=== PATIENT | male | born 1955 | race Two or more races ===

== ENCOUNTER 2020-02-13 06:05 | Outpatient (REF) | payer MEDICAID, SELFPAY ==
[2020-02-13 07:47] LABS: MANUAL DIFF FLAG NO
[2020-02-13 07:51] LABS: Basophils Percent Auto 0.6 % (0-2); Eosinophils Absolute Auto 0.2 X10*3/uL (0.0-0.4); Eosinophils Percent Auto 4.6 % (0-4); Hematocrit 40.9 % (42-52); Hemoglobin 13.5 g/dl (14.0-18.0); Imm Gran Abs Auto 0.01 X10*3/uL (0.00-0.03); Imm Gran Pct Auto 0.3 % (0.0-0.4); Lymphocytes Absolute Auto 1.5 X10*3/uL (1.2-4.9); Lymphocytes Percent Auto 44.5 % (20-40); Mean Corpuscular Hemoglobin 29.4 pg (27.0-33.0); Mean Corpuscular Volume 89.1 fL (80-98); Mean Platelet Volume 10.8 fL (9.4-12.4); Monocytes Absolute Auto 0.4 X10*3/uL (0.1-1.2); Monocytes Percent Auto 10.7 % (2-11); Neutrophils Absolute Auto 1.4 X10*3/uL (2.0-8.3); Neutrophils Percent Auto 39.3 % (45-73); Platelet Count 231 X10*3/uL (160-400); Red Blood Count 4.59 X10*6/uL (4.60-5.80); Red Cell Distribution Width 13.1 % (11.0-16.0); White Blood Count 3.5 X10*3/uL (4.8-10.8)
[2020-02-13 08:17] LABS: Alanine Aminotransferase 28 U/L (0-40); Albumin Level 4.6 g/dL (3.5-5.0); Alkaline Phosphatase 75 U/L (39-117); Anion Gap 13 (12-20); Aspartate Amino Transferase 28 U/L (5-37); Bilirubin Total 0.7 mg/dL (0.0-1.0); Blood Urea Nitrogen 17 mg/dL (9-16); Calcium 9.3 mg/dL (8.4-10.2); Carbon Dioxide 25 mmol/L (22-29); Chloride 108 mmol/L (96-108); Cholesterol 134 mg/dL; Estimated Glomerular Filt Rate 59; Glucose Fasting 130 mg/dL (60-99); HDL Cholesterol 38 mg/dL; LDL Cholesterol Calculated 75 mg/dl; Potassium 4.5 mmol/l (3.3-5.1); Sodium 141 mmol/L (135-145); Total Protein 7.7 g/dL (6.5-8.0); Triglycerides 109 mg/dL
[2020-02-13 08:42] LABS: TSH reflex Free T4 2.35 mIU/mL (0.32-4.0)
[2020-02-13 08:59] LABS: Folate 17.7 ng/mL (> or = 4.0); Vitamin B12 462 pg/mL (200-900)
[2020-02-13 10:14] LABS: Creatinine Urine 64.37 mg/dL
== END 2020-02-13 06:06 | disposition home or self-care (01) ==
LOC: HO.LAB 06:05
PROVIDERS: Visit Provider Internal Medicine
DX: E78.2 Mixed hyperlipidemia (principal); R41.3 Other amnesia; E11.9 Type 2 diabetes mellitus without complications
CPT/HCPCS: 36415; 80053; 80061; 82043; 82607; 82746; 84443; 85025

== ENCOUNTER 2020-06-08 11:53 | Outpatient (REF) | payer MEDICARE, MEDICAID, SELFPAY ==
[2020-06-08 13:06] LABS: Creatinine Urine 80.34 mg/dL; Microalbum/Creatinine Ratio Ur 58.5 ug/mg cr
== END 2020-06-08 11:54 | disposition home or self-care (01) ==
LOC: HO.LNP 11:53
PROVIDERS: Visit Provider Internal Medicine
DX: E11.9 Type 2 diabetes mellitus without complications (principal); D64.9 Anemia, unspecified; E78.5 Hyperlipidemia, unspecified; Z79.4 Long term (current) use of insulin; E55.9 Vitamin D deficiency, unspecified
CPT/HCPCS: 82043

== ENCOUNTER 2020-09-30 11:35 | Outpatient (REF) | payer MEDICARE, MEDICAID, SELFPAY ==
[2020-09-30 12:18] LABS: MANUAL DIFF FLAG NO
[2020-09-30 12:24] LABS: Basophils Percent Auto 0.5 % (0-2); Eosinophils Absolute Auto 0.1 X10*3/uL (0.0-0.4); Eosinophils Percent Auto 2.4 % (0-4); Hematocrit 38.7 % (42-52); Hemoglobin 13.1 g/dl (14.0-18.0); Imm Gran Abs Auto 0.01 X10*3/uL (0.00-0.03); Imm Gran Pct Auto 0.3 % (0.0-0.4); Lymphocytes Absolute Auto 1.5 X10*3/uL (1.2-4.9); Lymphocytes Percent Auto 41.8 % (20-40); Mean Corpuscular HGB Conc 33.9 g/dl (31.0-36.0); Mean Corpuscular Hemoglobin 29.7 pg (27.0-33.0); Mean Corpuscular Volume 87.8 fL (80-98); Mean Platelet Volume 10.6 fL (9.4-12.4); Monocytes Absolute Auto 0.4 X10*3/uL (0.1-1.2); Monocytes Percent Auto 10.3 % (2-11); Neutrophils Absolute Auto 1.6 X10*3/uL (2.0-8.3); Neutrophils Percent Auto 44.7 % (45-73); Platelet Count 204 X10*3/uL (160-400); Red Blood Count 4.41 X10*6/uL (4.60-5.80); Red Cell Distribution Width 13.1 % (11.0-16.0); White Blood Count 3.7 X10*3/uL (4.8-10.8)
[2020-09-30 12:45] LABS: Phosphorus 3.5 mg/dL (2.7-4.5)
[2020-09-30 13:18] LABS: Folate 16.9 ng/mL (> or = 4.0); Vitamin B12 305 pg/mL (200-900)
[2020-09-30 13:42] LABS: Alanine Aminotransferase 17 U/L (0-40); Albumin Level 4.4 g/dL (3.5-5.0); Alkaline Phosphatase 85 U/L (39-117); Anion Gap 14 (12-20); Aspartate Amino Transferase 21 U/L (5-37); Bilirubin Total 0.6 mg/dL (0.0-1.0); Blood Urea Nitrogen 15 mg/dL (9-16); Calcium 9.7 mg/dL (8.4-10.2); Carbon Dioxide 22 mmol/L (22-29); Chloride 110 mmol/L (96-108); Cholesterol 138 mg/dL; Estimated Glomerular Filt Rate > 60; Glucose Fasting 104 mg/dL (60-99); HDL Cholesterol 41 mg/dL; Iron 110 mcg/dL (45-160); LDL Cholesterol Calculated 70 mg/dl; Percent Iron Saturation 32 % (15-50); Potassium 4.7 mmol/L (3.3-5.1); Sodium 141 mmol/L (135-145); Total Iron Binding Capacity 348 mcg/dL (228-428); Total Protein 7.4 g/dL (6.5-8.0); Triglycerides 135 mg/dL; Unsaturated Iron Binding 238 ug/dL
[2020-09-30 14:18] LABS: Creatinine Urine 61.99 mg/dL; Microalbum/Creatinine Ratio Ur 20.9 ug/mg cr
[2020-09-30 14:35] LABS: Renal w Reflex Lab Use Only Order verified
[2020-10-04 13:37] LABS: Vitamin D 25-OH, D2 <4 ng/mL; Vitamin D 25-OH, D3 23 ng/mL; Vitamin D 25-OH, Total 23 ng/mL (30-100)
== END 2020-09-30 11:36 | disposition home or self-care (01) ==
LOC: HO.LAB 11:35
PROVIDERS: Absent Provider Internal Medicine; PCP Internal Medicine; Visit Provider Internal Medicine Nephrology
DX: I12.9 Hypertensive chronic kidney disease with stage 1 through stage 4 chronic kidney disease, or unspecified chronic kidney disease (principal); M18.9 Osteoarthritis of first carpometacarpal joint, unspecified; R80.9 Proteinuria, unspecified; D64.9 Anemia, unspecified; E55.9 Vitamin D deficiency, unspecified; E11.22 Type 2 diabetes mellitus with diabetic chronic kidney disease; E78.5 Hyperlipidemia, unspecified; Z79.4 Long term (current) use of insulin
CPT/HCPCS: 36415; 80053; 80061; 82043; 82306; 82607; 82746; 83540; 84100; 85025

== ENCOUNTER 2020-12-21 13:06 | Outpatient (REF) | payer MEDICARE, MEDICAID, SELFPAY ==
[2020-12-21 14:22] LABS: COVID-19 Test Negative (Negative)
== END 2020-12-21 13:07 | disposition home or self-care (01) ==
LOC: HO.LAB 13:06
PROVIDERS: PCP Internal Medicine; Visit Provider Internal Medicine
DX: Z20.822 Contact with and (suspected) exposure to COVID-19 (principal)
CPT/HCPCS: 36415; 87635; C9803

== ENCOUNTER 2021-06-28 11:10 | Outpatient (REF) | payer MEDICARE, MEDICAID, SELFPAY ==
[2021-06-28 12:30] LABS: Alanine Aminotransferase 33 U/L (0-40); Albumin Level 4.3 g/dL (3.5-5.0); Alkaline Phosphatase 90 U/L (39-117); Anion Gap 12 (12-20); Aspartate Amino Transferase 32 U/L (5-37); Bilirubin Total 0.5 mg/dL (0.0-1.0); Blood Urea Nitrogen 11 mg/dL (9-16); Calcium 9.5 mg/dL (8.4-10.2); Carbon Dioxide 24 mmol/L (22-29); Chloride 108 mmol/L (96-108); Cholesterol 163 mg/dL; Estimated Glomerular Filt Rate > 60; Glucose Fasting 124 mg/dL (60-99); HDL Cholesterol 45 mg/dL; LDL Cholesterol Calculated 82 mg/dl; Potassium 4.4 mmol/L (3.3-5.1); Sodium 140 mmol/L (135-145); Total Protein 7.6 g/dL (6.5-8.0); Triglycerides 183 mg/dL
[2021-06-28 12:42] LABS: Vitamin D 25-OH Total 34.4 ng/mL (>30)
[2021-06-28 13:14] LABS: Creatinine Urine 80.15 mg/dL; Microalbum/Creatinine Ratio Ur 38.6 ug/mg cr
== END 2021-06-28 11:11 | disposition home or self-care (01) ==
LOC: HO.LAB 11:10
PROVIDERS: PCP Internal Medicine; Visit Provider Internal Medicine
DX: E78.5 Hyperlipidemia, unspecified (principal); E55.9 Vitamin D deficiency, unspecified; E11.9 Type 2 diabetes mellitus without complications; Z79.4 Long term (current) use of insulin
CPT/HCPCS: 36415; 80053; 80061; 82043; 82306

== ENCOUNTER 2021-11-01 11:04 | Outpatient (REF) | payer OTHER, SELFPAY ==
[2021-11-01 12:32] LABS: Alanine Aminotransferase 16 U/L (0-40); Albumin Level 4.4 g/dL (3.5-5.0); Alkaline Phosphatase 70 U/L (39-117); Anion Gap 15 (12-20); Aspartate Amino Transferase 19 U/L (5-37); Bilirubin Total 0.5 mg/dL (0.0-1.0); Blood Urea Nitrogen 21 mg/dL (9-16); Calcium 9.8 mg/dL (8.4-10.2); Carbon Dioxide 23 mmol/L (22-29); Chloride 108 mmol/L (96-108); Cholesterol 169 mg/dL; Estimated Glomerular Filt Rate 58; Glucose Fasting 124 mg/dL (60-99); HDL Cholesterol 46 mg/dL; LDL Cholesterol Calculated 80 mg/dl; Potassium 5.1 mmol/L (3.3-5.1); Sodium 141 mmol/L (135-145); Total Protein 7.6 g/dL (6.5-8.0); Triglycerides 218 mg/dL
[2021-11-01 13:18] LABS: Microalbum/Creatinine Ratio Ur 35.5 ug/mg cr
[2021-11-05 14:41] LABS: Vitamin D 25-OH, D2 <4 ng/mL; Vitamin D 25-OH, D3 49 ng/mL; Vitamin D 25-OH, Total 49 ng/mL (30-100)
== END 2021-11-01 11:05 | disposition home or self-care (01) ==
LOC: HO.LAB 11:04
PROVIDERS: PCP Internal Medicine; Visit Provider Internal Medicine
DX: E11.9 Type 2 diabetes mellitus without complications (principal); E55.9 Vitamin D deficiency, unspecified; E78.5 Hyperlipidemia, unspecified; I10 Essential (primary) hypertension
CPT/HCPCS: 36415; 80053; 80061; 82043; 82306

== ENCOUNTER 2021-11-22 12:23 | Outpatient (REF) | payer OTHER, SELFPAY ==
[2021-11-22 13:27] LABS: Anion Gap 14 (12-20); Blood Urea Nitrogen 21 mg/dL (9-16); Calcium 9.4 mg/dL (8.4-10.2); Carbon Dioxide 23 mmol/L (22-29); Chloride 107 mmol/L (96-108); Estimated Glomerular Filt Rate > 60; Potassium 4.5 mmol/L (3.3-5.1); Sodium 139 mmol/L (135-145)
[2021-11-22 16:56] LABS: Creatinine Urine 55.03 mg/dL; Total Protein Urine Random < 7 mg/dL (<12)
== END 2021-11-22 12:24 | disposition home or self-care (01) ==
LOC: HO.LAB 12:23
PROVIDERS: PCP Internal Medicine; Visit Provider Internal Medicine Nephrology
DX: I10 Essential (primary) hypertension (principal); E11.21 Type 2 diabetes mellitus with diabetic nephropathy
CPT/HCPCS: 36415; 80051; 82310; 82565; 84156; 84520

== ENCOUNTER 2022-02-07 06:41 | Emergency (ER) | payer OTHER, SELFPAY ==
--- NOTE | ~2022-02-07 | XR_ITS ---
EXAMINATION: XR LUMBOSACRAL SPINE CLINICAL INFORMATION: Low back pain. No injury. COMPARISON: None TECHNIQUE: Three views of the lumbosacral spine. FINDINGS: There is normal lumbar lordosis. The vertebral heights, alignment and disc heights are normal. There is mild ventral spondylosis throughout lumbar spine. No acute lytic or sclerotic process. No acute fracture or subluxation. SI joints are symmetrical and normal. XR/XR lumbar spine 2-3V IMPRESSION: Mild ventral spondylosis throughout lumbar spine. No visible acute fracture or dislocation seen.
[2022-02-07 07:01] VITALS: BP 130/48; PULSE 63; RESP 16; TEMP 36.1; O2SAT 96; BMI 25.7
[2022-02-07 08:34] VITALS: BP 107/66; PULSE 57; RESP 16; O2SAT 98
--- NOTE | 2022-02-07 08:41 | ED_ITS ---
HPI - Back Pain/Injury General Chief Complaint: Back Pain/Injury Stated Complaint: back pain Time Seen by Provider: 02/07/22 08:00 Source: patient Mode of arrival: ambulatory Limitations: no limitations History of Present Illness HPI Narrative: Patient presents emergency department for evaluation of left lower back pain. Onset of symptoms was a few days ago while at work. 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 The pain became increasingly worse as of yesterday. He has not tried any [id number] pain medications. He states that he took a dose of ampicillin 500 mg which he received from [facility] as he thought this might help the pain which it did not. Denies any specific precipitating injury, fevers, chills, burning with micturition, urinary frequency/urgency/hesitancy, bladder or bowel dysfunction, numbness or tingling of the perineum or bilateral legs. Denies any recent surgical procedures, any known immune compromising conditions, personal history of cancer, or IV drug usage. MD elicited complaint: back pain Related Data Previous Rx's Medication Instructions Recorded blood-glucose meter (FreeStyle 1 ea miscellaneous DIRECTED #1 03/08/20 [place] Lite kit) kit cholecalciferol (vitamin D3) 25 25 mcg PO DAILY 90 days #90 caps 11/09/21 mcg (1,000 unit) capsule fenofibrate 54 mg tablet 54 mg PO DAILY 90 days #90 tabs 11/09/21 losartan 100 mg tablet 100 mg PO DAILY 90 days #90 tabs 11/09/21 metformin 1,000 mg tablet 1,000 mg PO BID 90 days #180 tabs 11/09/21 pioglitazone 30 mg tablet 30 mg PO DAILY 90 days #90 tabs 11/09/21 simvastatin 10 mg tablet 10 mg PO DAILY 90 days #90 tabs 11/09/21 tamsulosin 0.4 mg capsule 0.4 mg PO DAILY 90 days #90 caps 11/09/21 tramadol 50 mg tablet 50 mg PO Q6H PRN pain 30 days #120 11/09/21 tabs zolpidem 10 mg tablet 10 mg PO BEDTIME 30 days #30 tabs 11/09/21 aspirin 81 mg tablet,delayed 81 mg PO DAILY 90 days #90 tabs 11/15/21 release (Adult Low Dose Aspirin) bisacodyl 5 mg tablet,delayed 10 mg PO ONCE 1 day #2 tabs 11/16/21 release (Dulcolax (bisacodyl)) polyethylene glycol 3350 17 238 g PO ONCE 1 day #238 grams 11/16/21 gram/dose oral powder (Miralax) lidocaine 5 % topical patch 1 patch topical DAILY #15 ea 02/07/22 (Lidoderm) tizanidine 4 mg capsule 4 mg PO BEDTIME PRN muscle 02/07/22 spasticity #10 caps Allergies Allergy/AdvReac Type Severity Reaction Status Date / Time No Known Allergies Allergy Verified 11/09/21 15:49 Review of Systems Review of Systems: Constitutional: No weight loss, fever, chills, weakness or fatigue. HEENT: No visual loss, blurred vision, double vision. No hearing loss, sneezing, congestion, runny nose or sore throat. Skin: No rash or itching. Cardiovascular: No chest pain, chest pressure or chest discomfort. No palpitations or pedal edema. Respiratory: No shortness of breath, cough or sputum production. Gastrointestinal: No anorexia, nausea, vomiting or diarrhea. No abdominal pain or blood in stool. Genitourinary: No burning micturition. No urinary frequency or incontinence. Neurologic: No headache, dizziness, syncope, unilateral weakness, ataxia, numbness or tingling in the extremities. No change in bowel or bladder control. Musculoskeletal: + Back pain as noted in HPI. No joint pain or stiffness. Hematologic: No bleeding or bruising. Lymphatics: No enlarged lymph nodes. Psychiatric:No depression or anxiety. Endocrine: No reports of sweating. No cold or heat intolerance. No polyuria or polydipsia. Yes all other systems are reviewed and are negative [facility] Past Medical History Attestation statement: The following information was validated with the patient. Source: old records reviewed Medical History Anemia Essential hypertension Headache Insomnia Mixed hyperlipidemia Primary insomnia Surgical History History of cataract surgery Family History Family History Father No problems noted. Mother Diabetes Hypertension Daughter No problems noted. Son No problems noted. Sister No problems noted. Brother No problems noted. Social History Social History Housing: Apartment Alcohol intake: never Patient Tobacco Use Status: Never used Tobacco Smoked in Last 30 Days: No e-Cigarette/Vaping Use: Never Used Second Hand Smoke Exposure: No Use of substances other than those prescribed or required for medical reasons: No Advance Directives: No Advance Directives Information Provided: Yes service: No Current occupational status: employed Current occupational exposures/hazards: No Cognitive needs: No Hearing needs: No Vision needs: No Physical Exam Vital Signs: Vital Signs: Last Vital Signs Temp 97.9 F 02/07/22 09:26 Pulse 52 02/07/22 09:26 Resp 18 02/07/22 09:26 BP 117/60 02/07/22 09:26 Pulse Ox 98 02/07/22 09:26 O2 Del Method 02/07/22 09:26 BMI result Body Mass Index 25.7 Vital signs have been reviewed as normal and appeared to be correct. Blood pressure normal.? Heart rate normal.? Respiration rate normal. Temperature normal.? Oxygen saturation normal. Appearance: Alert.?Oriented to person, place and time. No acute distress.?Normal affect. Eyes: Pupils equal, round and reactive to light.? ENT: Pharynx normal.?? Neck: Normal inspection.? Neck supple.?? CVS: Heart sounds normal. Normal heart rate and rhythm.? Pulses normal; bilateral radial pulses 2+, bilateral posterior tibial/dorsalis pedis pulses 2+.? Respiratory: No respiratory distress.? Lung sounds clear to auscultation bilaterally?? Abdomen: Soft and non-tender. Normoactive bowel sounds. No CVA tenderness? Skin: Skin warm and dry.? Normal skin color.? Normal skin turgor.?? Extremities: No lower extremity edema.? No calf ttp? Back: + mild paraspinal muscular tenderness from lumbar region to coccyx. No CVA tenderness. No midline spinal tenderness, step-off's, or deformity. Full ROM intact in bilateral lower extremities. Straight leg test positive on right; Straight leg test positive on left. No rashes, lesions, areas of induration or fluctuance, or signs of infection noted., Neuro: Moves all extremities spontaneously. 5/5 strength in hip extension/flexion, abduction, adduction. Sensation to light touch intact bilaterally. Patellar and Achilles reflex 2+ bilaterally. No ataxia, gait normal and steady.. No focal neuro deficits. Course Course Course Narrative: Patient is a 66-year-old male with a past medical history of type 2 diabetes, hypertension, anemia, hyperlipidemia who presents emergency department for evaluation of left lower back pain. At the time of examination he is overall well-appearing, he is afebrile without tachycardia tachypnea or hypoxia. He has no CVA tenderness, his abdominal examination is benign. Urinalysis obtained reveals no microscopic hematuria or evidence of infection. Based on history and physical examination, Pain is most consistent with muscular pain, although cannot completely exclude herniated disc. On neurological exam there are no deficits. XR obtained reveals mild ventral spondylosis no acute fracture dislocation. Not consistent with spinal fracture, spinal infection, epidural abscess, AAA, epidural abscess, or dissection. No high risk past medical history including incontinence, fever, immunosuppression, recent surgery or lumbar puncture, coagulopathy, significant trauma, recent unintentional weight loss, pulsatile mass, history of cancer, history of TB, history of IV drug use that would warrant MRI or CT. Not consistent with pyelonephritis, urinary tract infection, renal calculi, appendicitis, diverticulitis. On exam no concern for cauda equina syndrome. No additional imaging is currently indicated at this time. Plan for discharge home with a prescription for Lidoderm patch, tizanidine, gentle stretching exercises, ice/heat, reviewed worsening signs and symptoms to return back to the emergency department for, and follow-up with primary care provider, and patient agreed with plan. Medications Administered Discontinued Medications Generic Name Dose Route Start Last Admin Trade Name Paulino PRN Reason Stop Dose Admin Acetaminophen 975 mg 02/07/22 08:39 02/07/22 09:36 Acetaminophen 325 Mg Tablet PO 02/07/22 08:40 975 mg ONCE ONE Administration Lidocaine 1 patch 02/07/22 08:39 02/07/22 09:36 Lidocaine 4 % Patch Adh..Patch TRANSDERMA 02/07/22 08:40 1 patch ONCE ONE Administration Protocol MDM - Back Pain/Injury Medical Records Attestation: I reviewed the patient's medical records. Lab Data Attestation: I reviewed the patient's lab results. Labs: Lab Results 02/07/22 Range/Units 08:35 Urine Color Yellow Urine Appearance Clear Urine pH 5.0 (5.0-9.0) Ur Specific [place] 1.015 (1.005-1.025) Urine Protein Negative (Neg-Trace) mg/dL Urine Glucose (UA) Negative (Negative) mg/dL Urine Ketones Negative (Negative) mg/dL Urine Blood Negative (Negative) Urine Nitrite Negative (Negative) Ur Leukocyte Esterase Negative (Negative) Imaging Data XR L spine: Radiologist's impression: FINDINGS: There is normal lumbar lordosis. The vertebral heights, alignment and disc heights are normal. There is mild ventral spondylosis throughout lumbar spine. No acute lytic or sclerotic process. No acute fracture or subluxation. SI joints are symmetrical and normal. XR/XR lumbar spine 2-3V IMPRESSION: Mild ventral spondylosis throughout lumbar spine. No visible acute fracture or dislocation seen. Discharge Plan Discharge Clinical Impression: Strain of lumbar paraspinous muscle Patient Disposition: Home, Self-Care Instructions: Acute Low Back Pain (ED), R.I.C.E. Treatment (ED), Lower Back Exercises (ED) Additional Instructions: You can take Tylenol 500 mg, 2 tablets (1,000mg) every 4-6 hours as needed for pain, but not to exceed 3 doses daily (3,000mg). Apply Lidoderm patch to the area of most pain leave on for 12 hours and remove for 12 hours. You can use ice or heat to the area for 10-15 minutes 3-4 times daily, however the ice or heat should not be applied directly over the Lidoderm patch. You have also been given a prescription for a muscle relaxant, tizanidine, to t aaron as needed for pain at bedtime. This medication may make you drowsy, you should not drive, drink alcohol, or go to work taking this medication. Please contact your primary care provider and arrange for a follow-up visit within the next 3 days Return back to emergency department with any new or worsening symptoms or concerns ? Prescriptions: New lidocaine [Lidoderm] 5 % adhesive patch,medicated 1 patch topical DAILY Qty: 15 0RF Rx Instructions: leave on most painful area for up to 12 hrs tizanidine 4 mg capsule 4 mg PO BEDTIME PRN (Reason: muscle spasticity) Qty: 10 0RF No Action blood-glucose meter [FreeStyle [place] Lite] Kit 1 ea miscellaneous DIRECTED Qty: 1 0RF aspirin [Adult Low Dose Aspirin] 81 mg tablet,delayed release (DR/EC) 81 mg PO DAILY 90 Days Qty: 90 3RF bisacodyl [Dulcolax (bisacodyl)] 5 mg tablet,delayed release (DR/EC) 10 mg PO ONCE 1 Days Qty: 2 0RF Rx Instructions: take orally as directed prior to colonoscopy polyethylene glycol 3350 [Miralax] 17 gram/dose powder 238 g PO ONCE 1 Days Qty: 238 0RF Rx Instructions: take orally as directed prior to colonoscopy zolpidem 10 mg tablet 10 mg PO BEDTIME 30 Days Qty: 30 0RF tramadol 50 mg tablet 50 mg PO Q6H PRN (Reason: pain) 30 Days Qty: 120 0RF tamsulosin 0.4 mg capsule 0.4 mg PO DAILY 90 Days Qty: 90 3RF simvastatin 10 mg tablet 10 mg PO DAILY 90 Days Qty: 90 3RF pioglitazone 30 mg tablet 30 mg PO DAILY 90 Days Qty: 90 0RF metformin 1,000 mg tablet 1,000 mg PO BID 90 Days Qty: 180 3RF losartan 100 mg tablet 100 mg PO DAILY 90 Days Qty: 90 3RF fenofibrate 54 mg tablet 54 mg PO DAILY 90 Days Qty: 90 3RF cholecalciferol (vitamin D3) 25 mcg (1,000 unit) capsule 25 mcg PO DAILY 90 Days Qty: 90 0RF Referrals: Yecenia Hutchins MD [Primary Care Provider] - Interventions: ED Discharge Assessment Last Done: 02/07/22 09:47 Discharge Date/Time: 02/07/22 09:49
[2022-02-07 08:46] LABS: Appearance Urine Clear; Color Urine Yellow; Glucose Urine UA Negative (Negative); Leukocyte Esterase Urine Negative (Negative); Nitrite Urine Negative (Negative); Specific Gravity - Urine 1.015 (1.005-1.025); Urine Blood Negative (Negative); Urine Ketones Negative (Negative); Urine Protein Negative (Neg-Trace)
[2022-02-07 09:26] VITALS: BP 117/60; PULSE 52; RESP 18; TEMP 36.6; O2SAT 98
[2022-02-07] MEDS: Lidocaine 4 % Patch ADH..PATCH 1 PATCH TRANSDERMA (09:36)
[2022-02-07] MEDS: Acetaminophen 325 MG TABLET 975 MG PO (09:36)
== END 2022-02-07 09:49 | disposition home or self-care (01) ==
PROVIDERS: Nurse Practitioner Family; Emergency Provider Emergency Medicine Emergency Medical Services; PCP Internal Medicine
DX: S39.012A Strain of muscle, fascia and tendon of lower back, initial encounter (principal); X50.0XXA Overexertion from strenuous movement or load, initial encounter; I10 Essential (primary) hypertension; E11.9 Type 2 diabetes mellitus without complications; E78.5 Hyperlipidemia, unspecified; Z79.84 Long term (current) use of oral hypoglycemic drugs; Z79.02 Long term (current) use of antithrombotics/antiplatelets; Z79.899 Other long term (current) drug therapy; Z79.82 Long term (current) use of aspirin; Y93.E5 Activity, floor mopping and cleaning; Y92.512 Supermarket, store or market as the place of occurrence of the external cause; Y99.0 Civilian activity done for income or pay
CPT/HCPCS: 72100; 81003; 99283; 99284

== ENCOUNTER 2022-02-27 05:08 | Emergency (ER) | payer OTHER, SELFPAY ==
--- NOTE | ~2022-02-27 | XR_ITS ---
EXAMINATION: XR CHEST CLINICAL INFORMATION: Cough. COMPARISON: 08/02/2012 chest radiograph. TECHNIQUE: 2 views of the chest were obtained. FINDINGS: No significant abnormality is noted involving the heart, lungs, mediastinum, bony thorax or soft tissues. XR/XR chest 2V IMPRESSION: No acute cardiopulmonary process.
[2022-02-27 05:14] VITALS: BP 142/89; PULSE 69; RESP 18; TEMP 36.6; O2SAT 95; BMI 27.3
[2022-02-27 05:40] LABS: Strep A Nucleic Acid Negative (Negative)
[2022-02-27 06:14] LABS: Influenza A PCR NEGATIVE (Negative); Influenza B PCR NEGATIVE (Negative); Resp Syncy Virus RNA Qual PCR NEGATIVE (Negative); SARS COV2 PCR INHOUSE NEGATIVE (Negative)
--- NOTE | 2022-02-27 06:42 | PC.NURSE ---
Patient is resting quietly. No respiratory distress.
--- NOTE | 2022-02-27 06:45 | ED.GENADULT ---
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 Patient with sore throat, cough and epistaxisis. Left ear pain. The nose is dripping back and his is coughing up blood. Patient has had these for 8 days. Related Data Previous Rx's Medication Instructions Recorded blood-glucose meter (FreeStyle 1 ea miscellaneous DIRECTED #1 03/08/20 [place] Lite kit) kit cholecalciferol (vitamin D3) 25 25 mcg PO DAILY 90 days #90 caps 11/09/21 mcg (1,000 unit) capsule fenofibrate 54 mg tablet 54 mg PO DAILY 90 days #90 tabs 11/09/21 losartan 100 mg tablet 100 mg PO DAILY 90 days #90 tabs 11/09/21 metformin 1,000 mg tablet 1,000 mg PO BID 90 days #180 tabs 11/09/21 pioglitazone 30 mg tablet 30 mg PO DAILY 90 days #90 tabs 11/09/21 simvastatin 10 mg tablet 10 mg PO DAILY 90 days #90 tabs 11/09/21 zolpidem 10 mg tablet 10 mg PO BEDTIME 30 days #30 tabs 11/09/21 aspirin 81 mg tablet,delayed 81 mg PO DAILY 90 days #90 tabs 11/15/21 release (Adult Low Dose Aspirin) bisacodyl 5 mg tablet,delayed 10 mg PO ONCE 1 day #2 tabs 11/16/21 release (Dulcolax (bisacodyl)) polyethylene glycol 3350 17 238 g PO ONCE 1 day #238 grams 11/16/21 gram/dose oral powder (Miralax) lidocaine 5 % topical patch 1 patch topical DAILY #15 ea 02/07/22 (Lidoderm) tizanidine 4 mg capsule 4 mg PO BEDTIME PRN muscle 02/07/22 spasticity #10 caps tamsulosin 0.4 mg capsule 0.4 mg PO DAILY 90 days #90 caps 02/16/22 tramadol 50 mg tablet 50 mg PO Q6H PRN pain 30 days #120 02/16/22 tabs Allergies Allergy/AdvReac Type Severity Reaction Status Date / Time No Known Allergies Allergy Verified 02/16/22 13:03 [facility] Past Medical History Medical History Anemia Essential hypertension Headache Insomnia Mixed hyperlipidemia Primary insomnia Surgical History History of cataract surgery Family History Family History Father No problems noted. Mother Diabetes Hypertension Daughter No problems noted. Son No problems noted. Sister No problems noted. Brother No problems noted. Social History Social History Housing: Apartment Alcohol intake: never Patient Tobacco Use Status: Never used Tobacco Smoked in Last 30 Days: No e-Cigarette/Vaping Use: Never Used Second Hand Smoke Exposure: No Use of substances other than those prescribed or required for medical reasons: No Advance Directives: No Advance Directives Information Provided: Yes service: No Current occupational status: employed Current occupational exposures/hazards: No Cognitive needs: No Hearing needs: No Vision needs: No Physical Exam ED Vital Signs: Vital Signs - 24 hr 02/27/22 05:14 02/27/22 07:29 Temperature 97.8 F 97.9 F Pulse Rate 69 58 Respiratory Rate 18 18 Blood Pressure 142/89 H 134/72 Pulse Oximetry 95 96 Oxygen Delivery Method Room Air Room Air BMI result Body Mass Index 27.3 Const General: healthy appearing Nutritional Appearance: average body habitus Orientation/consciousness: oriented to person and patient oriented x3 Limitations: no limitations HENMT Other: left ear cerumen plug, apthous ulcer on his uvula Head: Yes normal to inspection General nose exam: Normal external nose present Throat: Yes posterior oropharynx normal Eyes General: appearance normal, both eyes and all related structures Neck Neck: Yes normal visual inspection Chest Chest palpation & inspection: normal inspection of the chest Resp Auscultation: clear to auscultation bilaterally Cardio Jugular venous distension: no JVD Rate: regular rate Rhythm: regular rhythm Heart sounds: S1 normal heart sound present and S2 normal heart sound present GI Inspection: Yes normal to inspection Palpation (GI): Soft to palpation, nontender and No hepatosplenomegaly present Auscultation: normal bowel sounds General: Yes no CVA tenderness Back/Spine/Pelvis Back: no CVA tenderness Skin General skin exam: no rashes or lesions noted Neuro General: oriented to person and patient oriented x3 Cranial nerves: Yes CN's II-XII intact bilaterally Motor exam (neuro): 5/5 motor strength present throughout Extrem General: Yes normal to inspection Psych Appearance: grossly normal Course Reevaluation(s) Reevaluation #1: patient with viral URI with viral pharyngitis and apthous ulcer, visualized nares not active bleeding so I did not cauterize, CXR negative will dc home Time: 09:03 Medications Administered Discontinued Medications Generic Name Dose Route Start Last Admin Trade Name Freq PRN Reason Stop Dose Admin Oxymetazoline HCl 2 spray 02/27/22 07:29 02/27/22 08:00 Oxymetazoline Hcl 0.05 % Nasal 15 Ml [place] NOSTRIL-B 02/27/22 07:30 2 spray ONCE ONE Administration Silver Nitrate 1 appl 02/27/22 07:29 02/27/22 08:00 Silver Nitrate Applicator Stick..Ea. TOPICAL 02/27/22 07:30 1 appl ONCE ONE Administration Medical Decision Making Lab Data Labs: Lab Results 02/27/22 02/27/22 Range/Units 05:25 05:25 Influenza Type A (PCR) NEGATIVE (Negative) Influenza Type B (PCR) NEGATIVE (Negative) RSV RNA Qual (PCR) NEGATIVE (Negative) SARS-CoV-2 RNA (RT-PCR) NEGATIVE (Negative) S. pyogenes GrpA MICKEY Negative (Negative) Imaging Data Chest x-ray: Radiologist's impression: No significant abnormality is noted involving the heart, lungs, mediastinum, bony thorax or soft tissues. XR/XR chest 2V IMPRESSION: No acute cardiopulmonary process. Discharge Plan Discharge Clinical Impression: Viral URI, Acute viral pharyngitis, Epistaxis Patient Disposition: Home, Self-Care Instructions: Pharyngitis (ED), Upper Respiratory Infection (ED), Nosebleed (ED) Prescriptions: No Action blood-glucose meter [FreeStyle [place] Lite] Kit 1 ea miscellaneous DIRECTED Qty: 1 0RF aspirin [Adult Low Dose Aspirin] 81 mg tablet,delayed release (DR/EC) 81 mg PO DAILY 90 Days Qty: 90 3RF bisacodyl [Dulcolax (bisacodyl)] 5 mg tablet,delayed release (DR/EC) 10 mg PO ONCE 1 Days Qty: 2 0RF Rx Instructions: take orally as directed prior to colonoscopy polyethylene glycol 3350 [Miralax] 17 gram/dose powder 238 g PO ONCE 1 Days Qty: 238 0RF Rx Instructions: take orally as directed prior to colonoscopy lidocaine [Lidoderm] 5 % adhesive patch,medicated 1 patch topical DAILY Qty: 15 0RF Rx Instructions: leave on most painful area for up to 12 hrs tizanidine 4 mg capsule 4 mg PO BEDTIME PRN (Reason: muscle spasticity) Qty: 10 0RF tramadol 50 mg tablet 50 mg PO Q6H PRN (Reason: pain) 30 Days Qty: 120 0RF tamsulosin 0.4 mg capsule 0.4 mg PO DAILY 90 Days Qty: 90 3RF zolpidem 10 mg tablet 10 mg PO BEDTIME 30 Days Qty: 30 0RF simvastatin 10 mg tablet 10 mg PO DAILY 90 Days Qty: 90 3RF pioglitazone 30 mg tablet 30 mg PO DAILY 90 Days Qty: 90 0RF metformin 1,000 mg tablet 1,000 mg PO BID 90 Days Qty: 180 3RF losartan 100 mg tablet 100 mg PO DAILY 90 Days Qty: 90 3RF fenofibrate 54 mg tablet 54 mg PO DAILY 90 Days Qty: 90 3RF cholecalciferol (vitamin D3) 25 mcg (1,000 unit) capsule 25 mcg PO DAILY 90 Days Qty: 90 0RF Referrals: Yecenia Hutchins MD [Primary Care Provider] - 1 week
[2022-02-27 07:29] VITALS: BP 134/72; PULSE 58; RESP 18; TEMP 36.6; O2SAT 96
[2022-02-27] MEDS: Silver Nitrate Applicator STICK..EA. 1 APPL TOPICAL (08:00)
[2022-02-27] MEDS: Oxymetazoline HCl 0.05 % Nasal 15 ML SPRAY 2 SPRAY NOSTRIL-B (08:00)
== END 2022-02-27 09:18 | disposition home or self-care (01) ==
PROVIDERS: Emergency Provider Emergency Medicine; PCP Internal Medicine
DX: J06.9 Acute upper respiratory infection, unspecified (principal); J02.9 Acute pharyngitis, unspecified; R04.0 Epistaxis; Z20.822 Contact with and (suspected) exposure to COVID-19
CPT/HCPCS: 0241U; 36415; 71046; 87651; 99283; 99284

== ENCOUNTER → 2022-03-17 13:54 | Outpatient (BNVA) | payer OTHER, MEDICAID, SELFPAY | PROVIDERS: PCP Internal Medicine; Referring Provider Internal Medicine; Visit Provider Nurse Practitioner Family | DX: Z12.11 Encounter for screening for malignant neoplasm of colon (principal) | CPT/HCPCS: 99202 ==

== ENCOUNTER → 2022-06-08 11:27 | Outpatient (BNVA) | payer OTHER, MEDICAID, SELFPAY | PROVIDERS: PCP Internal Medicine; Visit Provider Nurse Practitioner Family | DX: Z01.818 Encounter for other preprocedural examination (principal) | CPT/HCPCS: 99212 ==

== ENCOUNTER 2022-07-06 11:44 | Day surgery (SDC) | payer OTHER, SELFPAY ==
[2022-07-06 11:57] VITALS: BP 128/71; PULSE 71; RESP 16; TEMP 36.4; O2SAT 97
[2022-07-06 12:09] VITALS: BMI 27.3
[2022-07-06 12:18] LABS: Glucose, Whole Blood 143 mg/dL (60-115)
[2022-07-06] MEDS: Lactated Ringers 1,000 ML 80 ML IVCONT (12:21)
--- NOTE | 2022-07-06 12:51 | MHC.SHP ---
Pre-Procedural Eval Section A Date of Service: 07/06/22 Section B Chief Complaint: Encounter for screening for malignant neoplasm of Relevant Family History (Specify if Yes): No Relevant Social History: None Present Medications: see Short Stay Collaborative assessment Medical History: Significant History (Anemia Essential hypertension Headache Insomnia Mixed hyperlipidemia Primary insomnia Tubular adenoma of colon) History of Previous Operations: Relevant previous surgery/procedure and date(s) (cataract) Allergies: Allergies Allergy/AdvReac Type Severity Reaction Status Date / Time No Known Allergies Allergy Verified 07/06/22 12:04 Review of Systems Sugical H&P ROS: Negative: Constitution, Cardiovascular, Respiratory, Neurological, Psychiatric, Hem-Onc, Allergic/Immunologic, Gastrointestinal, Genitourinary, Musculoskeletal, Integumentary, Endocrine and Eyes/Ears/Nose/Throat Exam Surgical H&P Exam: Normal: HEENT, Normal: Heart, Normal: Lungs, Normal: Extremities, Normal: Abdomen, Normal: Skin and Normal: Neurological Plan Diagnosis/Plan: Unchanged I have reviewed the history and physical and performed a pertinent physical examination on my patient. No changes have occurred unless specified. Time Spent With Patient Time: Total time managing care of this patient today ____ minutes.
--- NOTE | 2022-07-06 12:56 | P.OP_ITS ---
Operative Note Operative Note Date of Service: 07/06/22 Narrative: Operative Information Procedure Description: Colonoscopy Indication: screening Anesthesia: MAC COLONOSCOPY Instrument: Olympus variable stiffness ADULT scope 190L Colonoscopy Monitoring: Vital signs and clinical assessment, continuous EKG monitoring, Pulse oximetry, Carbon Dioxide monitoring and blood pressure monitoring were done throughout the procedure. Colon withdrawal time was 6 minutes. Procedure: The patient was placed in the left lateral decubitis position and pre-procedure medications were administered. After a digital rectal examination of the ano-rectum, the video colonoscope was inserted into the rectum and advanced through the colon to the cecum/TI. The colonoscope was slowly withdrawn in a retrograde panoramic fashion and the colon mucosa was carefully examined including a retroflexed view of the rectum. Findings and interventions are described below. Procedure Difficulty: easy Findings: Terminal Ileum-not intubated due to poor prep Cecum:normal Ascending Colon: normal Transverse Colon -normal Descending Colon:normal Sigmoid Colon: normal Rectum: Retroflexion with moderate sized internal hemorrhoids, grade I Anorectum - normal Colon preparation: [place] Bowel Preparation Scale Right colon; 1 Transverse colon: 1 Left colon; 1 (0 = Unprepared colon segment with mucosa not seen due to solid stool that cannot be cleared. 1 = Portion of mucosa of the colon segment seen, but other areas of the colon segment not well seen due to staining, residual stool and/or opaque liquid. 2 = Minor amount of residual staining, small fragments of stool and/or opaque liquid, but mucosa of colon segment seen well. 3 = Entire mucosa of colon segment seen well with no residual staining, small fragments of stool or opaque liquid) Impression and Post Procedure Diagnosis: poor prep internal hemorrhoids Plan: High fiber diet leaflet Avoid straining at stool, epsom salts and sitz bath, anusol supps or cream Repeat Colonoscopy in 6-12 months or earlier if clinically indicated, next time compliance with diet and prep Above findings were reviewed with the patient and relevant handouts were provided if indicated.
--- NOTE | 2022-07-06 13:08 | PC.NURSE ---
Patient ate soup with noodles at [address] 07/[address] Cedillo made aware.
--- NOTE | 2022-07-06 13:22 | P.CONAN_ITS ---
HPI - Anesthesia Eval Consult details Narrative: for screening colonoscopy [facility] Active Problems Active Problems: All Active Problems (Updated 07/05/22 @ 11:43 by Suzi Richardson, RN) DMII (diabetes mellitus, type 2) (Acute) Exposure to COVID-19 virus (Acute) Hypovitaminosis D (Acute) Screen for colon cancer (Acute) Physical exam (Acute) Diabetes mellitus, without long-term current use of insulin (Acute) Headache (Acute) Primary insomnia (Acute) Anemia (Acute) Mixed hyperlipidemia (Acute) Essential hypertension (Acute) Insomnia (Acute) Past Medical History Medical History (Updated 07/05/22 @ 11:43 by Suzi Richardson, RN) Anemia Diabetes Essential hypertension Headache Insomnia Mixed hyperlipidemia Primary insomnia Tubular adenoma of colon Family History Family History Father No problems noted. Mother Diabetes Hypertension Daughter No problems noted. Son No problems noted. Sister No problems noted. Brother No problems noted. Family history of problems with anesthesia: No Surgical History Surgical History (Updated 07/06/22 @ 12:04 by Brittany Pearce) History of cataract surgery History of Problems with Anesthesia: No Social History Social History (Updated 07/03/22 @ 16:27 by Yecenia Castellanos MD) Housing: Apartment Alcohol intake: current Alcohol intake frequency: a few times a month Alcohol type: beer Patient Tobacco Use Status: Never used Tobacco e-Cigarette/Vaping Use: Never Used Second Hand Smoke Exposure: No Use of substances other than those prescribed or required for medical reasons: No Are you DNR?: No Advance Directives: No Advance Directives Information Provided: Yes service: No Current occupational status: employed Current occupational exposures/hazards: No Cognitive needs: No Hearing needs: No Vision needs: No Meds Allergies Allergy/AdvReac Type Severity Reaction Status Date / Time No Known Allergies Allergy Verified 07/06/22 12:04 Active Medications: Current Medications Lactated Ringer's (Lr) 1,000 mls @ 80 mls/hr IVCONT .[id number] CEDRICK Last Admin: 07/06/22 12:21 Dose: 80 mls/hr Exam Exam Date and Time: July 06, 2022 1322 Height,Weight and Vital Signs: Height 5 ft 5 in Weight 74.389 kg Last Vital Signs Temp 97.6 F 07/06/22 11:57 Pulse 71 07/06/22 11:57 Resp 16 07/06/22 11:57 BP 128/71 07/06/22 11:57 Pulse Ox 97 07/06/22 11:57 O2 Del Method Room Air 07/06/22 11:57 Pertinent Lab Results Pertinent Lab Results: Laboratory Tests 07/06/22 12:14 POC Glucose 143 H Airway Mallampati Class: II TM Dist: >3cm Heart: rrr Lungs: cta Assessment and Plan Assessment Anesthesia Assessment: Anesthesia Plan Discussed and Chart Reviewed Final Anesthetic Review Family History of Problems with Anesthesia: No History of Problems with Anesthesia: No NPO: Yes ASA Class: II Final Preanesthetic Review: No Changes in Pt Med Stat, Meds/Allgs Chart Reviewed, Consent Obtained/Reviewed and Anes Risks/Benef Reviewed Patient Risk: Low Procedure Risk: Low Anesthetic Plan Anesthetic Plan: MAC: Disposition: Standard PACU
[2022-07-06 13:35] VITALS: BP 105/61; PULSE 57; RESP 18; TEMP 36.6; O2SAT 98
[2022-07-06 13:50] VITALS: BP 98/65; PULSE 71; RESP 16; TEMP 36.8; O2SAT 96
== END 2022-07-06 14:59 | disposition home or self-care (01) ==
PROVIDERS: PCP Internal Medicine; Visit Provider Internal Medicine Gastroenterology
PROC: 0DJD8ZZ Inspection of Lower Intestinal Tract, Via Natural or Artificial Opening Endoscopic (ICD-10-PCS; CPT 45378; principal; 2022-07-06 13:50)
DX: Z12.11 Encounter for screening for malignant neoplasm of colon (principal); K64.0 First degree hemorrhoids; I10 Essential (primary) hypertension; Z86.010 Personal history of colon polyps
CPT/HCPCS: G0105; 82947

== ENCOUNTER 2022-07-12 13:21 | Emergency (ER) | payer OTHER, SELFPAY ==
--- NOTE | ~2022-07-12 | XR_ITS ---
EXAMINATION: XR FOOT, LEFT CLINICAL INFORMATION: Left heel pain COMPARISON: None available. TECHNIQUE: AP, lateral, and oblique views of the left foot. FINDINGS: No acute right foot fracture is identified. There is some mild spurring seen about the proximal and distal interphalangeal joints. The metatarsophalangeal joints are maintained. There are calcaneal spurs seen sites of insertion of the Achilles and plantar tendons. XR/XR foot LT min 3V IMPRESSION: Calcaneal spurs.
--- NOTE | 2022-07-12 14:03 | ED.LOWEXIN ---
HPI - Extremity Injury (Lower) General Chief Complaint: Extremity Problem <Aida Llamas NP - Last Filed: 07/13/22 11:09> Stated Complaint: L Heel Pain No Injury <Aida Llamas NP - Last Filed: 07/13/22 11:09> Time Seen by Provider: 07/12/22 14:38 <Aida Llamas NP - Last Filed: 07/13/22 11:09> Source: patient <JANEEN Sterling - Last Filed: 07/12/22 15:55> Mode of arrival: ambulatory <JNAEEN Sterling - Last Filed: 07/12/22 15:55> History of Present Illness HPI Narrative: 67-year-old male with a past medical history of anemia, diabetes, HTN, HLD, insomnia, presenting to ED complaining of left heel/plantar foot pain radiating up leg x 1 week. Denies known injury/trauma or fall. Reports pain worse in the morning, feels tight, has been massaging with some relief. Denies fever/chills, numbness/tingling <JANEEN Sterling - Last Filed: 07/12/22 15:55> MD complaint: foot injury <JANEEN Sterling Last Filed: 07/12/22 15:55> Related Data Home Medications: Previous Rx's Medication Instructions Recorded fenofibrate 54 mg tablet 54 mg PO DAILY 90 days #90 tabs 11/09/21 losartan 100 mg tablet 100 mg PO DAILY 90 days #90 tabs 11/09/21 simvastatin 10 mg tablet 10 mg PO DAILY 90 days #90 tabs 11/09/21 zolpidem 10 mg tablet 10 mg PO BEDTIME 30 days #30 tabs 11/09/21 aspirin 81 mg tablet,delayed 81 mg PO DAILY 90 days #90 tabs 11/15/21 release (Adult Low Dose Aspirin) lidocaine 5 % topical patch 1 patch topical DAILY #15 ea 02/07/22 (Lidoderm) tizanidine 4 mg capsule 4 mg PO BEDTIME PRN muscle 02/07/22 spasticity #10 caps tamsulosin 0.4 mg capsule 0.4 mg PO DAILY 90 days #90 caps 02/16/22 bisacodyl 5 mg tablet,delayed 10 mg PO ONCE 1 day #2 tabs 03/09/23 release (Dulcolax (bisacodyl)) polyethylene glycol 3350 17 238 g PO ONCE #238 grams 06/08/22 gram/dose oral powder (Miralax) cholecalciferol (vitamin D3) 25 25 mcg PO DAILY 90 days #90 caps 07/03/22 mcg (1,000 unit) capsule metformin 1,000 mg tablet 1,000 mg PO BID 90 days #180 tabs 07/03/22 pioglitazone 45 mg tablet 45 mg PO DAILY 90 days #90 tabs 07/03/22 blood sugar diagnostic (OneTouch #100 ea 07/04/22 Verio test strips) blood-glucose meter (OneTouch #1 ea 07/04/22 Verio Meter) lancets ([employer]Touch UltraSoft #100 ea 07/04/22 Lancets) tramadol 50 mg tablet 50 mg PO Q6H PRN pain 7 days #28 07/04/22 tabs naproxen 500 mg tablet 500 mg PO BID PRN pain 10 days #20 07/12/22 tabs <Aida Llamas NP - Last Filed: 07/13/22 11:09> Allergies/Adverse Reactions: Allergies Allergy/AdvReac Type Severity Reaction Status Date / Time No Known Allergies Allergy Verified 07/06/22 12:04 <Aida Llamas NP - Last Filed: 07/13/22 11:09> Review of Systems Review of Systems: Constitutional: No Weight loss, No Fever, No Chills ENT/Mouth: No Ear Pain, No Nasal Congestion, No sore throat, No Rhinorrhea, No Swallowing Difficulty Cardiovascular: No Chest Pain, No SOB Respiratory: No Cough, No Sputum, No Wheezing Gastrointestinal: No Nausea, No Vomiting, No Diarrhea, No Constipation, No Abdominal pain Genitourinary: No Dysuria, No Urinary Frequency, No Hematuria Musculoskeletal: + joint pain, No Myalgias, No Joint Swelling Skin: No Skin Lesions, No rash Neuro: No Weakness, No Numbness, No Paresthesias <JANEEN Sterling - Last Filed: 07/12/22 15:55> Yes all other systems are reviewed and are negative <JANEEN Sterling Last Filed: 07/12/22 15:55> Constitutional: Constitutional: Reports as per HPI <JANEEN Sterling - Last Filed: 07/12/22 15:55> [facility], [facility] Past Medical History Attestation statement: The following information was validated with the patient. <JANEEN Sterling - Last Filed: 07/12/22 15:55> Medical History: Medical History Anemia Diabetes Essential hypertension Headache Insomnia Mixed hyperlipidemia Primary insomnia Tubular adenoma of colon <Aida Llamas NP - Last Filed: 07/13/22 11:09> Surgical History: Surgical History History of cataract surgery <Aida Llamas NP - Last Filed: 07/13/22 11:09> Family History Family History: Family History Father No problems noted. Mother Diabetes Hypertension Daughter No problems noted. Son No problems noted. Sister No problems noted. Brother No problems noted. <Aida Llamas NP - Last Filed: 07/13/22 11:09> Social History Social History: Social History Housing: Apartment Alcohol intake: current Alcohol intake frequency: a few times a month Alcohol type: beer Patient Tobacco Use Status: Never used Tobacco e-Cigarette/Vaping Use: Never Used Second Hand Smoke Exposure: No Advance Directives: No Advance Directives Information Provided: No service: No Current occupational status: employed Current occupational exposures/hazards: No Cognitive needs: No Hearing needs: No Vision needs: No <Aida Llamas NP - Last Filed: 07/13/22 11:09> Physical Exam Vital Signs: Vital Signs: Last Vital Signs Temp 97.9 F 07/12/22 16:03 Pulse 64 07/12/22 16:03 Resp 13 07/12/22 16:03 BP 121/70 07/12/22 16:03 Pulse Ox 97 07/12/22 16:03 O2 Del Method Room Air 07/12/22 16:03 BMI result Body Mass Index 30.2 <Aida Llamas NP - Last Filed: 07/13/22 11:09> Vital Signs: Last Vital Signs Temp 97.9 F 07/12/22 16:03 Pulse 64 07/12/22 16:03 Resp 13 07/12/22 16:03 BP 121/70 07/12/22 16:03 Pulse Ox 97 07/12/22 16:03 O2 Del Method Room Air 07/12/22 16:03 BMI result Body Mass Index 30.2 <JANEEN Sterling - Last Filed: 07/12/22 15:55> Const: General: cooperative, healthy appearing and no acute distress <JANEEN Sterling - Last Filed: 07/12/22 15:55> Orientation/consciousness: patient oriented x3 <JANEEN Sterling - Last Filed: 07/12/22 15:55> Limitations: no limitations <JANEEN Sterling - Last Filed: 07/12/22 15:55> HEENT: Head: Yes normal to inspection and Yes atraumatic <JANEEN Sterling - Last Filed: 07/12/22 15:55> Ears: hearing grossly normal bilaterally <JANEEN Sterling - Last Filed: 07/12/22 15:55> General nose exam: Normal external nose present <JANEEN Sterling - Last Filed: 07/12/22 15:55> Face and sinus: Yes normal facial exam <JANEEN Sterling - Last Filed: 07/12/22 15:55> Eyes: General: appearance normal, both eyes and all related structures <JANEEN Sterling - Last Filed: 07/12/22 15:55> EOM: EOMs intact bilaterally <JANEEN Sterling - Last Filed: 07/12/22 15:55> Neck: Neck: Yes normal visual inspection and Yes no meningeal signs <JANEEN Sterling - Last Filed: 07/12/22 15:55> Resp: Effort & Inspection: normal respiratory effort and no respiratory distress <JANEEN Sterling - Last Filed: 07/12/22 15:55> Cardio: Rate: regular rate <JANEEN Sterling - Last Filed: 07/12/22 15:55> Peripheral pulses: dorsalis pedis present <JANEEN Sterling - Last Filed: 07/12/22 15:55> Skin: Rashes: no rashes <JANEEN Sterling - Last Filed: 07/12/22 15:55> Wounds: no wounds <JANEEN Sterling - Last Filed: 07/12/22 15:55> Neuro: General: patient oriented x3, tone normal and no meningeal signs <JANEEN Sterling - Last Filed: 07/12/22 15:55> Gait exam (Neuro): Normal gait present <JANEEN Sterling - Last Filed: 07/12/22 15:55> Extrem: Other: Left foot without noted deformity. + tenderness palpation to left heel and plantar midfoot. No fluctuance/induration, no erythema/warmth. Full range of motion intact. NV intact. Worsening pain with dorsiflexion. <JANEEN Sterling - Last Filed: 07/12/22 15:55> General: Yes normal to inspection <JANEEN Sterling - Last Filed: 07/12/22 15:55> Course Course Course Narrative: This is a rapid medical exam. Deferred additional HPI, ROS, PE to primary provider. 67 yo male w/ history of DM, HTN, here with 1 week of left heel pain with no known injury or trauma. No redness, swelling, wounds, numbness, tingling. Worsened with WB. Will check x-rays. VSS <Aida Llamas NP - Last Filed: 07/13/22 11:09> This is a rapid medical exam. Deferred additional HPI, ROS, PE to primary provider. 67 yo male w/ history of DM, HTN, here with 1 week of left heel pain with no known injury or trauma. No redness, swelling, wounds, numbness, tingling. Worsened with WB. Will check x-rays. VSS XR foot LT min 3V IMPRESSION: Calcaneal spurs. > Results discussed with patient including worrisome signs and symptoms and strict return precautions, and when to return to the emergency department. They verbalized understanding and feel safe for discharge at this time. <JANEEN Sterling - Last Filed: 07/12/22 15:55> Medical Decision Making Medical Decision Making [facility] Narrative: 67-year-old male with a past medical history of anemia, diabetes, HTN, HLD, insomnia, presenting to ED complaining of left heel/plantar foot pain radiating up leg x 1 week. On exam vital signs stable, NAD, nontoxic appearing, physical exam as above. Concern for calcaneus spurs vs plantar fasciitis. Low suspicion for fracture/dislocation. No evidence of infection Plan: X-rays Please refer to course for remaining clinical decision making, interpretation of labs/imaging results, and discussions with consultants and/or family members. <JANEEN Sterling - Last Filed: 07/12/22 15:55> Differential Diagnosis Differential Diagnoses: The differential diagnosis associated with the presentation includes <JANEEN Sterling - Last Filed: 07/12/22 15:55> As above <JANEEN Sterling - Last Filed: 07/12/22 15:55> Lab Data [facility] Lab Attestation statement: I reviewed the patient's lab results. <JANEEN Sterling - Last Filed: 07/12/22 15:55> Radiology Impression Discussion of test interpretation with radiology: I have reviewed the radiologist's reading. <JANEEN Sterling - Last Filed: 07/12/22 15:55> External Record Review External record reviewed: Inpatient record, Office record, Outpatient record, Prior outpatient labs, Prior outpatient radiology, Primary care record and Outside ED record <JANEEN Sterling - Last Filed: 07/12/22 15:55> Discharge Plan Discharge Clinical Impression: Calcaneal spur <Aida Llamas NP - Last Filed: 07/13/22 11:09> Patient Disposition: Home, Self-Care <Aida Llamas NP - Last Filed: 07/13/22 11:09> Instructions: Heel Spur (ED) <Aida Llamas NP - Last Filed: 07/13/22 11:09> Additional Instructions: Your x-ray shows calcaneal spurs. You likely also have plantar fasciitis. We recommend you take anti-inflammatory pain medication like naproxen, take with food We recommend you also put arch soles/support in shoes Follow-up with Podiatry If symptoms persist or worsen return to the ED [facility] radiograf?a muestra espolones calc?neos. Es probable que tambi?n tenga fascitis plantar. Le recomendamos que tome analg?sicos antiinflamatorios amarilys naproxeno, t?lopez con alimentos Le recomendamos que tambi?n ponga suelas de arco/soporte en los zapatos. Seguimiento con Podolog?a Si los s?ntomas persisten o empeoran, regrese al servicio de urgencias. <Aida Llamas, [employer] - Last Filed: 07/13/22 11:09> Prescriptions: New naproxen 500 mg tablet 500 mg PO BID PRN (Reason: pain) 10 Days Qty: 20 0RF No Action aspirin [Adult Low Dose Aspirin] 81 mg tablet,delayed release (DR/EC) 81 mg PO DAILY 90 Days Qty: 90 3RF tramadol 50 mg tablet 50 mg PO Q6H PRN (Reason: pain) 7 Days Qty: 28 0RF (DME) blood-glucose meter [OneTouch Verio Meter] Misc See Rx Instructions .Route Qty: 1 0RF Rx Instructions: As directed (DME) OneTouch Verio test strips Strip See Rx Instructions .Route Qty: 100 2RF Rx Instructions: Use 1 test strip once a day (DME) lancets [OneTouch UltraSoft Lancets] Misc See Rx Instructions .Route Qty: 100 3RF Rx Instructions: Use 1 lancet once a day lidocaine [Lidoderm] 5 % adhesive patch,medicated 1 patch topical DAILY Qty: 15 0RF Rx Instructions: leave on most painful area for up to 12 hrs tizanidine 4 mg capsule 4 mg PO BEDTIME PRN (Reason: muscle spasticity) Qty: 10 0RF tamsulosin 0.4 mg capsule 0.4 mg PO DAILY 90 Days Qty: 90 3RF metformin 1,000 mg tablet 1,000 mg PO BID 90 Days Qty: 180 3RF pioglitazone 45 mg tablet 45 mg PO DAILY 90 Days Qty: 90 1RF cholecalciferol (vitamin D3) 25 mcg (1,000 unit) capsule 25 mcg PO DAILY 90 Days Qty: 90 0RF zolpidem 10 mg tablet 10 mg PO BEDTIME 30 Days Qty: 30 0RF simvastatin 10 mg tablet 10 mg PO DAILY 90 Days Qty: 90 3RF losartan 100 mg tablet 100 mg PO DAILY 90 Days Qty: 90 3RF fenofibrate 54 mg tablet 54 mg PO DAILY 90 Days Qty: 90 3RF bisacodyl [Dulcolax (bisacodyl)] 5 mg tablet,delayed release (DR/EC) 10 mg PO ONCE 1 Days Qty: 2 0RF Rx Instructions: take 2 tabs at noon the day before your colonoscopy polyethylene glycol 3350 [Miralax] 17 gram/dose powder 238 g PO ONCE Qty: 238 0RF Rx Instructions: As directed by gastroenterology department at [facility] <Aida Llamas NP - Last Filed: 07/13/22 11:09> Referrals: Kenan Hillman MD [Physician] - <Aida Llamas NP - Last Filed: 07/13/22 11:09> Interventions: ED Discharge Assessment Last Done: 07/12/22 16:07 <Aida Llamas NP - Last Filed: 07/13/22 11:09> Discharge Date/Time: 07/12/22 16:14 <Aida Llamas NP - Last Filed: 07/13/22 11:09> Print Language: Kenyan <Aida Llamas NP - Last Filed: 07/13/22 11:09>
[2022-07-12 14:04] VITALS: BP 131/78; PULSE 92; RESP 20; TEMP 36.6; O2SAT 95; BMI 30.2
[2022-07-12 16:03] VITALS: BP 121/70; PULSE 64; RESP 13; TEMP 36.6; O2SAT 97
== END 2022-07-12 16:14 | disposition home or self-care (01) ==
PROVIDERS: Emergency Provider Emergency Medicine; PCP Internal Medicine
DX: M77.32 Calcaneal spur, left foot (principal); M79.662 Pain in left lower leg; M79.672 Pain in left foot; D64.9 Anemia, unspecified; E11.9 Type 2 diabetes mellitus without complications; I10 Essential (primary) hypertension; E78.5 Hyperlipidemia, unspecified; G47.00 Insomnia, unspecified
CPT/HCPCS: 73630; 99283

== ENCOUNTER → 2022-09-18 10:18 | Outpatient (BNVA) | payer OTHER, MEDICAID, SELFPAY | PROVIDERS: PCP Internal Medicine; Visit Provider Nurse Practitioner Family | DX: K59.01 Slow transit constipation (principal); Z98.890 Other specified postprocedural states | CPT/HCPCS: 99212 ==

== ENCOUNTER 2022-11-02 06:27 | Outpatient (REF) | payer OTHER, MEDICAID, SELFPAY ==
[2022-11-02 06:42] LABS: MANUAL DIFF FLAG NO
[2022-11-02 07:11] LABS: Basophils Percent Auto 0.3 % (0-2); Eosinophils Absolute Auto 0.2 X10*3/uL (0.0-0.4); Eosinophils Percent Auto 3.9 % (0-4); Hematocrit 37.3 % (42.0-52.0); Hemoglobin 12.4 g/dl (14.0-18.0); Lymphocytes Absolute Auto 1.9 X10*3/uL (1.2-4.9); Mean Corpuscular HGB Conc 33.2 g/dl (31.0-36.0); Mean Corpuscular Hemoglobin 28.5 pg (27.0-33.0); Mean Corpuscular Volume 85.7 fL (80.0-98.0); Mean Platelet Volume 10.4 fL (9.4-12.4); Monocytes Absolute Auto 0.4 X10*3/uL (0.1-1.2); Monocytes Percent Auto 10.2 % (2-11); Neutrophils Absolute Auto 1.4 x10*3/uL (2.0-8.3); Neutrophils Percent Auto 36.6 % (45-73); Platelet Count 227 X10*3/uL (160-400); Red Blood Count 4.35 X10*6/uL (4.60-5.80); Red Cell Distribution Width 14.4 % (11.0-16.0); White Blood Count 3.8 X10*3/uL (4.8-10.8)
[2022-11-02 08:09] LABS: Alanine Aminotransferase 16 U/L (0-40); Albumin Level 4.1 g/dL (3.5-5.0); Alkaline Phosphatase 64 U/L (39-117); Anion Gap 15 (12-20); Aspartate Amino Transferase 17 U/L (5-37); Bilirubin Total 0.4 mg/dL (0.0-1.0); Blood Urea Nitrogen 20 mg/dL (9-16); Calcium 9.7 mg/dL (8.4-10.2); Carbon Dioxide 23 mmol/L (22-29); Chloride 109 mmol/L (96-108); Cholesterol 172 mg/dL; Estimated Glomerular Filt Rate 58; Glucose Fasting 110 mg/dL (60-99); HDL Cholesterol 53 mg/dL; Iron 75 mcg/dL (45-160); LDL Cholesterol Calculated 89 mg/dl; Percent Iron Saturation 21 % (15-50); Potassium 4.5 mmol/L (3.3-5.1); Sodium 142 mmol/L (135-145); Total Iron Binding Capacity 354 mcg/dL (228-428); Total Protein 7.5 g/dL (6.5-8.0); Triglycerides 153 mg/dL; Unsaturated Iron Binding 279 ug/dL
[2022-11-02 08:26] LABS: Vitamin D 25-OH Total 33.7 ng/mL (>30)
[2022-11-02 08:51] LABS: Microalbum/Creatinine Ratio Ur 20.1 ug/mg cr
== END 2022-11-02 06:28 | disposition home or self-care (01) ==
LOC: HO.LAB 06:27
PROVIDERS: PCP Internal Medicine; Visit Provider Internal Medicine
DX: D64.9 Anemia, unspecified (principal); E11.9 Type 2 diabetes mellitus without complications; E55.9 Vitamin D deficiency, unspecified; I10 Essential (primary) hypertension; E78.5 Hyperlipidemia, unspecified
CPT/HCPCS: 36415; 80053; 80061; 82043; 82306; 83540; 85025

== ENCOUNTER 2022-11-08 13:57 | Outpatient (AMB) | payer OTHER, MEDICAID, SELFPAY ==
--- NOTE | 2022-11-08 13:59 | A.OFFPC_ITS ---
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 Accompanied by: Self / Same As Patient Allergies No Known Allergies Allergy (Verified 11/08/22 14:26) Medication List - Last Reconciled 11/08/22 by Yecenia Castellanos MD aspirin (Adult Low Dose Aspirin) 81 mg PO DAILY 90 days blood sugar diagnostic ([employer] Verio test strips) Use 1 test strip once a day blood-glucose meter ([employer] Verio Meter) As directed cholecalciferol (vitamin D3) 25 mcg PO DAILY 90 days fenofibrate 54 mg PO DAILY 90 days lancets ([employer] UltraSoft Lancets) Use 1 lancet once a day lidocaine 5% (Lidoderm) 1 patch topical DAILY losartan 100 mg PO DAILY 90 days metformin 1,000 mg PO BID 90 days naproxen 500 mg PO BID PRN 10 days pioglitazone 45 mg PO DAILY 90 days sennosides (Natural Senna Laxative) 8.6 mg PO BEDTIME simvastatin 10 mg PO DAILY 90 days tamsulosin 0.4 mg PO DAILY 90 days tizanidine 4 mg PO BEDTIME PRN tramadol 50 mg PO Q6H PRN 7 days zolpidem 10 mg PO BEDTIME 30 days Tobacco use date assessed: 07/03/22 Fall risk assessment: No Falls in past year Last assessed Fall Risk: 11/08/22 Dental Screening Dental Screen Date: 11/08/22 Did you have a dental visit in the last 12 months?: Yes Did you have a dental problem in the last 6 months where you did not have access to dental care?: No Was dental information given to patient?: Patient has dentist HPI HPI Comments History of Present Illness Details This is a 67-year-old male with diabetes mellitus type 2, hypertension, mixed hyperlipidemia and primary insomnia that comes today for follow-up on recent labs. A1c elevated and I will add Tradjenta. Blood pressure stable. LDL not on goal and I will increase simvastatin. Insomnia stable with zolpidem as needed. Denies any chest pain or shortness of breath. Complains of left foot pain located in the heel that started few weeks ago. Has full active range of motion. Has chronic leukopenia and will be referred to Hematology-Oncology. [facility] Medical History (Updated 11/08/22 @ 14:33 by Yecenia Castellanos MD) Anemia Diabetes Essential hypertension Headache Insomnia Mixed hyperlipidemia Primary insomnia Tubular adenoma of colon Surgical History History of cataract surgery Hx of colonoscopy Family History Father No problems noted. Mother Diabetes Hypertension Daughter No problems noted. Son No problems noted. Sister No problems noted. Brother No problems noted. Social History Housing: Apartment Alcohol intake: current Alcohol intake frequency: a few times a month Alcohol type: beer Patient Tobacco Use Status: Never used Tobacco e-Cigarette/Vaping Use: Never Used Second Hand Smoke Exposure: No service: No Current occupational status: employed Current occupational exposures/hazards: No Cognitive needs: No Hearing needs: No Vision needs: No Questionnaire Thrive Questionnaire Date Thrive assessed: 07/03/22 JOVANNY-7 AMB Questionnaire JOVANNY-7 Date JOVANNY - 7 assessed: 07/03/22 Source: Developed by Drs. Nirav Jenkins, Regina Rebollar, Abe Trejo and colleagues, with an educational dmitri from [employer]. Review of Systems Const All systems reviewed & are unremarkable except as noted in HPI and below Eyes Reports no additional complaints, Denies change in vision and Denies other visual disturbances Card Denies chest pain at rest, Denies chest pain with activity, Denies edema, Denies irregular heart rhythm, Denies claudication, Denies dyspnea, Denies dyspnea on exertion, Denies orthopnea, Denies paroxysmal nocturnal dyspnea and Denies slow heart rate Resp Denies cough, Denies dyspnea and Denies dyspnea on exertion GI Denies abdominal pain, Denies change in bowel habits, Denies excessive flatus, Denies nausea and Denies vomiting Denies urinary hesitancy, Denies urinary incontinence and Denies urinary urgency Musc Denies abnormal gait, Denies atrophy, Denies deformity and Denies limited range of motion Skin/Breast Denies bleeding lesions, Denies changing lesions and Denies rash Neuro Denies abnormal gait and Denies lack of coordination Physical exam (Primary Care) Vital Signs: Last Vital Signs Pulse 75 11/08/22 14:14 BP 120/68 11/08/22 14:14 Pulse Ox 95 11/08/22 14:14 Oxygen Delivery Method Room Air 11/08/22 14:14 BMI result Body Mass Index 30.9 Tobacco/Smoking Status: Tobacco use Status Tobacco use date assessed 07/03/22 11/08/22 14:00 Patient Tobacco Use Status Never used Tobacco 11/08/22 14:00 e-Cigarette/Vaping Use Never Used 11/08/22 14:00 Thrive Assessment: Date of Thrive Assessment Date Thrive assessed 07/03/22 11/08/22 14:00 Eyes General: appearance normal, both eyes and all related structures Eyelids: Yes eyelids normal Conjunctivae: conjunctivae normal Neck Neck: Yes normal visual inspection and Yes supple Resp Effort & Inspection: normal respiratory effort Auscultation: clear to auscultation bilaterally Cardio Jugular venous distension: no JVD Rate: regular rate Rhythm: regular rhythm Heart sounds: S1 normal heart sound present and S2 normal heart sound present Extrem General: Yes full ROM Results AMB Hemoglobin A1c AMB Hemoglobin A1c 7.9 % Last Edit by NUNO Brizuela on 11/08/22 14:31 Results Reviewed Results Reviewed: Laboratory Last Values Hgb A1c (Clinic) 7.9 % (4.0-6.0) H 11/08/22 14:30 Assessment and Plan Assessment & Plan (1) Chronic leukopenia: Code(s): D72.819 - Decreased white blood cell count, unspecified Plan: Referred to Hematology-Oncology (2) Diabetes mellitus, without long-term current use of insulin: Code(s): E11.9 - Type 2 diabetes mellitus without complications Plan: Continue metformin and Actos. Start Tradjenta. A1c goal is equal or less than 7%. (3) Essential hypertension: Code(s): I10 - Essential (primary) hypertension Plan: Continue losartan. Blood pressure goal is equal or less than 130/80 (4) Mixed hyperlipidemia: Code(s): E78.2 - Mixed hyperlipidemia Plan: Increase statins. Continue fenofibrate. LDL goal is less than 70. (5) Insomnia: Code(s): G47.00 - Insomnia, unspecified Qualifiers: Insomnia type: unspecified Qualified Code(s): G47.00 - Insomnia, unspecified Plan: Continue zolpidem as needed Orders: Orders XR foot LT 2V Today M79.672 - Pain in left foot Lipid Panel 4 Months E78.5 - Hyperlipidemia, unspecified Microalbumin, Random (w Creat) 4 Months E11.9 - Type 2 diabetes mellitus without complications Comprehensive [place]. Panel Fast 4 Months E11.9 - Type 2 diabetes mellitus without complications, Z79.4 - alf (current) use of insulin AMB Hemoglobin A1c Today E11.9 - Type 2 diabetes mellitus without complications Referrals Hematology & Oncology Referral D72.819 - Decreased white blood cell count, unspecified Medications: New linagliptin (Tradjenta) 5 mg PO DAILY 90 tabs 1RF 90 days simvastatin 20 mg PO BEDTIME 90 tabs 1RF 90 days Changed From tramadol 50 mg PO Q6H 7 days PRN 28 tabs 0RF pain R51.9 - Headache, unspecified To tramadol 50 mg PO Q12H PRN 35 tabs 0RF pain 30 days R51.9 - Headache, unspecified Discontinued simvastatin Discontinued Reason: Patient Completed Course 10 mg PO DAILY 90 days 90 tabs 3RF E78.2 - Mixed hyperlipidemia Coding Level of Care Code Est Pt Level 4 (37227) Diagnoses Chronic leukopenia D72.819 Diabetes mellitus, without long-term current use of insulin E11.9 Essential hypertension I10 Mixed hyperlipidemia E78.2 Insomnia G47.00 Insomnia type: unspecified Time Spent (min) 23
[2022-11-08 14:14] VITALS: BP 120/68; PULSE 75; O2SAT 95; BMI 30.9
== END 2022-11-08 14:35 | disposition home or self-care (01) ==
LOC: HO.HMGH 13:57
PROVIDERS: PCP Internal Medicine; Visit Provider Internal Medicine
DX: D72.819 Decreased white blood cell count, unspecified (principal); E11.9 Type 2 diabetes mellitus without complications; I10 Essential (primary) hypertension; E78.2 Mixed hyperlipidemia; G47.00 Insomnia, unspecified
CPT/HCPCS: 83036; 99214

== ENCOUNTER 2022-11-08 14:42 | Outpatient (REF) | payer OTHER, MEDICAID, SELFPAY ==
--- NOTE | ~2022-11-08 | XR_ITS ---
EXAMINATION: XR FOOT, LEFT CLINICAL INFORMATION: Pain in left foot COMPARISON: None available. TECHNIQUE: AP, lateral, and oblique views of the left foot. FINDINGS: The bones are intact. No fracture. Alignment is anatomic. Joint spaces are maintained. Posterior plantar calcaneal spur is noted. Achilles enthesophyte and/or small calcifications are seen near the insertion of the Achilles tendon. XR/XR foot LT 2V IMPRESSION: 1. Posterior plantar calcaneal spur. 2. Achilles enthesophyte and/or small calcifications near the insertion of the Achilles tendon.
== END 2022-11-08 14:43 | disposition home or self-care (01) ==
LOC: HO.XRAY 14:42
PROVIDERS: PCP Internal Medicine; Visit Provider Internal Medicine
DX: M79.672 Pain in left foot (principal)
CPT/HCPCS: 73620

== ENCOUNTER 2023-01-11 12:43 | Outpatient (AMB) | payer OTHER, MEDICAID, SELFPAY ==
--- NOTE | 2023-01-11 12:52 | MHC.OFFVIS ---
Intake Vital Signs 01/11/23 12:56 Height 5 ft 2 in Weight 165 lb 5.547 oz BMI 30.2 BP 120/64 Blood Pressure Location Lt brachial Position Sitting Pulse 75 Intake Visit Reasons: 3 Month Follow up Intake Note: Hermes presents in the office as a 3 month follow up. CC: He states that he is not having any concerns today - he states that he is feeling better than his last visit. He got a letter from for[MD] that he is unable to work at this time so he has quit his job. Scale Manager Required: Yes Scale Manager Name: [id number] Elizabeth Allergies No Known Allergies Allergy (Verified 11/08/22 14:26) HPI 3 Month Follow up HPI Details LAST VISIT: Status post colonoscopy Suboptimal prep will return for colorectal screening in 6 months. Constipation Not able to empty his bowels completely. Will start patient on Senokot. Patient was also encouraged to increase fluid intake and activity to promote better bowel motility. I will see him in 3 months, sooner on as needed basis. Patient is agreeable to this plan and verbalizes understanding of instructions. He was given the opportunity to ask questions and all questions answered. ? TODAY'S VISIT Patient is here today for follow-up. Patient reports that he has been doing better since last time I have seen him. Patient reports that he is moving his bowels well now that he is taking Senokot daily. Patient denies any melena, hematochezia, unintentional weight loss or ribbon like stools. Patient denies any dyspepsia, dysphagia or odynophagia. Last colonoscopy was done in July, patient had suboptimal prep and was told to return for colorectal screening in 6-12 months. [facility] Medical History Anemia Diabetes Essential hypertension Headache Insomnia Mixed hyperlipidemia Primary insomnia Tubular adenoma of colon Surgical History History of cataract surgery Hx of colonoscopy Family History Father No problems noted. Mother Diabetes Hypertension Daughter No problems noted. Son No problems noted. Sister No problems noted. Brother No problems noted. Social History Housing: Apartment Alcohol intake: current Alcohol intake frequency: a few times a month Alcohol type: beer Patient Tobacco Use Status: Never used Tobacco e-Cigarette/Vaping Use: Never Used Second Hand Smoke Exposure: No service: No Current occupational status: employed Current occupational exposures/hazards: No Cognitive needs: No Hearing needs: No Vision needs: No Review of Systems Const Denies weight gain and Denies weight loss ENT Reports no additional complaints, Denies dysphagia and Denies odynophagia Card Reports no additional complaints Resp Reports no additional complaints GI Denies abdominal pain, Denies belching, Denies melena, Denies bloating, Denies change in bowel habits, Denies dysphagia, Denies excessive flatus, Denies dyspepsia, Denies heartburn, Denies diarrhea, Denies loose stools, Denies nausea, Denies odynophagia and Denies vomiting Reports no additional complaints Musc Reports no additional complaints Neuro Reports no additional complaints Psych Reports no additional complaints Endo Reports no additional complaints Physical Exam Vital Signs: Last Vital Signs Pulse 75 01/11/23 12:56 BP 120/64 01/11/23 12:56 BMI result Body Mass Index 30.2 Const General: healthy appearing, no acute distress and well developed Nutritional Appearance: obese Orientation/consciousness: patient oriented x3 HEENT Head: Yes normal to inspection, Yes normocephalic and Yes atraumatic Face and sinus: Yes normal facial exam Mouth: Normal oral and palatal mucosa present Throat: Yes posterior oropharynx normal, Yes tonsils normal and Yes uvula midline Eyes General: appearance normal, both eyes and all related structures Neck Neck: Yes normal visual inspection, Yes full ROM and Yes trachea midline Thyroid: Thyroid normal Resp Effort & Inspection: normal respiratory effort, able to speak in complete sentences, no tracheal deviation and symmetric chest movement Auscultation: clear to auscultation bilaterally Cardio Rate: regular rate Heart sounds: S1 normal heart sound present and S2 normal heart sound present GI Inspection: Yes normal to inspection, No distended and Yes obesity Palpation (GI): Soft to palpation, not firm, nontender and No hepatosplenomegaly present Auscultation: normal bowel sounds General: Yes no CVA tenderness Back/Spine/Pelvis Back: no CVA tenderness Skin General skin exam: elasticity normal, turgor normal and dry skin Neuro General: patient oriented x3 Psych Appearance: grossly normal Mental Status: mental status grossly normal Assessment & Plan Assessment & Plan (1) Constipation: Code(s): K59.00 - Constipation, unspecified Qualifiers: Constipation type: slow transit constipation Qualified Code(s): K59.01 - Slow transit constipation Plan Patient will continue taking Senokot daily. He was encouraged to increase fluid intake and activity to promote better bowel motility. Patient will return to discuss colonoscopy. Patient will need to take Dulcolax tablets 1 week before the procedure every evening and 4 tablets day before the procedure. He is agreeable to this plan and verbalizes understanding of instructions. He was given the opportunity to ask questions and all questions answered. Thank you for allowing me to participate in his care Coding Level of Care Code Est Pt Level 3 (11560) Diagnoses Slow transit constipation K59.01 Constipation type: slow transit constipation Time Spent (min) 25 Comment 15 minutes spent with patient and additional 10 minutes spent reviewing his records
[2023-01-11 12:56] VITALS: BP 120/64; PULSE 75; BMI 30.2
== END 2023-01-11 13:27 | disposition home or self-care (01) ==
PROVIDERS: PCP Internal Medicine; Visit Provider Nurse Practitioner Family
DX: K59.01 Slow transit constipation (principal)
CPT/HCPCS: 99213

== ENCOUNTER → 2023-01-11 12:43 | Outpatient (BNVA) | payer OTHER, MEDICAID, SELFPAY | PROVIDERS: PCP Internal Medicine; Visit Provider Nurse Practitioner Family | DX: K59.01 Slow transit constipation (principal); Z79.899 Other long term (current) drug therapy | CPT/HCPCS: 99212 ==

== ENCOUNTER 2023-03-01 05:56 | Outpatient (REF) | payer OTHER, SELFPAY ==
[2023-03-01 08:21] LABS: Creatinine Urine 93.45 mg/dL; Microalbum/Creatinine Ratio Ur 37.4 ug/mg cr (<30)
[2023-03-01 08:24] LABS: Alanine Aminotransferase 13 U/L (0-40); Alkaline Phosphatase 60 U/L (39-117); Anion Gap 12 (12-20); Aspartate Amino Transferase 17 U/L (5-37); Bilirubin Total 0.3 mg/dL (0.0-1.0); Blood Urea Nitrogen 13 mg/dL (9-16); Calcium 9.3 mg/dL (8.4-10.2); Carbon Dioxide 23 mmol/L (22-29); Chloride 110 mmol/L (96-108); Cholesterol 143 mg/dL (<200); Estimated Glomerular Filt Rate > 60; Glucose Fasting 106 mg/dL (60-99); HDL Cholesterol 47 mg/dL (>40); LDL Cholesterol Calculated 74 mg/dL (<100); Potassium 3.8 mmol/L (3.3-5.1); Sodium 141 mmol/L (135-145); Total Protein 7.2 g/dL (6.5-8.0); Triglycerides 112 mg/dL (<150)
[2023-03-01 08:42] LABS: Vitamin D 25-OH Total 33.1 ng/mL (>30)
== END 2023-03-01 05:57 | disposition home or self-care (01) ==
LOC: HO.LAB 05:56
PROVIDERS: PCP Internal Medicine; Visit Provider Internal Medicine
DX: E78.5 Hyperlipidemia, unspecified (principal); E55.9 Vitamin D deficiency, unspecified; E11.9 Type 2 diabetes mellitus without complications; Z79.4 Long term (current) use of insulin
CPT/HCPCS: 36415; 80053; 80061; 82043; 82306; 82570

== ENCOUNTER 2023-03-07 12:07 | Outpatient (AMB) | payer OTHER, MEDICAID, SELFPAY ==
[2023-03-07 12:16] VITALS: BP 108/64; BMI 31.5
--- NOTE | 2023-03-07 12:16 | A.OFFPC_ITS ---
Vital Signs 03/07/23 12:16 Height 5 ft 2 in Weight 172 lb BMI 31.5 BP 108/64 Blood Pressure Location Lt brachial Position Sitting Intake Visit Reasons: Annual Exam Intake Note: Patient here for an annual physical exam Asw Specialist Required: No Accompanied by: Self / Same As Patient Allergies No Known Allergies Allergy (Verified 03/07/23 12:27) Medication List - Last Reconciled 03/07/23 by Yecenia Castellanos MD aspirin (Adult Low Dose Aspirin) 81 mg PO DAILY 90 days blood sugar diagnostic ([employer] Verio test strips) Use 1 test strip once a day blood-glucose meter ([employer] Verio Meter) As directed cholecalciferol (vitamin D3) 25 mcg PO DAILY 90 days fenofibrate 54 mg PO DAILY 90 days lancets ([employer] UltraSoft Lancets) Use 1 lancet once a day lidocaine 5% (Lidoderm) 1 patch topical DAILY linagliptin (Tradjenta) 5 mg PO DAILY 90 days losartan 100 mg PO DAILY 90 days metformin 1,000 mg PO BID 90 days naproxen 500 mg PO BID PRN 10 days pioglitazone 45 mg PO DAILY 90 days sennosides (Natural Senna Laxative) 8.6 mg PO BEDTIME simvastatin 20 mg PO BEDTIME 90 days tamsulosin 0.4 mg PO DAILY 90 days tizanidine 4 mg PO BEDTIME PRN tramadol 50 mg PO Q12H PRN 7 days zolpidem 10 mg PO BEDTIME 30 days Tobacco use date assessed: 07/03/22 Fall risk assessment: No Falls in past year Last assessed Fall Risk: 03/07/23 Dental Screening Dental Screen Date: 03/07/23 Did you have a dental visit in the last 12 months?: Yes Did you have a dental problem in the last 6 months where you did not have access to dental care?: No Was dental information given to patient?: Patient has dentist HPI HPI Comments History of Present Illness Details This is a 68-year-old male with diabetes mellitus type 2 that comes for his physical exam. A1c within goal. Last diabetic eye exam was 2022. Had colonoscopy July 2022 with poor prep and will have a repetition next week. No chest pain or shortness of breath. Compliant with medications. [facility] Medical History Diabetes Tubular adenoma of colon Headache Primary insomnia Anemia Mixed hyperlipidemia Essential hypertension Insomnia Surgical History Hx of colonoscopy History of cataract surgery Family History Father No problems noted. Mother Diabetes Hypertension Daughter No problems noted. Son No problems noted. Sister No problems noted. Brother No problems noted. Social History Housing: Apartment Alcohol intake: current Alcohol intake frequency: a few times a month Alcohol type: beer Patient Tobacco Use Status: Never used Tobacco e-Cigarette/Vaping Use: Never Used Second Hand Smoke Exposure: No service: No Current occupational status: employed Current occupational exposures/hazards: No Cognitive needs: No Hearing needs: No Vision needs: No Questionnaire Thrive Questionnaire Date Thrive assessed: 07/03/22 JOVANNY-7 AMB Questionnaire JOVANNY-7 Date JOVANNY - 7 assessed: 07/03/22 Source: Developed by Drs. Nirav Jenkins, Regina Rebollar, Abe Trejo and colleagues, with an educational dmitri from [employer]. Review of Systems Const All systems reviewed & are unremarkable except as noted in HPI and below Eyes Reports no additional complaints, Denies change in vision and Denies other visual disturbances Card Denies chest pain at rest, Denies chest pain with activity, Denies edema, Denies irregular heart rhythm, Denies claudication, Denies dyspnea, Denies dyspnea on exertion, Denies orthopnea, Denies paroxysmal nocturnal dyspnea and Denies slow heart rate Resp Denies cough, Denies dyspnea and Denies dyspnea on exertion GI Denies abdominal pain, Denies change in bowel habits, Denies excessive flatus, Denies nausea and Denies vomiting Denies urinary hesitancy, Denies urinary incontinence and Denies urinary urgency Musc Denies abnormal gait, Denies atrophy, Denies deformity and Denies limited range of motion Skin/Breast Denies bleeding lesions, Denies changing lesions and Denies rash Neuro Denies abnormal gait, Denies behavioral changes, Denies confusion and Denies lack of coordination Psych Denies behavioral changes and Denies confusion Physical exam (Primary Care) Vital Signs: Last Vital Signs BP 108/64 03/07/23 12:16 BMI result Body Mass Index 31.5 Tobacco/Smoking Status: Tobacco use Status Tobacco use date assessed 07/03/22 03/07/23 12:18 Patient Tobacco Use Status Never used Tobacco 03/07/23 12:18 e-Cigarette/Vaping Use Never Used 03/07/23 12:18 Thrive Assessment: Date of Thrive Assessment Date Thrive assessed 07/03/22 03/07/23 12:18 Const General: No confusion Orientation/consciousness: patient oriented x3 and No confusion HENMT Head: Yes normal to inspection, Yes normocephalic and Yes atraumatic Ears: external ears normal Eyes General: appearance normal, both eyes and all related structures Eyelids: Yes eyelids normal Conjunctivae: conjunctivae normal Neck Neck: Yes normal visual inspection and Yes supple Resp Effort & Inspection: normal respiratory effort Auscultation: clear to auscultation bilaterally Cardio Jugular venous distension: no JVD Rate: regular rate Rhythm: regular rhythm Heart sounds: S1 normal heart sound present and S2 normal heart sound present GI Inspection: Yes normal to inspection Palpation (GI): Soft to palpation and nontender Auscultation: normal bowel sounds Skin General skin exam: no rashes or lesions noted Neuro General: patient oriented x3, no focal motor deficits and No confusion Extrem General: Yes full ROM Psych Appearance: grossly normal Office Procedures Flu Questionnaire Does the patient have a severe egg allergy?: No Does the patient have severe life threatening allergies?: No Does the patient have a fever or illness today?: No Has the patient ever had Guillain-[place] Syndrome?: No Has the patient ever had any past reaction to a flu shot?: No Results AMB Hemoglobin A1c AMB Hemoglobin A1c 7.0 % Last Edit by ALCON Mckeon on 03/07/23 12:2 4 Immunizations flu vacc [id number] 6mos up(PF) 60 mcg(15 mcgx4)/0.5 mL IM syringe Performing Provider: Yecenia Castellanos MD [facility] Administered by: ALCON Mckeon on 03/07/23 12:40 Dose Route Admin Location Dispensed Lot Number Expiration Date NDC Can Cleaner 0.5 mL IM Left Deltoid 0.5 mL [id number] 09/30/23 [id number] Second Funnel VIS Given Date VIS Provided VIS Publication Date 03/07/23 Single Vaccine 20 Eligibility Eligibility Date Funding Source Not [facility] Eligible 03/07/23 Private Results Reviewed Results Reviewed: Laboratory Last Values Hgb A1c (Clinic) 7.0 % (4.0-6.0) H 03/07/23 12:19 Assessment and Plan Assessment & Plan (1) Physical exam: Code(s): Z00.00 - Encounter for general adult medical examination without abnormal findings Plan: Repeat in a year. (2) DMII (diabetes mellitus, type 2): Code(s): E11.9 - Type 2 diabetes mellitus without complications Qualifiers: Diabetes mellitus fci insulin use: with termite control representative use Diabetes mellitus complication status: without complication Qualified Code(s): E11.9 - Type 2 diabetes mellitus without complications; Z79.4 - prison (current) use of insulin Plan: Continue metformin, Actos and Tradjenta. A1c goal is equal or less than 7%. Orders: Orders Influenza [id number] Immunization Today Z23 - Encounter for immunization AMB Hemoglobin A1c Today E11.9 - Type 2 diabetes mellitus without complications Lipid Panel 4 Months E78.5 - Hyperlipidemia, unspecified Microalbumin, Random (w Creat) 4 Months E11.9 - Type 2 diabetes mellitus without complications Comprehensive [place]. Panel Fast 4 Months E11.9 - Type 2 diabetes mellitus without complications Medications: New flu vacc [id number] 6mos up(PF) 0.5 mL IM ONCE 0.5 mL 0RF Z23 - Encounter for immunization Refilled aspirin (Adult Low Dose Aspirin) 81 mg PO DAILY 90 tabs 3RF 90 days E78.2 - Mixed hyperlipidemia tamsulosin 0.4 mg PO DAILY 90 caps 0RF 90 days E78.2 - Mixed hyperlipidemia Coding Level of Care Code Est Pt Prev Care >65y(46272) Diagnoses Physical exam Z00.00 Type 2 diabetes mellitus without complication, with long-term current use of insulin E11.9; Z79.4 Diabetes mellitus termite control representative insulin use: with termite control representative use Diabetes mellitus complication status: without complication Time Spent (min) 32
== END 2023-03-07 12:41 | disposition home or self-care (01) ==
PROVIDERS: PCP Internal Medicine; Visit Provider Internal Medicine
DX: Z00.00 Encounter for general adult medical examination without abnormal findings (principal); E11.9 Type 2 diabetes mellitus without complications; Z79.4 Long term (current) use of insulin; Z23 Encounter for immunization
CPT/HCPCS: 83036; 90471; 90686; 99397

== ENCOUNTER 2023-03-21 06:50 | Day surgery (SDC) | payer OTHER, SELFPAY ==
[2023-03-19 14:31] VITALS: BMI 31.5
--- NOTE | 2023-03-20 11:53 | HO.ANESPROP2 ---
Documented by User: Tamiko Mera NP 03/20/23 11:54 HPI - Anesthesia Eval Consult details Narrative: 68yo M for Colonoscopy PMFSH Active Problems Active Problems: All Active Problems (Updated 03/19/23 @ 14:30 by Ita Barajas RN) Bone spur of foot (Acute) Left foot pain (Acute) Chronic leukopenia (Acute) Diabetes mellitus, without long-term current use of insulin (Acute) Physical exam (Acute) Screen for colon cancer (Acute) Hypovitaminosis D (Acute) Exposure to COVID-19 virus (Acute) DMII (diabetes mellitus, type 2) (Acute) Headache (Acute) Primary insomnia (Acute) Anemia (Acute) Mixed hyperlipidemia (Acute) Essential hypertension (Acute) Insomnia (Acute) Past Medical History Medical History Diabetes Tubular adenoma of colon Headache Primary insomnia Anemia Mixed hyperlipidemia Essential hypertension Insomnia Family History Family History Father No problems noted. Mother Diabetes Hypertension Daughter No problems noted. Son No problems noted. Sister No problems noted. Brother No problems noted. Family history of problems with anesthesia: No Surgical History Surgical History Hx of hand surgery Hx of colonoscopy History of cataract surgery History of Problems with Anesthesia: No Social History Social History Housing: Apartment Alcohol intake: current Alcohol intake frequency: does not drink Alcohol type: beer Patient Tobacco Use Status: Never used Tobacco e-Cigarette/Vaping Use: Never Used Second Hand Smoke Exposure: No Are you DNR?: No Advance Directives: No Advance Directives Information Provided: Yes service: No Current occupational status: employed Current occupational exposures/hazards: No Cognitive needs: No Hearing needs: No Vision needs: No Meds Allergies Allergy/AdvReac Type Severity Reaction Status Date / Time No Known Allergies Allergy Verified 03/07/23 12:27 Exam Height,Weight and Vital Signs: Height 5 ft 2 in Weight 78.018 kg Pertinent Lab Results Pertinent Lab Results: Laboratory Tests 11/02/22 11/02/22 03/01/23 06:40 06:40 06:12 WBC 3.8 L Hgb 12.4 L Hct 37.3 L Plt Count 227 Sodium 141 Potassium 3.8 Chloride 110 H Carbon Dioxide BUN 13 Creatinine 03/01/23 06:12 WBC Hgb Hct Plt Count Sodium Potassium Chloride Carbon Dioxide 23 BUN Creatinine 1.16 Assessment and Plan Assessment Anesthesia Assessment: Chart Reviewed Final Anesthetic Review Family History of Problems with Anesthesia: No History of Problems with Anesthesia: No Documented by User: Gisela Arias MD 03/21/23 09:02 [facility] Past Medical History Medical History Diabetes Tubular adenoma of colon Headache Primary insomnia Anemia Mixed hyperlipidemia Essential hypertension Insomnia Family History Family History Father No problems noted. Mother Diabetes Hypertension Daughter No problems noted. Son No problems noted. Sister No problems noted. Brother No problems noted. Surgical History Surgical History Hx of hand surgery Hx of colonoscopy History of cataract surgery Social History Social History Housing: Apartment Alcohol intake: current Alcohol intake frequency: does not drink Alcohol type: beer Patient Tobacco Use Status: Never used Tobacco e-Cigarette/Vaping Use: Never Used Second Hand Smoke Exposure: No Are you DNR?: No Advance Directives: No Advance Directives Information Provided: Yes service: No Current occupational status: employed Current occupational exposures/hazards: No Cognitive needs: No Hearing needs: No Vision needs: No Meds Allergies Allergy/AdvReac Type Severity Reaction Status Date / Time No Known Allergies Allergy Verified 03/07/23 12:27 Exam Airway Mallampati Class: II TM Dist: >3cm Neck ROM: Full Heart: rrr Lungs: cta Assessment and Plan Assessment Anesthesia Assessment: Anesthesia Plan Discussed Final Anesthetic Review NPO: Yes ASA Class: III Final Preanesthetic Review: No Changes in Pt Med Stat, Meds/Allgs Chart Reviewed, Consent Obtained/Reviewed and Anes Risks/Benef Reviewed Patient Risk: Intermediate Procedure Risk: Low Anesthetic Plan Anesthetic Plan: MAC: Disposition: Standard PACU
[2023-03-21 07:54] VITALS: BMI 31.9
[2023-03-21 07:56] VITALS: BP 139/87; PULSE 66; RESP 18; TEMP 36.6; O2SAT 97
[2023-03-21] MEDS: Lactated Ringers 1,000 ML 100 ML IVCONT (08:48)
[2023-03-21 09:09] LABS: Glucose, Whole Blood 113 mg/dL (60-115)
--- NOTE | 2023-03-21 09:54 | P.HPSUR_ITS ---
Pre-Procedural Eval Section A Date of Service: 03/21/23 Section B Chief Complaint: Benign neoplasm of colon, unspecified Relevant Family History (Specify if Yes): No Relevant Social History: None Present Medications: see Short Stay Collaborative assessment Medical History: Significant History (Diabetes Tubular adenoma of colon Headache Primary insomnia Anemia Mixed hyperlipidemia Essential hypertension Insomnia) History of Previous Operations: Relevant previous surgery/procedure and date(s) (Hx of hand surgery Hx of colonoscopy History of cataract surgery) Allergies: Allergies Allergy/AdvReac Type Severity Reaction Status Date / Time No Known Allergies Allergy Verified 03/07/23 12:27 Review of Systems Sugical H&P ROS: Negative: Constitution, Cardiovascular, Respiratory, Neurological, Psychiatric, Hem-Onc, Allergic/Immunologic, Gastrointestinal, Ge nitourinary, Musculoskeletal, Integumentary, Endocrine and Eyes/Ears/Nose/Throat Exam Surgical H&P Exam: Normal: HEENT, Normal: Heart, Normal: Lungs, Normal: Extremities, Normal: Abdomen, Normal: Skin and Normal: Neurological Plan Diagnosis/Plan: Unchanged I have reviewed the history and physical and performed a pertinent physical examination on my patient. No changes have occurred unless specified. Time Spent With Patient Time: Total time managing care of this patient today ____ minutes.
--- NOTE | 2023-03-21 09:55 | W.PM.OPN ---
Operative Note Operative Note Date of Service: 03/21/23 Narrative: Operative Information Procedure Description: Colonoscopy Indication: screening Anesthesia: MAC COLONOSCOPY Instrument: Olympus variable stiffness pediatric scope 190L Colonoscopy Monitoring: Vital signs and clinical assessment, continuous EKG monitoring, Pulse oximetry, Carbon Dioxide monitoring and blood pressure monitoring were done throughout the procedure. Colon withdrawal time was 7 minutes. Procedure: The patient was placed in the left lateral decubitis position and pre-procedure medications were administered. After a digital rectal examination of the ano-rectum, the video colonoscope was inserted into the rectum and advanced through the colon to the cecum/TI. The colonoscope was slowly withdrawn in a retrograde panoramic fashion and the colon mucosa was carefully examined including a retroflexed view of the rectum. Findings and interventions are described below. Procedure Difficulty: easy Findings: Terminal Ileum-normal Cecum:normal Ascending Colon: normal Transverse Colon -normal Descending Colon: 10 mm sessile polyp removed with cold snare Sigmoid Colon: normal Rectum: Retroflexion with small inflammed internal hemorrhoids, grade I Anorectum - normal Colon preparation: [place] Bowel Preparation Scale Right colon; 1-2 Transverse colon: 1-2 Left colon; 1 (0 = Unprepared colon segment with mucosa not seen due to solid stool that cannot be cleared. 1 = Portion of mucosa of the colon segment seen, but other areas of the colon segment not well seen due to staining, residual stool and/or opaque liquid. 2 = Minor amount of residual staining, small fragments of stool and/or opaque liquid, but mucosa of colon segment seen well. 3 = Entire mucosa of colon segment seen well with no residual staining, small fragments of stool or opaque liquid) Impression and Post Procedure Diagnosis: poor prep polyp internal hemorrhoids Plan: High fiber diet leaflet Avoid straining at stool, epsom salts and sitz bath, anusol supps or cream Repeat Colonoscopy in 6-12 months or earlier if clinically indicated due to poor prep and strongly consider 2 d clears or 1 week of miralax BID before prep day and avoiding nuts, and high roughage Above findings were reviewed with the patient and relevant handouts were provided if indicated.
[2023-03-21 10:28] VITALS: BP 126/68; PULSE 55; RESP 16; TEMP 36.3; O2SAT 98
[2023-03-21 10:45] VITALS: BP 138/81; PULSE 62; RESP 18; TEMP 36.1; O2SAT 98
== END 2023-03-21 12:21 | disposition home or self-care (01) ==
PROVIDERS: PCP Internal Medicine; Visit Provider Internal Medicine Gastroenterology
PROC: 0DJD8ZZ Inspection of Lower Intestinal Tract, Via Natural or Artificial Opening Endoscopic (ICD-10-PCS; CPT 45378; principal; 2023-03-21 10:10)
DX: Z12.11 Encounter for screening for malignant neoplasm of colon (principal); Z86.010 Personal history of colon polyps; K63.5 Polyp of colon; K64.0 First degree hemorrhoids; K59.01 Slow transit constipation; I10 Essential (primary) hypertension; E78.2 Mixed hyperlipidemia; D64.9 Anemia, unspecified; F51.01 Primary insomnia; E11.9 Type 2 diabetes mellitus without complications; Z79.899 Other long term (current) drug therapy
CPT/HCPCS: 45385; 82947; 88305; J2704

== ENCOUNTER → 2023-03-21 06:50 | Outpatient (BNV) | payer OTHER, SELFPAY | PROVIDERS: PCP Internal Medicine; Visit Provider Internal Medicine Gastroenterology | DX: Z12.11 Encounter for screening for malignant neoplasm of colon (principal); D12.4 Benign neoplasm of descending colon; K64.0 First degree hemorrhoids | CPT/HCPCS: 45385 ==

== ENCOUNTER 2023-04-04 12:48 | Outpatient (AMB) | payer OTHER, MEDICAID, SELFPAY ==
--- NOTE | 2023-04-04 12:53 | MHC.OFFVIS ---
Intake Vital Signs 04/04/23 12:56 Height 5 ft 2 in Weight 169 lb 12.095 oz BMI 31.0 BP 146/74 H Blood Pressure Location Lt brachial Position Sitting Pulse 93 Intake Visit Reasons: s/p colon Intake Note: Hermes presents in the office as a follow up colonoscopy. CC: He states that he is not having any concerns since his colo. Trimmer Sorter Required: Yes Trimmer Sorter Name: [id number] Kristofer Allergies No Known Allergies Allergy (Verified 04/04/23 12:59) HPI s/p colon HPI Details LAST VISIT Constipation Plan Patient will continue taking Senokot daily. He was encouraged to increase fluid intake and activity to promote better bowel motility. Patient will return to discuss colonoscopy. Patient will need to take Dulcolax tablets 1 week before the procedure every evening and 4 tablets day before the procedure. He is agreeable to this plan and verbalizes understanding of instructions. He was given the opportunity to ask questions and all questions answered. COLONOSCOPY SCREENING Findings: Terminal Ileum-normal Cecum:normal Ascending Colon: normal Transverse Colon -normal Descending Colon: 10 mm sessile polyp removed with cold snare Sigmoid Colon: normal Rectum: Retroflexion with small inflammed internal hemorrhoids, grade I Anorectum - normal Colon preparation: [place] Bowel Preparation Scale Right colon; 1-2 Transverse colon: 1-2 Left colon; 1 (0 = Unprepared colon segment with mucosa not seen due to solid stool that cannot be cleared. 1 = Portion of mucosa of the colon segment seen, but other areas of the colon segment not well seen due to staining, residual stool and/or opaque liquid. 2 = Minor amount of residual staining, small fragments of stool and/or opaque liquid, but mucosa of colon segment seen well. 3 = Entire mucosa of colon segment seen well with no residual staining, small fragments of stool or opaque liquid) Impression and Post Procedure Diagnosis: poor prep polyp internal hemorrhoids Plan: High fiber diet leaflet Avoid straining at stool, epsom salts and sitz bath, anusol supps or cream Repeat Colonoscopy in 6-12 months or earlier if clinically indicated due to poor prep and strongly consider 2 d clears or 1 week of miralax BID before prep day and avoiding nuts, and high roughage PATHOLOGY RESULTS Diagnosis Colon, descending, polypectomy: Fragment of food; no colonic epithelium identified TODAY'S VISIT: Patient is here today for follow-up and to discuss colonoscopy results. Patient denies any ill effects from the prep, anesthesia or procedure itself. Patient reports that he has been feeling well. Reports that he moves his bowels. Does not always empty them completely. Patient had suboptimal prep and will need to repeat colonoscopy in 6-12 months. Patient denies any nausea or vomiting. Denies any dyspepsia, dysphagia or odynophagia. Denies any melena, hematochezia, unintentional weight loss or ribbon like stools. Patient denies any GI concerning symptoms. [facility] Medical History Diabetes Tubular adenoma of colon Headache Primary insomnia Anemia Mixed hyperlipidemia Essential hypertension Insomnia Surgical History Hx of hand surgery Hx of colonoscopy History of cataract surgery Family History Father No problems noted. Mother Diabetes Hypertension Daughter No problems noted. Son No problems noted. Sister No problems noted. Brother No problems noted. Social History Housing: Apartment Alcohol intake: current Alcohol intake frequency: does not drink Alcohol type: beer Patient Tobacco Use Status: Never used Tobacco e-Cigarette/Vaping Use: Never Used Second Hand Smoke Exposure: No service: No Current occupational status: employed Current occupational exposures/hazards: No Cognitive needs: No Hearing needs: No Vision needs: No Review of Systems Const Denies weight gain and Denies weight loss ENT Reports no additional complaints, Denies dysphagia and Denies odynophagia Card Reports no additional complaints Resp Reports no additional complaints GI Denies abdominal pain, Denies belching, Denies melena, Denies bloating, Denies change in bowel habits, Denies dysphagia, Denies excessive flatus, Denies dyspepsia, Denies heartburn, Denies diarrhea, Denies loose stools, Denies nausea, Denies odynophagia and Denies vomiting Reports no additional complaints Musc Reports no additional complaints Neuro Reports no additional complaints Psych Reports no additional complaints Endo Reports no additional complaints Physical Exam Vital Signs: Last Vital Signs Pulse 93 04/04/23 12:56 BP 146/74 H 04/04/23 12:56 BMI result Body Mass Index 31.0 Const General: healthy appearing, no acute distress and well developed Nutritional Appearance: obese Orientation/consciousness: patient oriented x3 HEENT Head: Yes normal to inspection, Yes normocephalic and Yes atraumatic Face and sinus: Yes normal facial exam Mouth: Normal oral and palatal mucosa present Throat: Yes posterior oropharynx normal, Yes tonsils normal and Yes uvula midline Eyes General: appearance normal, both eyes and all related structures Neck Neck: Yes normal visual inspection, Yes full ROM and Yes trachea midline Thyroid: Thyroid normal Resp Effort & Inspection: normal respiratory effort, able to speak in complete sentences, no tracheal deviation and symmetric chest movement Auscultation: clear to auscultation bilaterally Cardio Rate: regular rate GI Inspection: Yes normal to inspection, No distended and Yes obesity Palpation (GI): Soft to palpation, not firm, nontender and No hepatosplenomegaly present Auscultation: normal bowel sounds General: Yes no CVA tenderness Back/Spine/Pelvis Back: no CVA tenderness Skin General skin exam: elasticity normal, turgor normal and dry skin Neuro General: patient oriented x3 Psych Appearance: grossly normal Mental Status: mental status grossly normal Assessment & Plan Assessment & Plan (1) Status post colonoscopy: Code(s): Z98.890 - Other specified postprocedural states (2) Constipation: Code(s): K59.00 - Constipation, unspecified Qualifiers: Constipation type: slow transit constipation Qualified Code(s): K59.01 - Slow transit constipation Plan As mentioned above in HPI patient had suboptimal prep and will need to return for colorectal screening in 6-12 months. Being patient her occasional constipation, patient can take Senokot daily. I will see him in 6 months, sooner on as needed basis. Patient is agreeable to this plan and verbalizes understanding of instructions. He was given the opportunity to ask questions and all questions answered. Thank you for allowing me to participate in her care Coding Level of Care Code Est Pt Level 3 (14188) Diagnoses Status post colonoscopy Z98.890 Slow transit constipation K59.01 Constipation type: slow transit constipation Time Spent (min) 25 Comment 15 minutes spent with patient and additional 10 minutes spent reviewing his records
[2023-04-04 12:56] VITALS: BP 146/74; PULSE 93; BMI 31.0
== END 2023-04-04 13:14 | disposition home or self-care (01) ==
PROVIDERS: PCP Internal Medicine; Visit Provider Nurse Practitioner Family
DX: Z98.890 Other specified postprocedural states (principal); K59.01 Slow transit constipation
CPT/HCPCS: 99213

== ENCOUNTER → 2023-04-04 12:48 | Outpatient (BNVA) | payer OTHER, MEDICAID, SELFPAY | PROVIDERS: PCP Internal Medicine; Visit Provider Nurse Practitioner Family | DX: K59.01 Slow transit constipation (principal); Z98.890 Other specified postprocedural states | CPT/HCPCS: 99212 ==

== ENCOUNTER 2023-07-09 13:13 | Outpatient (AMB) | payer OTHER, SELFPAY ==
--- NOTE | 2023-07-09 13:15 | A.OFFPC_ITS ---
Vital Signs 07/09/23 13:18 Height 5 ft 2 in Weight 173 lb BMI 31.6 BP 120/62 Blood Pressure Location Lt brachial Position Sitting Intake Visit Reasons: dm Intake Note: Patient here for a follow up DM, Had HgA1c done at home on 07/03/23 results 8.9 Steam Station Supervisor Required: No Accompanied by: Son Allergies No Known Allergies Allergy (Verified 07/09/23 13:30) Medication List - Last Reconciled 07/09/23 by Yecenia Castellanos MD aspirin (Adult Low Dose Aspirin) 81 mg PO DAILY 90 days blood sugar diagnostic ([employer] Verio test strips) Use 1 test strip once a day blood-glucose meter ([employer] Verio Meter) As directed cholecalciferol (vitamin D3) 25 mcg PO DAILY 90 days fenofibrate 54 mg PO DAILY 90 days lancets ([employer] UltraSoft Lancets) Use 1 lancet once a day linagliptin (Tradjenta) 5 mg PO DAILY 90 days losartan 100 mg PO DAILY 90 days metformin 1,000 mg PO BID 90 days naproxen 500 mg PO BID PRN 10 days pioglitazone 45 mg PO DAILY 90 days sennosides (Natural Senna Laxative) 8.6 mg PO BEDTIME simvastatin 20 mg PO BEDTIME 90 days tamsulosin 0.4 mg PO DAILY 90 days tizanidine 4 mg PO BEDTIME PRN tramadol 50 mg PO Q12H PRN 7 days zolpidem 10 mg PO BEDTIME 30 days Tobacco use date assessed: 07/09/23 Fall risk assessment: No Falls in past year Last assessed Fall Risk: 07/09/23 Dental Screening Dental Screen Date: 07/09/23 Did you have a dental visit in the last 12 months?: Yes Did you have a dental problem in the last 6 months where you did not have access to dental care?: No Was dental information given to patient?: Patient has dentist HPI HPI Comments History of Present Illness Details This is a 68-year-old male with diabetes mellitus type 2, hypertension, mixed hyperlipidemia and primary insomnia that comes accompanied by son for follow-up on his conditions. A nurse went to visit him 07/03/2023 and had A1c of 8.9%. I will add Jardiance. He declines the use of insulin or any injection. Blood pressure stable. Lipid panel will be order and his LDL goal should be less than 70. Insomnia well controlled with zolpidem as needed. Patient is aware that zolpidem can cause addiction and sonambulism as well as sedation. [facility] Medical History Diabetes Tubular adenoma of colon Headache Primary insomnia Anemia Mixed hyperlipidemia Essential hypertension Insomnia Surgical History Hx of hand surgery Hx of colonoscopy History of cataract surgery Family History Father No problems noted. Mother Diabetes Hypertension Daughter No problems noted. Son No problems noted. Sister No problems noted. Brother No problems noted. Social History Housing: Apartment Alcohol intake: current Alcohol intake frequency: does not drink Alcohol type: beer Patient Tobacco Use Status: Never used Tobacco e-Cigarette/Vaping Use: Never Used Second Hand Smoke Exposure: No service: No Current occupational status: employed Current occupational exposures/hazards: No Cognitive needs: No Hearing needs: No Vision needs: No Questionnaire PHQ-9 Over the last 2 weeks, how often have you been bothered by any of the following problems? 1. Little interest or pleasure in doing things: not at all 2. Feeling down, depressed, or hopeless: not at all 3. Trouble falling or staying asleep, or sleeping too much: not at all 4. Feeling tired or having little energy: not at all 5. Poor appetite or overeating: not at all 6. Feeling bad about yourself - or that you are a failure or have let yourself or your family down: not at all 7. Trouble concentrating on things, such as reading the newspaper or watching television: not at all 8. Moving or speaking so slowly that other people could have noticed. Or the opposite - being so fidgety or restless that you have been moving around a lot more than usual: not at all 9. Thoughts that you would be better off or of hurting yourself in some way: not at all Total score: 0 Source: Developed by Drs. Nirav Jenkins, Regina RebollarAbe and colleagues, with an educational dmitri from [employer]. Thrive Questionnaire Date Thrive assessed: 07/09/23 I am a: Patient What is your living situation today?: I have a steady place to live Within the past 12 months, did the food you bought not last and you didn't have the money to get more?: Never true Within the past 12 months, did you worry whether your food would run out before you got money to buy more?: Never true Do you have trouble paying for medicines?: No Do you have trouble getting transportation to medical appointments?: No Do you have trouble paying your heating and electricity bill?: No Do you have trouble taking care of your child, family member or friend?: No Do you have trouble with day-to-day activities such as bathing, preparing meals, shopping, managing finances, etc.?: No Are you currently unemployed and looking for a job?: No Are you interested in more education?: No Please select the resources that you would like help with: None Currently or been in a relationship where the following occur: no concerns reported THRIVE Score: 0 AUDIT C Alcohol Use Questionnaire (AUDIT-C) 1. How often do you have a drink containing alcohol?: Monthly or less 2. How many drinks containing alcohol do you have on a typical day when you are drinking?: 1 or 2 3. How often do you have six or more drinks on one occasion?: Never Total Score: 1 JOVANNY-7 AMB Questionnaire JOVANNY-7 Date JOVANNY - 7 assessed: 07/09/23 Feeling nervous, anxious, or on edge: 0 = Not at all Not being able to stop or control worryin = Not at all Worrying too much about different things: 0 = Not at all Trouble relaxin = Not at all Being so restless that it is hard to sit still: 0 = Not at all Becoming easily annoyed or irritable: 0 = Not at all Feeling afraid as if something awful might happen: 0 = Not at all Total JOVANNY-7 score (0-4 normal; 5-9 mild; 10-14 moderate; 15-21 severe): 0 Source: Developed by Drs. Nirav Jenkins, Abe Kwong and colleagues, with an educational dmitri from [employer]. Review of Systems Const All systems reviewed & are unremarkable except as noted in HPI and below Eyes Reports no additional complaints, Denies change in vision and Denies other visual disturbances Card Denies chest pain at rest, Denies chest pain with activity, Denies edema, Denies irregular heart rhythm, Denies claudication, Denies dyspnea, Denies dyspnea on exertion, Denies orthopnea, Denies paroxysmal nocturnal dyspnea and Denies slow heart rate Resp Denies cough, Denies dyspnea and Denies dyspnea on exertion GI Denies abdominal pain, Denies change in bowel habits, Denies excessive flatus, Denies nausea and Denies vomiting Denies urinary hesitancy, Denies urinary incontinence and Denies urinary urgency Physical exam (Primary Care) Vital Signs: Last Vital Signs BP 120/62 07/09/23 13:18 BMI result Body Mass Index 31.6 Tobacco/Smoking Status: Tobacco use Status Tobacco use date assessed 07/09/23 07/09/23 13:24 Patient Tobacco Use Status Never used Tobacco 07/09/23 13:17 e-Cigarette/Vaping Use Never Used 07/09/23 13:17 PHQ-9: PHQ-9 Score PHQ-9: Total score 0 07/09/23 13:24 Thrive Assessment: Date of Thrive Assessment Date Thrive assessed 07/09/23 07/09/23 13:25 Currently or been in a relationship where the following occur: no concerns reported Resp Effort & Inspection: normal respiratory effort Auscultation: clear to auscultation bilaterally Cardio Jugular venous distension: no JVD Rate: regular rate Rhythm: regular rhythm Heart sounds: S1 normal heart sound present and S2 normal heart sound present Extrem General: Yes full ROM Assessment and Plan Assessment & Plan (1) Diabetes mellitus, without long-term current use of insulin: Code(s): E11.9 - Type 2 diabetes mellitus without complications Plan: Continue metformin and Tradjenta. Continue Actos. Start Jardiance. A1c goal i s equal or less than 7%. (2) Essential hypertension: Code(s): I10 - Essential (primary) hypertension Plan: Continue losartan. Blood pressure goal is equal or less than 130/80. (3) Mixed hyperlipidemia: Code(s): E78.2 - Mixed hyperlipidemia Plan: Continue statins and fibrates. LDL goal is less than 70. (4) Primary insomnia: Code(s): F51.01 - Primary insomnia Plan: Continue zolpidem as needed. Orders: Orders Microalbumin, Random (w Creat) Today E11.9 - Type 2 diabetes mellitus without complications Vitamin D 25-OH Total Today E55.9 - Vitamin D deficiency, unspecified Comprehensive [place]. Panel Fast Today E11.9 - Type 2 diabetes mellitus without complications Lipid Panel Today E78.5 - Hyperlipidemia, unspecified Medications: New empagliflozin (Jardiance) 10 mg PO DAILY 90 days 90 tabs 1RF E11.9 - Type 2 diabetes mellitus without complications olopatadine 0.2% (Pat[place] Once Daily Relief) 1 drp ophthalmic (eye) DAILY 30 days PRN 2.5 mL 2RF itching Refilled cholecalciferol (vitamin D3) 25 mcg PO DAILY 90 days 90 caps 0RF E55.9 - Vitamin D deficiency, unspecified tramadol 50 mg PO Q12H 7 days PRN 28 tabs 0RF pain R51.9 - Headache, unspecified Coding Level of Care Code Est Pt Level 4 (23779) Diagnoses Diabetes mellitus, without long-term current use of insulin E11.9 Essential hypertension I10 Mixed hyperlipidemia E78.2 Primary insomnia F51.01 Time Spent (min) 23
[2023-07-09 13:18] VITALS: BP 120/62; BMI 31.6
== END 2023-07-09 13:49 | disposition home or self-care (01) ==
PROVIDERS: PCP Internal Medicine; Visit Provider Internal Medicine
DX: E11.9 Type 2 diabetes mellitus without complications (principal); I10 Essential (primary) hypertension; E78.2 Mixed hyperlipidemia; F51.01 Primary insomnia
CPT/HCPCS: 99214

== ENCOUNTER 2023-07-20 06:29 | Outpatient (REF) | payer MEDICARE, SELFPAY ==
[2023-07-20 08:29] LABS: Creatinine Urine 80.25 mg/dL; Microalbum/Creatinine Ratio Ur 46.1 ug/mg cr (<30)
[2023-07-20 08:45] LABS: Alanine Aminotransferase 13 U/L (0-40); Albumin Level 4.5 g/dL (3.5-5.0); Alkaline Phosphatase 70 U/L (39-117); Anion Gap 16 (12-20); Aspartate Amino Transferase 17 U/L (5-37); Bilirubin Total 0.3 mg/dL (0.0-1.0); Blood Urea Nitrogen 23 mg/dL (9-16); Calcium 9.8 mg/dL (8.4-10.2); Carbon Dioxide 21 mmol/L (22-29); Chloride 110 mmol/L (96-108); Cholesterol 165 mg/dL (<200); Estimated Glomerular Filt Rate 47; Glucose Fasting 117 mg/dL (60-99); HDL Cholesterol 47 mg/dL (>40); LDL Cholesterol Calculated 76 mg/dL (<100); Potassium 4.1 mmol/L (3.3-5.1); Sodium 143 mmol/L (135-145); Total Protein 8.2 g/dL (6.5-8.0); Triglycerides 212 mg/dL (<150)
[2023-07-20 08:46] LABS: Vitamin D 25-OH Total 34.3 ng/mL (>30)
== END 2023-07-20 06:30 | disposition home or self-care (01) ==
LOC: HO.LAB 06:29
PROVIDERS: PCP Internal Medicine; Visit Provider Internal Medicine
DX: E11.9 Type 2 diabetes mellitus without complications (principal); E78.5 Hyperlipidemia, unspecified; E55.9 Vitamin D deficiency, unspecified
CPT/HCPCS: 36415; 80053; 80061; 82043; 82306; 82570

== ENCOUNTER 2023-09-27 14:20 | Emergency (ER) | payer MEDICARE, SELFPAY ==
--- NOTE | ~2023-09-27 | CT_ITS ---
EXAMINATION: CT ABDOMEN AND PELVIS WITHOUT CONTRAST CLINICAL INFORMATION: Right-sided flank pain COMPARISON: None available. TECHNIQUE: Multidetector volumetric imaging was performed from the superior aspect of the liver through the pubic symphysis. Sagittal and coronal reformatted images were obtained on the technologist's workstation. This CT examination was performed using dose optimization techniques as appropriate, variously including the following: *Automated exposure control *Adjustment of mA and/or kV according to patient size (this includes techniques or standardized protocols for targeted exams where dose is matched to indication/reason for exam; i.e. extremities or head) *Use of iterative reconstruction technique DLP: 606 mGy-cm FINDINGS: LUNG BASES: The visualized lung bases are unremarkable. LIVER, GALLBLADDER, AND BILIARY TREE: The liver is normal in size, shape, and attenuation. No focal hepatic lesion or biliary ductal dilatation is present. The gallbladder is unremarkable with no evidence of radiopaque gallstones, gallbladder wall thickening, or obvious pericholecystic inflammatory changes. PANCREAS: Unremarkable. SPLEEN: Unremarkable. ADRENAL GLANDS: Unremarkable. KIDNEYS AND URETERS: The kidneys are normal in size, shape, and attenuation. Possible punctate nonobstructing calculus in the mid pole left kidney. No ureteral calculi seen. No hydronephrosis or hydroureter. No suspicious renal lesions. Mild bilateral perinephric stranding. BLADDER: Partially distended. No radiopaque calculus seen. GASTROINTESTINAL TRACT: The small and large bowel are unremarkable. Nonobstructive bowel gas pattern. No acute bowel inflammatory changes seen. The appendix is unremarkable. No free fluid. No free air. ABDOMINAL WALL: Small fat in bilateral inguinal canals. LYMPH NODES: No pathologically enlarged lymph nodes nodes seen.. VASCULAR: Normal caliber aorta. PELVIC VISCERA: Prostate calcifications. Partially imaged penile device, reservoir in the right pelvis. OSSEOUS STRUCTURES: Multilevel degenerative changes in the spine. CT/CT abdomen pelvis wo IV con IMPRESSION: 1. Mild bilateral perinephric stranding. Clinically correlate, correlate with urinalysis. Punctate nonobstructing left renal calculus. No hydroureteronephrosis. No radiopaque ureteral calculus seen. 2. No acute intra-abdominal findings otherwise identified. Fleischner guidelines were followed.
[2023-09-27 15:03] VITALS: BP 129/61; PULSE 69; RESP 16; TEMP 36.5; O2SAT 99; BMI 32.9
--- NOTE | 2023-09-27 15:09 | ED_ITS ---
HPI - Back Pain/Injury General Chief Complaint: Back Pain/Injury Stated Complaint: kidney pain Related Data Previous Rx's ?Medication ?Instructions ?Recorded zolpidem 10 mg tablet 10 mg PO BEDTIME 30 days #30 tabs 11/09/21 tizanidine 4 mg capsule 4 mg PO BEDTIME PRN muscle 02/07/22 spasticity #10 caps metformin 1,000 mg tablet 1,000 mg PO BID 90 days #180 tabs 07/03/22 blood sugar diagnostic (OneTouch #100 ea 07/04/22 Verio test strips) blood-glucose meter (OneTouch #1 ea 07/04/22 Verio Meter) lancets (OneTouch UltraSoft #100 ea 07/04/22 Lancets) naproxen 500 mg tablet 500 mg PO BID PRN pain 10 days #20 07/12/22 tabs sennosides 8.6 mg tablet (Natural 8.6 mg PO BEDTIME constipation #90 09/18/22 Senna Laxative) tabs fenofibrate 54 mg tablet 54 mg PO DAILY 90 days #90 tabs 11/27/22 pioglitazone 45 mg tablet 45 mg PO DAILY 90 days #90 tabs 02/02/23 linagliptin 5 mg tablet (Tradjenta) 5 mg PO DAILY 90 days #90 tabs 05/31/23 cholecalciferol (vitamin D3) 25 25 mcg PO DAILY 90 days #90 caps 07/09/23 mcg (1,000 unit) capsule empagliflozin 10 mg tablet 10 mg PO DAILY 90 days #90 tabs 07/09/23 (Jardiance) olopatadine 0.2 % eye drops 1 drp ophthalmic (eye) DAILY PRN 07/09/23 (Pataday Once Daily Relief) itching 30 days #2.5 mL tramadol 50 mg tablet 50 mg PO Q12H PRN pain 7 days #28 07/09/23 tabs aspirin 81 mg tablet,delayed 81 mg PO DAILY 90 days #90 tabs 09/10/23 release (Adult Low Dose Aspirin) losartan 100 mg tablet 100 mg PO DAILY 90 days #90 tabs 09/10/23 simvastatin 20 mg tablet 20 mg PO BEDTIME 90 days #90 tabs 09/10/23 tamsulosin 0.4 mg capsule 0.4 mg PO DAILY 90 days #90 caps 09/10/23 tramadol 50 mg tablet 50 mg PO Q8H PRN pain #10 tabs 09/28/23 Allergies Allergy/AdvReac Type Severity Reaction Status Date / Time No Known Allergies Allergy Verified 09/28/23 08:58 [facility] Past Medical History Medical History Diabetes Tubular adenoma of colon Headache Primary insomnia Anemia Mixed hyperlipidemia Essential hypertension Insomnia Surgical History Hx of hand surgery Hx of colonoscopy History of cataract surgery Family History Family History Father No problems noted. Mother Diabetes Hypertension Daughter No problems noted. Son No problems noted. Sister No problems noted. Brother No problems noted. Social History Social History Housing: Apartment Alcohol intake: current Alcohol intake frequency: a few times a month Alcohol type: beer Patient Tobacco Use Status: Never used Tobacco Smoked in Last 30 Days: No e-Cigarette/Vaping Use: Never Used Second Hand Smoke Exposure: No Use of substances other than those prescribed or required for medical reasons: No Advance Directives: No Advance Directives Information Provided: No Do you have a plan to hurt others: No Plan service: No Current occupational status: employed Current occupational exposures/hazards: No Cognitive needs: No Hearing needs: No Vision needs: No Physical Exam 2 Vital Signs: Vital Signs: Last Vital Signs Temp 97 F 09/27/23 19:31 Pulse 65 09/27/23 19:31 Resp 16 09/27/23 19:31 BP 120/63 09/27/23 19:31 Pulse Ox 98 09/27/23 19:31 O2 Del Method Room Air 09/27/23 19:31 BMI result Body Mass Index 32.9 Course Course Course Narrative: This is an RME: Additional HPI, ROS, PE not included below will be deferred to primary provider. RME assessment and note performed by: Allyson Howard PA-C This is a 10-mdy[age]-male, with a hx of anemia, diabetes, HTN, HLD, insomnia, who presents to the ER with complaints of back pain x 1 month. He expresses concerns in regards to kidney stones, he has no hx. No urinary symptoms. No injury to his back. Plan: Labs, UA, CT scan Reevaluation(s) Reevaluation #1: Patient left without completing treatment. Medical Decision Making Lab Data 09/27/23 15:35 09/27/23 15:35 Labs: Lab Results 09/27/23 Range/Units 15:35 WBC 4.3 L (4.8-10.8) X10*3/uL RBC 4.52 L (4.60-5.80) X10*6/uL Hgb 12.3 L (14.0-18.0) g/dl Hct 36.7 L (42.0-52.0) % MCV 81.2 (80.0-98.0) fL MCH 27.2 (27.0-33.0) pg MCHC 33.5 (31.0-36.0) g/dl RDW 14.5 (11.0-16.0) % Plt Count 214 (160-400) X10*3/uL MPV 10.0 (9.4-12.4) fL Immature Gran % (Auto) 0.2 (0.0-0.4) % Neut % (Auto) 46.5 (45-73) % Lymph % (Auto) 38.5 (20-40) % [place] % (Auto) 11.3 H (2-11) % Eos % (Auto) 3.0 (0-4) % Baso % (Auto) 0.5 (0-2) % Lymph # (Auto) 1.7 (1.2-4.9) X10*3/uL [place] # (Auto) 0.5 (0.1-1.2) X10*3/uL Eos # (Auto) 0.1 (0.0-0.4) X10*3/uL Baso # (Auto) 0.0 (0.0-0.2) X10*3/uL Abs Immat Gran (auto) 0.01 (0.00-0.03) X10*3/uL Absolute Neuts (auto) 2.0 (2.0-8.3) x10*3/uL Absolute Nucleated RBC 0.000 (0.0-0.012) X10*3/uL Nucleated RBC % (auto) 0.0 (0.0-0.2) /100WBC Sodium 140 (135-145) mmol/L Potassium 4.1 (3.3-5.1) mmol/L Chloride 109 H (96-108) mmol/L Carbon Dioxide 24 (22-29) mmol/L Anion Gap 11 L (12-20) BUN 15 (9-16) mg/dL Creatinine 1.66 H (0.5-1.4) mg/dL Estim Creat Clear Calc 37.4 Estimated GFR 41 Random Glucose 200 H (60-115) mg/dL Calcium 9.3 (8.4-10.2) mg/dL Total Bilirubin 0.2 (0.0-1.0) mg/dL Direct Bilirubin < 0.2 (0.0-0.5) mg/dL AST 18 (5-37) U/L ALT 17 (0-40) U/L Alkaline Phosphatase 80 (39-117) U/L Total Protein 7.3 (6.5-8.0) g/dL Albumin 4.1 (3.5-5.0) g/dL Lipase 45 (8-78) U/L Urine Color Yellow Urine Appearance Clear Urine pH 5.5 (5.0-9.0) Ur Specific [place] 1.015 (1.005-1.025) Urine Protein Negative (Neg-Trace) mg/dL Urine Glucose (UA) 250 H (Negative) mg/dL Urine Ketones Negative (Negative) mg/dL Urine Blood Negative (Negative) Urine Nitrite Negative (Negative) Ur Leukocyte Esterase Negative (Negative) Discharge Plan Discharge Clinical Impression: Right flank pain Patient Disposition: Left W/O Completing Treatment Prescriptions: No Action (DME) blood-glucose meter [OneTouch Verio Meter] [facility] [place] See Rx Instructions .Route Qty: 1 0RF Rx Instructions: As directed (DME) OneTouch Verio test strips Strip See Rx Instructions .Route Qty: 100 2RF Rx Instructions: Use 1 test strip once a day (DME) lancets [OneTouch UltraSoft Lancets] [facility] [place] See Rx Instructions .Route Qty: 100 3RF Rx Instructions: Use 1 lancet once a day fenofibrate 54 mg tablet 54 mg PO DAILY 90 Days Qty: 90 3RF pioglitazone 45 mg tablet 45 mg PO DAILY 90 Days Qty: 90 1RF Tradjenta 5 mg tablet 5 mg PO DAILY 90 Days Qty: 90 1RF losartan 100 mg tablet 100 mg PO DAILY 90 Days Qty: 90 3RF aspirin [Adult Low Dose Aspirin] 81 mg tablet,delayed release (DR/EC) 81 mg PO DAILY 90 Days Qty: 90 3RF simvastatin 20 mg tablet 20 mg PO BEDTIME 90 Days Qty: 90 3RF tamsulosin 0.4 mg capsule 0.4 mg PO DAILY 90 Days Qty: 90 3RF tizanidine 4 mg capsule 4 mg PO BEDTIME PRN (Reason: muscle spasticity) Qty: 10 0RF tramadol 50 mg tablet 50 mg PO Q8H PRN (Reason: pain) Qty: 10 0RF naproxen 500 mg tablet 500 mg PO BID PRN (Reason: pain) 10 Days Qty: 20 0RF metformin 1,000 mg tablet 1,000 mg PO BID 90 Days Qty: 180 3RF zolpidem 10 mg tablet 10 mg PO BEDTIME 30 Days Qty: 30 0RF cholecalciferol (vitamin D3) 25 mcg (1,000 unit) capsule 25 mcg PO DAILY 90 Days Qty: 90 0RF tramadol 50 mg tablet 50 mg PO Q12H PRN (Reason: pain) 7 Days Qty: 28 0RF Jardiance 10 mg tablet 10 mg PO DAILY 90 Days Qty: 90 1RF olopatadine [Pataday Once Daily Relief] 0.2 % drops 1 drp ophthalmic (eye) DAILY PRN (Reason: itching) 30 Days Qty: 2.5 2RF sennosides [Natural Senna Laxative] 8.6 mg tablet 8.6 mg PO BEDTIME Qty: 90 3RF Discharge Date/Time: 09/27/23 23:45
[2023-09-27 15:42] LABS: MANUAL DIFF FLAG NO
[2023-09-27 15:45] LABS: Appearance Urine Clear; Basophils Percent Auto 0.5 % (0-2); Color Urine Yellow; Eosinophils Absolute Auto 0.1 X10*3/uL (0.0-0.4); Glucose Urine UA 250 mg/dL (Negative); Hematocrit 36.7 % (42.0-52.0); Hemoglobin 12.3 g/dl (14.0-18.0); Imm Gran Abs Auto 0.01 X10*3/uL (0.00-0.03); Imm Gran Pct Auto 0.2 % (0.0-0.4); Leukocyte Esterase Urine Negative (Negative); Lymphocytes Absolute Auto 1.7 X10*3/uL (1.2-4.9); Lymphocytes Percent Auto 38.5 % (20-40); Mean Corpuscular HGB Conc 33.5 g/dl (31.0-36.0); Mean Corpuscular Hemoglobin 27.2 pg (27.0-33.0); Mean Corpuscular Volume 81.2 fL (80.0-98.0); Monocytes Absolute Auto 0.5 X10*3/uL (0.1-1.2); Monocytes Percent Auto 11.3 % (2-11); Neutrophils Percent Auto 46.5 % (45-73); Nitrite Urine Negative (Negative); PH 5.5 (5.0-9.0); Platelet Count 214 X10*3/uL (160-400); Red Blood Count 4.52 X10*6/uL (4.60-5.80); Red Cell Distribution Width 14.5 % (11.0-16.0); Specific Gravity - Urine 1.015 (1.005-1.025); Urine Blood Negative (Negative); Urine Ketones Negative (Negative); Urine Protein Negative (Neg-Trace); White Blood Count 4.3 X10*3/uL (4.8-10.8)
[2023-09-27 15:59] LABS: Alanine Aminotransferase 17 U/L (0-40); Albumin Level 4.1 g/dL (3.5-5.0); Alkaline Phosphatase 80 U/L (39-117); Anion Gap 11 (12-20); Aspartate Amino Transferase 18 U/L (5-37); Bilirubin Direct < 0.2 mg/dL (0.0-0.5); Bilirubin Total 0.2 mg/dL (0.0-1.0); Blood Urea Nitrogen 15 mg/dL (9-16); Calcium 9.3 mg/dL (8.4-10.2); Carbon Dioxide 24 mmol/L (22-29); Chloride 109 mmol/L (96-108); Creatinine Clr Calc Pharmacy 37.4; Estimated Glomerular Filt Rate 41; Glucose Random 200 mg/dL (60-115); Lipase 45 U/L (8-78); Potassium 4.1 mmol/L (3.3-5.1); Sodium 140 mmol/L (135-145); Total Protein 7.3 g/dL (6.5-8.0)
[2023-09-27 19:31] VITALS: BP 120/63; PULSE 65; RESP 16; TEMP 36.1; O2SAT 98
== END 2023-09-27 23:45 | disposition left against medical advice (07) ==
PROVIDERS: Physician Assistant Medical; Emergency Provider Emergency Medicine; PCP Internal Medicine
DX: R10.9 Unspecified abdominal pain (principal); E11.9 Type 2 diabetes mellitus without complications; I10 Essential (primary) hypertension; E78.2 Mixed hyperlipidemia; Z79.82 Long term (current) use of aspirin; Z79.02 Long term (current) use of antithrombotics/antiplatelets; Z79.84 Long term (current) use of oral hypoglycemic drugs; Z79.899 Other long term (current) drug therapy
CPT/HCPCS: 36415; 74176; 80048; 80076; 81003; 83690; 85025; 99282; 99284

== ENCOUNTER 2023-09-28 08:21 | Emergency (ER) | payer MEDICARE, SELFPAY ==
[2023-09-28 08:56] VITALS: BP 140/90; PULSE 73; RESP 17; TEMP 36.5; O2SAT 96; BMI 29.0
--- NOTE | 2023-09-28 09:17 | ED.BACK ---
HPI - Back Pain/Injury General Chief Complaint: Back Pain/Injury Stated Complaint: back pain Time Seen by Provider: 09/28/23 09:11 Source: patient Mode of arrival: ambulatory Limitations: no limitations History of Present Illness HPI Narrative: Patient is a 68-year-old male who presents emergency department for evaluation of right flank pain. Onset was approximately 1 month ago, is constant in nature with varying intensity. He admits to pain exacerbating if he is bending forward or if he is twisting at the torso. States he has been prescribed tramadol in the past for knee pain, he has taken the tramadol infrequently during the past month and he does report that it alleviates pain somewhat. Denies Known precipitating injury, fevers, chills, burning with micturition, urinary frequency/urgency/hesitancy, bladder or bowel dysfunction, numbness or tingling of the perineum or bilateral legs. Denies any recent surgical procedures, any known immune compromising conditions, personal history of cancer, or IV drug usage. MD elicited complaint: back pain Related Data Previous Rx's ?Medication ?Instructions ?Recorded zolpidem 10 mg tablet 10 mg PO BEDTIME 30 days #30 tabs 11/09/21 tizanidine 4 mg capsule 4 mg PO BEDTIME PRN muscle 02/07/22 spasticity #10 caps metformin 1,000 mg tablet 1,000 mg PO BID 90 days #180 tabs 07/03/22 blood sugar diagnostic (OneTouch #100 ea 07/04/22 Verio test strips) blood-glucose meter (OneTouch #1 ea 07/04/22 Verio Meter) lancets (OneTouch UltraSoft #100 ea 07/04/22 Lancets) naproxen 500 mg tablet 500 mg PO BID PRN pain 10 days #20 07/12/22 tabs sennosides 8.6 mg tablet (Natural 8.6 mg PO BEDTIME constipation #90 09/18/22 Senna Laxative) tabs fenofibrate 54 mg tablet 54 mg PO DAILY 90 days #90 tabs 11/27/22 pioglitazone 45 mg tablet 45 mg PO DAILY 90 days #90 tabs 02/02/23 linagliptin 5 mg tablet (Tradjenta) 5 mg PO DAILY 90 days #90 tabs 05/31/23 cholecalciferol (vitamin D3) 25 25 mcg PO DAILY 90 days #90 caps 07/09/23 mcg (1,000 unit) capsule empagliflozin 10 mg tablet 10 mg PO DAILY 90 days #90 tabs 07/09/23 (Jardiance) olopatadine 0.2 % eye drops 1 drp ophthalmic (eye) DAILY PRN 07/09/23 (Pataday Once Daily Relief) itching 30 days #2.5 mL tramadol 50 mg tablet 50 mg PO Q12H PRN pain 7 days #28 07/09/23 tabs aspirin 81 mg tablet,delayed 81 mg PO DAILY 90 days #90 tabs 09/10/23 release (Adult Low Dose Aspirin) losartan 100 mg tablet 100 mg PO DAILY 90 days #90 tabs 09/10/23 simvastatin 20 mg tablet 20 mg PO BEDTIME 90 days #90 tabs 09/10/23 tamsulosin 0.4 mg capsule 0.4 mg PO DAILY 90 days #90 caps 09/10/23 tramadol 50 mg tablet 50 mg PO Q8H PRN pain #10 tabs 09/28/23 Allergies Allergy/AdvReac Type Severity Reaction Status Date / Time No Known Allergies Allergy Verified 09/28/23 08:58 Review of Systems Review of Systems: Yes all other systems are reviewed and are negative PMFSH Past Medical History Attestation statement: The following information was validated with the patient. Source: old records reviewed Medical History Diabetes Tubular adenoma of colon Headache Primary insomnia Anemia Mixed hyperlipidemia Essential hypertension Insomnia Surgical History Hx of hand surgery Hx of colonoscopy History of cataract surgery Family History Family History Father No problems noted. Mother Diabetes Hypertension Daughter No problems noted. Son No problems noted. Sister No problems noted. Brother No problems noted. Social History Social History Housing: Apartment Alcohol intake: current Alcohol intake frequency: a few times a month Alcohol type: beer Patient Tobacco Use Status: Never used Tobacco Smoked in Last 30 Days: No e-Cigarette/Vaping Use: Never Used Second Hand Smoke Exposure: No Use of substances other than those prescribed or required for medical reasons: No Advance Directives: No Advance Directives Information Provided: No Do you have a plan to hurt others: No Plan service: No Current occupational status: employed Current occupational exposures/hazards: No Cognitive needs: No Hearing needs: No Vision needs: No Physical Exam Vital Signs: Vital Signs: Last Vital Signs Temp 97.4 F 09/28/23 11:23 Pulse 53 09/28/23 11:23 Resp 17 09/28/23 11:23 BP 173/86 H 09/28/23 11:23 Pulse Ox 99 09/28/23 11:23 O2 Del Method Room Air 09/28/23 11:23 BMI result Body Mass Index 29.0 Appearance: Alert.?Oriented to person, place and time. No acute distress.?Normal affect. Eyes: Pupils equal, round and reactive to light.? ENT: Pharynx normal.?? Neck: Normal inspection.? Neck supple.?? CVS: Heart sounds normal. Normal heart rate and rhythm.? Pulses normal; bilateral radial pulses 2+, bilateral posterior tibial/dorsalis pedis pulses 2+.? Respiratory: No respiratory distress.? Lung sounds clear to auscultation bilaterally?? Abdomen: Soft and non-tender. Normoactive bowel sounds. No pulsatile mass.?? Skin: Skin warm and dry.? Normal skin color.? Normal skin turgor.?? Extremities: No lower extremity edema.? No calf ttp? Back: mild tenderness upon palpation over the right CVA, no paraspinal muscular tenderness. No midline spinal tenderness, step-off's, or deformity. Full ROM intact in bilateral lower extremities. No rashes, lesions, areas of induration or fluctuance, or signs of infection noted., Neuro: Moves all extremities spontaneously. 5/5 strength in hip extension/flexion, abduction, adduction. Sensation to light touch intact bilaterally. Patellar and Achilles reflex 2+ bilaterally. No ataxia, gait normal and steady.. No focal neuro deficits. Medications Administered Discontinued Medications Generic Name Dose Route Start Last Admin Trade Name Freq PRN Reason Stop Dose Admin Sodium Chloride 1,000 mls @ 999 mls/hr 09/28/23 09:30 09/28/23 11:24 Ns IV 09/28/23 10:30 Infused .Q1H1M CEDRICK Infusion Tramadol HCl 50 mg 09/28/23 09:47 09/28/23 10:07 Tramadol Hcl 50 Mg Tablet PO 09/28/23 09:48 50 mg ONCE ONE Administration Medical Decision Making Medical Decision Making [facility] Narrative: patient is a 68-year-old male past medical history of anemia, diabetes, hypertension, hyperlipidemia, insomnia who presents emergency department for evaluation of right flank pain for the past month. Of note he was seen in the emergency department yesterday but left from the waiting room without completing treatment; serum labs were obtained revealing a mild leukopenia and normocytic anemia consistent with prior labs, chemistries revealing a mildly up trending creatinine, last year baseline creatinine 1.1-1.2 had outpatient labs in July of 2023 with creatinine 1.47 and yesterday creatinine was 1.66 with normal BUN. I suspect that this may be secondary to progression of his chronic disease rather than acute renal pathology, he stays well hydrated seems less likely to be dehydration, urinalysis is free from signs of infection or microscopic hematuria. he also had a CT scan obtained which was without evidence of hydronephrosis radiopaque calculi no acute intra-abdominal pathology. There was notation of mild bilateral perinephric stranding, do not suspect that this is secondary to infectious process as urinalysis is without infection and it is noted to be bilateral. Reassess renal function today, hydrate with 1 L normal saline and trial tramadol for pain management as I suspect his pain at this time most consistent with a muscular pathology although cannot completely exclude herniated disc. On neurological exam there are no deficits. Not consistent with spinal fracture, spinal infection, epidural abscess, AAA, epidural abscess, or dissection. No high risk past medical history including incontinence, fever, immunosuppression, recent surgery or lumbar puncture, coagulopathy, significant trauma, recent unintentional weight loss, pulsatile mass, history of cancer, history of TB, history of IV drug use that would warrant MRI or CT. On exam no concern for cauda equina syndrome. pain has resolved with tramadol, improvement in creatinine back down to 1.49 after fluids, suspect degree of dehydration, advised continued encouragement increase oral fluid intake and recommended outpatient follow-up with primary care provider will send short prescription for tramadol to pharmacy, BANKRUPTCY JUDGE reviewed. At this time stable for discharge home and patient agreed with plan. Differential Diagnosis Differential Diagnoses: The differential diagnosis associated with the presentation includes ( see narrative above) Admission/Observation Consideration of admission/observation: Escalation of care including admission/observation considered ( see narrative above) Lab Data MDM Lab Attestation statement: I reviewed the patient's lab results. ( see narrative above) 09/28/23 09:40 09/28/23 11:15 Labs: Lab Results 09/28/23 09/28/23 09/28/23 Range/Units 09:15 09:40 11:15 WBC 4.1 L (4.8-10.8) X10*3/uL RBC 4.56 L (4.60-5.80) X10*6/uL Hgb 12.7 L (14.0-18.0) g/dl Hct 37.0 L (42.0-52.0) % MCV 81.1 (80.0-98.0) fL MCH 27.9 (27.0-33.0) pg MCHC 34.3 (31.0-36.0) g/dl RDW 14.5 (11.0-16.0) % Plt Count 224 (160-400) X10*3/uL MPV 10.7 (9.4-12.4) fL Immature Gran % (Auto) 0.5 H (0.0-0.4) % Neut % (Auto) 44.2 L (45-73) % Lymph % (Auto) 39.7 (20-40) % [place] % (Auto) 10.0 (2-11) % Eos % (Auto) 5.1 H (0-4) % Baso % (Auto) 0.5 (0-2) % Lymph # (Auto) 1.6 (1.2-4.9) X10*3/uL [place] # (Auto) 0.4 (0.1-1.2) X10*3/uL Eos # (Auto) 0.2 (0.0-0.4) X10*3/uL Baso # (Auto) 0.0 (0.0-0.2) X10*3/uL Abs Immat Gran (auto) 0.02 (0.00-0.03) X10*3/uL Absolute Neuts (auto) 1.8 L (2.0-8.3) x10*3/uL Absolute Nucleated RBC 0.000 (0.0-0.012) X10*3/uL Nucleated RBC % (auto) 0.0 (0.0-0.2) /100WBC Sodium 143 (135-145) mmol/L Potassium 4.3 (3.3-5.1) mmol/L Chloride 109 H (96-108) mmol/L Carbon Dioxide 23 (22-29) mmol/L Anion Gap 15 (12-20) BUN 22 H (9-16) mg/dL Creatinine 1.76 H 1.49 H (0.5-1.4) mg/dL Estim Creat Clear Calc 38.4 45.3 Estimated GFR 39 47 Random Glucose 162 H (60-115) mg/dL Calcium 9.5 (8.4-10.2) mg/dL Total Bilirubin 0.3 (0.0-1.0) mg/dL AST 17 (5-37) U/L ALT 16 (0-40) U/L Alkaline Phosphatase 77 (39-117) U/L Total Protein 7.5 (6.5-8.0) g/dL Albumin 4.2 (3.5-5.0) g/dL Urine Color Yellow Urine Appearance Clear Urine pH 5.0 (5.0-9.0) Ur Specific [place] 1.020 (1.005-1.025) Urine Protein Trace (Neg-Trace) mg/dL Urine Glucose (UA) Negative (Negative) mg/dL Urine Ketones Trace (Negative) mg/dL Urine Blood Negative (Negative) Urine Nitrite Negative (Negative) Ur Leukocyte Esterase Negative (Negative) Radiology Impression Discussion of test interpretation with radiology: I have reviewed the radiologist's reading. Radiologist Impression: CT/CT abdomen pelvis wo IV con IMPRESSION: 1. Mild bilateral perinephric stranding. Clinically correlate, correlate with urinalysis. Punctate nonobstructing left renal calculus. No hydroureteronephrosis. No radiopaque ureteral calculus seen. 2. No acute intra-abdominal findings otherwise identified. Fleischner guidelines were followed. External Record Review External record reviewed: Outpatient record and Other ( BANKRUPTCY JUDGE; see narrative above) Prescription Management I considered prescription management with: Pain Medication Discharge Plan Discharge Clinical Impression: Acute thoracic myofascial strain, Acute kidney injury Additional Instructions: as discussed, please follow-up closely with your primary care doctor to have further monitoring kidney labs. They were slightly elevated in July of 2023, and were even more elevated yesterday and today. This did improve after receiving IV fluids. Be sure that you are staying well hydrated and drinking approximately 15 cups or 3-4 L daily You can take Tylenol 500 mg, 2 tablets (1,000mg) every 4-6 hours as needed for pain, but not to exceed 3 doses daily (3,000mg). ? Prescriptions: New tramadol 50 mg tablet 50 mg PO Q8H PRN (Reason: pain) Qty: 10 0RF No Action (DME) blood-glucose meter [OneTouch Verio Meter] [facility] [place] See Rx Instructions .Route Qty: 1 0RF Rx Instructions: As directed (DME) OneTouch Verio test strips Strip See Rx Instructions .Route Qty: 100 2RF Rx Instructions: Use 1 test strip once a day (DME) lancets [OneTouch UltraSoft Lancets] [facility] [place] See Rx Instructions .Route Qty: 100 3RF Rx Instructions: Use 1 lancet once a day fenofibrate 54 mg tablet 54 mg PO DAILY 90 Days Qty: 90 3RF pioglitazone 45 mg tablet 45 mg PO DAILY 90 Days Qty: 90 1RF Tradjenta 5 mg tablet 5 mg PO DAILY 90 Days Qty: 90 1RF losartan 100 mg tablet 100 mg PO DAILY 90 Days Qty: 90 3RF aspirin [Adult Low Dose Aspirin] 81 mg tablet,delayed release (DR/EC) 81 mg PO DAILY 90 Days Qty: 90 3RF simvastatin 20 mg tablet 20 mg PO BEDTIME 90 Days Qty: 90 3RF tamsulosin 0.4 mg capsule 0.4 mg PO DAILY 90 Days Qty: 90 3RF tizanidine 4 mg capsule 4 mg PO BEDTIME PRN (Reason: muscle spasticity) Qty: 10 0RF naproxen 500 mg tablet 500 mg PO BID PRN (Reason: pain) 10 Days Qty: 20 0RF metformin 1,000 mg tablet 1,000 mg PO BID 90 Days Qty: 180 3RF zolpidem 10 mg tablet 10 mg PO BEDTIME 30 Days Qty: 30 0RF cholecalciferol (vitamin D3) 25 mcg (1,000 unit) capsule 25 mcg PO DAILY 90 Days Qty: 90 0RF tramadol 50 mg tablet 50 mg PO Q12H PRN (Reason: pain) 7 Days Qty: 28 0RF Jardiance 10 mg tablet 10 mg PO DAILY 90 Days Qty: 90 1RF olopatadine [Pataday Once Daily Relief] 0.2 % drops 1 drp ophthalmic (eye) DAILY PRN (Reason: itching) 30 Days Qty: 2.5 2RF sennosides [Natural Senna Laxative] 8.6 mg tablet 8.6 mg PO BEDTIME Qty: 90 3RF Referrals: Yecenia Hutchins MD [Primary Care Provider] - Print Language: Yakut
[2023-09-28 09:25] LABS: Appearance Urine Clear; Color Urine Yellow; Glucose Urine UA Negative (Negative); Leukocyte Esterase Urine Negative (Negative); Nitrite Urine Negative (Negative); Urine Blood Negative (Negative); Urine Ketones Trace mg/dL (Negative); Urine Protein Trace mg/dL (Neg-Trace)
[2023-09-28] MEDS: 0.9 % Sodium Chloride 1,000 ML 999 ML IV (09:37)
[2023-09-28 09:44] LABS: MANUAL DIFF FLAG NO
[2023-09-28 09:45] LABS: Basophils Percent Auto 0.5 % (0-2); Eosinophils Absolute Auto 0.2 X10*3/uL (0.0-0.4); Eosinophils Percent Auto 5.1 % (0-4); Hemoglobin 12.7 g/dl (14.0-18.0); Imm Gran Abs Auto 0.02 X10*3/uL (0.00-0.03); Imm Gran Pct Auto 0.5 % (0.0-0.4); Lymphocytes Absolute Auto 1.6 X10*3/uL (1.2-4.9); Lymphocytes Percent Auto 39.7 % (20-40); Mean Corpuscular HGB Conc 34.3 g/dl (31.0-36.0); Mean Corpuscular Hemoglobin 27.9 pg (27.0-33.0); Mean Corpuscular Volume 81.1 fL (80.0-98.0); Mean Platelet Volume 10.7 fL (9.4-12.4); Monocytes Absolute Auto 0.4 X10*3/uL (0.1-1.2); Neutrophils Absolute Auto 1.8 x10*3/uL (2.0-8.3); Neutrophils Percent Auto 44.2 % (45-73); Platelet Count 224 X10*3/uL (160-400); Red Blood Count 4.56 X10*6/uL (4.60-5.80); Red Cell Distribution Width 14.5 % (11.0-16.0); White Blood Count 4.1 X10*3/uL (4.8-10.8)
[2023-09-28 09:59] LABS: Alanine Aminotransferase 16 U/L (0-40); Albumin Level 4.2 g/dL (3.5-5.0); Alkaline Phosphatase 77 U/L (39-117); Anion Gap 15 (12-20); Aspartate Amino Transferase 17 U/L (5-37); Bilirubin Total 0.3 mg/dL (0.0-1.0); Blood Urea Nitrogen 22 mg/dL (9-16); Calcium 9.5 mg/dL (8.4-10.2); Carbon Dioxide 23 mmol/L (22-29); Chloride 109 mmol/L (96-108); Creatinine Clr Calc Pharmacy 38.4; Estimated Glomerular Filt Rate 39; Glucose Random 162 mg/dL (60-115); Potassium 4.3 mmol/L (3.3-5.1); Sodium 143 mmol/L (135-145); Total Protein 7.5 g/dL (6.5-8.0)
[2023-09-28] MEDS: traMADoL HCL 50 MG TABLET PO (10:07)
[2023-09-28 11:23] VITALS: BP 173/86; PULSE 53; RESP 17; TEMP 36.3; O2SAT 99
[2023-09-28 11:51] LABS: Creatinine Clr Calc Pharmacy 45.3; Estimated Glomerular Filt Rate 47
[2023-09-28 12:21] VITALS: BP 173/86; PULSE 53; RESP 17; TEMP 36.6; O2SAT 99
== END 2023-09-28 12:23 | disposition home or self-care (01) ==
PROVIDERS: Nurse Practitioner Family; Emergency Provider Emergency Medicine; PCP Internal Medicine
DX: S29.012A Strain of muscle and tendon of back wall of thorax, initial encounter (principal); X58.XXXA Exposure to other specified factors, initial encounter; N17.9 Acute kidney failure, unspecified; M54.50 Low back pain, unspecified; Y93.9 Activity, unspecified; Y92.9 Unspecified place or not applicable; Y99.8 Other external cause status; Z79.899 Other long term (current) drug therapy
CPT/HCPCS: 36415; 80053; 81003; 82565; 85025; 96360; 96361; 99284; 99285

== ENCOUNTER 2023-10-02 03:25 | Inpatient (IN) | payer MEDICARE, MEDICAID, SELFPAY ==
[2023-10-02] VITALS (8 sets, daily range): BP systolic 136–164; BP diastolic 62–83; PULSE 53–72; RESP 14–18; TEMP 36.5–36.9; O2SAT 94–98; BMI 28.3
--- NOTE | ~2023-10-02 | MR_ITS ---
EXAMINATION: MR ABDOMEN WITHOUT AND WITH CONTRAST CLINICAL INFORMATION: Acute pancreatitis. COMPARISON: Right upper quadrant ultrasound 10/02/2023 CT abdomen/pelvis 10/02/2023 CT abdomen/pelvis 09/27/2023 TECHNIQUE: MR abdomen was performed without and with use of 8 mL intravenous Gadavist gadolinium contrast. Postcontrast images are performed in multiphase dynamic sequences. Imaging was performed in 3 planes. MRCP was also performed. FINDINGS: LUNG BASES: Small left pleural effusion. Small hiatal hernia. LIVER, GALLBLADDER, AND BILIARY TREE: Hepatic steatosis. No focal hepatic lesion or biliary ductal dilatation is present. The gallbladder contains sludge. PANCREAS: There is similar fullness/edema of the tail the pancreas with mild peripancreatic stranding. There is small fluid in the left anterior pararenal space. No ductal dilatation. No peripancreatic fluid collection. SPLEEN: Not enlarged. ADRENAL GLANDS: No adrenal mass. KIDNEYS AND URETERS: The kidneys are symmetric in size and enhancement. No hydronephrosis. Nonspecific perinephric stranding. GASTROINTESTINAL TRACT: No bowel obstruction. No ascites or fluid collection. LYMPH NODES: No bulky lymphadenopathy. VASCULAR: Normal caliber abdominal aorta. MR/MR abdomen wo/w con IMPRESSION: Finding suggestive of acute pancreatitis of the pancreas tail. No peripancreatic fluid collection. Hepatic steatosis. Sludge in the gallbladder. Small left pleural effusion likely sympathetic.
--- NOTE | ~2023-10-02 | US_ITS ---
EXAMINATION: US ABDOMEN LIMITED CLINICAL INFORMATION: Acute pancreatitis. Rule out gallbladder disease.. COMPARISON: None available. TECHNIQUE: Real-time imaging of the right upper quadrant abdominal viscera. FINDINGS: PANCREAS: Visualized pancreatic head and body are normal in appearance. The remainder the pancreas is obscured from visualization by overlying bowel gas. LIVER: Normal. The liver is normal in size. The liver contour is normal. Parenchymal echogenicity is normal. No focal hepatic lesion. There is no intrahepatic biliary duct dilatation seen. GALLBLADDER: Normal. The gallbladder is physiologically distended without evidence of stones, sludge, polyps, wall thickening or pericholecystic fluid. COMMON BILE DUCT: Normal in caliber measuring 0.5 cm in diameter. RIGHT KIDNEY: Normal. No hydronephrosis. No renal calculi or focal parenchymal lesions. The kidney measures 11.1 cm in maximum dimension. FREE FLUID: None. US/US abdomen limited IMPRESSION: Normal abdominal ultrasound. No cholelithiasis. No biliary duct dilatation. Of note, only portions of the pancreatic head and body are noted. The pancreatic tail is obscured from visualization by overlying bowel gas.
--- NOTE | ~2023-10-02 | CT_ITS ---
EXAMINATION: CT ABDOMEN AND PELVIS WITHOUT CONTRAST CLINICAL INFORMATION: Left-sided CVA tenderness COMPARISON: CT abdomen pelvis 09/27/2023. TECHNIQUE: Multidetector volumetric imaging was performed from the superior aspect of the liver through the pubic symphysis. Sagittal and coronal reformatted images were obtained on the technologist's workstation. This CT examination was performed using dose optimization techniques as appropriate, variously including the following: *Automated exposure control *Adjustment of mA and/or kV according to patient size (this includes techniques or standardized protocols for targeted exams where dose is matched to indication/reason for exam; i.e. extremities or head) *Use of iterative reconstruction technique DLP: 533 mGy-cm FINDINGS: LUNG BASES: The visualized lung bases are unremarkable. Partial visualization of moderate scattered coronary artery calcific atherosclerosis LIVER, GALLBLADDER, AND BILIARY TREE: The liver is normal in size, shape, and attenuation. No focal hepatic lesion or biliary ductal dilatation is present. The gallbladder is unremarkable with no evidence of radiopaque gallstones, gallbladder wall thickening, or obvious pericholecystic inflammatory changes. PANCREAS: Mild peripancreatic fat reticulation is present adjacent to the tail of the pancreas and mild thickening of the adjacent left anterior pararenal fascia is noted. These findings are new compared with 09/27/2023. No discrete peripancreatic fluid collections identified. SPLEEN: Unremarkable. ADRENAL GLANDS: Unremarkable. KIDNEYS AND URETERS: Left kidney calculi: 2 mm calculus interpolar region. (Series 4 image 312). Possible additional 1 mm punctate calculus within the interpolar region. Right kidney calculi: None identified. No ureteral calculi visualized. No ureterectasis. No hydronephrosis. BLADDER: Unremarkable. GASTROINTESTINAL TRACT: Normal appendix. No intestinal dilatation or mural thickening. No free intraperitoneal fluid or gas collections. Normal stomach and duodenum. ABDOMINAL WALL: No significant hernia is appreciated. LYMPH NODES: Normal. VASCULAR: Moderate scattered calcific atherosclerosis. PELVIC VISCERA: Normal size of the prostate. The visualized reservoir for penile prosthesis. OSSEOUS STRUCTURES: Unremarkable. CT/CT abdomen pelvis wo IV con IMPRESSION: 1. Findings suspicious for mild acute pancreatitis. Mild inflammatory changes are present adjacent to the tail of the pancreas and mild thickening of the adjacent left anterior pararenal fascia. Findings are new compared with 09/27/2023. No discrete peripancreatic fluid collections. No free intraperitoneal fluid or gas collections. 2. Single punctate nonobstructing calculi within the left kidney. No ureteral calculi. No hydronephrosis or ureterectasis. 3. Normal appendix. 4. Partial visualization of moderate coronary artery calcific atherosclerosis.
--- NOTE | 2023-10-02 03:38 | MHC.EDTECH ---
Patient brought into triage area,labs drawn and sent to lab.
[2023-10-02 03:41] LABS: MANUAL DIFF FLAG NO
[2023-10-02 03:43] LABS: Basophils Percent Auto 0.2 % (0-2); Eosinophils Absolute Auto 0.1 X10*3/uL (0.0-0.4); Eosinophils Percent Auto 1.3 % (0-4); Hematocrit 35.7 % (42.0-52.0); Hemoglobin 12.3 g/dl (14.0-18.0); Imm Gran Abs Auto 0.01 X10*3/uL (0.00-0.03); Imm Gran Pct Auto 0.1 % (0.0-0.4); Lymphocytes Absolute Auto 1.8 X10*3/uL (1.2-4.9); Lymphocytes Percent Auto 19.8 % (20-40); Mean Corpuscular HGB Conc 34.5 g/dl (31.0-36.0); Mean Corpuscular Hemoglobin 27.6 pg (27.0-33.0); Mean Platelet Volume 10.8 fL (9.4-12.4); Monocytes Percent Auto 11.2 % (2-11); Neutrophils Percent Auto 67.4 % (45-73); Platelet Count 232 X10*3/uL (160-400); Red Blood Count 4.46 X10*6/uL (4.60-5.80); Red Cell Distribution Width 14.3 % (11.0-16.0); White Blood Count 8.9 X10*3/uL (4.8-10.8)
[2023-10-02 04:24] LABS: Alanine Aminotransferase 16 U/L (0-40); Alkaline Phosphatase 83 U/L (39-117); Anion Gap 15 (12-20); Aspartate Amino Transferase 23 U/L (5-37); Bilirubin Total 0.4 mg/dL (0.0-1.0); Blood Urea Nitrogen 13 mg/dL (9-16); Calcium 9.5 mg/dL (8.4-10.2); Carbon Dioxide 19 mmol/L (22-29); Chloride 110 mmol/L (96-108); Creatinine Clr Calc Pharmacy 50.2; Estimated Glomerular Filt Rate 53; Glucose Random 147 mg/dL (60-115); Lipase 883 U/L (8-78); Potassium 4.1 mmol/L (3.3-5.1); Sodium 140 mmol/L (135-145); Total Protein 7.6 g/dL (6.5-8.0)
--- NOTE | 2023-10-02 04:39 | ED.ABDPAIN ---
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 Shaikh HPI narrative: 67-year-old male came in for evaluation of abdominal pain. Pain started 2-3 days ago as right-sided abdominal pain now the pain is on the left side of the abdomen radiating to the left flank area, no dysuria, no frequency urination, no blood in the urine, no nausea, no vomiting, last bowel movement was yesterday and was normal, patient is passing flatus. Patient drinks alcohol occasionally no recent alcohol use. No history of intra-abdominal surgery. Related Data Previous Rx's ?Medication ?Instructions ?Recorded zolpidem 10 mg tablet 10 mg PO BEDTIME 30 days #30 tabs 11/09/21 tizanidine 4 mg capsule 4 mg PO BEDTIME PRN muscle 02/07/22 spasticity #10 caps metformin 1,000 mg tablet 1,000 mg PO BID 90 days #180 tabs 07/03/22 blood sugar diagnostic (OneTouch #100 ea 07/04/22 Verio test strips) blood-glucose meter (OneTouch #1 ea 07/04/22 Verio Meter) lancets (OneTouch UltraSoft #100 ea 07/04/22 Lancets) naproxen 500 mg tablet 500 mg PO BID PRN pain 10 days #20 07/12/22 tabs sennosides 8.6 mg tablet (Natural 8.6 mg PO BEDTIME constipation #90 09/18/22 Senna Laxative) tabs fenofibrate 54 mg tablet 54 mg PO DAILY 90 days #90 tabs 11/27/22 pioglitazone 45 mg tablet 45 mg PO DAILY 90 days #90 tabs 02/02/23 linagliptin 5 mg tablet (Tradjenta) 5 mg PO DAILY 90 days #90 tabs 05/31/23 cholecalciferol (vitamin D3) 25 25 mcg PO DAILY 90 days #90 caps 07/09/23 mcg (1,000 unit) capsule empagliflozin 10 mg tablet 10 mg PO DAILY 90 days #90 tabs 07/09/23 (Jardiance) olopatadine 0.2 % eye drops 1 drp ophthalmic (eye) DAILY PRN 07/09/23 (Pataday Once Daily Relief) itching 30 days #2.5 mL tramadol 50 mg tablet 50 mg PO Q12H PRN pain 7 days #28 07/09/23 tabs aspirin 81 mg tablet,delayed 81 mg PO DAILY 90 days #90 tabs 09/10/23 release (Adult Low Dose Aspirin) losartan 100 mg tablet 100 mg PO DAILY 90 days #90 tabs 09/10/23 simvastatin 20 mg tablet 20 mg PO BEDTIME 90 days #90 tabs 09/10/23 tamsulosin 0.4 mg capsule 0.4 mg PO DAILY 90 days #90 caps 09/10/23 tramadol 50 mg tablet 50 mg PO Q8H PRN pain #10 tabs 09/28/23 Allergies Allergy/AdvReac Type Severity Reaction Status Date / Time No Known Allergies Allergy Verified 10/02/23 03:29 Review of Systems Review of Systems All other systems are reviewed and are negative Constitutional: Reports as per HPI and Reports no additional constitutional complaints Eyes: Reports as per HPI and Reports no additional eye complaints Reports system reviewed and no additional complaints, except as documented Cardiovascular: Reports as per HPI and Reports no additional cardiovascular complaints Respiratory: Reports as per HPI and Reports no additional respiratory complaints Gastrointestinal: Reports as per HPI and Reports no additional gastrointestinal complaints Genitourinary: Reports no additional female genitourinary complaints Musculoskeletal: Reports no additional musculoskeletal complaints Skin/Breast: Reports system reviewed and no additional complaints, except as docu Psychiatric: Reports no additional psychiatric complaints Endocrine: Reports no additional endocrine complaints Hematologic/Lymphatic: Reports no additional hematologic/lymphatic complaints Allergic/Immunologic: Reports no additional allergic/immunologic complaints Reports system reviewed and no additional complaints, except as documented and Reports Abnormal speech present [facility] Past Medical History Medical History Diabetes Tubular adenoma of colon Headache Primary insomnia Anemia Mixed hyperlipidemia Essential hypertension Insomnia Surgical History Hx of hand surgery Hx of colonoscopy History of cataract surgery Family History Family History Father No problems noted. Mother Diabetes Hypertension Daughter No problems noted. Son No problems noted. Sister No problems noted. Brother No problems noted. Social History Social History Housing: Apartment Unable to assess alcohol history related to: Unknown Alcohol intake: current Alcohol intake frequency: a few times a month Alcohol type: beer Patient Tobacco Use Status: Never used Tobacco Smoked in Last 30 Days: No e-Cigarette/Vaping Use: Never Used Second Hand Smoke Exposure: No Use of substances other than those prescribed or required for medical reasons: Unknown Advance Directives: No Advance Directives Information Provided: Yes service: No Current occupational status: employed Current occupational exposures/hazards: No Cognitive needs: No Hearing needs: No Vision needs: No Physical Exam ED Vital Signs: Vital Signs - 24 hr 10/02/23 03:28 10/02/23 06:16 10/02/23 06:17 Temperature 97.7 F 98.4 F 97.8 F Pulse Rate 70 72 53 Respiratory Rate 18 16 16 Blood Pressure 139/82 137/83 136/62 Pulse Oximetry 97 98 96 Oxygen Delivery Method Room Air Room Air Room Air BMI result Body Mass Index 28.3 Vital signs have been reviewed and appear to be correct. Blood pressure elevated. Heart rate normal. Respiratory rate normal. Temperature normal. Oxygen saturation normal. Appearance: Alert. Oriented X3. No acute distress. Head: Normal external exam. Normocephalic. Atraumatic. No [place] signs noted. No raccoon eyes noted Eyes: PERRLA. EOMI. Conjunctiva and sclera normal. Eyelids normal. ENT: TM's Normal. Pharynx normal. Uvula midline. Moist mucous membranes. No trismus noted. No drooling noted. No muffled voice noted. Neck: Normal inspection. Neck supple. FROM. No adenopathy. Thyroid Normal. No meningeal signs. No neck mass noted. CVS: Normal heart rate and rhythm. Heart sound normal. No murmurs noted. Pulses normal throughout. Respiratory: No respiratory distress. Painless inspiration. Breath sounds normal. No wheezes/rales/rhonchi noted. Chest nontender. No accessory muscle usage noted or decreased air movement noted. Abdomen: Soft , mild left abdominal tenderness, no guarding, no rebound tenderness. Bowel sounds normal in all 4 quadrants. No distention noted. No organomegaly noted. No visible injury noted. Back: Left CVA tenderness. Full range of motion noted. Skin: Skin warm and dry. Normal skin color. Normal skin turgor. No rashes/lesions/lacerations noted. Extremities: No lower extremity edema. Extremities exhibit normal range of motion. Extremities nontender. Neuro: Oriented X 3. Cranial nerve exam: II-XII are grossly intact No motor deficit. No sensory deficit. Reflexes normal. Course Reevaluation(s) Reevaluation #1: 68-year-old male came in with abdominal pain, elevated lipase and CT showed noncomplicated pancreatitis, normal LFTs otherwise. Ultrasound showed no gallbladder disease. Patient only drinks alcohol occasionally with no reported recent drinking. Admit, clear diet, IV hydration, pain control. Time: 05:45 Medical Decision Making Differential Diagnosis Differential Diagnoses: The differential diagnosis associated with the presentation includes (Acute pancreatitis, gallbladder disease, colitis, diverticulitis, acute appendicitis, UTI, kidney stone, pyelonephritis, electrolyte derangement, dehydration, ABNER, severe anemia.) Admission/Observation Consideration of admission/observation: Escalation of care including admission/observation considered Consult Healthcare Provider Management of the patient was discussed with: Hospitalist (Dr. George) Lab Data MDM Lab Attestation statement: I reviewed the patient's lab results. 10/02/23 03:37 10/02/23 03:37 Labs: Lab Results 10/02/23 10/02/23 Range/Units 03:37 04:43 WBC 8.9 (4.8-10.8) X10*3/uL RBC 4.46 L (4.60-5.80) X10*6/uL Hgb 12.3 L (14.0-18.0) g/dl Hct 35.7 L (42.0-52.0) % MCV 80.0 (80.0-98.0) fL MCH 27.6 (27.0-33.0) pg MCHC 34.5 (31.0-36.0) g/dl RDW 14.3 (11.0-16.0) % Plt Count 232 (160-400) X10*3/uL MPV 10.8 (9.4-12.4) fL Immature Gran % (Auto) 0.1 (0.0-0.4) % Neut % (Auto) 67.4 (45-73) % Lymph % (Auto) 19.8 L (20-40) % [place] % (Auto) 11.2 H (2-11) % Eos % (Auto) 1.3 (0-4) % Baso % (Auto) 0.2 (0-2) % Lymph # (Auto) 1.8 (1.2-4.9) X10*3/uL [place] # (Auto) 1.0 (0.1-1.2) X10*3/uL Eos # (Auto) 0.1 (0.0-0.4) X10*3/uL Baso # (Auto) 0.0 (0.0-0.2) X10*3/uL Abs Immat Gran (auto) 0.01 (0.00-0.03) X10*3/uL Absolute Neuts (auto) 6.0 (2.0-8.3) x10*3/uL Absolute Nucleated RBC 0.000 (0.0-0.012) X10*3/uL Nucleated RBC % (auto) 0.0 (0.0-0.2) /100WBC Sodium 140 (135-145) mmol/L Potassium 4.1 (3.3-5.1) mmol/L Chloride 110 H (96-108) mmol/L Carbon Dioxide 19 L (22-29) mmol/L Anion Gap 15 (12-20) BUN 13 (9-16) mg/dL Creatinine 1.33 (0.5-1.4) mg/dL Estim Creat Clear Calc 50.2 Estimated GFR 53 Random Glucose 147 H (60-115) mg/dL Calcium 9.5 (8.4-10.2) mg/dL Total Bilirubin 0.4 (0.0-1.0) mg/dL AST 23 (5-37) U/L ALT 16 (0-40) U/L Alkaline Phosphatase 83 (39-117) U/L Total Protein 7.6 (6.5-8.0) g/dL Albumin 4.0 (3.5-5.0) g/dL Lipase 883 H (8-78) U/L Urine Color Yellow Urine Appearance Clear Urine pH 5.5 (5.0-9.0) Ur Specific [place] 1.015 (1.005-1.025) Urine Protein Trace (Neg-Trace) mg/dL Urine Glucose (UA) Negative (Negative) mg/dL Urine Ketones Trace (Negative) mg/dL Urine Blood Negative (Negative) Urine Nitrite Negative (Negative) Ur Leukocyte Esterase Negative (Negative) Independent Interpretation I performed an independent interpretation of an: Ultrasound (Normal abdominal ultrasound. No cholelithiasis. No biliary duct dilatation. Of note, only portions of the pancreatic head and body are noted. The pancreatic tail is obscured from visualization by overlying bowel gas.) and CT Scan (Abdomen and pelvis:. Findings suspicious for mild acute pancreatitis. Mild inflammatory changes are present adjacent to the tail of the pancreas and mild thickening of the adjacent left anterior pararenal fascia. Findings are new compared with 09/27/2023. No discrete peripancreatic fluid collections) Radiology Impression Discussion of test interpretation with radiology: I have reviewed the radiologist's reading. Medications Administered Discontinued Medications Generic Name Dose Route Start Last Admin Trade Name Freq PRN Reason Stop Dose Admin Sodium Chloride 1,000 mls @ 999 mls/hr 10/02/23 04:38 10/02/23 06:04 Ns IV 10/02/23 05:38 Infused .Q1H1M ONE Infusion Ketorolac Tromethamine 30 mg 10/02/23 04:38 10/02/23 05:12 Ketorolac Tromethamine 30 Mg/Ml Vial IVPUSH 10/02/23 04:39 30 mg ONCE ONE Administration Morphine Sulfate 1 mg 10/02/23 05:42 10/02/23 06:15 Morphine Sulfate 2 Mg/Ml Cartridge IVPUSH 10/02/23 05:43 1 mg ONCE ONE Administration Protocol Discharge Plan Discharge Clinical Impression: Pancreatitis, Abdominal pain Patient Disposition: Admitted As Inpatient Print Language: Egyptian
[2023-10-02 04:55] LABS: Appearance Urine Clear; Color Urine Yellow; Glucose Urine UA Negative (Negative); Leukocyte Esterase Urine Negative (Negative); Nitrite Urine Negative (Negative); PH 5.5 (5.0-9.0); Specific Gravity - Urine 1.015 (1.005-1.025); Urine Blood Negative (Negative); Urine Ketones Trace mg/dL (Negative); Urine Protein Trace mg/dL (Neg-Trace)
[2023-10-02] MEDS: Ketorolac Tromethamine 30 MG/ML VIAL IVPUSH (05:12)
[2023-10-02] MEDS: 0.9 % Sodium Chloride 1,000 ML 999 ML IV (05:12)
[2023-10-02] MEDS: Morphine Sulfate 2 MG/ML CARTRIDGE 1 MG IVPUSH (06:15)
--- NOTE | 2023-10-02 09:33 | P.HPHOSP_ITS ---
History of Present Illness Date of Service: 10/02/23 Attending physician on admission: Alcon Julian Chief Complaint: abd pain 68 year old male with history of non insulin dependent type 2 diabetes, hld, htn, tubular adenoma colon presented to the ED for evaluation of abd pain ongoing intermittently for the last month, but over the last week has worsened and become more constant. He states the pain originates in the left upper quadrant and radiates to the back and across the upper abdomen. He denies any associated nausea, vomiting, anorexia. No fevers, chills, dysuria, hematuria, increased frequency/urgency, diarrhea, melena, hematochezia, shortness of breath, lightheadedness, palpitations, or chest pain. On admission, vitals are stable. No leukocytosis. There is a mild normocytic anemia. Renal function is baseline, electrolytes normal except for chloride 110, CO2 19. Triglycerides 165. Lipase 83. Urinalysis unremarkable. Abdominal ultrasound is negative for cholelithiasis or biliary ductal dilatation. CT abdomen/pelvis shows mild inflammatory changes adjacent to the tail of the pancreas and mild thickening of the adjacent left anterior perirenal fascia without any discrete peripancreatic fluid collections or intraperitoneal fluid or gas. In the ED, has received IV fluids, morphine x2, and ketorolac. He will be admitted for further management of acute pancreatitis. Review of Systems 2 Review of Systems: Yes all other systems are reviewed and are negative [facility] Medical History Diabetes Tubular adenoma of colon Headache Primary insomnia Anemia Mixed hyperlipidemia Essential hypertension Insomnia Family History Father No problems noted. Mother Diabetes Hypertension Daughter No problems noted. Son No problems noted. Sister No problems noted. Brother No problems noted. Surgical History Hx of hand surgery Hx of colonoscopy History of cataract surgery Social History Housing: Apartment Unable to assess alcohol history related to: Unknown Alcohol intake: current Alcohol intake frequency: a few times a month Alcohol type: beer Patient Tobacco Use Status: Never used Tobacco Smoked in Last 30 Days: No e-Cigarette/Vaping Use: Never Used Second Hand Smoke Exposure: No Use of substances other than those prescribed or required for medical reasons: Unknown Advance Directives: No Advance Directives Information Provided: Yes service: No Current occupational status: employed Current occupational exposures/hazards: No Cognitive needs: No Hearing needs: No Vision needs: No Meds Allergies Allergy/AdvReac Type Severity Reaction Status Date / Time No Known Allergies Allergy Verified 10/02/23 03:29 Home Medications ?Medication ?Instructions ?Recorded ?Confirmed ?Last Taken ?Type losartan 100 mg tablet 100 mg PO BID 10/02/23 10/02/23 10/02/23 History Physical Exam 2 Vital Signs and Narrative: Vital Signs: Last Vital Signs Temp 97.9 F 10/02/23 08:20 Pulse 60 10/02/23 08:20 Resp 16 10/02/23 08:20 BP 164/71 H 10/02/23 08:20 Pulse Ox 95 10/02/23 08:20 O2 Del Method Room Air 10/02/23 08:20 BMI result Body Mass Index 28.3 Constitutional - Awake and Alert, No apparent distress Eyes - PERRLA, EOMI Cardiovascular - S1S2, RRR, No edema Respiratory - Normal lung expansion, Normal respiratory effort, No respiratory distress, CTA bilaterally Gastrointestinal - LUQ and epigasric ttp. ND; +BS; No rebound or guarding Extremities - no calf tenderness bilaterally, no swelling Skin - Warm/Dry Neurological - Alert & oriented x3 Psychological - Appropriate affect Results Labs 10/02/23 03:37 10/02/23 03:37 Labs: Laboratory Results - last 24 hr 10/02/23 10/02/23 03:37 04:43 MCV 80.0 MCH 27.6 MCHC 34.5 RDW 14.3 Plt Count 232 MPV 10.8 Immature Gran % (Auto) 0.1 Neut % (Auto) 67.4 Lymph % (Auto) 19.8 L [place] % (Auto) 11.2 H Eos % (Auto) 1.3 Baso % (Auto) 0.2 Lymph # (Auto) 1.8 [place] # (Auto) 1.0 Eos # (Auto) 0.1 Baso # (Auto) 0.0 Abs Immat Gran (auto) 0.01 Absolute Neuts (auto) 6.0 Absolute Nucleated RBC 0.000 Nucleated RBC % (auto) 0.0 Anion Gap 15 Estim Creat Clear Calc 50.2 Estimated GFR 53 Random Glucose 147 H Calcium 9.5 Total Bilirubin 0.4 AST 23 ALT 16 Alkaline Phosphatase 83 Total Protein 7.6 Albumin 4.0 Lipase 883 H Urine Color Yellow Urine Appearance Clear Urine pH 5.5 Ur Specific [place] 1.015 Urine Protein Trace Urine Glucose (UA) Negative Urine Ketones Trace Urine Blood Negative Urine Nitrite Negative Ur Leukocyte Esterase Negative Imaging Radiologist's Impressions: Impressions Abdomen/Pelvis CT 10/02/23 05:05 IMPRESSION: 1. Findings suspicious for mild acute pancreatitis. Mild inflammatory changes are present adjacent to the tail of the pancreas and mild thickening of the adjacent left anterior pararenal fascia. Findings are new compared with 09/27/2023. No discrete peripancreatic fluid collections. No free intraperitoneal fluid or gas collections. 2. Single punctate nonobstructing calculi within the left kidney. No ureteral calculi. No hydronephrosis or ureterectasis. 3. Normal appendix. 4. Partial visualization of moderate coronary artery calcific atherosclerosis. Abdomen Ultrasound 10/02/23 06:15 IMPRESSION: Normal abdominal ultrasound. No cholelithiasis. No biliary duct dilatation. Of note, only portions of the pancreatic head and body are noted. The pancreatic tail is obscured from visualization by overlying bowel gas. Assessment and Plan (1) Pancreatitis: Status: Acute Plan 68 year old male with history of non insulin dependent type 2 diabetes, hld, htn, tubular adenoma colon #Acute pancreatitis -CT abd/pelvis shows mild pancreatitis with inflammatory changes adjacent to the tail of the pancreas and mild thickening of the adjacent left anterior pararenal fascia. No discrete peripancreatic fluid collections. No free intraperitoneal fluid or gas collections. Abd US negative for cholelithiasis or biliary duct dilitation -lipase 883 -Triglycerides -no recent alcohol use -Aggressive IVF -Pain management using painscale and antiemetics prn -clear liquid diet -GI consult #Non insulin dependent type 2 diabetes -poc glucose, advance to diabetic diet -admelog on ss #HTN -continue losartan #hld -continue statin #BPH -flomax dvt prophylaxis- lovenox full code pt requires inpt stay at least 2 midnights for management of acute pnacreatitis with elevated lipase and significant abd pain requiring aggressive IV fluids, IV pain medication, and close monitoring or hemodynamics to monitor for and prevent decompensation Quality Stroke Does the patient have a stroke diagnosis?: No VTE Prior VTE?: No VTE Risk Level:: Medical - moderate - high VTE Device Contraindication: Treatment Not Indicated VTE Drug Contraindication: N/A - Med Ordered
[2023-10-02] MEDS: Morphine Sulfate 4 MG/ML CARTRIDGE IVPUSH ×3 (09:42→20:09)
[2023-10-02 10:02] LABS: Cholesterol 155 mg/dL (<200); HDL Cholesterol 41 mg/dL (>40); LDL Cholesterol Calculated 81 mg/dL (<100); Triglycerides 165 mg/dL (<150)
--- NOTE | 2023-10-02 10:02 | PC.NURSE ---
admitting at bedside
--- NOTE | 2023-10-02 10:21 | PHA.MEDREC ---
Pharmacy Consult ? Medication Reconciliation Pharmacy has completed the medication reconciliation. Spoke to patient via medical interpreter. He said he takes losartan 100 mg bid (confirmed with patient twice) and metformin 1000 mg bid even though last pharmacy claim was on 04/03/2023.
[2023-10-02] MEDS: Lactated Ringers 1,000 ML 125 ML IVCONT ×2 (11:01→18:24)
[2023-10-02] MEDS: Enoxaparin Sodium 40 MG/0.4 ML SYRINGE SUBCUT (11:04)
--- NOTE | 2023-10-02 13:26 | PM.GICN ---
History of Present Illness Data of Consult Service Date: 10/02/23 Requesting physician: Katalina Cruz Primary Care Provider: Yecenia Castellanos MD HPI Reason for consult: pancreatitis 68 year old male with history of non insulin dependent type 2 diabetes, hld, htn, tubular adenoma of the colon who I am seeing for assessment for pancreatitis. He presented initially with 1 month hx of 6/10 left upper quadrant pain and radiates to the back and across the upper abdomen without exacerbating or relieving factors. Over last week has become more constant and severe. He denies any associated nausea, vomiting, anorexia. No fevers, chills, dysuria, hematuria, increased frequency/urgency, diarrhea, melena, hematochezia, shortness of breath, lightheadedness, palpitations, or chest pain He feels constipation and abdominal distention --no nsiad use, drinks beer rarely LABS: Renal function is baseline, electrolytes normal except for chloride 110, CO2 19. Triglycerides 165. Lipase 83. Urinalysis unremarkable. . Imaging: Abdominal ultrasound: neg for sludge or cholelithiasis or biliary ductal dilatation CT abdomen/pelvis shows mild inflammatory changes adjacent to the tail of the pancreas and mild thickening of the adjacent left anterior perirenal fascia without any discrete peripancreatic fluid collections or intraperitoneal fluid or gas. Review of Systems Review of Systems: Constitutional : No Weight loss, No Fever, No Chills ENT/Mouth : No sore throat, No Rhinorrhea Eyes: No Swelling, No Redness Cardiovascular : No Chest Pain, No SOB, No Edema Respiratory : No Cough, No Sputum, No Wheezing Gastrointestinal : see HPI Genitourinary : NO Dysuria, No Urinary Frequency, No Hematuria, No Urgency Musculoskeletal : no joint pain, No Myalgias, No Joint Swelling Skin : No Skin Lesions, No rash Neuro : No Weakness, No Numbness, No Dizziness, No Headache Psych : No Anxiety/Panic, No Depression Heme/Lymph: No Bruising, No Lymphadenopathy Endocrine : No Polyuria, No Polydipsia All other systems reviewed and are negative. [facility] Past Medical History Medical History Diabetes Tubular adenoma of colon Headache Primary insomnia Anemia Mixed hyperlipidemia Essential hypertension Insomnia Family History Family History Father No problems noted. Mother Diabetes Hypertension Daughter No problems noted. Son No problems noted. Sister No problems noted. Brother No problems noted. Surgical History Surgical History Hx of hand surgery Hx of colonoscopy History of cataract surgery Social History Social History Housing: Apartment Unable to assess alcohol history related to: Unknown Alcohol intake: current Alcohol intake frequency: a few times a month Alcohol type: beer Patient Tobacco Use Status: Never used Tobacco Smoked in Last 30 Days: No e-Cigarette/Vaping Use: Never Used Second Hand Smoke Exposure: No Use of substances other than those prescribed or required for medical reasons: Unknown Advance Directives: No Advance Directives Information Provided: Yes Nutrition Risks: No Nutritional Risk service: No Current occupational status: employed Current occupational exposures/hazards: No Cognitive needs: No Hearing needs: No Vision needs: No Meds Allergies Allergy/AdvReac Type Severity Reaction Status Date / Time No Known Allergies Allergy Verified 10/02/23 03:29 Active Medications: Current Medications Acetaminophen (Acetaminophen 325 Mg Tablet) 650 mg PO Q6H PRN PRN Reason: Pain, Mild (Pain Scale 1-3), fever or headache Aspirin (Aspirin Enteric Coated 81 Mg Tablet.Dr) 81 mg PO DAILY [facility] Calcium Carbonate (Calcium Carbonate 750 Mg Tab.Chew) 750 mg PO Q4H PRN PRN Reason: Heartburn Empagliflozin (Empagliflozin 10 Mg Tablet) 10 mg PO DAILY [facility] Enoxaparin Sodium (Enoxaparin Sodium 40 Mg/0.4 Ml Syringe) 40 mg SUBCUT Q24H [facility] Last Admin: 10/02/23 11:04 Dose: 40 mg Fenofibrate (Fenofibrate 54 Mg Tablet) 54 mg PO DAILY [facility] Glucose (Glucose Gel 15 Gm Gel..Gram.) 15 gm PO Q15M PRN; Protocol PRN Reason: per Hypoglycemia Standing Ord. Lactated Ringer's (Lr) 1,000 mls @ 125 mls/hr IVCONT .Q8H [facility] Last Admin: 10/02/23 11:01 Dose: 125 mls/hr Dextrose (D10) 250 mls @ 750 mls/hr IV Q15M PRN; Protocol PRN Reason: per Hypoglycemia Standing Ord. Insulin Human Lispro (Insulin Lispro 100 Unit/Ml 3 Ml Vial) 0 unit SUBCUT QIDACHS [facility]; Protocol Losartan Potassium (Losartan Potassium 50 Mg Tablet) 100 mg PO DAILY [facility]; Protocol Magnesium Hydroxide (Milk Of Magnesia 30 Ml Oral.Susp) 30 ml PO DAILY PRN PRN Reason: Constipation Melatonin (Melatonin 3 Mg Tablet) 6 mg PO BEDTIME PRN PRN Reason: Insomnia Morphine Sulfate (Morphine Sulfate 4 Mg/Ml Cartridge) 4 mg IVPUSH Q4H PRN; Protocol PRN Reason: Pain, Severe (Pain Scale 7-10) Non-Formulary Medication (Linagliptin [Tradjenta]) 4 mg PO DAILY [facility] Non-Formulary Medication (Olopatadine [Pataday Once Daily Relief]) 1 drop EYE-BOTH DAILY PRN PRN Reason: itching Non-Formulary Medication (Simvastatin) 20 mg PO BEDTIME [facility] Ondansetron HCl (Ondansetron Hcl 4 Mg/2 Ml Vial) 4 mg IVPUSH Q8H PRN PRN Reason: Nausea and Vomiting Sodium Chloride (0.9 % Sodium Chloride Flush 3 Ml Syringe) 3 ml IVFLUSH QSHIFT [facility] Last Admin: 10/02/23 11:04 Dose: Not Given Tamsulosin HCl (Tamsulosin Hcl 0.4 Mg Capsule) 0.4 mg PO DAILY [facility] Vitamin D (Cholecalciferol (Vitamin D3) 25 Mcg Tablet) 25 mcg PO DAILY [facility] Home Medications ?Medication ?Instructions ?Recorded ?Confirmed ?Last Taken ?Type losartan 100 mg tablet 100 mg PO DAILY 10/02/23 10/02/23 10/02/23 History Physical Exam Vital Signs: Vital Signs: Last Vital Signs Temp 98.0 F 10/02/23 10:47 Pulse 60 10/02/23 10:47 Resp 14 10/02/23 10:15 BP 157/77 H 10/02/23 10:47 Pulse Ox 94 10/02/23 10:47 O2 Del Method Room Air 10/02/23 10:47 BMI result Body Mass Index 28.3 EXAM: GENERAL: The patient is overweight, relaxed VITAL SIGNS:see workflow HEENT: Nonicteric sclerae, PERRLA, EOMI. Oropharynx clear. Moist mucous membranes. Conjunctivae appear well perfused. No thyroid mass. CHEST: Chest wall is nontender. HEART: Regular rate and rhythm without murmurs. LUNGS: Clear to auscultation bilaterally. ABDOMEN: Soft, positive bowel sounds, nontender, no organomegaly.no flank tenderness SKIN: No rash, no excessive bruising, petechiae, or purpura. NEUROLOGIC: Cranial nerves II-XII intact without motor/sensory deficit. Psych: normal affect Results Labs 10/02/23 03:37 10/02/23 03:37 Labs: Short CBC 10/02/23 Range/Units 03:37 WBC 8.9 (4.8-10.8) X10*3/uL Hgb 12.3 L (14.0-18.0) g/dl Hct 35.7 L (42.0-52.0) % Plt Count 232 (160-400) X10*3/uL BMP 10/02/23 03:37 Sodium 140 Potassium 4.1 Chloride 110 H Carbon Dioxide 19 L BUN 13 Creatinine 1.33 Calcium 9.5 Liver Function 10/02/23 Range/Units 03:37 Total Bilirubin 0.4 (0.0-1.0) mg/dL AST 23 (5-37) U/L ALT 16 (0-40) U/L Alkaline Phosphatase 83 (39-117) U/L Albumin 4.0 (3.5-5.0) g/dL Urine 10/02/23 Range/Units 04:43 Urine Color Yellow Urine Appearance Clear Urine pH 5.5 (5.0-9.0) Ur Specific [place] 1.015 (1.005-1.025) Urine Protein Trace (Neg-Trace) mg/dL Urine Glucose (UA) Negative (Negative) mg/dL Imaging CT scan - abdomen: Attestation: I personally reviewed and interpreted this imaging study as follows: (mild constipation, stranding around pancreas, atherosclerosis ) Assessment and Plan (1) Pancreatitis: Status: Acute Plan 1/ Acute interstitial pancreatitis, uncertain cause, may have passed a stone or maybe underlying mass, pancreas divisum or IPMN, SOD or laternative path like PUD PLAN: 1/ Fluids 2/ analgesia prn 3/ miralax BID as tolerated 4/ MRI pancreas 5/ Clears, advance diet as tolerated, i 6/ if ongoing sx and MRI unrevealing then maybe EGD 7/ can add low dose PPI and trental 400 mg TID Procedures Date of Service Date of Service: 10/02/23
[2023-10-02 16:27] LABS: Glucose, Whole Blood 169 mg/dL (60-115)
[2023-10-02] MEDS: Insulin Lispro 100 UNIT/ML 3 ML VIAL SUBCUT (16:46)
[2023-10-02] MEDS: Melatonin 3 MG TABLET 6 MG PO (20:09)
[2023-10-02] MEDS: Atorvastatin Calcium 10 MG TABLET PO (20:09)
[2023-10-02 20:36] LABS: Glucose, Whole Blood 143 mg/dL (60-115)
--- NOTE | 2023-10-02 21:27 | PC.NURSE ---
Addendum entered by Jennifer Power RN 10/03/23 02:35: patient sleeping, did not disturb. call ureña at bedside. Addendum entered by Jennifer Power RN 10/03/23 00:07: requesting something for abdominal pain - RN to administer PRN. Original Note: a&ox4 su[place]ese speaking. some [place]. pain 8/10. medicated per MAY. see head to toe assessment. patient sleeping. all needs met, call ureña in reach.
[2023-10-03] VITALS: BP 139/69; PULSE 74; RESP 16; TEMP 37.1; O2SAT 91
[2023-10-03] MEDS: Morphine Sulfate 4 MG/ML CARTRIDGE IVPUSH ×3 (00:10→10:02)
--- NOTE | 2023-10-03 00:11 | MHC.EDTECH ---
This tech took over care of patient at 2300,hourly rounds and vitals completed,patient's sats are at 91% RN was made aware, patient is not having any difficulty breathing but did state he was having ABD pain,RN made aware,call ureña in reach
--- NOTE | 2023-10-03 01:10 | MHC.EDTECH ---
Patient urinated 250MLS of yellow urine in urinal
[2023-10-03] MEDS: Lactated Ringers 1,000 ML 125 ML IVCONT ×2 (01:50→10:19)
--- NOTE | 2023-10-03 02:57 | MHC.EDTECH ---
Patient urinated 300MLS of clear yellow urine.
[2023-10-03 03:39] VITALS: BP 128/69; PULSE 69; RESP 16; TEMP 37.6; O2SAT 92
--- NOTE | 2023-10-03 03:40 | MHC.EDTECH ---
Hourly rounds and vitals completed,patient is resting comfortably at this time,call ureña in reach
--- NOTE | 2023-10-03 05:04 | MHC.EDTECH ---
Patient urinated 300MLS in urinal
[2023-10-03 05:22] LABS: MANUAL DIFF FLAG NO
[2023-10-03 05:26] LABS: Basophils Percent Auto 0.2 % (0-2); Eosinophils Absolute Auto 0.1 X10*3/uL (0.0-0.4); Eosinophils Percent Auto 0.8 % (0-4); Hematocrit 32.2 % (42.0-52.0); Hemoglobin 11.1 g/dl (14.0-18.0); Imm Gran Abs Auto 0.04 X10*3/uL (0.00-0.03); Imm Gran Pct Auto 0.4 % (0.0-0.4); Lymphocytes Absolute Auto 1.4 X10*3/uL (1.2-4.9); Lymphocytes Percent Auto 14.3 % (20-40); Mean Corpuscular HGB Conc 34.5 g/dl (31.0-36.0); Mean Corpuscular Hemoglobin 27.6 pg (27.0-33.0); Mean Corpuscular Volume 80.1 fL (80.0-98.0); Mean Platelet Volume 10.8 fL (9.4-12.4); Monocytes Absolute Auto 1.2 X10*3/uL (0.1-1.2); Monocytes Percent Auto 12.5 % (2-11); Neutrophils Absolute Auto 7.1 x10*3/uL (2.0-8.3); Neutrophils Percent Auto 71.8 % (45-73); Platelet Count 189 X10*3/uL (160-400); Red Blood Count 4.02 X10*6/uL (4.60-5.80); Red Cell Distribution Width 14.5 % (11.0-16.0); White Blood Count 9.8 X10*3/uL (4.8-10.8)
--- NOTE | 2023-10-03 05:39 | MHC.EDTECH ---
Hourly rounds completed,family at bedside
[2023-10-03 05:58] LABS: Anion Gap 13 (12-20); Blood Urea Nitrogen 7 mg/dL (9-16); Calcium 9.1 mg/dL (8.4-10.2); Carbon Dioxide 23 mmol/L (22-29); Chloride 107 mmol/L (96-108); Creatinine Clr Calc Pharmacy 59.1; Estimated Glomerular Filt Rate > 60; Glucose Random 174 mg/dL (60-115); Lipase 228 U/L (8-78); Potassium 3.7 mmol/L (3.3-5.1); Sodium 139 mmol/L (135-145)
--- NOTE | 2023-10-03 06:04 | PC.NURSE ---
patient medicated with prn morphine for pancreatitis pain. 10/09 per patient. all needs met. LR running at 125/hr, call ureña within reach.
[2023-10-03 07:54] LABS: Glucose, Whole Blood 146 mg/dL (60-115)
--- NOTE | 2023-10-03 08:08 | MHC.EDTECH ---
blood sugar checked. breakfast given. patient ate and resting at this time.
[2023-10-03] MEDS: Cholecalciferol (Vitamin D3) 25 MCG TABLET PO (10:02)
[2023-10-03] MEDS: Enoxaparin Sodium 40 MG/0.4 ML SYRINGE SUBCUT (10:03)
[2023-10-03] MEDS: Fenofibrate 54 MG TABLET PO (10:03)
[2023-10-03] MEDS: Losartan Potassium 50 MG TABLET 100 MG PO (10:03)
[2023-10-03] MEDS: 0.9 % Sodium Chloride Flush 3 ML SYRINGE IVFLUSH (10:03)
[2023-10-03] MEDS: Aspirin Enteric Coated 81 MG TABLET.DR PO (10:03)
[2023-10-03] MEDS: Tamsulosin HCL 0.4 MG CAPSULE PO (10:03)
[2023-10-03] MEDS: Empagliflozin 10 MG TABLET PO (10:03)
[2023-10-03 10:07] VITALS: BP 138/69; PULSE 71; RESP 16; TEMP 37.2; O2SAT 94
--- NOTE | 2023-10-03 10:46 | PC.NURSE ---
Patient taken to MRI.
[2023-10-03] MEDS: gadobutroL 10 ML VIAL IVPUSH (11:06)
--- NOTE | 2023-10-03 12:07 | MHC.EDTECH ---
patient given lunch. eating at this time.
--- NOTE | 2023-10-03 13:00 | P.PNIM_ITS ---
Subjective Subjective Date of Service: 10/03/23 Interval History: still with pain, but improved Physical Exam 2 Vital Signs: Vital Signs: Last Vital Signs Temp 99.0 F 10/03/23 10:07 Pulse 71 10/03/23 10:07 Resp 16 10/03/23 10:07 BP 138/69 10/03/23 10:07 Pulse Ox 94 10/03/23 10:07 O2 Del Method Room Air 10/03/23 10:07 BMI result Body Mass Index 28.3 General: AO X 3, no acute distress Resp: CTA bilateral, no accessory muscles used CVS: S1,S2,RRR GI: soft, mildly tender, non distended Neuro: motor grossly intact, alert Psych: appropriate affect, appropriate insight Objective Data Active Medications Acetaminophen (Acetaminophen 325 Mg Tablet) 650 mg PO Q6H PRN PRN Reason: Pain, Mild (Pain Scale 1-3), fever or headache Aspirin (Aspirin Enteric Coated 81 Mg Tablet.) 81 mg PO DAILY [facility] Last Admin: 10/03/23 10:03 Dose: 81 mg Documented By: [email or web address] Atorvastatin Calcium (Atorvastatin Calcium 10 Mg Tablet) 10 mg PO BEDTIME [facility] Last Admin: 10/02/23 20:09 Dose: 10 mg Documented By: THANIA Calcium Carbonate (Calcium Carbonate 750 Mg Tab.Chew) 750 mg PO Q4H PRN PRN Reason: Heartburn Empagliflozin (Empagliflozin 10 Mg Tablet) 10 mg PO DAILY [facility] Last Admin: 10/03/23 10:03 Dose: 10 mg Documented By: [email or web address] Enoxaparin Sodium (Enoxaparin Sodium 40 Mg/0.4 Ml Syringe) 40 mg SUBCUT Q24H [facility] Last Admin: 10/03/23 10:03 Dose: 40 mg Documented By: [email or web address] Fenofibrate (Fenofibrate 54 Mg Tablet) 54 mg PO DAILY [facility] Last Admin: 10/03/23 10:03 Dose: 54 mg Documented By: [email or web address] Glucose (Glucose Gel 15 Gm Gel..Gram.) 15 gm PO Q15M PRN; Protocol PRN Reason: per Hypoglycemia Standing Ord. Lactated Ringer's (Lr) 1,000 mls @ 125 mls/hr IVCONT .Q8H [facility] Last Admin: 10/03/23 10:19 Dose: 125 mls/hr Documented By: [email or web address] Dextrose (D10) 250 mls @ 750 mls/hr IV Q15M PRN; Protocol PRN Reason: per Hypoglycemia Standing Ord. Insulin Human Lispro (Insulin Lispro 100 Unit/Ml 3 Ml Vial) 0 unit SUBCUT QIDACHS [facility]; Protocol Last Admin: 10/03/23 07:57 Dose: Not Given Documented By: [email or web address] Non-Admin Reason: [id number] Losartan Potassium (Losartan Potassium 50 Mg Tablet) 100 mg PO DAILY [facility]; Protocol Last Admin: 10/03/23 10:03 Dose: 100 mg Documented By: [email or web address] Magnesium Hydroxide (Milk Of Magnesia 30 Ml Oral.Susp) 30 ml PO DAILY PRN PRN Reason: Constipation Melatonin (Melatonin 3 Mg Tablet) 6 mg PO BEDTIME PRN PRN Reason: Insomnia Last Admin: 10/02/23 20:09 Dose: 6 mg Documented By: THANIA Morphine Sulfate (Morphine Sulfate 4 Mg/Ml Cartridge) 4 mg IVPUSH Q4H PRN; Protocol PRN Reason: Pain, Severe (Pain Scale 7-10) Last Admin: 10/03/23 10:02 Dose: 4 mg Documented By: [email or web address] Non-Formulary Medication (Linagliptin [Tradjenta]) 4 mg PO DAILY [facility] Non-Formulary Medication (Olopatadine [Pataday Once Daily Relief]) 1 drop EYE- BOTH DAILY PRN PRN Reason: itching Ondansetron HCl (Ondansetron Hcl 4 Mg/2 Ml Vial) 4 mg IVPUSH Q8H PRN PRN Reason: Nausea and Vomiting Sodium Chloride (0.9 % Sodium Chloride Flush 3 Ml Syringe) 3 ml IVFLUSH QSHIFT [facility] Last Admin: 10/03/23 10:03 Dose: 3 ml Documented By: [email or web address] Tamsulosin HCl (Tamsulosin Hcl 0.4 Mg Capsule) 0.4 mg PO DAILY [facility] Last Admin: 10/03/23 10:03 Dose: 0.4 mg Documented By: [email or web address] Vitamin D (Cholecalciferol (Vitamin D3) 25 Mcg Tablet) 25 mcg PO DAILY [facility] Last Admin: 10/03/23 10:02 Dose: 25 mcg Documented By: [email or web address] Labs 10/03/23 05:10 10/03/23 05:10 Labs: Laboratory Results - last 24 hr 10/02/23 10/02/23 10/03/23 16:24 20:22 05:10 MCV 80.1 MCH 27.6 MCHC 34.5 RDW 14.5 Plt Count 189 MPV 10.8 Immature Gran % (Auto) 0.4 Neut % (Auto) 71.8 Lymph % (Auto) 14.3 L Stevens % (Auto) 12.5 H Eos % (Auto) 0.8 Baso % (Auto) 0.2 Lymph # (Auto) 1.4 Stevens # (Auto) 1.2 Eos # (Auto) 0.1 Baso # (Auto) 0.0 Abs Immat Gran (auto) 0.04 H Absolute Neuts (auto) 7.1 Absolute Nucleated RBC 0.000 Nucleated RBC % (auto) 0.0 Anion Gap 13 Estim Creat Clear Calc 59.1 Estimated GFR > 60 POC Glucose 169 H 143 H Random Glucose 174 H Calcium 9.1 Lipase 228 H 10/03/23 07:51 MCV MCH MCHC RDW Plt Count MPV Immature Gran % (Auto) Neut % (Auto) Lymph % (Auto) Stevens % (Auto) Eos % (Auto) Baso % (Auto) Lymph # (Auto) Stevens # (Auto) Eos # (Auto) Baso # (Auto) Abs Immat Gran (auto) Absolute Neuts (auto) Absolute Nucleated RBC Nucleated RBC % (auto) Anion Gap Estim Creat Clear Calc Estimated GFR POC Glucose 146 H Random Glucose Calcium Lipase Assessment and Plan (1) Pancreatitis: Status: Acute Plan 68M PMH non insulin dependent type 2 diabetes, hld, htn, tubular adenoma colon presented with abd pain Acute pancreatitis -CT abd/pelvis shows mild pancreatitis with inflammatory changes adjacent to the tail of the pancreas and mild thickening of the adjacent left anterior pararenal fascia. No discrete peripancreatic fluid collections. No free intraperitoneal fluid or gas collections. Abd US negative for cholelithiasis or biliary duct dilitation tg normal no recent alcohol use Aggressive IVF Pain management using painscale and antiemetics prn clear liquid diet IG following follow up mri Non insulin dependent type 2 diabetes poc glucose, advance to diabetic diet admelog on ss HTN continue losartan hld continue statin BPH flomax dvt prophylaxis- lovenox full code reason for continued hospitalization:ivf for pancreatitis Quality Stroke Does the patient have a stroke diagnosis?: No VTE Prior VTE?: No VTE Risk Level:: Medical - moderate - high VTE Device Contraindication: Treatment Not Indicated VTE Drug Contraindication: N/A - Med Ordered
[2023-10-03 13:17] LABS: Glucose, Whole Blood 189 mg/dL (60-115)
[2023-10-03] MEDS: Insulin Lispro 100 UNIT/ML 3 ML VIAL SUBCUT (13:19)
[2023-10-03 14:48] LABS: Immunoglobulin G Subclass 1 726 mg/dL (382-929); Immunoglobulin G Subclass 2 334 mg/dL (241-700); Immunoglobulin G Subclass 3 102 mg/dL (22-178); Immunoglobulin G Subclass 4 36.3 mg/dL (4-86); Immunoglobulin G Total 1189 mg/dL (600-1540)
[2023-10-03 17:20] LABS: Glucose, Whole Blood 107 mg/dL (60-115)
[2023-10-03 17:42] VITALS: BP 148/65; PULSE 73; RESP 18; TEMP 37.9; O2SAT 94
--- NOTE | 2023-10-03 19:16 | PC.NURSE ---
pt alert and oriented x4, VS as noted with low grade temp 100.3 this evening with MD Morris aware. VS otherwise stable. IV fluids running with pt voiding large amts pale yellow urine. He reports mild to moderate pain as tolerable and slept intermittently throughout the day. plan of care progressing.
[2023-10-03 20:00] VITALS: BP 164/77; PULSE 82; RESP 12; TEMP 38.3; O2SAT 96
[2023-10-03 20:26] LABS: Glucose, Whole Blood 147 mg/dL (60-115)
[2023-10-03] MEDS: Acetaminophen 325 MG TABLET 650 MG PO (20:27)
[2023-10-03] MEDS: Atorvastatin Calcium 10 MG TABLET PO (20:28)
[2023-10-04] VITALS (7 sets, daily range): BP systolic 131–153; BP diastolic 56–83; PULSE 79–95; RESP 16–20; TEMP 36.9–37.8; O2SAT 94–97
[2023-10-04] MEDS: Lactated Ringers 1,000 ML 125 ML IVCONT (05:20)
--- NOTE | 2023-10-04 05:23 | PC.NURSE ---
previous bag of LR finished infusing at 0520AM. new bag hung at this time.
[2023-10-04 06:12] LABS: Hematocrit 34.3 % (42.0-52.0); Hemoglobin 11.5 g/dl (14.0-18.0); Mean Corpuscular HGB Conc 33.5 g/dl (31.0-36.0); Mean Corpuscular Volume 80.5 fL (80.0-98.0); Mean Platelet Volume 10.8 fL (9.4-12.4); Platelet Count 201 X10*3/uL (160-400); Red Blood Count 4.26 X10*6/uL (4.60-5.80); Red Cell Distribution Width 14.6 % (11.0-16.0); White Blood Count 10.3 X10*3/uL (4.8-10.8)
[2023-10-04 06:27] LABS: Alanine Aminotransferase 9 U/L (0-40); Albumin Level 3.8 g/dL (3.5-5.0); Alkaline Phosphatase 75 U/L (39-117); Anion Gap 20 (12-20); Aspartate Amino Transferase 12 U/L (5-37); Bilirubin Direct 0.3 mg/dL (0.0-0.5); Bilirubin Total 0.7 mg/dL (0.0-1.0); Blood Urea Nitrogen 10 mg/dL (9-16); Calcium 9.2 mg/dL (8.4-10.2); Carbon Dioxide 17 mmol/L (22-29); Chloride 108 mmol/L (96-108); Creatinine Clr Calc Pharmacy 52.6; Estimated Glomerular Filt Rate 56; Glucose Fasting 113 mg/dL (60-99); Potassium 4.2 mmol/L (3.3-5.1); Sodium 141 mmol/L (135-145); Total Protein 7.4 g/dL (6.5-8.0)
[2023-10-04 07:29] LABS: Glucose, Whole Blood 116 mg/dL (60-115)
[2023-10-04] MEDS: Empagliflozin 10 MG TABLET PO (08:21)
[2023-10-04] MEDS: Aspirin Enteric Coated 81 MG TABLET.DR PO (08:21)
[2023-10-04] MEDS: Tamsulosin HCL 0.4 MG CAPSULE PO (08:21)
[2023-10-04] MEDS: Cholecalciferol (Vitamin D3) 25 MCG TABLET PO (08:21)
[2023-10-04] MEDS: Fenofibrate 54 MG TABLET PO (08:21)
[2023-10-04] MEDS: Losartan Potassium 50 MG TABLET 100 MG PO (08:24)
--- NOTE | 2023-10-04 10:12 | HO.PM.IMPN ---
Subjective Subjective Date of Service: 10/04/23 Interval History: still with pain, low grade fever Physical Exam Vital Signs: Vital Signs: Last Vital Signs Temp 98.6 F 10/04/23 08:11 Pulse 93 10/04/23 08:11 Resp 18 10/04/23 08:11 BP 141/56 H 10/04/23 08:24 Pulse Ox 95 10/04/23 08:11 O2 Del Method Room Air 10/04/23 08:11 BMI result Body Mass Index 28.3 General: AO X 3, no acute distress Resp: CTA bilateral, no accessory muscles used CVS: S1,S2,RRR GI: soft, mildly tender, non distended Neuro: motor grossly intact, alert Psych: appropriate affect, appropriate insight Objective Data Active Medications Acetaminophen (Acetaminophen 325 Mg Tablet) 650 mg PO Q6H PRN PRN Reason: Pain, Mild (Pain Scale 1-3), fever or headache Last Admin: 10/03/23 20:27 Dose: 650 mg Documented By: JOHN Aspirin (Aspirin Enteric Coated 81 Mg Tablet.Dr) 81 mg PO DAILY [facility] Last Admin: 10/04/23 08:21 Dose: 81 mg Documented By: JEFF Atorvastatin Calcium (Atorvastatin Calcium 10 Mg Tablet) 10 mg PO BEDTIME [facility] Last Admin: 10/03/23 20:28 Dose: 10 mg Documented By: JOHN Calcium Carbonate (Calcium Carbonate 750 Mg Tab.Chew) 750 mg PO Q4H PRN PRN Reason: Heartburn Empagliflozin (Empagliflozin 10 Mg Tablet) 10 mg PO DAILY [facility] Last Admin: 10/04/23 08:21 Dose: 10 mg Documented By: JEFF Enoxaparin Sodium (Enoxaparin Sodium 40 Mg/0.4 Ml Syringe) 40 mg SUBCUT Q24H [facility] Last Admin: 10/03/23 10:03 Dose: 40 mg Documented By: KRZYSZTOF Fenofibrate (Fenofibrate 54 Mg Tablet) 54 mg PO DAILY [facility] Last Admin: 10/04/23 08:21 Dose: 54 mg Documented By: JEFF Glucose (Glucose Gel 15 Gm Gel..Gram.) 15 gm PO Q15M PRN; Protocol PRN Reason: per Hypoglycemia Standing Ord. Lactated Ringer's (Lr) 1,000 mls @ 125 mls/hr IVCONT .Q8H [facility] Last Admin: 10/04/23 05:20 Dose: 125 mls/hr Documented By: JOHN Dextrose (D10) 250 mls @ 750 mls/hr IV Q15M PRN; Protocol PRN Reason: per Hypoglycemia Standing Ord. Insulin Human Lispro (Insulin Lispro 100 Unit/Ml 3 Ml Vial) 0 unit SUBCUT QIDACHS [facility]; Protocol Last Admin: 10/04/23 07:31 Dose: Not Given Documented By: JEFF Non-Admin Reason: POC = 116 Losartan Potassium (Losartan Potassium 50 Mg Tablet) 100 mg PO DAILY [facility]; Protocol Last Admin: 10/04/23 08:24 Dose: 100 mg Documented By: JEFF Magnesium Hydroxide (Milk Of Magnesia 30 Ml Oral.Susp) 30 ml PO DAILY PRN PRN Reason: Constipation Melatonin (Melatonin 3 Mg Tablet) 6 mg PO BEDTIME PRN PRN Reason: Insomnia Last Admin: 10/02/23 20:09 Dose: 6 mg Documented By: THANIA Morphine Sulfate (Morphine Sulfate 4 Mg/Ml Cartridge) 4 mg IVPUSH Q4H PRN; Protocol PRN Reason: Pain, Severe (Pain Scale 7-10) Last Admin: 10/03/23 10:02 Dose: 4 mg Documented By: KRZYSZTOF Non-Formulary Medication (Linagliptin [Tradjenta]) 4 mg PO DAILY [facility] Non-Formulary Medication (Olopatadine [Pataday Once Daily Relief]) 1 drop EYE-BOTH DAILY PRN PRN Reason: itching Ondansetron HCl (Ondansetron Hcl 4 Mg/2 Ml Vial) 4 mg IVPUSH Q8H PRN PRN Reason: Nausea and Vomiting Sodium Chloride (0.9 % Sodium Chloride Flush 3 Ml Syringe) 3 ml IVFLUSH QSHIFT [facility] Last Admin: 10/04/23 08:24 Dose: Not Given Documented By: JEFF Non-Admin Reason: Previously Administered Tamsulosin HCl (Tamsulosin Hcl 0.4 Mg Capsule) 0.4 mg PO DAILY [facility] Last Admin: 10/04/23 08:21 Dose: 0.4 mg Documented By: JEFF Vitamin D (Cholecalciferol (Vitamin D3) 25 Mcg Tablet) 25 mcg PO DAILY [facility] Last Admin: 10/04/23 08:21 Dose: 25 mcg Documented By: JEFF Labs 10/04/23 05:50 10/04/23 05:50 Labs: Laboratory Results - last 24 hr 10/02/23 10/03/23 10/03/23 15:38 11:51 17:16 MCV MCH MCHC RDW Plt Count MPV Absolute Nucleated RBC Nucleated RBC % (auto) Anion Gap Estim Creat Clear Calc Estimated GFR POC Glucose 189 H 107 Fasting Glucose Calcium Total Bilirubin Direct Bilirubin AST ALT Alkaline Phosphatase Total Protein Albumin IgG Total 1189 IgG Subclass 1 726 IgG Subclass 2 334 IgG Subclass 3 102 IgG Subclass 4 36.3 10/03/23 10/04/23 10/04/23 20:22 05:50 07:26 MCV 80.5 MCH 27.0 MCHC 33.5 RDW 14.6 Plt Count 201 MPV 10.8 Absolute Nucleated RBC 0.000 Nucleated RBC % (auto) 0.0 Anion Gap 20 Estim Creat Clear Calc 52.6 Estimated GFR 56 POC Glucose 147 H 116 H Fasting Glucose 113 H Calcium 9.2 Total Bilirubin 0.7 Direct Bilirubin 0.3 AST 12 ALT 9 Alkaline Phosphatase 75 Total Protein 7.4 Albumin 3.8 IgG Total IgG Subclass 1 IgG Subclass 2 IgG Subclass 3 IgG Subclass 4 Assessment and Plan (1) Pancreatitis: Status: Acute Plan 68M PMH non insulin dependent type 2 diabetes, hld, htn, tubular adenoma colon presented with abd pain Acute pancreatitis -CT abd/pelvis shows mild pancreatitis with inflammatory changes adjacent to the tail of the pancreas and mild thickening of the adjacent left anterior pararenal fascia. No discrete peripancreatic fluid collections. No free intraperitoneal fluid or gas collections. Abd US negative for cholelithiasis or biliary duct dilitation tg normal no recent alcohol use Aggressive IVF Pain management using painscale and antiemetics prn advance to solids IGg normal Non insulin dependent type 2 diabetes poc glucose, advance to diabetic diet admelog on ss HTN continue losartan hld continue statin BPH flomax dvt prophylaxis- lovenox full code reason for continued hospitalization:ivf for pancreatitis Quality Stroke Does the patient have a stroke diagnosis?: No VTE Prior VTE?: No VTE Risk Level:: Medical - moderate - high VTE Device Contraindication: Treatment Not Indicated VTE Drug Contraindication: N/A - Med Ordered
--- NOTE | 2023-10-04 10:58 | MHC.EDTECH ---
this tech emptied the urinal 2x - 400cc total. yellow urine.
[2023-10-04 11:25] LABS: Glucose, Whole Blood 136 mg/dL (60-115)
[2023-10-04] MEDS: Enoxaparin Sodium 40 MG/0.4 ML SYRINGE SUBCUT (11:47)
--- NOTE | 2023-10-04 11:50 | MHC.CM.PN ---
CM MET WITH PT WITH A HOSE TESTER PT LIVES ALONE AND IS INDEPENDENT WITH CARE HE HAS NO DME AND NO SERVICES HE DECLINES TO COMPLETE A HCP PCP: KARO EVANGELISTA IMM DELIVERED DCP: HOME NO SERVICES VIA SELF TRANSPORT
[2023-10-04] MEDS: Morphine Sulfate 4 MG/ML CARTRIDGE IVPUSH ×3 (11:52→21:24)
[2023-10-04 16:37] LABS: Glucose, Whole Blood 129 mg/dL (60-115)
[2023-10-04] MEDS: Milk of Magnesia 30 ML ORAL.SUSP PO (17:22)
[2023-10-04] MEDS: Acetaminophen 325 MG TABLET 650 MG PO (21:20)
[2023-10-04] MEDS: Atorvastatin Calcium 10 MG TABLET PO (21:20)
[2023-10-04 21:58] LABS: Glucose, Whole Blood 161 mg/dL (60-115)
[2023-10-04] MEDS: Insulin Lispro 100 UNIT/ML 3 ML VIAL SUBCUT (22:15)
[2023-10-05] VITALS: BP 95/56; PULSE 75; RESP 12; TEMP 36.6; O2SAT 94
[2023-10-05] MEDS: 0.9 % Sodium Chloride Flush 3 ML SYRINGE IVFLUSH ×4 (01:54→20:43)
[2023-10-05 06:11] VITALS: BP 132/72; PULSE 84; RESP 17; TEMP 36.7; O2SAT 95
[2023-10-05 06:34] LABS: Glucose, Whole Blood 127 mg/dL (60-115)
--- NOTE | 2023-10-05 07:11 | MHC.EDTECH ---
pt stated he brushed his teeth
[2023-10-05 07:49] VITALS: BP 145/75; PULSE 73; RESP 17; TEMP 37.2; O2SAT 96
[2023-10-05] MEDS: Fenofibrate 54 MG TABLET PO (07:52)
[2023-10-05] MEDS: Empagliflozin 10 MG TABLET PO (07:52)
[2023-10-05] MEDS: Cholecalciferol (Vitamin D3) 25 MCG TABLET PO (07:52)
[2023-10-05] MEDS: Tamsulosin HCL 0.4 MG CAPSULE PO (07:52)
[2023-10-05] MEDS: Aspirin Enteric Coated 81 MG TABLET.DR PO (07:52)
[2023-10-05] MEDS: Losartan Potassium 50 MG TABLET 100 MG PO (07:52)
[2023-10-05] MEDS: Morphine Sulfate 4 MG/ML CARTRIDGE IVPUSH (07:53)
--- NOTE | 2023-10-05 08:07 | MHC.EDTECH ---
pt is independent with personal hygiene supplies was given for him to wash up.
--- NOTE | 2023-10-05 09:06 | MHC.EDTECH ---
pt ate 100% breakfast
[2023-10-05 09:27] VITALS: BP 133/63; PULSE 87; RESP 18; TEMP 36.3; O2SAT 94
--- NOTE | 2023-10-05 09:38 | P.PNIM_ITS ---
Subjective Subjective Date of Service: 10/05/23 Interval History: improved, but having pain with solids Physical Exam 2 Vital Signs: Vital Signs: Last Vital Signs Temp 97.3 F 10/05/23 09:27 Pulse 87 10/05/23 09:27 Resp 18 10/05/23 09:27 BP 133/63 10/05/23 09:27 Pulse Ox 94 10/05/23 09:27 O2 Del Method Room Air 10/05/23 09:27 BMI result Body Mass Index 28.3 General: AO X 3, no acute distress Resp: CTA bilateral, no accessory muscles used CVS: S1,S2,RRR GI: soft, mildly tender, non distended Neuro: motor grossly intact, alert Psych: appropriate affect, appropriate insight Objective Data Active Medications Acetaminophen (Acetaminophen 325 Mg Tablet) 650 mg PO Q6H PRN PRN Reason: Pain, Mild (Pain Scale 1-3), fever or headache Last Admin: 10/04/23 21:20 Dose: 650 mg Documented By: MORRO Aspirin (Aspirin Enteric Coated 81 Mg Tablet.) 81 mg PO DAILY [facility] Last Admin: 10/05/23 07:52 Dose: 81 mg Documented By: NIMO Atorvastatin Calcium (Atorvastatin Calcium 10 Mg Tablet) 10 mg PO BEDTIME [facility] Last Admin: 10/04/23 21:20 Dose: 10 mg Documented By: MORRO Calcium Carbonate (Calcium Carbonate 750 Mg Tab.Chew) 750 mg PO Q4H PRN PRN Reason: Heartburn Empagliflozin (Empagliflozin 10 Mg Tablet) 10 mg PO DAILY [facility] Last Admin: 10/05/23 07:52 Dose: 10 mg Documented By: NIMO Enoxaparin Sodium (Enoxaparin Sodium 40 Mg/0.4 Ml Syringe) 40 mg SUBCUT Q24H [facility] Last Admin: 10/04/23 11:47 Dose: 40 mg Documented By: JEFF Fenofibrate (Fenofibrate 54 Mg Tablet) 54 mg PO DAILY [facility] Last Admin: 10/05/23 07:52 Dose: 54 mg Documented By: NIMO Glucose (Glucose Gel 15 Gm Gel..Gram.) 15 gm PO Q15M PRN; Protocol PRN Reason: per Hypoglycemia Standing Ord. Dextrose (D10) 250 mls @ 750 mls/hr IV Q15M PRN; Protocol PRN Reason: per Hypoglycemia Standing Ord. Insulin Human Lispro (Insulin Lispro 100 Unit/Ml 3 Ml Vial) 0 unit SUBCUT QIDACHS [facility]; Protocol Last Admin: 10/05/23 07:27 Dose: Not Given Documented By: NIMO Non-Admin Reason: No Insulin Coverage Losartan Potassium (Losartan Potassium 50 Mg Tablet) 100 mg PO DAILY [facility]; Protocol Last Admin: 10/05/23 07:52 Dose: 100 mg Documented By: NIMO Magnesium Hydroxide (Milk Of Magnesia 30 Ml Oral.Susp) 30 ml PO DAILY PRN PRN Reason: Constipation Last Admin: 10/04/23 17:22 Dose: 30 ml Documented By: MARTA Melatonin (Melatonin 3 Mg Tablet) 6 mg PO BEDTIME PRN PRN Reason: Insomnia Last Admin: 10/02/23 20:09 Dose: 6 mg Documented By: THANIA Morphine Sulfate (Morphine Sulfate 4 Mg/Ml Cartridge) 4 mg IVPUSH Q4H PRN; Protocol PRN Reason: Pain, Severe (Pain Scale 7-10) Last Admin: 10/05/23 07:53 Dose: 4 mg Documented By: NIMO Non-Formulary Medication (Linagliptin [Tradjenta]) 4 mg PO DAILY [facility] Non-Formulary Medication (Olopatadine [Pataday Once Daily Relief]) 1 drop EYE- BOTH DAILY PRN PRN Reason: itching Ondansetron HCl (Ondansetron Hcl 4 Mg/2 Ml Vial) 4 mg IVPUSH Q8H PRN PRN Reason: Nausea and Vomiting Sodium Chloride (0.9 % Sodium Chloride Flush 3 Ml Syringe) 3 ml IVFSH [facility] Last Admin: 10/05/23 07:54 Dose: 3 ml Documented By: NIMO Tamsulosin HCl (Tamsulosin Hcl 0.4 Mg Capsule) 0.4 mg PO DAILY [facility] Last Admin: 10/05/23 07:52 Dose: 0.4 mg Documented By: NIMO Vitamin D (Cholecalciferol (Vitamin D3) 25 Mcg Tablet) 25 mcg PO DAILY [facility] Last Admin: 10/05/23 07:52 Dose: 25 mcg Documented By: NIMO Labs 10/04/23 05:50 10/04/23 05:50 Labs: Laboratory Results - last 24 hr 10/04/23 10/04/23 10/04/23 11:15 16:33 21:55 POC Glucose 136 H 129 H 161 H 10/05/23 06:31 POC Glucose 127 H Assessment and Plan (1) Pancreatitis: Status: Acute Plan 68M PMH non insulin dependent type 2 diabetes, hld, htn, tubular adenoma colon presented with abd pain Acute pancreatitis CT abd/pelvis shows mild pancreatitis with inflammatory changes adjacent to the tail of the pancreas and mild thickening of the adjacent left anterior pararenal fascia. No discrete peripancreatic fluid collections. No free intraperitoneal fluid or gas collections. Abd US negative for cholelithiasis or biliary duct dilitation tg normal no recent alcohol use Aggressive IVF Pain management using painscale and antiemetics prn advanced to solids but still with pain IGg normal Non insulin dependent type 2 diabetes poc glucose, advance to diabetic diet admelog on ss HTN continue losartan hld continue statin BPH flomax dvt prophylaxis- lovenox full code reason for continued hospitalization:ivf and pain meds for pancreatitis Quality Stroke Does the patient have a stroke diagnosis?: No VTE Prior VTE?: No VTE Risk Level:: Medical - moderate - high VTE Device Contraindication: Treatment Not Indicated VTE Drug Contraindication: N/A - Med Ordered
[2023-10-05 09:47] VITALS: BMI 27.8
--- NOTE | 2023-10-05 10:27 | PC.NURSE ---
Pt admitted using supervisor fur dressing services via supervisor fur dressing Araceli
[2023-10-05 11:28] LABS: Glucose, Whole Blood 186 mg/dL (60-115)
[2023-10-05] MEDS: Insulin Lispro 100 UNIT/ML 3 ML VIAL SUBCUT ×2 (11:53→20:41)
[2023-10-05] MEDS: Enoxaparin Sodium 40 MG/0.4 ML SYRINGE SUBCUT (11:53)
[2023-10-05] MEDS: oxyCODONE HCl Immed Release 5 MG TABLET PO ×2 (11:54→16:51)
[2023-10-05 15:44] VITALS: BP 149/85; PULSE 93; RESP 16; TEMP 36.4; O2SAT 95
[2023-10-05 16:35] LABS: Glucose, Whole Blood 139 mg/dL (60-115)
[2023-10-05 19:25] VITALS: BP 126/65; PULSE 84; RESP 18; TEMP 37.2; O2SAT 96
[2023-10-05 20:08] LABS: Glucose, Whole Blood 165 mg/dL (60-115)
[2023-10-05] MEDS: Atorvastatin Calcium 10 MG TABLET PO (20:43)
[2023-10-05 20:44] LABS: Immunoglobulin A 148 mg/dL (70-320); Transglutaminase IgA <1.0 U/mL
[2023-10-05] MEDS: Milk of Magnesia 30 ML ORAL.SUSP PO (20:56)
[2023-10-06 02:54] VITALS: BP 131/72; PULSE 93; RESP 18; TEMP 36.6; O2SAT 93
[2023-10-06 07:11] VITALS: BP 134/68; PULSE 85; RESP 17; TEMP 36.6; O2SAT 98
[2023-10-06 07:27] LABS: Glucose, Whole Blood 145 mg/dL (60-115)
[2023-10-06 07:43] VITALS: BP 134/68
[2023-10-06] MEDS: 0.9 % Sodium Chloride Flush 3 ML SYRINGE IVFLUSH (07:43)
[2023-10-06] MEDS: polyethylene glycoL 3350 17 GM POWD.PACK PO (07:43)
[2023-10-06] MEDS: Losartan Potassium 50 MG TABLET 100 MG PO (07:43)
[2023-10-06] MEDS: Aspirin Enteric Coated 81 MG TABLET.DR PO (07:44)
[2023-10-06] MEDS: Fenofibrate 54 MG TABLET PO (07:44)
[2023-10-06] MEDS: Tamsulosin HCL 0.4 MG CAPSULE PO (07:44)
[2023-10-06] MEDS: Cholecalciferol (Vitamin D3) 25 MCG TABLET PO (07:44)
[2023-10-06] MEDS: Empagliflozin 10 MG TABLET PO (07:44)
--- NOTE | 2023-10-06 09:53 | PM.DS ---
DS: Providers Provider Date of Service: 10/06/23 Date of admission: 10/02/23 10:47 Primary care physician: Yecenia Castellanos MD Consults: 10/02/23 13:22 Consult to Gastroenterology Routine Consulting Provider: Cordelia Cedillo Reason for consultation: pancreatitis DS: Diagnosis Discharge Diagnosis (1) Pancreatitis: Status: Acute DS: Summary Hospital Course Hospital Course: from initial hpi: 68 year old male with history of non insulin dependent type 2 diabetes, hld, htn, tubular adenoma colon presented to the ED for evaluation of abd pain ongoing intermittently for the last month, but over the last week has worsened and become more constant. He states the pain originates in the left upper quadrant and radiates to the back and across the upper abdomen. He denies any associated nausea, vomiting, anorexia. No fevers, chills, dysuria, hematuria, increased frequency/urgency, diarrhea, melena, hematochezia, shortness of breath, lightheadedness, palpitations, or chest pain. On admission, vitals are stable. No leukocytosis. There is a mild normocytic anemia. Renal function is baseline, electrolytes normal except for chloride 110, CO2 19. Triglycerides 165. Lipase 83. Urinalysis unremarkable. Abdominal ultrasound is negative for cholelithiasis or biliary ductal dilatation. CT abdomen/pelvis shows mild inflammatory changes adjacent to the tail of the pancreas and mild thickening of the adjacent left anterior perirenal fascia without any discrete peripancreatic fluid collections or intraperitoneal fluid or gas. In the ED, has received IV fluids, morphine x2, and ketorolac. He will be admitted for further management of acute pancreatitis. hospital course: Patient was admitted for acute pancreatitis. Exact etiology was not clear, however, MRI did show gallbladder sludge and this is possibly the source. He will be referred to General surgery as outpatient. Patient was treated with IV fluids, pain meds and his diet was slowly advanced and he is now tolerating solid diet. For diabetes was continue insulin. For hypertension was continued on losartan. Hyperlipidemia is continue statin. For BPH was continued on Flomax. Patient is feeling better will be discharged home Time Attestation Discharge Coordination Time (in mins): 34 Quality: Safe Use of Opioids Does Pt have an Active Cancer Diagnosis on the Problem List?: No Quality: Stroke Does the patient have a stroke diagnosis?: No Physical Exam Vital Signs: Vital Signs: Last Vital Signs Temp 97.9 F 10/06/23 07:11 Pulse 85 10/06/23 07:11 Resp 17 10/06/23 07:11 BP 134/68 10/06/23 07:43 Pulse Ox 98 10/06/23 07:11 O2 Del Method Room Air 10/06/23 07:11 BMI result Body Mass Index 27.8 General: AO X 3, no acute distress Resp: CTA bilateral, no accessory muscles used CVS: S1,S2,RRR GI: soft, non tender, non distended, mild ventral hernia Neuro: motor grossly intact, alert Psych: appropriate affect, appropriate insight DS: Data Data Completed and Pending Labs on day of discharge: Laboratory Results - last 24 hr 10/02/23 10/05/23 10/05/23 15:38 11:24 16:30 POC Glucose 186 H 139 H IgA 148 Tiss Transglutamin IgA <1.0 Celiac Disease Interp SEE NOTE 10/05/23 10/06/23 19:59 07:10 POC Glucose 165 H 145 H IgA Tiss Transglutamin IgA Celiac Disease Interp Discharge Plan Discharge Anticipated Discharge Date/Time: 10/06/23 09:48 Patient Disposition: Home, Self-Care Discharge Diagnosis: pancreatitis, ?gallstone Referrals: Gee Hermosillo MD [Physician] - 2 Weeks (pancreatitis, ?due to biliary sludge also appears to have stable ventral hernia) Yecenia Hutchins MD [Primary Care Provider] - 1 Week Discharge Medications: Continued (DME) blood-glucose meter [OneTouch Verio Meter] [facility] See Rx Instructions .Route Qty: 1 0RF Rx Instructions: As directed (DME) OneTouch Verio test strips Strip See Rx Instructions .Route Qty: 100 2RF Rx Instructions: Use 1 test strip once a day (DME) lancets [[facility] UltraSoft Lancets] [facility] See Rx Instructions .Route Qty: 100 3RF Rx Instructions: Use 1 lancet once a day fenofibrate 54 mg tablet 54 mg PO DAILY 90 Days Qty: 90 3RF Tradjenta 5 mg tablet 5 mg PO DAILY 90 Days Qty: 90 1RF aspirin [Adult Low Dose Aspirin] 81 mg tablet,delayed release (DR/EC) 81 mg PO DAILY 90 Days Qty: 90 3RF simvastatin 20 mg tablet 20 mg PO BEDTIME 90 Days Qty: 90 3RF tamsulosin 0.4 mg capsule 0.4 mg PO DAILY 90 Days Qty: 90 3RF tramadol 50 mg tablet 50 mg PO Q8H PRN (Reason: pain) Qty: 10 0RF naproxen 500 mg tablet 500 mg PO BID PRN (Reason: pain) 10 Days Qty: 20 0RF losartan 100 mg tablet 100 mg PO DAILY metformin 1,000 mg tablet 1,000 mg PO BID 90 Days Qty: 180 3RF cholecalciferol (vitamin D3) 25 mcg (1,000 unit) capsule 25 mcg PO DAILY 90 Days Qty: 90 0RF Jardiance 10 mg tablet 10 mg PO DAILY 90 Days Qty: 90 1RF olopatadine [Pataday Once Daily Relief] 0.2 % drops 1 drp ophthalmic (eye) DAILY PRN (Reason: itching) 30 Days Qty: 2.5 2RF Discharge Orders: Discharge Order (Routine); Ordered 10/06/23 Ordered By: Jose Morris Diet: low fat Activity on Discharge: As tolerated Stand Alone Forms: Patient Portal Discharge page Print Language: Luxembourgish Care Plan Goals: prevent further pancreatitis Health Concerns: pancreatitis Plan of Treatment: follow up with surgery Assessment: see above Patient Instructions: Pancreatitis (DC), Gallstones (DC) Discharge Date/Time: 10/06/23 10:13
--- NOTE | 2023-10-06 10:15 | MHC.CM.PN ---
PT WILL DC HOME TODAY WITH NO SERVICES VIA SELF-TRANSPORT
[2023-10-08 15:28] LABS: Anti Nuclear Antibody Screen NEGATIVE (NEGATIVE)
== END 2023-10-06 10:13 | disposition home or self-care (01) | DRG 440 ==
LOC: HO.ED 08:41 → HO.EDOVER 11:01 → HO.S3 10-05 07:40
PROVIDERS: Family Medicine; Admitting Provider Physician Assistant; Emergency Provider Emergency Medicine; PCP Internal Medicine; Visit Provider Internal Medicine
DX: K85.10 Biliary acute pancreatitis without necrosis or infection (principal); I10 Essential (primary) hypertension; E78.5 Hyperlipidemia, unspecified; E78.2 Mixed hyperlipidemia; D64.9 Anemia, unspecified; N40.0 Benign prostatic hyperplasia without lower urinary tract symptoms; Z79.82 Long term (current) use of aspirin; Z79.84 Long term (current) use of oral hypoglycemic drugs; Z79.899 Other long term (current) drug therapy
CPT/HCPCS: 36415; 74176; 74183; 76705; 80048; 80053; 80061; 80076; 81003; 82784; 82947; 83690; 85025; 85027; 86038; 86364; 99285; A9585; J1650; J1885; J2270; J7120

== ENCOUNTER → 2023-10-02 10:47 | Outpatient (BNV) | payer MEDICARE, SELFPAY | PROVIDERS: Admitting Provider Physician Assistant; Emergency Provider Emergency Medicine; PCP Internal Medicine; Visit Provider Internal Medicine Gastroenterology | DX: K85.90 Acute pancreatitis without necrosis or infection, unspecified (principal) | CPT/HCPCS: 99223 ==

== ENCOUNTER → 2023-10-02 10:47 | Outpatient (BNV) | payer MEDICARE, SELFPAY | PROVIDERS: Admitting Provider Physician Assistant; Emergency Provider Emergency Medicine; PCP Internal Medicine; Visit Provider Physician Assistant | DX: K85.90 Acute pancreatitis without necrosis or infection, unspecified (principal) | CPT/HCPCS: 99223; 99232; 99233; 99239 ==

== ENCOUNTER 2023-11-07 09:42 | Outpatient (AMB) | payer OTHER, SELFPAY ==
--- NOTE | 2023-11-07 09:46 | MHC.OFFVIS ---
Vital Signs 11/07/23 09:48 Height 5 ft 5 in Weight 168 lb BMI 28.0 BP 177/79 H Blood Pressure Location Rt brachial Position Sitting Pulse 66 Intake Visit Reasons: pancreatitis, GB sludge, Intake Note: This patient presents for [facility] emergency department follow-up for pancreatitis, GB sludge. Pt c/o;reports no nausea or vomiting, reports bulge mid abdomen. 10/02/23- Abd US, Abd/pelvis CT 10/03/2023-Abd MRI Box Bender Required: Yes Box Bender Language: Telephone Information Clerk Name: Cyrus Information Interpreted: non-clinical & clinical Accompanied by: Self / Same As Patient Allergies No Known Allergies Allergy (Verified 11/07/23 09:54) Medication List - Last Reconciled 11/07/23 by Gee Hermosillo MD aspirin (Adult Low Dose Aspirin) 81 mg PO DAILY 90 days blood sugar diagnostic (LineRate Systemsuch Verio test strips) Use 1 test strip once a day blood-glucose meter (LineRate Systemsuch Verio Meter) As directed cholecalciferol (vitamin D3) 25 mcg PO DAILY 90 days empagliflozin (Jardiance) 10 mg PO DAILY 90 days fenofibrate 54 mg PO DAILY 90 days lancets (LineRate Systemsuch UltraSoft Lancets) Use 1 lancet once a day linagliptin (Tradjenta) 5 mg PO DAILY 90 days losartan 100 mg PO DAILY metformin 1,000 mg PO BID 90 days naproxen 500 mg PO BID PRN 10 days olopatadine 0.2% (Pataday Once Daily Relief) 1 drp ophthalmic (eye) DAILY PRN 30 days simvastatin 20 mg PO BEDTIME 90 days tamsulosin 0.4 mg PO DAILY 90 days tramadol 50 mg PO Q8H PRN HPI HPI pancreatitis, GB sludge, : Details: 68-year-old male referred for a history of pancreatitis. He was admitted to the hospital last month because of abdominal pain. He had a CAT scan showing suggestion of mild pancreatitis in the tail of the pancreas. Etiology of the pancreatitis was uncertain. He was referred to me because of a question of gallbladder sludge He has never had any pain episode since then. He has good oral intake. [facility] Medical History (Updated 11/07/23 @ 10:15 by Gee Hermosillo MD) History of pancreatitis Diabetes Tubular adenoma of colon Headache Primary insomnia Anemia Mixed hyperlipidemia Essential hypertension Insomnia Surgical History Hx of hand surgery Hx of colonoscopy History of cataract surgery Family History Father No problems noted. Mother Diabetes Hypertension Daughter No problems noted. Son No problems noted. Sister No problems noted. Brother No problems noted. Social History Household Members: None Housing: Apartment Do you presently have visiting nurse or other home services: No Unable to assess alcohol history related to: Unknown Alcohol intake: current Alcohol intake frequency: a few times a month Alcohol type: beer Patient Tobacco Use Status: Never used Tobacco e-Cigarette/Vaping Use: Never Used Second Hand Smoke Exposure: No service: No Current occupational status: employed Current occupational exposures/hazards: No Cognitive needs: No Hearing needs: No Vision needs: No Review of Systems Const Denies chills and Denies fever(s) Card Denies chest pain, Denies dyspnea and Denies dyspnea on exertion Resp Denies cough, Denies dyspnea and Denies dyspnea on exertion GI Denies hematochezia and Denies change in bowel habits Denies hematuria and Denies difficulty urinating Musc Denies back pain and Denies limited range of motion Neuro Denies focal weakness and Denies convulsions Psych Denies depression and Denies mood swings Physical Exam Vital Signs: Last Vital Signs Pulse 66 11/07/23 09:48 BP 177/79 H 11/07/23 09:48 BMI result Body Mass Index 28.0 Const General: comfortable and no acute distress Orientation/consciousness: patient oriented x3 Neck Neck: Yes no lymphadenopathy Resp Auscultation: clear to auscultation bilaterally Cardio Rhythm: regular rhythm GI Palpation (GI): Soft to palpation, nontender and no guarding Neuro General: patient oriented x3 Assessment & Plan Assessment & Plan (1) History of pancreatitis: Code(s): Z87.19 - Personal history of other diseases of the digestive system Category: Medical Plan: He had a CAT scan last 10/02/2023 showing findings suggestive of mild acute pancreatitis of the tail of the pancreas. I have reviewed his imaging studies including his CAT scan and ultrasound and these do not show gallstones or any gallbladder disease. I am uncertain as to the etiology of his pancreatitis therefore. He has had no further episodes of abdominal pain. He denies any symptoms with regards to any gallbladder disease I do not feel that he may benefit from cholecystectomy at this time. I did tell him that he is welcome to come back to the office if he has any problems with regards to upper quadrant pain I able to talk to his daughter Fabienne in the [place] about the above. Coding Level of Care Code New Pt Level 3 (28120) Diagnoses History of pancreatitis Z87.19
[2023-11-07 09:48] VITALS: BP 177/79; PULSE 66; BMI 28.0
== END 2023-11-07 10:12 | disposition home or self-care (01) ==
PROVIDERS: PCP Internal Medicine; Visit Provider Surgery
DX: Z87.19 Personal history of other diseases of the digestive system (principal)
CPT/HCPCS: 99203

== ENCOUNTER → 2023-11-07 09:42 | Outpatient (BNVA) | payer OTHER, SELFPAY | PROVIDERS: PCP Internal Medicine; Visit Provider Surgery | DX: Z87.19 Personal history of other diseases of the digestive system (principal) | CPT/HCPCS: 99202 ==

== ENCOUNTER 2023-11-22 11:02 | Outpatient (AMB) | payer OTHER, SELFPAY ==
[2023-11-22 11:04] VITALS: BP 124/66; BMI 27.6
--- NOTE | 2023-11-22 11:04 | A.OFFPC_ITS ---
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 Required: No Accompanied by: Self / Same As Patient Allergies No Known Allergies Allergy (Verified 11/22/23 11:20) Medication List - Last Reconciled 11/22/23 by Yecenia Castellanos MD aspirin (Adult Low Dose Aspirin) 81 mg PO DAILY 90 days blood sugar diagnostic ([employer] Verio test strips) Use 1 test strip once a day blood-glucose meter ([facility] Ver[facility] Meter) As directed cholecalciferol (vitamin D3) 25 mcg PO DAILY 90 days empagliflozin (Jardiance) 10 mg PO DAILY 90 days fenofibrate 54 mg PO DAILY 90 days lancets ([employer] UltraSoft Lancets) Use 1 lancet once a day linagliptin (Tradjenta) 5 mg PO DAILY 90 days losartan 100 mg PO DAILY metformin 1,000 mg PO BID 90 days naproxen 500 mg PO BID PRN 10 days olopatadine 0.2% (Pataday Once Daily Relief) 1 drp ophthalmic (eye) DAILY PRN 30 days simvastatin 20 mg PO BEDTIME 90 days tamsulosin 0.4 mg PO DAILY 90 days tramadol 50 mg PO Q8H PRN Tobacco use date assessed: 07/09/23 Fall risk assessment: No Falls in past year Last assessed Fall Risk: 11/22/23 Dental Screening Dental Screen Date: 07/09/23 HPI HPI Comments History of Present Illness Details This is a 68-year-old male with diabetes mellitus type 2, hypertension, mixed hyperlipidemia and low vitamin-D that comes today for follow-up on his conditions. A1c elevated and I will increase Jardiance and start him on repaglinide. Blood pressure stable. Lipid panel will be order and his LDL goal should be less than 70. On vitamin-D supplements for his low vitamin-D. Went to ER about a month ago due to acute pancreatitis. Feels markedly improved. [facility] Medical History (Updated 11/22/23 @ 12:24 by Yecenia Castellanos MD) History of pancreatitis Diabetes Tubular adenoma of colon Headache Primary insomnia Anemia Mixed hyperlipidemia Essential hypertension Insomnia Surgical History Hx of hand surgery Hx of colonoscopy History of cataract surgery Family History Father No problems noted. Mother Diabetes Hypertension Daughter No problems noted. Son No problems noted. Sister No problems noted. Brother No problems noted. Social History Household Members: None Housing: Apartment Do you presently have visiting nurse or other home services: No Unable to assess alcohol history related to: Unknown Alcohol intake: current Alcohol intake frequency: a few times a month Alcohol type: beer Patient Tobacco Use Status: Never used Tobacco e-Cigarette/Vaping Use: Never Used Second Hand Smoke Exposure: No service: No Current occupational status: employed Current occupational exposures/hazards: No Cognitive needs: No Hearing needs: No Vision needs: No Questionnaire Thrive Questionnaire Date Thrive assessed: 10/04/23 JOVANNY-7 AMB Questionnaire JOVANNY-7 Date JOVANNY - 7 assessed: 07/09/23 Source: Developed by Drs. Nirav Jenkins, Regina Rebollar, Abe Trejo and colleagues, with an educational dmitri from [employer]. Review of Systems Const All systems reviewed & are unremarkable except as noted in HPI and below Card Denies chest pain at rest, Denies chest pain with activity, Denies edema, Denies irregular heart rhythm, Denies claudication, Denies dyspnea, Denies dyspnea on exertion, Denies orthopnea, Denies paroxysmal nocturnal dyspnea and Denies slow heart rate Resp Denies cough, Denies dyspnea and Denies dyspnea on exertion GI Denies abdominal pain, Denies change in bowel habits, Denies excessive flatus, Denies nausea and Denies vomiting Denies urinary hesitancy, Denies urinary incontinence and Denies urinary urgency Physical exam (Primary Care) Vital Signs: Last Vital Signs BP 124/66 11/22/23 11:04 BMI result Body Mass Index 27.6 Tobacco/Smoking Status: Tobacco use Status Tobacco use date assessed 07/09/23 11/22/23 11:13 Patient Tobacco Use Status Never used Tobacco 11/22/23 11:13 e-Cigarette/Vaping Use Never Used 11/22/23 11:13 Thrive Assessment: Date of Thrive Assessment Date Thrive assessed 10/04/23 11/22/23 11:13 Resp Effort & Inspection: normal respiratory effort Auscultation: clear to auscultation bilaterally Cardio Jugular venous distension: no JVD Rate: regular rate Rhythm: regular rhythm Heart sounds: S1 normal heart sound present and S2 normal heart sound present GI Inspection: Yes normal to inspection Palpation (GI): Soft to palpation and nontender Auscultation: normal bowel sounds Extrem General: Yes full ROM Results AMB Hemoglobin A1c AMB Hemoglobin A1c 8.3 % Last Edit by ALCON Mckeon on 11/22/23 11:1 7 Results Reviewed Results Reviewed: Laboratory Last Values Hgb A1c (Clinic) 8.3 % (4.0-6.0) H 11/22/23 11:03 Assessment and Plan Assessment & Plan (1) Diabetes mellitus, without long-term current use of insulin: Code(s): E11.9 - Type 2 diabetes mellitus without complications Qualifiers: Diabetes mellitus type: type 2 Diabetes mellitus complication status: with hyperglycemia Qualified Code(s): E11.65 - Type 2 diabetes mellitus with hyperglycemia Plan: Continue metformin and Tradjenta. Increase Jardiance. Start repaglinide. A1c goal is equal or less than 7%. (2) Essential hypertension: Code(s): I10 - Essential (primary) hypertension Plan: Continue losartan. Blood pressure goal is equal or less than 130/80. (3) Mixed hyperlipidemia: Code(s): E78.2 - Mixed hyperlipidemia Plan: Continue statins and fibrates. Repeat lipid panel. LDL goal is less than 70. (4) Hypovitaminosis D: Code(s): E55.9 - Vitamin D deficiency, unspecified Plan: Continue vitamin-D supplements. Orders: Orders Lipid Panel Today E78.5 - Hyperlipidemia, unspecified Complete Blood Count Auto Diff Today D64.9 - Anemia, unspecified Vitamin B12 and Folate Today E53.8 - Deficiency of other specified B group vitamins Vitamin D 25-OH Total Today E55.9 - Vitamin D deficiency, unspecified AMB Hemoglobin A1c Today E11.9 - Type 2 diabetes mellitus without complications, Z79.4 - longterm (current) use of insulin Microalbumin, Random (w Creat) Today E11.9 - Type 2 diabetes mellitus without complications IRON PROFILE Today D64.9 - Anemia, unspecified Comprehensive Malone. Panel Fast Today E11.9 - Type 2 diabetes mellitus without complications Medications: New repaglinide administer within 30 minutes of a meal or snack 0.5 mg PO TID 90 tabs 0RF 30 days E11.9 - Type 2 diabetes mellitus without complications empagliflozin (Jardiance) 25 mg PO DAILY 90 tabs 0RF 90 days Discontinued empagliflozin (Jardiance) Discontinued Reason: Patient Completed Course 10 mg PO DAILY 90 days 90 tabs 1RF E11.9 - Type 2 diabetes mellitus without complications Coding Level of Care Code Est Pt Level 4 (78833) Complex EM visit Add On G2211 Diagnoses Type 2 diabetes mellitus with hyperglycemia, without long-term current use of insulin E11.65 Diabetes mellitus type: type 2 Diabetes mellitus complication status: with hyperglycemia Essential hypertension I10 Mixed hyperlipidemia E78.2 Hypovitaminosis D E55.9 Time Spent (min) 22
== END 2023-11-22 11:42 | disposition home or self-care (01) ==
PROVIDERS: PCP Internal Medicine; Visit Provider Internal Medicine
DX: E11.65 Type 2 diabetes mellitus with hyperglycemia (principal); I10 Essential (primary) hypertension; E78.2 Mixed hyperlipidemia; E55.9 Vitamin D deficiency, unspecified; E11.9 Type 2 diabetes mellitus without complications; Z79.4 Long term (current) use of insulin
CPT/HCPCS: 83036; 99214; G2211

== ENCOUNTER 2023-11-23 06:45 | Outpatient (REF) | payer OTHER, SELFPAY ==
[2023-11-23 06:57] LABS: MANUAL DIFF FLAG NO
[2023-11-23 07:09] LABS: Basophils Percent Auto 0.4 % (0-2); Eosinophils Absolute Auto 0.1 X10*3/uL (0.0-0.4); Eosinophils Percent Auto 2.2 % (0-4); Hematocrit 37.3 % (42.0-52.0); Hemoglobin 12.5 g/dl (14.0-18.0); Imm Gran Abs Auto 0.01 X10*3/uL (0.00-0.03); Imm Gran Pct Auto 0.2 % (0.0-0.4); Lymphocytes Absolute Auto 2.1 X10*3/uL (1.2-4.9); Lymphocytes Percent Auto 45.4 % (20-40); Mean Corpuscular HGB Conc 33.5 g/dl (31.0-36.0); Mean Corpuscular Volume 80.6 fL (80.0-98.0); Mean Platelet Volume 10.3 fL (9.4-12.4); Monocytes Absolute Auto 0.4 X10*3/uL (0.1-1.2); Monocytes Percent Auto 8.8 % (2-11); Neutrophils Absolute Auto 1.9 x10*3/uL (2.0-8.3); Platelet Count 267 X10*3/uL (160-400); Red Blood Count 4.63 X10*6/uL (4.60-5.80); Red Cell Distribution Width 14.7 % (11.0-16.0); White Blood Count 4.5 X10*3/uL (4.8-10.8)
[2023-11-23 07:57] LABS: Alanine Aminotransferase 17 U/L (0-40); Albumin Level 4.3 g/dL (3.5-5.0); Alkaline Phosphatase 73 U/L (39-117); Anion Gap 12 (12-20); Aspartate Amino Transferase 20 U/L (5-37); Bilirubin Total 0.4 mg/dL (0.0-1.0); Blood Urea Nitrogen 19 mg/dL (9-16); Calcium 9.5 mg/dL (8.4-10.2); Carbon Dioxide 22 mmol/L (22-29); Chloride 113 mmol/L (96-108); Cholesterol 146 mg/dL (<200); Estimated Glomerular Filt Rate 47; Glucose Fasting 136 mg/dL (60-99); HDL Cholesterol 39 mg/dL (>40); Iron 51 mcg/dL (45-160); LDL Cholesterol Calculated 69 mg/dL (<100); Percent Iron Saturation 15 % (15-50); Potassium 4.2 mmol/L (3.3-5.1); Sodium 143 mmol/L (135-145); Total Iron Binding Capacity 332 mcg/dL (228-428); Total Protein 7.5 g/dL (6.5-8.0); Triglycerides 192 mg/dL (<150); Unsaturated Iron Binding 281 ug/dL
[2023-11-23 08:15] LABS: Vitamin D 25-OH Total 35.1 ng/mL (>30)
[2023-11-23 08:21] LABS: Folate 8.6 ng/mL (> or = 4.0); Vitamin B12 317 pg/mL (200-900)
[2023-11-23 08:32] LABS: Creatinine Urine 56.15 mg/dL; Microalbum/Creatinine Ratio Ur 23.1 ug/mg cr (<30)
== END 2023-11-23 06:46 | disposition home or self-care (01) ==
LOC: HO.LAB 06:45
PROVIDERS: PCP Internal Medicine; Visit Provider Internal Medicine
DX: D64.9 Anemia, unspecified (principal); E78.5 Hyperlipidemia, unspecified; E55.9 Vitamin D deficiency, unspecified; E53.8 Deficiency of other specified B group vitamins; E11.9 Type 2 diabetes mellitus without complications
CPT/HCPCS: 36415; 80053; 80061; 82043; 82306; 82570; 82607; 82746; 83540; 85025

== ENCOUNTER 2023-12-28 13:12 | Outpatient (AMB) | payer OTHER, SELFPAY ==
[2023-12-28 13:19] VITALS: BP 142/76; PULSE 72; O2SAT 97; BMI 27.6
--- NOTE | 2023-12-28 13:19 | A.OFFVIS_ITS ---
Vital Signs 12/28/23 13:19 Height 5 ft 5 in Weight 165 lb 12.602 oz BMI 27.6 BP 142/76 H Blood Pressure Location Rt brachial Position Sitting Pulse 72 Pulse Source Pulse Oximeter Pulse Oximetry (%) 97 Oxygen Delivery Method Room Air Intake Visit Reasons: 6 mo follow up Intake Note: Hermes presents in office today for a scheduled 6 mos FUV. This is a progress FUV. No Rx or Lab orders placed at last visit. CC: Pt reports that they have remained stable since their last visit. Pt does report having recent dx of pancreatitis and reports associated abdominal bloating and distention. Pt denies any difficulties with pain or BMs. Pt is hoping for a refill of dulcolax. Pt has had to take it PRN to maintain normal toileting habits. Pt is also reporting needing a medication for their pancreatitis? Pt is not sure regarding the current care plan for this condition. Ventilated Rib Fitter Required: Yes Ventilated Rib Fitter Services: Ventilated Rib Fitter Present Ventilated Rib Fitter Name: [id number] Jasmina Information Interpreted: non-clinical & clinical Accompanied by: Self / Same As Patient Allergies No Known Allergies Allergy (Verified 12/28/23 13:21) HPI HPI 6 mo follow up: Details: LAST VISIT: Status post colonoscopy Constipation Plan As mentioned above in HPI patient had suboptimal prep and will need to return for colorectal screening in 6-12 months. Being patient her occasional constipation, patient can take Senokot daily. I will see him in 6 months, sooner on as needed basis. Patient is agreeable to this plan and verbalizes understanding of instructions. He was given the opportunity to ask questions and all questions answered. ? TODAY'S VISIT: Patient is here today for follow-up and to discuss going for repeat colonoscopy. Patient had suboptimal prep last time. He currently is using on as-needed basis Dulcolax and reports that he is moving his bowels better now. Patient is avoiding dietary triggers. His A1c is suboptimal, change to his diabetic medications because of that. Patient was admitted with pancreatitis October 01. Lipase was [address] abnormal [address] scan that showed inflammatory changes in the tail of the pancreas. Patient was at the hospital for few days. Since his discharge patient has been feeling well, however in the past couple days patient has been having left lower quadrant pain. Patient has no more refills for Dulcolax as not taking it for over a week. However patient feels like he is moving his bowels well. Patient denies any nausea or vomiting. Denies any issues with anesthesia in the past. Patient is on low-dose aspirin. [facility] Medical History History of pancreatitis Diabetes Tubular adenoma of colon Headache Primary insomnia Anemia Mixed hyperlipidemia Essential hypertension Insomnia Surgical History Hx of hand surgery Hx of colonoscopy History of cataract surgery Family History Father No problems noted. Mother Diabetes Hypertension Daughter No problems noted. Son No problems noted. Sister No problems noted. Brother No problems noted. Social History Household Members: None Housing: Apartment Do you presently have visiting nurse or other home services: No Unable to assess alcohol history related to: Unknown Alcohol intake: current Alcohol intake frequency: a few times a month Alcohol type: beer Patient Tobacco Use Status: Never used Tobacco e-Cigarette/Vaping Use: Never Used Second Hand Smoke Exposure: No service: No Current occupational status: employed Current occupational exposures/hazards: No Cognitive needs: No Hearing needs: No Vision needs: No Review of Systems Const Denies weight gain and Denies weight loss ENT Reports no additional complaints, Denies dysphagia and Denies odynophagia Card Reports no additional complaints Resp Reports no additional complaints GI Denies abdominal pain, Denies belching, Denies melena, Denies bloating, Denies change in bowel habits, Denies dysphagia, Denies excessive flatus, Denies dyspepsia, Denies heartburn, Denies diarrhea, Denies loose stools, Denies nausea, Denies odynophagia and Denies vomiting Reports no additional complaints Musc Reports no additional complaints Neuro Reports no additional complaints Psych Reports no additional complaints Endo Reports no additional complaints Physical Exam Vital Signs: Last Vital Signs Pulse 72 12/28/23 13:19 BP 142/76 H 12/28/23 13:19 Pulse Ox 97 12/28/23 13:19 Oxygen Delivery Method Room Air 12/28/23 13:19 BMI result Body Mass Index 27.6 Const General: healthy appearing and no acute distress Nutritional Appearance: obese Orientation/consciousness: patient oriented x3 Resp Effort & Inspection: normal respiratory effort, able to speak in complete sentences, no tracheal deviation and symmetric chest movement Auscultation: clear to auscultation bilaterally Cardio Rate: regular rate GI Other: Diastasis rectus Inspection: Yes normal to inspection, No distended and Yes obesity Palpation (GI): Soft to palpation, not firm, nontender and No hepatosplenomegaly present Auscultation: normal bowel sounds General: Yes no CVA tenderness Back/Spine/Pelvis Back: no CVA tenderness Skin General skin exam: elasticity normal, turgor normal and dry skin Neuro General: patient oriented x3 Psych Appearance: grossly normal Mental Status: mental status grossly normal Results Reviewed Results Reviewed: Laboratory Tests 10/03/23 05:[address] SCAN OF ABDOMEN 10/02/2023 MPRESSION: 1. Findings suspicious for mild acute pancreatitis. Mild inflammatory changes are present adjacent to the tail of the pancreas and mild thickening of the adjacent left anterior pararenal fascia. Findings are new compared with 09/27/2023. No discrete peripancreatic fluid collections. No free intraperitoneal fluid or gas collections. 2. Single punctate nonobstructing calculi within the left kidney. No ureteral calculi. No hydronephrosis or ureterectasis. 3. Normal appendix. 4. Partial visualization of moderate coronary artery calcific atherosclerosis. Assessment & Plan Assessment & Plan (1) History of pancreatitis: Code(s): Z87.19 - Personal history of other diseases of the digestive system Category: Medical (2) Screen for colon cancer: Code(s): Z12.11 - Encounter for screening for malignant neoplasm of colon Category: Medical (3) Constipation: Code(s): K59.00 - Constipation, unspecified Qualifiers: Constipation type: slow transit constipation Qualified Code(s): K59.01 - Slow transit constipation Plan Will check lipase, liver panel, check for pancreatic insufficiency. Low-fat diet recommended. Patient will continue taking Dulcolax daily. Message sent to surgical schedulers to schedule procedure. Follow-up after. What to expect before during and after procedure discussed with patient. The importance of good bowel prep and clear liquid diet day before procedure discussed with patient. Patient is agreeable to current plan of care and verbalizes under standing of instructions. He was given the opportunity to ask questions and all questions answered. Thank you for allowing me to participate in his care Orders: Orders Lipase Today R10.9 - Unspecified abdominal pain Liver Panel Today R74.01 - Elevation of levels of liver transaminase levels Pancreatic Elastase-1 Today R10.9 - Unspecified abdominal pain Medications: New bisacodyl (Dulcolax (bisacodyl)) 10 mg (2 x 5 mg) PO BEDTIME 180 tabs 4RF polyethylene glycol 3350 (Miralax) As directed by gastroenterology department at [facility] 238 grams PO ONCE 238 grams 0RF Z12.11 - Encounter for screening for malignant neoplasm of colon Coding Level of Care Code Est Pt Level 4 (65719) Diagnoses History of pancreatitis Z87.19 Screen for colon cancer Z12.11 Slow transit constipation K59.01 Constipation type: slow transit constipation Time Spent (min) 35 Comment 20 minutes spent with patient and additional 15 minutes spent reviewing his records
== END 2023-12-28 14:35 | disposition home or self-care (01) ==
PROVIDERS: PCP Internal Medicine; Visit Provider Nurse Practitioner Family
DX: Z87.19 Personal history of other diseases of the digestive system (principal); Z12.11 Encounter for screening for malignant neoplasm of colon; K59.01 Slow transit constipation
CPT/HCPCS: 99214

== ENCOUNTER 2023-12-28 13:12 | Outpatient (REF) | payer OTHER, SELFPAY ==
[2023-12-28 16:01] LABS: Alanine Aminotransferase 15 U/L (0-40); Albumin Level 4.3 g/dL (3.5-5.0); Alkaline Phosphatase 65 U/L (39-117); Aspartate Amino Transferase 17 U/L (5-37); Bilirubin Direct 0.2 mg/dL (0.0-0.5); Bilirubin Total 0.5 mg/dL (0.0-1.0); Lipase 31 U/L (8-78); Total Protein 7.6 g/dL (6.5-8.0)
== END 2023-12-28 13:13 | disposition home or self-care (01) ==
LOC: HO.LAB 13:12
PROVIDERS: PCP Internal Medicine; Visit Provider Nurse Practitioner Family
DX: K59.01 Slow transit constipation (principal); Z12.11 Encounter for screening for malignant neoplasm of colon; Z87.19 Personal history of other diseases of the digestive system; R10.9 Unspecified abdominal pain; R74.01 Elevation of levels of liver transaminase levels
CPT/HCPCS: 36415; 80076; 83690; 99212

== ENCOUNTER 2023-12-29 10:18 | Outpatient (REF) | payer OTHER, SELFPAY ==
[2024-01-07 19:03] LABS: Pancreatic Elastase-1 >500 mcg/g
== END 2023-12-29 10:19 | disposition home or self-care (01) ==
LOC: HO.LNP 10:18
PROVIDERS: Visit Provider Nurse Practitioner Family
DX: R10.9 Unspecified abdominal pain (principal)
CPT/HCPCS: 82656

== ENCOUNTER 2024-03-12 12:40 | Outpatient (AMB) | payer OTHER, SELFPAY ==
--- NOTE | 2024-03-12 12:49 | A.OFFPC_ITS ---
Vital Signs 03/12/24 12:54 Height 5 ft 5 in Weight 167 lb BMI 27.8 BP 118/70 Blood Pressure Location Lt brachial Position Sitting Intake Visit Reasons: Annual exam - see comments Intake Note: Patient here for a physical exam Transactional Attorney Required: No Accompanied by: Self / Same As Patient Allergies No Known Allergies Allergy (Verified 03/12/24 13:09) Medication List - Last Reconciled 03/12/24 by Yecenia Castellanos MD aspirin (Adult Low Dose Aspirin) 81 mg PO DAILY 90 days bisacodyl (Dulcolax (bisacodyl)) 10 mg (2 x 5 mg) PO BEDTIME blood sugar diagnostic (Clickyreservauch Verio test strips) Use 1 test strip once a day blood-glucose meter (Sansan Verio Meter) As directed cholecalciferol (vitamin D3) 25 mcg PO DAILY 90 days empagliflozin (Jardiance) 25 mg PO DAILY 90 days fenofibrate 54 mg PO DAILY 90 days lancets ([employer] UltraSoft Lancets) Use 1 lancet once a day linagliptin (Tradjenta) 5 mg PO DAILY 90 days losartan 100 mg PO DAILY metformin 1,000 mg PO BID 90 days naproxen 500 mg PO BID PRN 10 days olopatadine 0.2% (Pataday Once Daily Relief) 1 drp ophthalmic (eye) DAILY PRN 30 days polyethylene glycol 3350 (Miralax) 238 grams PO ONCE repaglinide 0.5 mg PO TID 30 days simvastatin 20 mg PO BEDTIME 90 days tamsulosin 0.4 mg PO DAILY 90 days tramadol 50 mg PO Q8H PRN Tobacco use date assessed: 03/12/24 Fall risk assessment: No Falls in past year Last assessed Fall Risk: 03/12/24 Dental Screening Dental Screen Date: 03/12/24 Did you have a dental visit in the last 12 months?: No Did you have a dental problem in the last 6 months where you did not have access to dental care?: No Was dental information given to patient?: Patient has dentist HPI HPI Comments History of Present Illness Details The patient is a 69-year-old male presenting with an annual physical examination. He has a history of type 2 diabetes mellitus with a recent A1c level of 7.8, slightly above the target of less than 7. The A1c was previously 8.3, indicating some improvement. He also has essential hypertension, which is reportedly well-controlled. The patient underwent a colonoscopy in March 2023, but due to poor preparation, it is planned to be repeated in May of the following year. He has a history of hyperlipidemia with LDL levels on target, currently at 69 mg/dL, just below the goal of less than 70 mg/dL. His last vitamin D level was normal at 35.1 ng/mL. He has undergone cataract surgery and trigger finger surgery. There are no reported symptoms of chest pain or dyspnea, and his bowel and bladder functions are normal. He denies depression or anxiety. - Received Prevnar 20 vaccine for pneumo coccal disease. - Tetanus vaccine received in 2015, next due in 2025. - Last eye exam conducted in 2023. - Scheduled for repeat colonoscopy in [facility] due to inadequate preparation in March 2023. - Vitamin D levels were normal at the [facility] check, 35.1 ng/mL. - Discussed continuation of aspirin 81 m g and vitamin D supplementation at 25 micrograms. - Plans to receive flu vaccine today. [facility] Medical History History of pancreatitis Diabetes Tubular adenoma of colon Headache Primary insomnia Anemia Mixed hyperlipidemia Essential hypertension Insomnia Surgical History Hx of hand surgery Hx of colonoscopy History of cataract surgery Family History Father No problems noted. Mother Diabetes Hypertension Daughter No problems noted. Son No problems noted. Sister No problems noted. Brother No problems noted. Social History Household Members: None Housing: Apartment Do you presently have visiting nurse or other home services: No Unable to assess alcohol history related to: Unknown Alcohol intake: current Alcohol intake frequency: a few times a month Alcohol type: beer Patient Tobacco Use Status: Never used Tobacco e-Cigarette/Vaping Use: Never Used Second Hand Smoke Exposure: No service: No Current occupational status: employed Current occupational exposures/hazards: No Cognitive needs: No Hearing needs: No Vision needs: No Questionnaire PHQ-9 Over the last 2 weeks, how often have you been bothered by any of the following problems? 1. Little interest or pleasure in doing things: not at all 2. Feeling down, depressed, or hopeless: not at all 3. Trouble falling or staying asleep, or sleeping too much: not at all 4. Feeling tired or having little energy: not at all 5. Poor appetite or overeating: not at all 6. Feeling bad about yourself - or that you are a failure or have let yourself or your family down: not at all 7. Trouble concentrating on things, such as reading the newspaper or watching television: not at all 8. Moving or speaking so slowly that other people could have noticed. Or the opposite - being so fidgety or restless that you have been moving around a lot more than usual: not at all 9. Thoughts that you would be better off or of hurting yourself in some way: not at all Total score: 0 Depression Screening Interpretation: Negative Depression Screening Done: Yes 54841 - PHQ-9 Billing: Yes Source: Developed by Drs. Nirav Jenkins, Regina Rebollar, Abe Trejo and colleagues, with an educational dmitri from [employer] Thrive Questionnaire Date Thrive assessed: 03/12/24 I am a: Patient What is your living situation today?: I have a steady place to live Within the past 12 months, did the food you bought not last and you didn't have the money to get more?: Never true Within the past 12 months, did you worry whether your food would run out before you got money to buy more?: Never true Do you have trouble paying for medicines?: No Do you have trouble getting transportation to medical appointments?: No Do you have trouble paying your heating and electricity bill?: No Do you have trouble taking care of your child, family member or friend?: No Do you have trouble with day-to-day activities such as bathing, preparing meals, shopping, managing finances, etc.?: No Are you currently unemployed and looking for a job?: No Are you interested in more education?: No Please select the resources that you would like help with: None Currently or been in a relationship where the following occur: No concerns reported THRIVE Score: 0 AUDIT C Alcohol Use Questionnaire (AUDIT-C) 1. How often do you have a drink containing alcohol?: Monthly or less 2. How many drinks containing alcohol do you have on a typical day when you are drinking?: 1 or 2 3. How often do you have six or more drinks on one occasion?: Never Total Score: 1 Score Reviewed/Action Taken: No JOVANNY-7 AMB Questionnaire JOVANNY-7 Date JOVANNY - 7 assessed: 03/12/24 Feeling nervous, anxious, or on edge: 0 = Not at all Not being able to stop or control worryin = Not at all Worrying too much about different things: 0 = Not at all Trouble relaxin = Not at all Being so restless that it is hard to sit still: 0 = Not at all Becoming easily annoyed or irritable: 0 = Not at all Feeling afraid as if something awful might happen: 0 = Not at all Total JOVANNY-7 score (0-4 normal; 5-9 mild; 10-14 moderate; 15-21 severe): 0 Source: Developed by Drs. Nirav Jenkins, Regina Rebollar, Abe Trejo and colleagues, with an educational dmitri from [employer] JOVANNY-7 Assessment Billing JOVANNY-7 Assessment Tool: JOVANNY-7 Assessment 90268 Review of Systems Const Details: - General: Denies chest pain or dyspnea. - Gastrointestinal: Reports normal bowel movements. - Genitourinary: Reports normal urination. - Psychological: Denies depression and anxiety. Physical exam (Primary Care) Vital Signs: Last Vital Signs BP 118/70 03/12/24 12:54 BMI result Body Mass Index 27.8 Tobacco/Smoking Status: Tobacco use Status Tobacco use date assessed 03/12/24 03/12/24 13:02 Patient Tobacco Use Status Never used Tobacco 03/12/24 12:53 e-Cigarette/Vaping Use Never Used 03/12/24 12:53 PHQ-9: PHQ-9 Score PHQ-9: Total score 0 03/12/24 13:27 Depression Screening Interpretation: Negative Thrive Assessment: Date of Thrive Assessment Date Thrive assessed 03/12/24 03/12/24 13:02 Currently or been in a relationship where the following occur: No concerns reported Const Other: General: Cooperative, healthy appearing, comfortable, no acute distress and well developed Orientation: Patient oriented x3 Limitations: No limitations Head: Normal to inspection Ears: Hearing grossly normal bilaterally, slight wax present but nothing severe Nose: Normal external nose present, slight blockage noted Face and sinus: Normal facial exam Eyes: Appearance normal, both eyes and all related structures Neck: Normal visual inspection and Yes full ROM Respiratory: Normal respiratory effort and able to speak in complete sentences. Clear to auscultation bilaterally Cardiovascular: Regular rate and rhythm. Normal S1 and S2 GI: Normal to inspection. Soft to palpation and nontender. Urination and bowel movements normal Skin: No rashes or lesions noted Neuro: Patient oriented x3 Extremities: Normal to inspection Office Procedures Flu Questionnaire Does the patient have a severe egg allergy?: No Does the patient have severe life threatening allergies?: No Does the patient have a fever or illness today?: No Has the patient ever had Guillain-Stinnett Syndrome?: No Has the patient ever had any past reaction to a flu shot?: No Results AMB Hemoglobin A1c AMB Hemoglobin A1c 7.8 % Last Edit by ALCON Mckeon on 03/12/24 13:1 6 Immunizations Fluarix Triv [id number] (PF) 45 mcg (15 mcg x 3)/0.5 mL IM syringe Performing Provider: Yecenia Castellanos MD [facility] Administered by: ALCON Mckeon on 03/12/24 13:26 Dose Route Admin Location Dispensed Lot Number Expiration Date [facility] Gleason Gear Generator 0.5 mL IM Left Deltoid 0.5 mL [id number] 09/29/24 [id number] [employer] VIS Given Date VIS Provided VIS Publication Date 03/12/24 Single Vaccine 20 Eligibility Eligibility Date Funding Source Not [facility] Eligible 03/12/24 Private Results Reviewed Results Reviewed: Laboratory Last Values Hgb A1c (Clinic) 7.8 % (4.0-6.0) H 03/12/24 12:49 Coding Level of Care Code Est Pt Prev Care >65y(67335) Diagnoses Physical exam Z00.00 Type 2 diabetes mellitus with hyperglycemia, without long-term current use of insulin E11.65 Diabetes mellitus type: type 2 Diabetes mellitus complication status: with hyperglycemia Additional Codes JOVANNY-7 Assessment Billing - JOVANNY-7 Assessment Tool: JOVANNY-7 Assessment 34258 ([id number]) PHQ-9 - 11744 - PHQ-9 Billing: Yes ([id number]) Time Spent (min) 30 Assessment & Plan Assessment & Plan (1) Physical exam: Code(s): Z00.00 - Encounter for general adult medical examination without abnormal findings Category: Medical (2) Diabetes mellitus, without long-term current use of insulin: Code(s): E11.9 - Type 2 diabetes mellitus without complications Category: Medical Qualifiers: Diabetes mellitus type: type 2 Diabetes mellitus complication status: with hyperglycemia Qualified Code(s): E11.65 - Type 2 diabetes mellitus with hyperglycemia Plan 1. - Essential Hypertension: - Hyperlipidemia: Continue Simvastatin 20 mg, maintain current LDL levels. - Cataracts: No additional treatment necessary post-surgery; follow up with routine eye examinations. - Trigger Finger: No further interventions required post-surgery. - Preventive care: Administer flu vaccine during this visit. Patient was informed and verbally consented to the use of an ambient scribe for clinic note documentation during this visit. During this visit, I discussed the importance of maintaining control of diabetes and hypertension with the patient. We talked about his recent A1c level and the goal to have it under 7, stressing the role of medication adherence and lifestyle management. We reviewed his LDL cholesterol results, which are currently well-controlled. The patient consented to repeat his colonoscopy in May due to previous inadequate preparation. I reiterated the need for ongoing eye exams following cataract surgery. We also discussed and agreed to administer the flu vaccine today. The patient was informed about continuing current medications and the schedule for follow-up lab work during the next visit. Orders: Orders Influenza [id number] Immunization Today Z23 - Encounter for immunization AMB Hemoglobin A1c Today E11.65 - Type 2 diabetes mellitus with hyperglycemia Lipid Panel 4 Months E78.5 - Hyperlipidemia, unspecified Microalbumin, Random (w Creat) 4 Months R80.9 - Proteinuria, unspecified Vitamin D 25-OH Total 4 Months E55.9 - Vitamin D deficiency, unspecified Comprehensive [facility] Panel Fast 4 Months E11.65 - Type 2 diabetes mellitus with hyperglycemia Medications: Changed From losartan 100 mg PO DAILY To losartan 100 mg PO DAILY 90 tabs 1RF 90 days Refilled tramadol 50 mg PO Q8H PRN 10 tabs 0RF pain repaglinide administer within 30 minutes of a meal or snack 0.5 mg PO TID 90 tabs 0RF 30 days E11.9 - Type 2 diabetes mellitus without complications metformin 1,000 mg PO BID 180 tabs 3RF 90 days E78.2 - Mixed hyperlipidemia aspirin (Adult Low Dose Aspirin) 81 mg PO DAILY 90 tabs 3RF 90 days E78.2 - Mixed hyperlipidemia linagliptin (Tradjenta) 5 mg PO DAILY 90 tabs 1RF 90 days cholecalciferol (vitamin D3) 25 mcg PO DAILY 90 caps 3RF 90 days E55.9 - Vitamin D deficiency, unspecified empagliflozin (Jardiance) 25 mg PO DAILY 90 tabs 0RF 90 days fenofibrate 54 mg PO DAILY 90 tabs 3RF 90 days E78.2 - Mixed hyperlipidemia Patient Instructions: - Continue all current medications as prescribed. - Perform regular blood glucose monitoring at home. - Attend scheduled colonoscopy in May. - Receive flu vaccine today. - Follow up for repeat laboratory tests in the next appointment. - Maintain regular physical activities and healthy dietary habits. - Contact the office should any new symptoms arise or if existing symptoms worsen.
[2024-03-12 12:54] VITALS: BP 118/70; BMI 27.8
== END 2024-03-12 13:28 | disposition home or self-care (01) ==
PROVIDERS: PCP Internal Medicine; Visit Provider Internal Medicine
DX: Z00.00 Encounter for general adult medical examination without abnormal findings (principal); E11.65 Type 2 diabetes mellitus with hyperglycemia; Z23 Encounter for immunization

== ENCOUNTER → 2024-03-12 12:40 | Outpatient (BNVA) | payer OTHER, SELFPAY | PROVIDERS: PCP Internal Medicine; Visit Provider Internal Medicine | DX: Z00.00 Encounter for general adult medical examination without abnormal findings (principal); Z23 Encounter for immunization; E11.65 Type 2 diabetes mellitus with hyperglycemia | CPT/HCPCS: 83036; 90471; 90656; 96127; 99397 ==

== ENCOUNTER 2024-06-04 07:35 | Day surgery (SDC) | payer OTHER, SELFPAY ==
[2024-06-02 14:14] VITALS: BMI 27.6
--- NOTE | 2024-06-03 12:39 | HO.ANESPROP2 ---
Documented by User: Tamiko Mera NP 06/03/24 12:39 HPI - Anesthesia Eval Consult details Narrative: 69yo M for Colonoscopy PMFSH Active Problems Active Problems: All Active Problems Bone spur of foot (Acute) Left foot pain (Acute) Chronic leukopenia (Acute) Diabetes mellitus, without long-term current use of insulin (Acute) Physical exam (Acute) Screen for colon cancer (Acute) Hypovitaminosis D (Acute) Exposure to COVID-19 virus (Acute) DMII (diabetes mellitus, type 2) (Acute) History of pancreatitis (Acute) Headache (Acute) Primary insomnia (Acute) Anemia (Acute) Mixed hyperlipidemia (Acute) Essential hypertension (Acute) Insomnia (Acute) Past Medical History Medical History History of pancreatitis Diabetes Tubular adenoma of colon Headache Primary insomnia Anemia Mixed hyperlipidemia Essential hypertension Insomnia Family History Family History Father No problems noted. Mother Diabetes Hypertension Daughter No problems noted. Son No problems noted. Sister No problems noted. Brother No problems noted. Family history of problems with anesthesia: No Surgical History Surgical History Hx of hand surgery Hx of colonoscopy History of cataract surgery History of Problems with Anesthesia: No Social History Social History Household Members: None Housing: Apartment Are you a primary veterinarian laboratory animal care to a significant other at home: No Do you presently have visiting nurse or other home services: No Unable to assess alcohol history related to: Unknown Alcohol intake: current Alcohol intake frequency: a few times a month Alcohol type: beer Patient Tobacco Use Status: Never used Tobacco e-Cigarette/Vaping Use: Never Used Second Hand Smoke Exposure: No Use of substances other than those prescribed or required for medical reasons: No Have you been hit, kicked, punched, or otherwise hurt by someone within the past year? If so, by whom?: No Are you DNR?: No Advance Directives: No Advance Directives Information Provided: Yes Recently lost weight without trying: No Nutrition Risks: No Nutritional Risk service: No Current occupational status: employed Current occupational exposures/hazards: No Cognitive needs: No Hearing needs: No Vision needs: No Meds Allergies Allergy/AdvReac Type Severity Reaction Status Date / Time No Known Allergies Allergy Verified 03/12/24 13:09 Exam Height,Weight and Vital Signs: Height 5 ft 5 in Weight 75.296 kg Assessment and Plan Assessment Anesthesia Assessment: Chart Reviewed Final Anesthetic Review Family History of Problems with Anesthesia: No History of Problems with Anesthesia: No Documented by User: Amber Marques MD 06/04/24 08:51 PMFSH Past Medical History Medical History History of pancreatitis Diabetes Tubular adenoma of colon Headache Primary insomnia Anemia Mixed hyperlipidemia Essential hypertension Insomnia Family History Family History Father No problems noted. Mother Diabetes Hypertension Daughter No problems noted. Son No problems noted. Sister No problems noted. Brother No problems noted. Family history of problems with anesthesia: No Surgical History Surgical History Hx of hand surgery Hx of colonoscopy History of cataract surgery History of Problems with Anesthesia: No Social History Social History Household Members: None Housing: Apartment Are you a primary veterinarian laboratory animal care to a significant other at home: No Do you presently have visiting nurse or other home services: No Unable to assess alcohol history related to: Unknown Alcohol intake: current Alcohol intake frequency: a few times a month Alcohol type: beer Patient Tobacco Use Status: Never used Tobacco e-Cigarette/Vaping Use: Never Used Second Hand Smoke Exposure: No Use of substances other than those prescribed or required for medical reasons: No Have you been hit, kicked, punched, or otherwise hurt by someone within the past year? If so, by whom?: No Are you DNR?: No Advance Directives: No Advance Directives Information Provided: Yes Recently lost weight without trying: No Nutrition Risks: No Nutritional Risk service: No Current occupational status: employed Current occupational exposures/hazards: No Cognitive needs: No Hearing needs: No Vision needs: No Meds Allergies Allergy/AdvReac Type Severity Reaction Status Date / Time No Known Allergies Allergy Verified 03/12/24 13:09 Exam Height,Weight and Vital Signs: Height 5 ft 5 in Weight 75.296 kg Vital Signs Temp Pulse Resp BP Pulse Ox O2 Del Method 06/04/24 07:54 97.3 F 73 16 134/115 H 97 Room Air Pertinent Lab Results Pertinent Lab Results: Lab Results 06/04/24 Range/Units 08:06 POC Glucose 194 H (60-115) mg/dL Airway Mallampati Class: III TM Dist: >3cm Neck ROM: Full Loose/Missing/Broken Teeth: No (Denies broken, loose, missing teeth) Heart: RRR Lungs: CTAB Assessment and Plan Assessment Anesthesia Assessment: Anesthesia Plan Discussed and Chart Reviewed Final Anesthetic Review Family History of Problems with Anesthesia: No History of Problems with Anesthesia: No NPO: Yes ASA Class: II Final Preanesthetic Review: No Changes in Pt Med Stat, Meds/Allgs Chart Reviewed, Consent Obtained/Reviewed and Anes Risks/Benef Reviewed Patient Risk: Low Procedure Risk: Low Assessment/Block/Sedation in SS: Assess/Block/Sedation-SS Anesthetic Plan Anesthetic Plan: TIVA Disposition: Standard PACU
[2024-06-04 07:49] VITALS: BMI 28.4
[2024-06-04 07:54] VITALS: BP 134/115; PULSE 73; RESP 16; TEMP 36.3; O2SAT 97
[2024-06-04] MEDS: Lactated Ringers 1,000 ML 100 ML IVCONT (08:08)
[2024-06-04 08:14] LABS: Glucose, Whole Blood 194 mg/dL (60-115)
--- NOTE | 2024-06-04 08:39 | MHC.SHP ---
Pre-Procedural Eval Section A - 24 Hr Update-Section A only Date of Service: 06/04/24 Section B - Complete if H&P > 30 days Chief Complaint: screening Relevant Family History (Specify if Yes): No Relevant Social History: None Present Medications: see Short Stay Collaborative assessment Medical History: Significant History (History of pancreatitis Diabetes Tubular adenoma of colon Headache Primary insomnia Anemia Mixed hyperlipidemia Essential hypertension Insomnia) History of Previous Operations: Relevant previous surgery/procedure and date(s) (Hx of hand surgery Hx of colonoscopy History of cataract surgery) Allergies: Allergies Allergy/AdvReac Type Severity Reaction Status Date / Time No Known Allergies Allergy Verified 03/12/24 13:09 Review of Systems Sugical H&P ROS: Negative: Constitution, Cardiovascular, Respiratory, Neurological, Psychiatric, Hem-Onc, Allergic/Immunologic, Gastrointestinal, Genitourinary, Musculoskeletal, Integumentary, Endocrine and Eyes/Ears/Nose/Throat Exam Surgical H&P Exam: Normal: HEENT, Normal: Heart, Normal: Lungs, Normal: Extremities, Normal: Abdomen, Normal: Skin and Normal: Neurological Plan Diagnosis/Plan: Unchanged I have reviewed the history and physical and performed a pertinent physical examination on my patient. No changes have occurred unless specified. Time Spent With Patient Time: Total time managing care of this patient today ____ minutes.
--- NOTE | 2024-06-04 08:59 | HO.OPN-COLON ---
Colonoscopy Operative Note Operative Note Date of Service: 06/04/24 Narrative: Operative Information Procedure Description: Colonoscopy Indication: screening Anesthesia: MAC COLONOSCOPY Instrument: Olympus variable stiffness pediatric scope 190L Colonoscopy Monitoring: Vital signs and clinical assessment, continuous EKG monitoring, Pulse oximetry, Carbon Dioxide monitoring and blood pressure monitoring were done throughout the procedure. Colon withdrawal time was 12 minutes. Procedure: The patient was placed in the left lateral decubitis position and pre-procedure medications were administered. After a digital rectal examination of the ano-rectum, the video colonoscope was inserted into the rectum and advanced through the colon to the cecum/TI. The colonoscope was slowly withdrawn in a retrograde panoramic fashion and the colon mucosa was carefully examined including a retroflexed view of the rectum. Findings and interventions are described below. Procedure Difficulty: easy Findings: Terminal Ileum-normal Cecum:normal Ascending Colon: 11 mm semi pedunculated polyp lifted with eleview injection and removed with cold snare. 10 mm sessile polyp removed with cold snare. 4-6 mm sessile polyp removed with cold forceps Transverse Colon -normal Descending Colon:normal Sigmoid Colon: 10 mm sessile polyp removed with cold snare, mild diverticulosis Rectum: Retroflexion with small internal hemorrhoids seen, grade I Anorectum - normal Intervention: cold snare, cold forceps, cold snare and eleview injection for EMR Colon preparation: Gurley Bowel Preparation Scale Right colon; 2 Transverse colon: 2 Left colon; 1-2 (0 = Unprepared colon segment with mucosa not seen due to solid stool that cannot be cleared. 1 = Portion of mucosa of the colon segment seen, but other areas of the colon segment not well seen due to staining, residual stool and/or opaque liquid. 2 = Minor amount of residual staining, small fragments of stool and/or opaque liquid, but mucosa of colon segment seen well. 3 = Entire mucosa of colon segment seen well with no residual staining, small fragments of stool or opaque liquid) Impression and Post Procedure Diagnosis: diverticulosis colon polyps internal hemorrhoids Plan: High fiber diet leaflet Avoid straining at stool, epsom salts and sitz bath, anusol supps or cream Repeat Colonoscopy in 1 year due to fair prep on left or earlier if clinically indicated Above findings were reviewed with the patient and relevant handouts were provided if indicated.
[2024-06-04 09:03] VITALS: BP 100/65; PULSE 64; RESP 19; TEMP 36.1; O2SAT 97
[2024-06-04 09:32] VITALS: BP 107/67; PULSE 71; RESP 16; TEMP 36.7; O2SAT 95
== END 2024-06-04 10:28 | disposition home or self-care (01) ==
PROVIDERS: PCP Internal Medicine; Visit Provider Internal Medicine Gastroenterology
PROC: 0DJD8ZZ Inspection of Lower Intestinal Tract, Via Natural or Artificial Opening Endoscopic (ICD-10-PCS; CPT 45378; principal; 2024-06-04 08:30)
DX: Z12.11 Encounter for screening for malignant neoplasm of colon (principal); D12.2 Benign neoplasm of ascending colon; D12.5 Benign neoplasm of sigmoid colon; K57.30 Diverticulosis of large intestine without perforation or abscess without bleeding; K64.0 First degree hemorrhoids; Z86.0101 Personal history of adenomatous and serrated colon polyps; Z87.19 Personal history of other diseases of the digestive system; E11.9 Type 2 diabetes mellitus without complications; I10 Essential (primary) hypertension; E78.2 Mixed hyperlipidemia
CPT/HCPCS: 45385; 45380; 45381; 82947; 88305; J2003; J2704

== ENCOUNTER → 2024-06-04 07:35 | Outpatient (BNV) | payer OTHER, SELFPAY | PROVIDERS: PCP Internal Medicine; Visit Provider Internal Medicine Gastroenterology | DX: Z12.11 Encounter for screening for malignant neoplasm of colon (principal); D12.2 Benign neoplasm of ascending colon; D12.5 Benign neoplasm of sigmoid colon; K57.30 Diverticulosis of large intestine without perforation or abscess without bleeding; K64.8 Other hemorrhoids | CPT/HCPCS: 45380; 45381; 45385 ==

== ENCOUNTER 2024-07-14 06:06 | Outpatient (REF) | payer OTHER, SELFPAY ==
[2024-07-14 07:57] LABS: Alanine Aminotransferase 29 U/L (0-40); Albumin Level 4.1 g/dL (3.5-5.0); Alkaline Phosphatase 64 U/L (39-117); Anion Gap 11 (12-20); Aspartate Amino Transferase 28 U/L (5-37); Bilirubin Total 0.3 mg/dL (0.0-1.0); Blood Urea Nitrogen 18 mg/dL (9-16); Carbon Dioxide 22 mmol/L (22-29); Chloride 111 mmol/L (96-108); Cholesterol 142 mg/dL (<200); Estimated Glomerular Filt Rate 55; Glucose Fasting 151 mg/dL (60-99); HDL Cholesterol 39 mg/dL (>40); LDL Cholesterol Calculated 61 mg/dL (<100); Potassium 4.3 mmol/L (3.3-5.1); Sodium 140 mmol/L (135-145); Total Protein 7.3 g/dL (6.5-8.0); Triglycerides 210 mg/dL (<150)
[2024-07-14 08:25] LABS: Vitamin D 25-OH Total 38.6 ng/mL (>30)
[2024-07-14 08:45] LABS: Creatinine Urine 51.96 mg/dL; Microalbum/Creatinine Ratio Ur 46.1 ug/mg cr (<30)
== END 2024-07-14 06:07 | disposition home or self-care (01) ==
LOC: HO.LAB 06:06
PROVIDERS: PCP Internal Medicine; Visit Provider Internal Medicine
DX: E78.5 Hyperlipidemia, unspecified (principal); E11.65 Type 2 diabetes mellitus with hyperglycemia; R80.9 Proteinuria, unspecified; E55.9 Vitamin D deficiency, unspecified
CPT/HCPCS: 36415; 80053; 80061; 82043; 82306; 82570

== ENCOUNTER 2024-07-15 13:14 | Outpatient (AMB) | payer OTHER, SELFPAY ==
--- NOTE | 2024-07-15 13:25 | A.OFFPC_ITS ---
Vital Signs 07/15/24 13:26 Height 5 ft 5 in Weight 165 lb BMI 27.5 BP 122/78 Blood Pressure Location Lt brachial Position Sitting Intake Visit Reasons: dm Intake Note: Patient here for a follow up DM Frame Nailer Required: No Accompanied by: Self / Same As Patient Allergies No Known Allergies Allergy (Verified 07/15/24 13:32) Tobacco use date assessed: 07/15/24 Fall risk assessment: No Falls in past year Last assessed Fall Risk: 07/15/24 Dental Screening Dental Screen Date: 07/15/24 Did you have a dental visit in the last 12 months?: Yes Did you have a dental problem in the last 6 months where you did not have access to dental care?: No Was dental information given to patient?: Patient has dentist HPI HPI Comments History of Present Illness Details The patient is a 69-year-old male presenting for follow-up of chronic conditions including hypertension, diabetes, hyperlipidemia, benign prostatic hyperplasia, and recurrent headaches. His hypertension is well-controlled under his current medication regimen. For Type 2 Diabetes Mellitus, treated with Metformin, recent lab results indicate a glucose level of 151 mg/dL, suggesting suboptimal glycemic control. His hyperlipidemia treatment with Simvastatin has resulted in an LDL cholesterol level of 61 mg/dL. Benign prostatic hyperplasia is managed with Tamsulosin. He continues to experience recurrent headaches, for which he takes Tramadol as needed, recently running out of this medication. The patient denies chest pain, dyspnea, fever, or depressive symptoms and is compliant with colonoscopy scheduling and vaccinations. A1c of 10.1% and I will add Januvia. [facility] Medical History History of pancreatitis Diabetes Tubular adenoma of colon Headache Primary insomnia Anemia Mixed hyperlipidemia Essential hypertension Insomnia Surgical History Hx of hand surgery Hx of colonoscopy History of cataract surgery Family History Father No problems noted. Mother Diabetes Hypertension Daughter No problems noted. Son No problems noted. Sister No problems noted. Brother No problems noted. Social History Household Members: None Housing: Apartment Are you a primary pet care associate to a significant other at home: No Do you presently have visiting nurse or other home services: No Unable to assess alcohol history related to: Unknown Alcohol intake: current Alcohol intake frequency: a few times a month Alcohol type: beer Patient Tobacco Use Status: Never used Tobacco e-Cigarette/Vaping Use: Never Used Second Hand Smoke Exposure: No service: No Current occupational status: employed Current occupational exposures/hazards: No Cognitive needs: No Hearing needs: No Vision needs: No Questionnaire PHQ-9 Over the last 2 weeks, how often have you been bothered by any of the following problems? 1. Little interest or pleasure in doing things: not at all 2. Feeling down, depressed, or hopeless: not at all 3. Trouble falling or staying asleep, or sleeping too much: not at all 4. Feeling tired or having little energy: not at all 5. Poor appetite or overeating: not at all 6. Feeling bad about yourself - or that you are a failure or have let yourself or your family down: not at all 7. Trouble concentrating on things, such as reading the newspaper or watching television: not at all 8. Moving or speaking so slowly that other people could have noticed. Or the opposite - being so fidgety or restless that you have been moving around a lot more than usual: not at all 9. Thoughts that you would be better off or of hurting yourself in some way: not at all Total score: 0 Depression Screening Interpretation: Negative Depression Screening Done: Yes 30012 - PHQ-9 Billing: Yes Source: Developed by Drs. Nirav Jenkins, Regina Rebollar, Abe Trejo and colleagues, with an educational dmitri from [employer]. Thrive Questionnaire Date Thrive assessed: 07/15/24 I am a: Patient What is your living situation today?: I have a steady place to live Within the past 12 months, did the food you bought not last and you didn't have the money to get more?: Never true Within the past 12 months, did you worry whether your food would run out before you got money to buy more?: Never true Do you have trouble paying for medicines?: No Do you have trouble getting transportation to medical appointments?: No Do you have trouble paying your heating and electricity bill?: No Do you have trouble taking care of your child, family member or friend?: No Do you have trouble with day-to-day activities such as bathing, preparing meals, shopping, managing finances, etc.?: No Are you currently unemployed and looking for a job?: No Are you interested in more education?: No Please select the resources that you would like help with: None Currently or been in a relationship where the following occur: No concerns reported THRIVE Score: 0 AUDIT C Alcohol Use Questionnaire (AUDIT-C) 1. How often do you have a drink containing alcohol?: Monthly or less 2. How many drinks containing alcohol do you have on a typical day when you are drinking?: 1 or 2 3. How often do you have six or more drinks on one occasion?: Never Total Score: 1 Score Reviewed/Action Taken: No JOVANNY-7 AMB Questionnaire JOVANNY-7 Date JOVANNY - 7 assessed: 07/15/24 Feeling nervous, anxious, or on edge: 0 = Not at all Not being able to stop or control worryin = Not at all Worrying too much about different things: 0 = Not at all Trouble relaxin = Not at all Being so restless that it is hard to sit still: 0 = Not at all Becoming easily annoyed or irritable: 0 = Not at all Feeling afraid as if something awful might happen: 0 = Not at all Total JOVANNY-7 score (0-4 normal; 5-9 mild; 10-14 moderate; 15-21 severe): 0 Source: Developed by Drs. Nirav Jenkins, Regina Rebollar, Abe Trejo and colleagues, with an educational dmitri from [employer]. JOVANNY-7 Assessment Billing JOVANNY-7 Assessment Tool: JOVANNY-7 Assessment 19557 Review of Systems Const All systems reviewed & are unremarkable except as noted in HPI and below Card Denies chest pain at rest, Denies chest pain with activity, Denies edema, Denies irregular heart rhythm, Denies claudication, Denies dyspnea, Denies dyspnea on exertion, Denies orthopnea, Denies paroxysmal nocturnal dyspnea and Denies slow heart rate Resp Denies cough, Denies dyspnea and Denies dyspnea on exertion GI Denies abdominal pain, Denies change in bowel habits, Denies excessive flatus, Denies nausea and Denies vomiting Physical exam (Primary Care) Vital Signs: Last Vital Signs BP 122/78 07/15/24 13:26 BMI result Body Mass Index 27.5 Tobacco/Smoking Status: Tobacco use Status Tobacco use date assessed 07/15/24 07/15/24 13:33 Patient Tobacco Use Status Never used Tobacco 07/15/24 13:33 e-Cigarette/Vaping Use Never Used 07/15/24 13:33 PHQ-9: PHQ-9 Score PHQ-9: Total score 0 07/15/24 13:51 Depression Screening Interpretation: Negative Thrive Assessment: Date of Thrive Assessment Date Thrive assessed 07/15/24 07/15/24 13:33 Currently or been in a relationship where the following occur: No concerns reported Resp Effort & Inspection: normal respiratory effort Auscultation: clear to auscultation bilaterally Cardio Jugular venous distension: no JVD Rate: regular rate Rhythm: regular rhythm Heart sounds: S1 normal heart sound present and S2 normal heart sound present Extrem General: Yes full ROM Results AMB Hemoglobin A1c AMB Hemoglobin A1c 10.5 % Last Edit by ALCON Mckeon on 07/15/24 13: 51 Results Reviewed Results Reviewed: Laboratory Last Values Hgb A1c (Clinic) 10.5 % (4.0-6.0) H 07/15/24 13:25 Coding Level of Care Code Est Pt Level 4 (49938) Complex EM visit Add On G2211 Diagnoses Type 2 diabetes mellitus with hyperglycemia, without long-term current use of insulin E11.65 Diabetes mellitus complication status: with hyperglycemia Diabetes mellitus type: type 2 Hypovitaminosis D E55.9 Essential hypertension I10 Mixed hyperlipidemia E78.2 Headache R51.9 Additional Codes JOVANNY-7 Assessment Billing - JOVANNY-7 Assessment Tool: JOVANNY-7 Assessment 81903 ([id number]) PHQ-9 - 69335 - PHQ-9 Billing: Yes ([id number]) Time Spent (min) 23 Assessment & Plan Assessment & Plan (1) Diabetes mellitus, without long-term current use of insulin: Code(s): E11.9 - Type 2 diabetes mellitus without complications Category: Medical Qualifiers: Diabetes mellitus complication status: with hyperglycemia Diabetes mellitus type: type 2 Qualified Code(s): E11.65 - Type 2 diabetes mellitus with hyperglycemia (2) Hypovitaminosis D: Code(s): E55.9 - Vitamin D deficiency, unspecified Category: Medical (3) Essential hypertension: Code(s): I10 - Essential (primary) hypertension Category: Medical (4) Mixed hyperlipidemia: Code(s): E78.2 - Mixed hyperlipidemia Category: Medical (5) Headache: Code(s): R51.9 - Headache, unspecified Category: Medical Plan Hypertension is managed well with current medications; no changes are needed. Type 2 Diabetes Mellitus should be monitored closely, with continued Metformin and lifestyle improvements for better control. Hyperlipidemia is stable with Simvastatin therapy. Continue Tamsulosin for benign prostatic hyperplasia. Recurrent headaches managed with Tramadol prescription refill, with patient advised on sparing use. Follow-up labs scheduled in 4 months to reassess diabetes control and monitor renal function. No new interventions are indicated based on current visit evaluations. Patient was informed and verbally consented to the use of an ambient scribe for clinic note documentation during this visit. During the consultation, I discussed the stability of the patient's blood pressure and the results from his recent laboratory tests. We emphasized the importance of maintaining current medication dosages, particularly for diabetes and cholesterol management. I clarified that while the LDL level is satisfactory, the glucose could benefit from tighter control through dietary and exercise interventions. For his headaches, I advised the careful use of Tramadol, highlighting its status as a controlled medication and reinforcing taking it only when necessary. I confirmed his understanding of the plan including the follow-up laboratory work in 4 months and reassessment at the next visit. Orders: Orders Lipid Panel 4 Months E78.5 - Hyperlipidemia, unspecified Microalbumin, Random (w Creat) 4 Months R80.9 - Proteinuria, unspecified Vitamin B12 and Folate 4 Months E53.8 - Deficiency of other specified B group vitamins Comprehensive Hasty. Panel Fast 4 Months E11.65 - Type 2 diabetes mellitus with hyperglycemia AMB Hemoglobin A1c Today E11.65 - Type 2 diabetes mellitus with hyperglycemia Vitamin D 25-OH Total 4 Months E55.9 - Vitamin D deficiency, unspecified Medications: New sitagliptin phosphate (Januvia) 25 mg PO DAILY 90 tabs 1RF 90 days Refilled tramadol 50 mg PO Q8H PRN 10 tabs 0RF pain Patient Instructions: - Continue current antihypertensive regimen. - Maintain Metformin 1000 mg twice daily and work on dietary and exercise strategies to improve blood sugar levels. - Continue Simvastatin therapy for cholesterol management. - Take Tamsulosin as directed for prostate health. - Use Tramadol sparingly and only as needed for headache relief. - Follow-up after 4 months for labs and reassessment of health conditions.
[2024-07-15 13:26] VITALS: BP 122/78; BMI 27.5
--- OUTSIDE RECORDS SUMMARY | 2024-07-15 16:08 | XMS_ITS | Encounter Summary ---
Author Organization [employer] [facility] Address [address] [place] [address] Care Team Providers Care Supervisor Dehydrogenation Name Role Phone Unavailable Primary Care Provider Unavailabl e Encounter Details Date Type Department Care Team (Latest Contact Info) Description 11/27/2018 Abstract [facility] Dental, Provider, DDS Social History Tobacco Use Types Packs/Day Years Used Date Smoking Tobacco: Never Assessed Sex and Gender Information Value Date Recorded Sex Assigned at Male 01/30/2022 10:25 AM EDT Legal Sex Male 10:25 AM EDT Gender Identity Male 01/30/2022 10:25 AM EDT Sexual Orientation Straight 01/30/2022 10 :25 AM EDT documented as of this encounter Plan of Treatment Upcoming Encounters Date Type Department Care Team (Late st Contact Info) Description 10/08/2024 2:00 PM EDT Office Visit [facility] [address] [place] [address] Onesimo Lraris [address] [place] [address] documented as of this encounter Visit Diagnoses Not on filedocumented in this encounter
--- OUTSIDE RECORDS SUMMARY | 2024-07-15 16:08 | XMS_ITS | Encounter Summary ---
Author Organization [employer] [facility] Address [address] [place] [address] Care Team Providers Care Deep Tissue Massage Therapist Name Role Phone Unavailable Primary Care Provider Unavailabl e Encounter Details Date Type Department Care Team (Late st Contact Info) Description 07/10/2022 Abstract [facility] [address] [place] [address] Caryn Wheeler DDS [address] [place] [address] Social History Tobacco Use Types Packs/Day Years Used Date Smoking Tobacco: Never Smokeless Tobacco: Never Sex and Gender Information Value Date Recorded Sex Assigned at Male 01/30/2022 10:25 AM EDT Legal Sex Male 10:25 AM EDT Gender Identity Male 01/30/2022 10:25 AM EDT Sexual Orientation Straight 01/30/2022 10 :25 AM EDT COVID-19 Exposure Response Date Recorded In the last 10 days, have yo u been in contact with someone who was confirmed or suspected to have Coronavirus/COVID-19? No / Unsure 07/11/2022 2:46 PM EDT documented as of this encounter Plan of Treatment Upcoming Encounters Date Type Department Care Team (Late st Contact Info) Description 10/08/2024 2:00 PM EDT Office Visit [facility] [address] [place] [address] Onesimo Lraris [address] [place] [address] documented as of this encounter Visit Diagnoses Not on filedocumented in this encounter
--- OUTSIDE RECORDS SUMMARY | 2024-07-15 16:08 | XMS_ITS | Encounter Summary ---
Author Organization [employer] [facility] Address [address] [place] [address] Care Team Providers Care Auto Apprentice Mechanic Name Role Phone Unavailable Primary Care Provider Unavailabl e Encounter Details Date Type Department Care Team (Late st Contact Info) Description 07/21/2022 Abstract [facility] [address] [place] [address] Caryn Wheeler DDS [address] [place] [address] Social History Tobacco Use Types Packs/Day Years [...] suspected to have Coronavirus/COVID-19? No / Unsure 07/14/2022 10:39 AM EDT documented as of this encounter Plan of Treatment Upcoming Encounters Date Type Department Care Team (Late st Contact Info) Description 10/08/2024 2:00 PM EDT Office Visit [facility] [address] [place] [address] Adeline, Shaista [address] [place] [address] documented as of this encounter Visit Diagnoses Not on filedocumented in this encounter
--- OUTSIDE RECORDS SUMMARY | 2024-07-15 16:08 | XMS_ITS | Encounter Summary ---
Author Organization [employer] [facility] Address [address] [place] [address] Care Team Providers Care Career Advisor Name Role Phone Unavailable Primary Care Provider Unavailabl e Encounter Details Date Type Department Care Team (Late st Contact Info) Description 10/25/2022 Abstract [facility] [address] [place] [address] Caryn Wheeler DDS [address] [place] [address] Social History Tobacco Use Types Packs/Day Years [...] suspected to have Coronavirus/COVID-19? No / Unsure 09/25/2022 2:54 PM EDT documented as of this encounter Plan of Treatment Upcoming Encounters Date Type Department Care Team (Late st Contact Info) Description 10/08/2024 2:00 PM EDT Office Visit [facility] [address] [place] [address] Adeline, Shaista [address] [place] [address] documented as of this encounter Visit Diagnoses Not on filedocumented in this encounter
--- OUTSIDE RECORDS SUMMARY | 2024-07-15 16:08 | XMS_ITS | Encounter Summary ---
Author Organization [employer] [facility] Address [address] [place] [address] Care Team Providers Care Flight Control Tower Operator Name Role Phone Unavailable Primary Care Provider Unavailabl e Encounter Details Date Type Department Care Team (Late st Contact Info) Description 07/13/2022 Abstract [facility] [address] [place] [address] Onesimo Lraris [address] [place] [address] Social History Tobacco Use Types Packs/Day Years [...] Description 10/08/2024 2:00 PM EDT Office Visit [facility] [address] [place] [address] Adeline Shaista [address] [place] [address] documented as of this encounter Visit Diagnoses Not on filedocumented in this encounter
--- OUTSIDE RECORDS SUMMARY | 2024-07-15 16:08 | XMS_ITS | Encounter Summary ---
Author Organization [employer] [facility] Address [address] [place] [address] Care Team Providers Care Provider Relations Manager Name Role Phone Unavailable Primary Care Provider Unavailabl e Encounter Details Date Type Department Care Team (Late st Contact Info) Description 07/20/2022 Abstract [facility] [address] [place] [address] Caryn Wheeler DDS [address] [place] [address] Social History Tobacco Use Types Packs/Day Years [...] 10/08/2024 2:00 PM EDT Office Visit [facility] [address] [place] [address] Adeline, Shaista [address] [place] [address] documented as of this encounter Visit Diagnoses Not on filedocumented in this encounter
--- OUTSIDE RECORDS SUMMARY | 2024-07-15 16:08 | XMS_ITS | Encounter Summary ---
Author Organization [employer] [facility] Address [address] [place] [address] Care Team Providers Care Track Layer Head Name Role Phone Unavailable Primary Care Provider Unavailabl e Encounter Details Date Type Department Care Team (Late st Contact Info) Description 08/04/2022 Abstract [facility] [address] [place] [address] Caryn Wheeler DDS [address] [place] [address] Social History Tobacco Use Types Packs/Day Years [...] suspected to have Coronavirus/COVID-19? No / Unsure 07/31/2022 10:39 AM EDT documented as of this encounter Plan of Treatment Upcoming Encounters Date Type Department Care Team (Late st Contact Info) Description 10/08/2024 2:00 PM EDT Office Visit [facility] [address] [place] [address] Adeline, Shaista [address] [place] [address] documented as of this encounter Visit Diagnoses Not on filedocumented in this encounter
--- OUTSIDE RECORDS SUMMARY | 2024-07-15 16:09 | XMS_ITS | Clinical Summary ---
Author Organization [employer] Address [address] [place] [address] Care Team Providers Care Apartment Assistant Manager Name Role Phone Unavailable Primary Care Provider Unavailabl e Allergies Active Allergy Reactions Criticality Noted Date Comments Atorvastatin 09/30/2020 Other reaction(s): Other (see comments) Medications polyethylene glycol, PEG, 3350 (Glycolax) 17 GM/SCOOP powder MIX WITH WATER AND TAKE BY MOUTH DIRECTED BEFORE DE LA COLONOSCOPY 2 Active metFORMIN (Glucophage) 1000 MG tablet Take 1 tablet by mouth 2 times daily. Active losartan (Cozaar) 50 MG tablet Take 50 mg by mouth 2 times daily. 1 Active fenofibrate (Tricor) 54 MG tablet Take 1 tablet by mouth. 1 Active Vitamin D High Potency 25 MCG (1000 UT) capsule Take 25 mcg by mouth in the morning. 2 Active Bisacodyl EC 5 MG EC tablet TAKE 2 TABLETS BY MOUTH ONCE DIRECTED BEFORE DE LA COLONOSCOPY 2 Active aspirin 81 MG EC tablet Take 1 tablet by mouth in the morning. Active metFORMIN (Glucophage) 250 MG split tablet Take 1 tablet by mouth every 12 (twelve) hours. Active ibuprofen (Motrin) 300 mg split tablet Take 1 tablet by mouth every 8 (eight) hours. 4 Active pioglitazone (Actos) 15 MG tablet Take 1 tablet by mouth. 1 Active simvastatin (Zocor) 10 MG tablet Take 1 tablet by mouth at bed time. 1 Active tamsulosin (Flomax) 0.4 MG 24 hr capsule Take 1 capsule by mouth 2 times daily. Active tiZANidine (Zanaflex) 4 MG tablet TAKE 1 TABLET BY MOUTH AT BEDTIME NEEDED FOR MUSCLE SPASMS 2 Active traMADol (Ultram) 50 MG tablet Take 1 tablet by mouth 4 times daily. Active zolpidem (Ambien) 10 MG tablet Take 1 tablet by mouth. Active simvastatin (Zocor) 20 MG tablet Take 20 mg by mouth at bedtime. 3 Active senna (Senokot) 8.6 MG tablet TAKE 1 TABLET BY MOUTH AT BEDTIME FOR CONSTIPATION 3 Active naproxen (Naprosyn) 500 MG tablet Take 500 mg by mouth if needed in the morning and at bedtime. 3 Active losartan (Cozaar) 100 MG tablet Take 100 mg by mouth in the morning. 3 Active Tradjenta 5 MG tablet Take 5 mg by mouth in the morning. 3 Active OneTouch Verio test strip TEST BLOOD SUGAR ONCE DAILY 3 Active Active Problems Problem Noted Date Diagnosed Date Dental caries 12/24/2023 Teeth missing 12/24/2023 Excessive attrition of teeth, limited to enamel 12/24/2023 Dental calculus 07/11/2022 Periodontal disease 07/11/2022 Generalized gingival recession 07/11/2022 Missing teeth, acquired 07/11/2022 Type 2 diabetes mellitus with diabetic nephropat hy 10/06/2020 Hypertension 10/06/2020 Chronic kidney disease 09/30/2020 Hypertensive renal disease 09/30/2020 Proteinuria 09/30/2020 DM w/o complication type II 05/01/2013 Immunizations Name Administration Dates Next Due Influenza injectable quadriv alent IIV4 with preservative 02/26/2018,01/15/2017,02/14/2016 Influenza injectable quadriv alent preservative free 03/07/2023,02/16/2022,02/09/2021,02/16 Influenza, High Dose Seasona l, Preservative Free 03/03/2019 Yissel SARS-CoV-2 Vaccination 07/12/2020 Pfizer Covid-19 Vaccine 12+ 02/11/2021 Pfizer Covid-19 Vaccine 12+ Bivalent 03/14/2022 Pneumococcal Conjugate PCV 20 06/27/2023 Pneumococcal Polysaccharide PPSV23 03/03/2019 Tdap 02/14/2016 Zoster, Recombinant 06/27/2023,04/10/2023 Social History Tobacco Use Types Packs/Day Years Used Date Smoking Tobacco: Never Smokeless Tobacco: Never Tobacco Cessation:Counseling Given: Not Answered Sex and Gender Information Value Date Recorded Sex Assigned at Male 01/30/2022 10:25 AM EDT Legal Sex Male 10:25 AM EDT Gender Identity Male 01/30/2022 10:25 AM EDT Sexual Orientation Straight 01/30/2022 10 :25 AM EDT Last Filed Vital Signs Vital Sign Reading Time Taken Comments Blood Pressure 122/76 03/31/2024 8:03 AM EST Pulse 68 11/17/2022 2:12 PM EDT Temperature - - Respiratory Rate - - Oxygen Saturation - - Inhaled Oxygen Concentration - - Weight - - Height - - Body Mass Index - - Plan of Treatment Upcoming Encounters Date Type Department Care Team (Late st Contact Info) Description 10/08/2024 2:00 PM EDT Office Visit [facility] [address] [place] [address] Ad[place], [place] [place] [address] Health Maintenance Due Date Last Done Comments CT Colonography 1954 Colonoscopy 1954 Colorectal Cancer Screening 1954 Depression Screening 1954 Diabetes: Hemoglobin A1C 1954 FIT DNA/Cologuard 1954 FIT 1954 FOBT 1954 Lipid Panel 1954 SDOH Screening 1954 Sigmoidoscopy 1954 Diabetes: Foot Exam 02/28/1964 Eye Exam 02/28/1964 Alcohol/Substance Use Screening 1966 Hepatitis C Screening 02/28/1972 RSV Patients and Patients Aged 60 years or older (1 - Risk 60-74 years 1-dose series) 2014 COVID-19 Vaccine ( season) 2023 03/14/2022, 02/11/2021, 07/12/2020 Dental Oral Exam 06/23/2024 12/24/2023, 05/10/2022 Dental Prophylaxis 09/30/2024 03/31/2024, 0 12/24/2023, 07/11/2022 Dental X-Ray: Bitewings 12/24/2024 12/24/19, 12/11/2023, 10/15/2023, Additional history exists Tobacco Screening 03/31/2025 03/31/2024 DTaP/Tdap/Td Vaccines (2 - Td or Tdap) 02/13/2026 02/14/2016 Dental X-Ray: Full Mouth 12/24/2026 12/24/2023, 11/01 Pneumococcal Vaccine: 50+ Years Completed 06/27/2023, 03/03/2019 Zoster Vaccines Completed 06/27/2023, 04/10/2023 Influenza Vaccine Completed 03/12/2024, , 02/16/2022, Additional history exists HIB Vaccines Aged Out No longer eligi ble based on patient's age to complete this topic HPV Vaccines Aged Out No longer eligi ble based on patient's age to complete this topic Hepatitis A Vaccines Aged Out No long er eligible based on patient's age to complete this topic Hepatitis B Vaccines Aged Out No long er eligible based on patient's age to complete this topic IPV Vaccines Aged Out No longer eligi ble based on patient's age to complete this topic Meningococcal Vaccine Aged Out No magy mehnaz eligible based on patient's age to complete this topic RSV under 20 months Aged Out No longe r eligible based on patient's age to complete this topic Rotavirus Vaccines Aged Out No longer eligible based on patient's age to complete this topic Procedures Procedure Name Priority Date/Time Associated Diagnosis Comments PROPHYLAXIS - ADULT Routine 03/31/2024 8 :00 AM EST Periodontal disease Dental calculus INTRAORAL - COMPLETE SERIES OF RADIOGRAPHIC IMAGES Routine 12/24/2023 9:00 AM EDT Periodontal disease Teeth missing Excessive attrition of teeth, limited to enamel Dental calculus Generalized gingival recession PERIODIC ORAL EVALUATION - ESTABLISHED PATIENT Routine 12/24/2023 9:00 AM EDT Periodontal disease Teeth missing Excessive attrition of teeth, limited to enamel Dental calculus Generalized gingival recession Periodontal pocket Encounter for dental examination from Last 3 Months or Most Recently Relevant to Health Maintenance Insurance [facility]
--- OUTSIDE RECORDS SUMMARY | 2024-07-15 16:09 | XMS_ITS | Clinical Summary ---
Author Organization [facility] Address [address] [place] [address] Phone Care Team Providers Care Platen Grinder Name Role Phone Yecenia Hutchins MD Primary Care Provider [phone] Allergies Active Allergy Reactions Criticality Noted Date Comments Atorvastatin Other (see comments) 09/30/2020 Medications aspirin (ST HERMINIO) 81 MG EC tablet Take 1 tablet by mouth 1 (one) time each day Active metFORMIN (GLUCOPHAGE) 1000 MG tablet Take 1 tablet by mouth 2 (two) times a day Active tamsulosin (FLOMAX) 0.4 MG 24 hr capsule Take 1 capsule by mouth 2 (two) times a day Active traMADol (ULTRAM) 50 MG tablet Take 1 tablet by mouth 4 (four) times a day Active zolpidem (AMBIEN) 10 MG tablet Take 1 tablet by mouth 1 (one) time each day Active losartan (COZAAR) 50 MG tablet Take 1 tablet (50 mg total) by mouth 2 (two) times a day 60 tablet 5 09/10/2020 Active simvastatin (ZOCOR) 10 MG tablet Take 1 tablet by mouth at bed time 09/09/2020 Active pioglitazone (ACTOS) 15 MG tablet Take 1 tablet by mouth 1 (one) time each day 09/08/2020 Active fenofibrate (TRICOR) 54 MG tablet Take 1 tablet by mouth 1 (one) time each day 09/09/2020 Active Active Problems Problem Noted Date Diagnosed Date Hypertension 10/06/2020 Type 2 diabetes mellitus with diabetic nephropat hy 10/06/2020 Chronic kidney disease 09/30/2020 Hypertensive renal disease 09/30/2020 Proteinuria 09/30/2020 Family History Medical History Relation Comments Diabetes Mother Heart disease Mother Hypertension Mother Relation Status Comments Father Mother Social History Tobacco Use Types Packs/Day Years Used Date Smoking Tobacco: Never Smokeless Tobacco: Never Alcohol Use Standard Drinks/Week Comments Yes 0 (1 standard drink = 0.6 oz pure alcohol) Alcoholic Drinks/day: Occasional social drink Sex and Gender Information Value Date Recorded Sex Assigned at Not on file Legal Sex Male 4:45 PM EST Gender Identity Not on file Sexual Orientation Not on file Last Filed Vital Signs Vital Sign Reading Time Taken Comments Blood Pressure 120/70 11/30/2021 5:00 PM EDT Pulse 60 11/30/2021 5:00 PM EDT Temperature - - Respiratory Rate - - Oxygen Saturation 95% 10/06/2020 3:41 PM EDT Inhaled Oxygen Concentration - - Weight 88.8 kg (195 lb 12.8 oz) 11/30/2021 5:00 PM EDT Height 165.1 cm (5' 5 ) 11/30/2021 5:00 PM EDT Body Mass Index 32.58 11/30/2021 5:00 PM EDT Plan of Treatment Health Maintenance Due Date Last Done Comments Pneumococcal Vaccine: 50+ Ye ars (1 of 2 - PCV) 1973 Colorectal Cancer Screening: Annual FOBT 2003 Colorectal Cancer Screening: Colonoscopy 2003 Colorectal Cancer Screening: Sigmoidoscopy 2003 Diabetes: Hemoglobin A1C 10/06/2020 Diabetes: Ophthalmology Exam 10/06/2020 Diabetes: Pedal Pulse Checked 10/06/2020 Diabetes: Sensory Foot Exam 10/06/2020 Diabetes: Visual Foot Exam 10/06/2020 Influenza Vaccine (Season Ended) 2024 Hepatitis B Vaccine Aged Out No longe r eligible based on patient's age to complete this topic Insurance Medicaid [place] [facility] Medicaid [place] Care Teams Platen Grinder Relationship Specialty Start Date End Date Yecenia Hutchins MD [address] [place] [address] PCP - General 04/12/20
== END 2024-07-15 13:41 | disposition home or self-care (01) ==
LOC: HO.HMCH 13:14
PROVIDERS: PCP Internal Medicine; Visit Provider Internal Medicine
DX: E11.65 Type 2 diabetes mellitus with hyperglycemia (principal); E55.9 Vitamin D deficiency, unspecified; I10 Essential (primary) hypertension; E78.2 Mixed hyperlipidemia; R51.9 Headache, unspecified

== ENCOUNTER → 2024-07-15 13:14 | Outpatient (BNVA) | payer OTHER, SELFPAY | PROVIDERS: PCP Internal Medicine; Visit Provider Internal Medicine | DX: E11.65 Type 2 diabetes mellitus with hyperglycemia (principal); I10 Essential (primary) hypertension; N40.0 Benign prostatic hyperplasia without lower urinary tract symptoms; R51.9 Headache, unspecified; E55.9 Vitamin D deficiency, unspecified; E78.2 Mixed hyperlipidemia; R80.9 Proteinuria, unspecified; E53.8 Deficiency of other specified B group vitamins; Z79.84 Long term (current) use of oral hypoglycemic drugs; Z79.899 Other long term (current) drug therapy | CPT/HCPCS: 83036; 96127; 99212 ==

== ENCOUNTER 2024-10-09 14:03 | Inpatient (IN) | payer OTHER, SELFPAY ==
--- NOTE | ~2024-10-09 | CT_ITS ---
CLINICAL HISTORY: SBO --- Additional Notes or Special Instructions: please use PO contrast, his creatinine is elevated CT Abdomen and Pelvis WO Contrast COMPARISON: Portions of MR/CA/SR - MR ABDOMEN WO/W CON - 10/03/23 11:[address]/REG/CA/SR - CT ABDOMEN PELVIS WO IV CON - 10/02/23 04:56 EDT FINDINGS: Mild cardiomegaly. Small hiatal hernia. Diffusely hypodense liver consistent with hepatic steatosis. Normal spleen. Normal kidneys. Normal adrenal glands. Fat stranding adjacent to the head and neck of the pancreas, which appears edematous. No pancreatic ductal dilatation. No pseudocyst or abscess. Mild fullness of the distal pancreatic tail (series 3, image 32), less pronounced than on prior studies. No visible cholelithiasis. No biliary dilation. Mild colonic diverticulosis without evidence of acute diverticulitis. No mucosal thickening. No evidence of obstruction. Normal appendix. Unremarkable bladder. No ascites. No pneumoperitoneum. No lymphadenopathy. No acute fracture. Degenerative changes in the spine. No abdominal aortic aneurysm. Penile implant in place. IMPRESSION: Findings consistent with acute pancreatitis. Mild fullness of the distal pancreatic tail is less pronounced than on prior studies and could be due to normal variation or sequela of prior pancreatitis. Consider follow-up to exclude underlying neoplasm. Nonemergent/incidental findings above. This document has been electronically signed by: Khai Gonzales MD on 10/09/2024 23:42:34
[2024-10-09 14:23] VITALS: BP 130/71; PULSE 67; RESP 16; TEMP 35.8; O2SAT 97; BMI 27.4
--- NOTE | 2024-10-09 14:23 | ED_ITS ---
HPI - Abdominal Pain General Chief Complaint: Abdominal Pain Stated Complaint: abd pain Time Seen by Provider: 10/09/24 18:13 Source: patient Limitations: language barrier History of Present Illness ED Provider: Ita Reyes PA-C HPI narrative: 69-year-old male with a history of non insulin dependent type 2 diabetes, hld, htn, tubular adenoma colon, prior pancreatitis, presents with diffuse abdominal pain. Patient states he has been having ongoing pain x 4 days. Pain is generalized with the abdominal distention. Last bowel movement with the yesterday, the patient has not passing flatus from below. Associated intractable nausea vomiting. Denies fever. Denies alcohol abuse history. Related Data Previous Rx's ?Medication ?Instructions ?Recorded blood sugar diagnostic (OneTouch #100 ea 07/04/22 Verio test strips) blood-glucose meter (OneTouch #1 ea 07/04/22 Verio Meter) lancets (OneTouch UltraSoft #100 ea 07/04/22 Lancets) naproxen 500 mg tablet 500 mg PO BID PRN pain 10 da ys #20 07/12/22 tabs olopatadine 0.2 % eye drops 1 drp ophthalmic (eye) KRISTEN LY PRN 07/09/23 (Pataday Once Daily Relief) itching 30 days #2.5 mL simvastatin 20 mg tablet 20 mg PO BEDTIME 90 days #90 tabs 09/10/23 aspirin 81 mg tablet,delayed 81 mg PO DAILY 90 days #9 0 tabs 03/12/24 release (Adult Low Dose Aspirin) cholecalciferol (vitamin D3) 25 25 mcg PO DAILY 90 day s #90 caps 03/12/24 mcg (1,000 unit) capsule losartan 100 mg tablet 100 mg PO DAILY 90 days #90 tabs 03/12/24 metformin 1,000 mg tablet 1,000 mg PO BID 90 days #180 tabs 03/12/24 sitagliptin phosphate 25 mg tablet 25 mg PO DAILY 90 d ays #90 tabs 07/15/24 (Januvia) tramadol 50 mg tablet 50 mg PO Q8H PRN pain #10 ta bs 07/15/24 tamsulosin 0.4 mg capsule 0.4 mg PO DAILY 90 days #90 caps 09/14/24 Allergies Allergy/AdvReac Type Severity Reaction Status Date / Time No Known Allergies Allergy Verified 10/09/24 14:25 Review of Systems Review of Systems Yes all other systems are reviewed and are negative Constitutional: Denies fatigue and Denies fever(s) Cardiovascular: Denies chest pain and Denies dyspnea Respiratory: Denies cough and Denies dyspnea Gastrointestinal: Reports abdominal pain, Reports bloating, Reports constipation, Reports nausea and Reports vomiting Endocrine: Denies fatigue PMFSH Past Medical History Attestation statement: The following information was validated with the patient. Medical History History of pancreatitis Diabetes Tubular adenoma of colon Headache Primary insomnia Anemia Mixed hyperlipidemia Essential hypertension Insomnia Surgical History Hx of hand surgery Hx of colonoscopy History of cataract surgery Family History Family History Father No problems noted. Mother Diabetes Hypertension Daughter No problems noted. Son No problems noted. Sister No problems noted. Brother No problems noted. Social History Social History Household Members: None Housing: Apartment Are you a primary daytime caregiver to a significant other at home: No Do you presently have visiting nurse or other home services: No Unable to assess alcohol history related to: Unknown Alcohol intake: current Alcohol intake frequency: a few times a month Alcohol type: beer Patient Tobacco Use Status: Never used Tobacco Smoked in Last 30 Days: No e-Cigarette/Vaping Use: Never Used Second Hand Smoke Exposure: No Use of substances other than those prescribed or required for medical reasons: No Advance Directives: No Advance Directives Information Provided: No service: No Current occupational status: employed Current occupational exposures/hazards: No Cognitive needs: No Hearing needs: No Vision needs: No Physical Exam ED Vital Signs: Vital Signs - 24 hr 10/09/24 14:23 10/09/24 17:32 10/09/24 19:27 Temperature 96.5 F L 98.0 F Pulse Rate 67 70 90 Respiratory Rate 16 18 20 Blood Pressure 130/71 147/71 H 164/90 H Pulse Oximetry 97 99 96 Oxygen Delivery Method Room Air Room Air Room Air 10/09/24 22:19 10/09/24 23:53 Temperature 99.0 F Pulse Rate 83 79 Respiratory Rate 16 18 Blood Pressure 149/75 H 155/81 H Pulse Oximetry 95 98 Oxygen Delivery Method Room Air Room Air BMI result Body Mass Index 27.4 Const Other: Alert, ill-appearing Orientation/consciousness: patient oriented x3 Resp Effort & Inspection: normal respiratory effort Cardio Other: Normal peripheral perfusion GI Other: Abdomen is objectively distended, tense, moderate generalized tenderness to palpation with mild involuntary guarding at times. Skin Other: Warm dry no rash Neuro General: patient oriented x3, gait normal, no focal motor deficits and CN's II- XI intact bilaterally Psych Other: Cooperative Course Course Course Narrative: This is an RME: Additional HPI, ROS, PE not included below will be deferred to primary provider. RME assessment and note performed by: Allyson Martinez PA-C This is a 71-gued-pns-male, with a hx of pancreatitis with recent admission on 10/01-10/05, non insulin dependent type 2 diabetes, hld, htn, tubular adenoma colon, who presents to the Er with complaints of worsening abdominal pain x 4 days. Pain feels similar to pancreatitis episode. diffuse. No nausea, vomiting. Abd is distended, nontender. Plan: Labs, EKG, UA further ER eval needed Reevaluation(s) Reevaluation #1: Patient attempted to drank contrast he vomited, giving Versed for his nausea Reevaluation #2: Patient is still nauseous and having pain, we will increase the dose of morphine to 10 mg giving Zofran Medical Decision Making Medical Decision Making MDM Narrative: 69-year-old male with a history of non insulin dependent type 2 diabetes, hld, htn, tubular adenoma colon, prior pancreatitis, presents with diffuse abdominal pain. Patient states he has been having ongoing pain x 4 days. Pain is generalized with the abdominal distention. Last bowel movement with the yesterday, the patient has not passing flatus from below. Associated intractable nausea vomiting. Denies fever. Denies alcohol abuse history. Problem: Diabetes, recent pancreatitis History: Per patient I have considered the following differential diagnoses: Recurrence of pancreatitis, bowel obstruction, constipation, ACS Plan: Objectively, the patient has bowel obstructive symptoms. Screening labs were already obtained, his lipase is elevated but not as elevated as it was during his admission. We will be obtaining a CT scan bowel obstruction protocol. We will be giving morphine Zofran and IV fluid. I will see if the patient can tolerate drinking the contrast. Atypical presentation for ACS was also considered, the patient does have risk factors for coronary artery disease. Troponins were added, and an EKG I have independently reviewed the following tests: Labs: No overall leukocytosis left shift noted, no electrolyte abnormality, troponin 16.6, delta troponin 18.3, LFTs are normal including bilirubin, lipase 112, urine not infected EKG: Sinus bradycardia, rate of 59, evidence of age indeterminate inferior infarct, QTC 413, no ectopy CT abd/plvis: IMPRESSION: Findings consistent with acute pancreatitis. Mild fullness of the distal pancreatic tail is less pronounced than on prior studies and could be due to normal variation or sequela of prior pancreatitis. Consider follow-up to exclude underlying neoplasm. Nonemergent/incidental findings above. Lab Data 10/09/24 15:30 10/09/24 15:30 Labs: Lab Results 10/09/24 10/09/24 10/09/24 Range/Units 15:30 18:17 18:49 WBC 9.3 (4.8-10.8) X10*3/uL RBC 4.75 (4.60-5.80) X10*6/uL Hgb 12.2 L (14.0-18.0) g/dl Hct 36.4 L (42.0-52.0) % MCV 76.6 L (80.0-98.0) fL MCH 25.7 L (27.0-33.0) pg MCHC 33.5 (31.0-36.0) g/dl RDW 16.6 H (11.0-16.0) % Plt Count 271 (160-400) X10*3/uL MPV 10.1 (9.4-12.4) fL Immature Gran % (Auto) 0.2 (0.0-0.4) % Neut % (Auto) 80.1 H (45-73) % Lymph % (Auto) 9.8 L (20-40) % [place] % (Auto) 8.6 (2-11) % Eos % (Auto) 1.1 (0-4) % Baso % (Auto) 0.2 (0-2) % Lymph # (Auto) 0.9 L (1.2-4.9) X10*3/uL [place] # (Auto) 0.8 (0.1-1.2) X10*3/uL Eos # (Auto) 0.1 (0.0-0.4) X10*3/uL Baso # (Auto) 0.0 (0.0-0.2) X10*3/uL Abs Immat Gran (auto) 0.02 (0.00-0.03) X10*3/uL Absolute Neuts (auto) 7.4 (2.0-8.3) x10*3/uL Absolute Nucleated RBC 0.000 (0.0-0.012) X10*3/uL Nucleated RBC % (auto) 0.0 (0.0-0.2) /100WBC Sodium 138 (135-145) mmol/L Potassium 5.0 (3.3-5.1) mmol/L Chloride 109 H (96-108) mmol/L Carbon Dioxide 23 (22-29) mmol/L Anion Gap 11 L (12-20) BUN 15 (9-16) mg/dL Creatinine 1.35 (0.5-1.4) mg/dL Estim Creat Clear Calc 48.0 Estimated GFR 52 Random Glucose 282 H (60-115) mg/dL Calcium 9.7 D (8.4-10.2) mg/dL Magnesium 2.3 (1.6-2.6) mg/dL Total Bilirubin 0.3 (0.0-1.0) mg/dL Direct Bilirubin 0.1 (0.0-0.5) mg/dL AST 18 (5-37) U/L ALT 17 (0-40) U/L Alkaline Phosphatase 74 (39-117) U/L Troponin I High Sens 16.6 18.3 (<3.5-35.0) ng/L Total Protein 7.7 (6.5-8.0) g/dL Albumin 4.4 (3.5-5.0) g/dL Lipase 112 H (8-78) U/L Urine Color Yellow Urine Appearance Clear Urine pH 7.0 (5.0-9.0) Ur Specific [place] 1.020 (1.005-1.025) Urine Protein 30 (1+) H (Neg-Trace) mg/dL Urine Glucose (UA) >=1000 H (Negative) mg/dL Urine Ketones Trace (Negative) mg/dL Urine Blood Trace H (Negative) Urine Nitrite Negative (Negative) Ur Leukocyte Esterase Negative (Negative) Urine RBC 0-2 (0-2) /HPF Urine WBC 0-5 (0-5) /HPF Ur Squamous Epith Cells 0-2 (0-2) /HPF Urine Bacteria None Seen (None Seen) Hyaline Casts 0-2 (0-2) /LPF Medications Administered Discontinued Medications Generic Name Dose Route Start Last Admin Trade Name Paulino PRN Reason Stop Dose Admin Sodium Chloride 500 mls @ 500 mls/hr 10/09/24 18:36 10/09/24 19:51 Ns IV 10/09/24 19:35 Infused .Q1H ONE Infusion Lorazepam 1 mg 10/09/24 19:17 10/09/24 19:29 Lorazepam 2 Mg/Ml Vial IVPUSH 10/09/24 19:18 1 mg ONCE ONE Administration Morphine Sulfate 4 mg 10/09/24 18:36 10/09/24 19:08 Morphine Sulfate 4 Mg/Ml Cartridge IVPUSH 10/09/24 18:37 4 mg ONCE ONE Administration Protocol Morphine Sulfate 10 mg 10/10/24 01:10 10/10/24 01:24 Morphine Sulfate 10 Mg/Ml Cartridge IVPUSH 10/10/24 01:11 10 mg ONCE ONE Administration Protocol Ondansetron HCl 4 mg 10/09/24 18:36 10/09/24 18:52 Ondansetron Hcl 4 Mg/2 Ml Vial IVPUSH 10/09/24 18:37 4 mg ONCE ONE Administration Ondansetron HCl 4 mg 10/10/24 01:10 10/10/24 01:25 Ondansetron Hcl 4 Mg/2 Ml Vial IVPUSH 10/10/24 01:11 4 mg ONCE ONE Administration Discharge Plan Discharge Clinical Impression: Pancreatitis Patient Disposition: Admitted As Inpatient Print Language: Scottish
--- NOTE | 2024-10-09 14:24 | ECG_ITS ---
Test Reason : EPIGASTRIC PAIN Blood Pressure : */* mmHG Vent. Rate : 59 BPM Atrial Rate : 59 BPM P-R Int : 180 ms QRS Dur : 104 ms QT Int : 418 ms P-R-T Axes : 39 -12 7 degrees QTcB Int : 413 ms Sinus bradycardia with sinus arrhythmia Inferior infarct , age undetermined Abnormal ECG When compared with ECG of 01-Jun-2015 12:25, QRS duration has increased Inferior infarct is now Present Referred By: Allyson Martinez Electronically Signed By: Arnold Dolan
[2024-10-09 15:33] LABS: MANUAL DIFF FLAG NO
[2024-10-09 15:43] LABS: Hematocrit 36.4 % (42.0-52.0); Hemoglobin 12.2 g/dl (14.0-18.0); Imm Gran Abs Auto 0.02 X10*3/uL (0.00-0.03); Imm Gran Pct Auto 0.2 % (0.0-0.4); Lymphocytes Absolute Auto 0.9 X10*3/uL (1.2-4.9); Mean Corpuscular HGB Conc 33.5 g/dl (31.0-36.0); Mean Corpuscular Hemoglobin 25.7 pg (27.0-33.0); Mean Corpuscular Volume 76.6 fL (80.0-98.0); NRBC Abs Auto 0.000 X10*3/uL (0.0-0.012); NRBC Pct Auto 0.0 /100WBC (0.0-0.2); Platelet Count 271 X10*3/uL (160-400); Red Blood Count 4.75 X10*6/uL (4.60-5.80); White Blood Count 9.3 X10*3/uL (4.8-10.8)
[2024-10-09 15:49] LABS: Alanine Aminotransferase 17 U/L (0-40); Albumin Level 4.4 g/dL (3.5-5.0); Alkaline Phosphatase 74 U/L (39-117); Anion Gap 11 (12-20); Aspartate Amino Transferase 18 U/L (5-37); Blood Urea Nitrogen 15 mg/dL (9-16); Calcium 9.7 mg/dL (8.4-10.2); Carbon Dioxide 23 mmol/L (22-29); Chloride 109 mmol/L (96-108); Creatinine Clr Calc Pharmacy 48.0; Estimated Glomerular Filt Rate 52; Lipase 112 U/L (8-78); Magnesium 2.3 mg/dL (1.6-2.6); Potassium 5.0 mmol/L (3.3-5.1); Sodium 138 mmol/L (135-145); Total Protein 7.7 g/dL (6.5-8.0)
[2024-10-09 15:56] LABS: Troponin-I High Sensitivity 16.6 ng/L (<3.5-35.0)
[2024-10-09 17:32] VITALS: BP 147/71; PULSE 70; RESP 18; TEMP 36.7; O2SAT 99
[2024-10-09 18:27] LABS: Appearance Urine Clear; Glucose Urine UA >=1000 mg/dL (Negative); PH 7.0 (5.0-9.0); Specific Gravity - Urine 1.020 (1.005-1.025); UMIC TRIGGER UACC YES
[2024-10-09 19:16] LABS: Troponin-I High Sensitivity 18.3 ng/L (<3.5-35.0)
[2024-10-09 19:27] VITALS: BP 164/90; PULSE 90; RESP 20; O2SAT 96
[2024-10-09] MEDS: LORazepam 2 MG/ML VIAL 1 MG IVPUSH (19:29)
--- OUTSIDE RECORDS SUMMARY | 2024-10-09 20:38 | XMS_ITS | Clinical Summary ---
Author Organization [facility] Address [address] [place] [address] Phone Care Team Providers Care Communications Officer Name Role Phone Yecenia Hutchins MD Primary Care Provider [phone] Allergies Active Allergy Reactions Criticality Noted Date [...] Diabetes: Visual Foot Exam 10/06/2020 Influenza Vaccine (#1) 2024 Hepatitis B Vaccine Aged Out No longe r eligible based on patient's age to complete this topic Insurance Medicaid [place] [facility] Medicaid [place] Care Teams Communications Officer Relationship Specialty Start Date End Date Yecenia Hutchins MD [address] [place] [address] PCP - General 04/12/20
[2024-10-09 22:19] VITALS: BP 149/75; PULSE 83; RESP 16; TEMP 37.2; O2SAT 95
[2024-10-09 23:53] VITALS: BP 155/81; PULSE 79; RESP 18; O2SAT 98
--- NOTE | 2024-10-10 01:26 | PC.NURSE ---
Medicated per MAR, aware of plan to admit.
--- NOTE | 2024-10-10 03:01 | PM.IMHP ---
History of Present Illness Date of Service: 10/10/24 Chief Complaint: Abd pain This is a 69-year-old male with pertinent history of pancreatitis, tubular adenoma of colon, mood disorder, hypertension, mixed hyperlipidemia, BPH, duc-[id number]-dhvcbyojq type 2 diabetes mellitus who presents to the emergency department for evaluation of abdominal pain. Patient is [place] speaking and history obtained with the help of surface logging systems logger. Patient states his symptoms started 3 day prior to presentation. He has been having epigastric pain which radiates to the back. The pain is constant and without any relieving factors. It is associated with nausea and nonbloody emesis. No change in bowel habits. No fever or chills. Patient denies any significant alcohol use. States he only drinks about 2-3 beers a week. He had an episode of pancreatitis about a year ago when he was admitted at [facility]. No chest pain, palpitations, shortness of breath, changes in urinary habits. In the emergency department, imaging concerning for acute pancreatitis and lipase found to be elevated. Review of Systems Constitutional: Constitutional: Reports fatigue, Reports malaise, Reports poor appetite and Reports weakness Cardiovascular: Cardiovascular: Reports no additional cardiovascular complaints Respiratory: Respiratory: Reports no additional respiratory complaints Gastrointestinal: Gastrointestinal: Reports abdominal pain, Reports nausea and Reports vomiting Genitourinary: Genitourinary: Reports no additional male genitourinary complaints Neurologic: Reports weakness Endocrine: Endocrine: Reports fatigue [facility] Medical History History of pancreatitis Diabetes Tubular adenoma of colon Headache Primary insomnia Anemia Mixed hyperlipidemia Essential hypertension Insomnia Family History Father No problems noted. Mother Diabetes Hypertension Daughter No problems noted. Son No problems noted. Sister No problems noted. Brother No problems noted. Surgical History Hx of hand surgery Hx of colonoscopy History of cataract surgery Social History Household Members: None Housing: Apartment Are you a primary career services coordinator to a significant other at home: No Do you presently have visiting nurse or other home services: No Unable to assess alcohol history related to: Unknown Alcohol intake: current Alcohol intake frequency: a few times a month Alcohol type: beer Patient Tobacco Use Status: Never used Tobacco Smoked in Last 30 Days: No e-Cigarette/Vaping Use: Never Used Second Hand Smoke Exposure: No Use of substances other than those prescribed or required for medical reasons: No Advance Directives: No Advance Directives Information Provided: No service: No Current occupational status: employed Current occupational exposures/hazards: No Cognitive needs: No Hearing needs: No Vision needs: No Meds Allergies Allergy/AdvReac Type Severity Reaction Status Date / Time No Known Allergies Allergy Verified 10/09/24 14:25 Physical Exam Vital Signs and Narrative: Vital Signs: Last Vital Signs Temp 99.0 F 10/09/24 22:19 Pulse 79 10/09/24 23:53 Resp 18 10/09/24 23:53 BP 155/81 H 10/09/24 23:53 Pulse Ox 98 10/09/24 23:53 O2 Del Method Room Air 10/09/24 23:53 BMI result Body Mass Index 27.4 Middle-aged male lying in bed in no distress Neck supple, no JVD Regular rate and rhythm, S1-S2 heard Regular breath sounds bilaterally, no wheezing or crackles appreciated Abdomen with a epigastric tenderness, no rigidity Patient is awake, alert and oriented to self, place, time and person ; no focal motor deficit Psych: Normal mood No pedal edema Results Labs 10/09/24 15:30 10/09/24 15:30 Labs: Laboratory Results - last 24 hr 10/09/24 10/09/24 15:30 18:17 MCV 76.6 L MCH 25.7 L MCHC 33.5 RDW 16.6 H Plt Count 271 MPV 10.1 Immature Gran % (Auto) 0.2 Neut % (Auto) 80.1 H Lymph % (Auto) 9.8 L [place] % (Auto) 8.6 Eos % (Auto) 1.1 Baso % (Auto) 0.2 Lymph # (Auto) 0.9 L [place] # (Auto) 0.8 Eos # (Auto) 0.1 Baso # (Auto) 0.0 Abs Immat Gran (auto) 0.02 Absolute Neuts (auto) 7.4 Absolute Nucleated RBC 0.000 Nucleated RBC % (auto) 0.0 Anion Gap 11 L Estim Creat Clear Calc 48.0 Estimated GFR 52 Random Glucose 282 H Calcium 9.7 D Magnesium 2.3 Total Bilirubin 0.3 Direct Bilirubin 0.1 AST 18 ALT 17 Alkaline Phosphatase 74 Total Protein 7.7 Albumin 4.4 Lipase 112 H Urine Color Yellow Urine Appearance Clear Urine pH 7.0 Ur Specific [place] 1.020 Urine Protein 30 (1+) H Urine Glucose (UA) >=1000 H Urine Ketones Trace Urine Blood Trace H Urine Nitrite Negative Ur Leukocyte Esterase Negative Urine RBC 0-2 Urine WBC 0-5 Ur Squamous Epith Cells 0-2 Urine Bacteria None Seen Hyaline Casts 0-2 Assessment and Plan (1) Acute pancreatitis: Status: Acute Plan This is a 69-year-old male with pertinent history of pancreatitis, tubular adenoma of colon, mood disorder, hypertension, mixed hyperlipidemia, BPH, ujh-kmawera-nlhttqwbo type 2 diabetes mellitus who presents to the emergency department for evaluation of abdominal pain. #. Acute interstitial pancreatitis: Will admit patient with IV opioids p.r.n. for analgesia. Continue IV crystalloid resuscitation. NPO for bowel rest. Advance diet as tolerated. Denies significant alcohol use. Obtaining triglycerides. Previously admitted about a year ago for pancreatitis due to biliary sludge. Abdominal ultrasound pending. #. Mood disorder: Resume home mood stabilizers once able to take p.o. #. Tip-wnktjei-uamwmuqze type 2 diabetes mellitus with hyperglycemia: Initiating Accu-Cheks with sliding scale insulin every 6 hours #. BPH: On Flomax #. Mixed hyperlipidemia: On statin #. Hypertension: On losartan Med rec pending DVT prophylaxis: Lovenox Full code Admit as inpatient and will require two night minimum hospital stay for management of acute pancreatitis with IV fluids, IV opiates (as above), which is not possible in a lesser acute setting. Quality Stroke Does the patient have a stroke diagnosis?: No VTE Prior VTE?: No VTE Risk Level:: Medical - moderate - high VTE Device Contraindication: Treatment Not Indicated VTE Drug Contraindication: N/A - Med Ordered
[2024-10-10] MEDS: Lactated Ringers 1,000 ML 100 ML IVCONT (03:18)
[2024-10-10 03:54] LABS: Glucose, Whole Blood 193 mg/dL (60-115)
[2024-10-10 04:11] VITALS: BP 135/72; PULSE 76; RESP 18; O2SAT 98
--- NOTE | 2024-10-10 04:20 | PC.NURSE ---
Medicated with insulin per sliding scale. Pt ambulating to the bathroom with a steady gait.
--- NOTE | 2024-10-10 04:30 | MHC.EDTECH ---
Patient ambulated to the bathroom, steady gait. Confirms voiding but no bowel movement.
--- NOTE | 2024-10-10 04:31 | PC.NURSE ---
Second IV line established as pt was unable to keep right arm straight, pump continuously alarming. Second IV establshed to left FA, fluids infusing per MAR.
[2024-10-10 06:44] LABS: MANUAL DIFF FLAG NO
[2024-10-10 06:56] LABS: Hematocrit 34.1 % (42.0-52.0); Hemoglobin 11.4 g/dl (14.0-18.0); Imm Gran Abs Auto 0.05 X10*3/uL (0.00-0.03); Imm Gran Pct Auto 0.5 % (0.0-0.4); Lymphocytes Absolute Auto 1.5 X10*3/uL (1.2-4.9); Mean Corpuscular HGB Conc 33.4 g/dl (31.0-36.0); Mean Corpuscular Hemoglobin 25.6 pg (27.0-33.0); Mean Corpuscular Volume 76.6 fL (80.0-98.0); NRBC Abs Auto 0.000 X10*3/uL (0.0-0.012); NRBC Pct Auto 0.0 /100WBC (0.0-0.2); Platelet Count 250 X10*3/uL (160-400); Red Blood Count 4.45 X10*6/uL (4.60-5.80); White Blood Count 11.0 X10*3/uL (4.8-10.8)
[2024-10-10 07:06] LABS: Triglycerides 83 mg/dL (<150)
[2024-10-10 07:09] LABS: Anion Gap 12 (12-20); Blood Urea Nitrogen 10 mg/dL (9-16); Calcium 9.0 mg/dL (8.4-10.2); Carbon Dioxide 23 mmol/L (22-29); Chloride 109 mmol/L (96-108); Creatinine Clr Calc Pharmacy 63.0; Estimated Glomerular Filt Rate > 60; Potassium 4.3 mmol/L (3.3-5.1); Sodium 140 mmol/L (135-145)
[2024-10-10 09:24] LABS: Glucose, Whole Blood 173 mg/dL (60-115)
--- NOTE | 2024-10-10 10:25 | MHC.CM.ED ---
Attempted to meet with patient in regards to discharge planning. Patient transferred to S3 before being assessed. Continue to monitor for d/c needs.
--- NOTE | 2024-10-10 10:29 | PHA.MEDREC ---
Addendum entered by Patit Downey RPh 10/10/24 11:21: reviewed by [facility]. Ampicillin left off med rec as pt has not taking this in a while. Original Note: Pharmacy Consult ? Medication Reconciliation Pharmacy has completed the medication reconciliation. Spoke with pt, utilizing land appraiser, and pt was able to confirm his medications. Pt confirmed he still takes Tradjenta once daily and Tramadol 50mg tabs as needed for pain. Pt states he buys and ship a script of Ampicillin 500mg tabs (I did not add on the med rec) from the [place] and only uses them when he starts feeling sick/lowsy.
[2024-10-10 10:39] VITALS: BP 132/69; PULSE 58; RESP 16; TEMP 36.8; O2SAT 96
[2024-10-10 11:14] LABS: Glucose, Whole Blood 150 mg/dL (60-115)
--- NOTE | 2024-10-10 12:55 | PM.EVENT ---
Event Note Date of Service: 10/10/24 Event Note: Patient is already seen and examined by hospitalist team this morning, seen and examined again. Denies any complaints Has abdominal pain somewhat similar Assessment and plan and physical exam as per H&P. Possibly came to acute Pancreatitis-etiology unclear Continue IV fluid bowel rest and pain management GI evaluation added. Time Spent With Patient Time: Total time managing care of this patient today ____ minutes.
--- NOTE | 2024-10-10 13:41 | P.CNGI_ITS ---
History of Present Illness Data of Consult Service Date: 10/10/24 Requesting physician: Vera Koch Primary Care Provider: Yecenia Castellanos MD HPI Reason for consult: Recurrent pancreatitis 69 year old Kuwaiti-speaking male with history of pancreatitis, tubular adenoma of colon, mood disorder, hypertension, mixed hyperlipidemia, BPH, zpt-slrrtxb-scnxlzrsl type 2 diabetes mellitus seen at [facility] on 10/09/24 for evaluation of abdominal pain. History obtained with the help of panel lay up worker, Masood. Patient reports his symptoms started on 10/06/24 with 10 epigastric pain radiating to the back with nausea and vomiting. Pain started without clear precipitating factors (Pt reports drinking [place] Tea which is not associated with pancreatitis) Pt describes the pain as constant without any relieving factors and is associated with nausea and non-bloody emesis. No change in bowel habits - no BM for the past 2 days since he has not been eating. Patient denies any significant alcohol use - states he only drinks about 2-3 beers a week. He had an episode of pancreatitis about a year ago when he was admitted at [facility]. No fever, chills, chest pain, palpitations, shortness of breath, changes in urinary habits. In the emergency department, imaging concerning for acute pancreatitis and lipase found to be elevated. FAMILY HISTORY: Patient denies known family history of pancreatic disease, colon polyps or GI malignancy 10/09/[address] SCAN SHOWED: Findings consistent with acute pancreatitis. Mild fullness of the distal pancreatic tail is less pronounced than on prior studies and could be due to normal variation or sequela of prior pancreatitis. Consider follow-up to exclude underlying neoplasm. Nonemergent/incidental findings above. Review of Systems 2 Constitutional: Constitutional: Reports fatigue, Reports malaise, Reports poor appetite and Reports weakness Cardiovascular: Cardiovascular: Reports no additional cardiovascular complaints Respiratory: Respiratory: Reports no additional respiratory complaints Gastrointestinal: Gastrointestinal: Reports abdominal pain, Reports nausea and Reports vomiting Genitourinary: Genitourinary: Reports no additional male genitourinary complaints Neurologic: Reports weakness Endocrine: Endocrine: Reports fatigue PMFSH Past Medical History Medical History History of pancreatitis Diabetes Tubular adenoma of colon Headache Primary insomnia Anemia Mixed hyperlipidemia Essential hypertension Insomnia Family History Family History Father No problems noted. Mother Diabetes Hypertension Daughter No problems noted. Son No problems noted. Sister No problems noted. Brother No problems noted. Surgical History Surgical History Hx of hand surgery Hx of colonoscopy History of cataract surgery Social History Social History Household Members: None Housing: Apartment Are you a primary career services director to a significant other at home: No Do you presently have visiting nurse or other home services: Yes (3 times a week) Unable to assess alcohol history related to: Unknown Alcohol intake: current Alcohol intake frequency: a few times a month Alcohol type: beer Patient Tobacco Use Status: Current everyday Tobacco user Smoked in Last 30 Days: No e-Cigarette/Vaping Use: Never Used Second Hand Smoke Exposure: No Use of substances other than those prescribed or required for medical reasons: No Currently Displaying Signs/Symptoms of Drug Intoxication Withdrawal: No Have you been hit, kicked, punched, or otherwise hurt by someone within the past year? If so, by whom?: No Do you feel safe in your current relationship?: No Current Relationship Is there a partner from a previous relationship who is making you feel unsafe now?: No Are you made to feel afraid or neglected: No Advance Directives: No Advance Directives Information Provided: No Do you have a plan to hurt others: No Plan Recently lost weight without trying: No Eating poorly because of decreased appetite: No Nutrition Risks: No Nutritional Risk Poor oral hygiene: No service: No Current occupational status: employed Current occupational exposures/hazards: No Cognitive needs: No Hearing needs: No Vision needs: No Meds Allergies Allergy/AdvReac Type Severity Reaction Status Date / Time No Known Allergies Allergy Verified 10/09/24 14:25 Active Medications: Current Medications Acetaminophen (Acetaminophen 325 Mg Tablet) 650 mg PO Q6H PRN PRN Reason: Pain, Mild 1-3,fever,headache Artificial Tears (Artificial Tears 15 Ml Drops) 1 drop EYE-BOTH QID [facility] Last Admin: 10/10/24 11:49 Dose: Not Given Aspirin (Aspirin Enteric Coated 81 Mg Tablet.) 81 mg PO DAILY [facility] Atorvastatin Calcium (Atorvastatin Calcium 10 Mg Tablet) 10 mg PO DAILY [facility] Last Admin: 10/10/24 11:51 Dose: 10 mg Calcium Carbonate (Calcium Carbonate 750 Mg Tab.Chew) 750 mg PO Q4H PRN PRN Reason: Heartburn Dextrose (Dextrose 50 % 25 Gm/50 Ml Syringe) 25 gm IVPUSH Q15M PRN; Protocol PRN Reason: per Hypoglycemia Standing Ord. Enoxaparin Sodium (Enoxaparin Sodium 40 Mg/0.4 Ml Syringe) 40 mg SUBCUT Q24H [facility] Last Admin: 10/10/24 08:46 Dose: 40 mg Fenofibrate (Fenofibrate 54 Mg Tablet) 54 mg PO DAILY [facility] Glucose (Glucose Gel 15 Gm Gel..Gram.) 15 gm PO Q15M PRN; Protocol PRN Reason: per Hypoglycemia Standing Ord. Insulin Human Lispro (Insulin Lispro 100 Unit/Ml 3 Ml Vial) 0 unit SUBCUT Q6H [facility]; Protocol Losartan Potassium (Losartan Potassium 50 Mg Tablet) 100 mg PO DAILY [facility]; Protocol Magnesium Hydroxide (Milk Of Magnesia 30 Ml Oral.Susp) 30 ml PO DAILY PRN PRN Reason: Constipation Melatonin (Melatonin 3 Mg Tablet) 6 mg PO BEDTIME PRN PRN Reason: Insomnia Morphine Sulfate (Morphine Sulfate 4 Mg/Ml Cartridge) 4 mg IVPUSH Q4H PRN; Protocol PRN Reason: Pain, Severe (Pain Scale 7-10) Last Admin: 10/10/24 07:15 Dose: 4 mg Ondansetron HCl (Ondansetron Hcl 4 Mg/2 Ml Vial) 4 mg IVPUSH Q8H PRN PRN Reason: Nausea and Vomiting Pantoprazole Sodium (Pantoprazole Sodium 40 Mg/10 Ml Vial) 40 mg IVPUSH BID@0630,1630 [facility] Last Admin: 10/10/24 09:31 Dose: 40 mg Sodium Chloride (0.9 % Sodium Chloride Flush 3 Ml Syringe) 3 ml IVFLUSH QSHIFT [facility] Last Admin: 10/10/24 07:40 Dose: Not Given Tamsulosin HCl (Tamsulosin Hcl 0.4 Mg Capsule) 0.4 mg PO DAILY [facility] Vitamin D (Cholecalciferol (Vitamin D3) 25 Mcg Tablet) 25 mcg PO DAILY [facility] Home Medications ?Medication ?Instructions ?Recorded ?Confirmed ?Last Taken ?Type fenofibrate 54 mg tablet 54 mg PO DAILY 10/10/2409/3010/08/24 History linagliptin 5 mg tablet (Tradjenta) 5 mg PO DAILY 09/3010/10/24 10/08/24 History polyvinyl alcohol 1.4 % eye drops 1 drp ophthalmic (ey e) QID 10/10/24 10/10/24 10/08/24 History Physical Exam 2 Vital Signs: Vital Signs: Last Vital Signs Temp 98.2 F 10/10/24 10:39 Pulse 58 10/10/24 10:39 Resp 16 10/10/24 10:39 BP 132/69 10/10/24 10:39 Pulse Ox 96 10/10/24 10:39 O2 Del Method Room Air 10/10/24 10:39 BMI result Body Mass Index 27.4 Const: General: no acute distress Nutritional Appearance: overweight O rientation/consciousness: patient oriented x3 Limitations: language barrier HEENT: Head: Yes normal to inspection Ears: hearing grossly normal bilaterally Eyes: Sclerae: sclerae normal Pupils: Equal, round and reactive pupils present Neck: Neck: Yes normal visual inspection Chest: Chest palpation & inspection: normal inspection of the chest Resp: Effort & Inspection: normal respiratory effort Auscultation: clear to auscultation bilaterally Cardio: Palpation: normal PMI Rate: regular rate Rhythm: regular rhythm Heart sounds: S1 normal heart sound present, S2 normal heart sound present and no murmurs GI: Palpation (GI): Soft to palpation, Tenderness to palpation present (GI) (Mild to moderate upper abdominal tenderness) and No hepatosplenomegaly present Auscultation: normal bowel sounds Rectal Exam - Male: Yes deferred Skin: General skin exam: no rashes or lesions noted Neuro: General: patient oriented x3, gait normal and moves all extremities Cranial nerves: Yes Equal, round and reactive pupils present Psych: Appearance: grossly normal Mental Status: mental status grossly normal Results Labs 10/10/24 06:20 10/10/24 06:20 Labs: Short CBC 10/09/24 10/10/24 Range/Units 15:30 06:20 WBC 9.3 11.0 H (4.8-10.8) X10*3/uL Hgb 12.2 L 11.4 L (14.0-18.0) g/dl Hct 36.4 L 34.1 L (42.0-52.0) % Plt Count 271 250 (160-400) X10*3/uL BMP 10/09/24 10/10/24 15:30 06:20 Sodium 138 140 Potassium 5.0 4.3 Chloride 109 H 109 H Carbon Dioxide 23 23 BUN 15 10 Creatinine 1.35 1.03 Calcium 9.7 D 9.0 D Liver Function 10/09/24 Range/Units 15:30 Total Bilirubin 0.3 (0.0-1.0) mg/dL Direct Bilirubin 0.1 (0.0-0.5) mg/dL AST 18 (5-37) U/L ALT 17 (0-40) U/L Alkaline Phosphatase 74 (39-117) U/L Albumin 4.4 (3.5-5.0) g/dL Urine 10/09/24 Range/Units 18:17 Urine Color Yellow Urine Appearance Clear Urine pH 7.0 (5.0-9.0) Ur Specific [place] 1.020 (1.005-1.025) Urine Protein 30 (1+) H (Neg-Trace) mg/dL Urine Glucose (UA) >=1000 H (Negative) mg/dL Assessment and Plan (1) Acute pancreatitis: Status: Acute Plan 69 year old Kuwaiti-speaking male with history of pancreatitis, tubular adenoma of colon, mood disorder, hypertension, mixed hyperlipidemia, BPH, cnp-adbsxik-oyeussedq type 2 diabetes mellitus admitted to [facility] on 10/09/24 with abdominal pain, nausea and vomiting. Patient denies any significant alcohol use - states he only drinks about 2-3 beers a week. He had an episode of pancreatitis about a year ago when he was admitted at [facility]. Etiology of pancreatitis is unclear (previous workup showed normal triglycerides and IgG4 levels) Pancreatitis can be related to medications (Losartan), GB sludge or occult malignancy 10/2023 ABD MRI SHOWED: Finding suggestive of acute pancreatitis of the pancreas tail. No peripancreatic fluid collection. Hepatic steatosis. Sludge in the gallbladder. Small left pleural effusion likely sympathetic. RECOMMENDATIONS: 1. Agree with IV ppi, antiemetics and pain medications. 2. Check CEA and CA 19-9 with am labs. 3. Hold Losartan and switch to alternate medication for high blood pressure. 4. Consult with general surgery to evaluate for prophylactic Lap Altagracia to prevent future episodes of pancreatitis (since pt had GB sludge on past MRI scan) 5. EUS as an outpatient to rule out malignancy since this is pt's 2nd episode of pancreatitis. Procedures Date of Service Date of Service: 10/10/24
[2024-10-10 15:31] VITALS: BP 167/79; PULSE 75; RESP 18; TEMP 37.2; O2SAT 96
[2024-10-10] MEDS: 0.9 % Sodium Chloride Flush 3 ML SYRINGE IVFLUSH ×2 (15:50→20:36)
[2024-10-10 17:24] LABS: Glucose, Whole Blood 154 mg/dL (60-115)
[2024-10-10 19:21] VITALS: BP 138/64; PULSE 80; RESP 18; TEMP 36.8; O2SAT 93
[2024-10-10] MEDS: Artificial Tears 15 ML DROPS 1 DROP EYE-BOTH (20:36)
[2024-10-11] VITALS: BP 137/70; PULSE 72; RESP 18; TEMP 36.9; O2SAT 95
[2024-10-11 00:16] LABS: Glucose, Whole Blood 192 mg/dL (60-115)
[2024-10-11 00:32] VITALS: RESP 18
[2024-10-11 03:50] VITALS: BP 147/71; PULSE 70; RESP 18; TEMP 36.9; O2SAT 95
[2024-10-11 06:20] LABS: Glucose, Whole Blood 167 mg/dL (60-115)
[2024-10-11 06:25] LABS: Hematocrit 33.1 % (42.0-52.0); Hemoglobin 11.3 g/dl (14.0-18.0); Mean Corpuscular HGB Conc 34.1 g/dl (31.0-36.0); Mean Corpuscular Hemoglobin 25.9 pg (27.0-33.0); Mean Corpuscular Volume 75.7 fL (80.0-98.0); NRBC Abs Auto 0.000 X10*3/uL (0.0-0.012); NRBC Pct Auto 0.0 /100WBC (0.0-0.2); Platelet Count 236 X10*3/uL (160-400); Red Blood Count 4.37 X10*6/uL (4.60-5.80); White Blood Count 8.9 X10*3/uL (4.8-10.8)
[2024-10-11 06:48] LABS: Anion Gap 13 (12-20); Blood Urea Nitrogen 9 mg/dL (9-16); Calcium 9.2 mg/dL (8.4-10.2); Carbon Dioxide 23 mmol/L (22-29); Chloride 106 mmol/L (96-108); Creatinine Clr Calc Pharmacy 61.8; Estimated Glomerular Filt Rate > 60; Lipase 45 U/L (8-78); Potassium 3.7 mmol/L (3.3-5.1); Sodium 138 mmol/L (135-145)
[2024-10-11 07:04] LABS: Carcinoembryonic Antigen 1.80 ng/mL
[2024-10-11] MEDS: 0.9 % Sodium Chloride Flush 3 ML SYRINGE IVFLUSH (07:23)
[2024-10-11] MEDS: Aspirin Enteric Coated 81 MG TABLET.DR PO (07:23)
[2024-10-11] MEDS: Artificial Tears 15 ML DROPS 1 DROP EYE-BOTH ×2 (07:24→12:21)
[2024-10-11 07:40] VITALS: BP 114/59; PULSE 60; RESP 14; TEMP 36.9; O2SAT 97
--- NOTE | 2024-10-11 11:02 | P.CONGS_ITS ---
History of Present Illness Consult details Consult date: 10/11/24 Narrative: 69-year-old male with multiple medical problems including diabetes, hyperlipidemia, hypertension, admitted because of abdominal pain on 10/09/2024. He does have a history of pancreatitis in the past with etiology uncertain. He denies any nausea or vomiting. He denies any problems with bowel habits. He is says he does not drink alcohol heavily although admits to having 2-3 beers a week. He had been in the hospital last year as well for pancreatitis with uncertain etiology. His workup did not reveal gallstones. He currently feels much better. He says his pain is minimal. Review of Systems 2 Constitutional: Constitutional: Denies chills and Denies fever(s) Cardiovascular: Cardiovascular: Denies chest pain, Denies dyspnea and Denies dyspnea on exertion Respiratory: Respiratory: Denies cough, Denies dyspnea and Denies dyspnea on exertion Gastrointestinal: Gastrointestinal: Denies hematochezia and Denies change in bowel habits Genitourinary: Genitourinary: Denies hematuria and Denies difficulty urinating Musculoskeletal: Musculoskeletal: Denies back pain and Denies limited range of motion Neurologic: Denies focal weakness and Denies convulsions Psychiatric: Psychiatric: Denies depression and Denies mood swings PMFSH Past Medical History Medical History History of pancreatitis Diabetes Tubular adenoma of colon Headache Primary insomnia Anemia Mixed hyperlipidemia Essential hypertension Insomnia Family History Family History Father No problems noted. Mother Diabetes Hypertension Daughter No problems noted. Son No problems noted. Sister No problems noted. Brother No problems noted. Surgical History Surgical History Hx of hand surgery Hx of colonoscopy History of cataract surgery Social History Social History Household Members: None Housing: Apartment Are you a primary technical healthcare consultant to a significant other at home: No Do you presently have visiting nurse or other home services: Yes (3 times a week) Unable to assess alcohol history related to: Unknown Alcohol intake: current Alcohol intake frequency: a few times a month Alcohol type: beer Comment: bed alarm use after PRN morphine if given Patient Tobacco Use Status: Current everyday Tobacco user e-Cigarette/Vaping Use: Never Used Second Hand Smoke Exposure: No service: No Current occupational status: employed Current occupational exposures/hazards: No Cognitive needs: No Hearing needs: No Vision needs: No Meds Allergies Allergy/AdvReac Type Severity Reaction Status Date / Time No Known Allergies Allergy Verified 10/09/24 14:25 Active Medications: Current Medications Acetaminophen (Acetaminophen 325 Mg Tablet) 650 mg PO Q6H PRN PRN Reason: Pain, Mild 1-3,fever,headache Artificial Tears (Artificial Tears 15 Ml Drops) 1 drop EYE-BOTH QID [facility] Last Admin: 10/11/24 07:24 Dose: 1 drop Aspirin (Aspirin Enteric Coated 81 Mg Tablet.Dr) 81 mg PO DAILY [facility] Last Admin: 10/11/24 07:23 Dose: 81 mg Atorvastatin Calcium (Atorvastatin Calcium 10 Mg Tablet) 10 mg PO DAILY [facility] Last Admin: 10/11/24 07:23 Dose: 10 mg Calcium Carbonate (Calcium Carbonate 750 Mg Tab.Chew) 750 mg PO Q4H PRN PRN Reason: Heartburn Dextrose (Dextrose 50 % 25 Gm/50 Ml Syringe) 25 gm IVPUSH Q15M PRN; Protocol PRN Reason: per Hypoglycemia Standing Ord. Enoxaparin Sodium (Enoxaparin Sodium 40 Mg/0.4 Ml Syringe) 40 mg SUBCUT Q24H [facility] Last Admin: 10/11/24 07:23 Dose: 40 mg Fenofibrate (Fenofibrate 54 Mg Tablet) 54 mg PO DAILY [facility] Last Admin: 10/11/24 07:23 Dose: 54 mg Glucose (Glucose Gel 15 Gm Gel..Gram.) 15 gm PO Q15M PRN; Protocol PRN Reason: per Hypoglycemia Standing Ord. Insulin Human Lispro (Insulin Lispro 100 Unit/Ml 3 Ml Vial) 0 unit SUBCUT QIDACHS [facility]; Protocol Magnesium Hydroxide (Milk Of Magnesia 30 Ml Oral.Susp) 30 ml PO DAILY PRN PRN Reason: Constipation Melatonin (Melatonin 3 Mg Tablet) 6 mg PO BEDTIME PRN PRN Reason: Insomnia Morphine Sulfate (Morphine Sulfate 4 Mg/Ml Cartridge) 4 mg IVPUSH Q4H PRN; Protocol PRN Reason: Pain, Severe (Pain Scale 7-10) Last Admin: 10/11/24 00:02 Dose: 4 mg Ondansetron HCl (Ondansetron Hcl 4 Mg/2 Ml Vial) 4 mg IVPUSH Q8H PRN PRN Reason: Nausea and Vomiting Pantoprazole Sodium (Pantoprazole Sodium 40 Mg/10 Ml Vial) 40 mg IVPUSH BID@0630,1630 [facility] Last Admin: 10/11/24 05:54 Dose: 40 mg Sodium Chloride (0.9 % Sodium Chloride Flush 3 Ml Syringe) 3 ml IVFLUSH QSHIFT [facility] Last Admin: 10/11/24 07:23 Dose: 3 ml Tamsulosin HCl (Tamsulosin Hcl 0.4 Mg Capsule) 0.4 mg PO DAILY [facility] Last Admin: 10/11/24 07:23 Dose: 0.4 mg Vitamin D (Cholecalciferol (Vitamin D3) 25 Mcg Tablet) 25 mcg PO DAILY [facility] Last Admin: 10/11/24 07:23 Dose: 25 mcg Home Medications ?Medication ?Instructions ?Recorded ?Confirmed ?Last Taken ?Type fenofibrate 54 mg tablet 54 mg PO DAILY 10/10/2409/3010/08/24 History linagliptin 5 mg tablet (Tradjenta) 5 mg PO DAILY 09/3010/10/24 10/08/24 History polyvinyl alcohol 1.4 % eye drops 1 drp ophthalmic (ey e) QID 10/10/24 10/10/24 10/08/24 History Physical Exam 2 Vital Signs: Vital Signs: Last Vital Signs Temp 98.4 F 10/11/24 07:40 Pulse 60 10/11/24 07:40 Resp 14 10/11/24 07:40 BP 114/59 L 10/11/24 07:40 Pulse Ox 97 10/11/24 07:40 O2 Del Method Room Air 10/11/24 07:40 BMI result Body Mass Index 27.4 Const: General: comfortable and no acute distress O rientation/consciousness: patient oriented x3 Neck: Neck: Yes no lymphadenopathy Resp: Auscultation: clear to auscultation bilaterally Cardio: Rhythm: regular rhythm GI: Other: Very minimal tenderness in the epigastric area Palpation (GI): Soft to palpation, Tenderness to palpation present (GI) and no guarding Neuro: General: patient oriented x3 Results Labs 10/11/24 06:00 10/11/24 06:00 Labs: Abnormal lab results 10/10/24 10/10/24 10/11/24 Range/Units 11:06 17:19 00:11 RBC (4.60-5.80) X10*6/uL Hgb (14.0-18.0) g/dl Hct (42.0-52.0) % MCV (80.0-98.0) fL MCH (27.0-33.0) pg RDW (11.0-16.0) % POC Glucose 150 H 154 H 192 H (60-115) mg/dL Random Glucose (60-115) mg/dL 10/11/24 10/11/24 Range/Units 06:00 06:16 RBC 4.37 L (4.60-5.80) X10*6/uL Hgb 11.3 L (14.0-18.0) g/dl Hct 33.1 L (42.0-52.0) % MCV 75.7 L (80.0-98.0) fL MCH 25.9 L (27.0-33.0) pg RDW 16.6 H (11.0-16.0) % POC Glucose 167 H (60-115) mg/dL Random Glucose 171 H (60-115) mg/dL Short CBC 10/11/24 Range/Units 06:00 WBC 8.9 (4.8-10.8) X10*3/uL Hgb 11.3 L (14.0-18.0) g/dl Hct 33.1 L (42.0-52.0) % Plt Count 236 (160-400) X10*3/uL BMP 10/11/24 06:00 Sodium 138 Potassium 3.7 Chloride 106 Carbon Dioxide 23 BUN 9 Creatinine 1.05 Calcium 9.2 Urine 10/09/24 Range/Units 18:17 Urine Color Yellow Urine Appearance Clear Urine pH 7.0 (5.0-9.0) Ur Specific [place] 1.020 (1.005-1.025) Urine Protein 30 (1+) H (Neg-Trace) mg/dL Urine Glucose (UA) >=1000 H (Negative) mg/dL All other labs normal. Assessment and Plan (1) Acute pancreatitis: Status: Acute 69-year-old male admitted for abdominal pain. His CAT scan was suggestive of acute pancreatitis with some inflammatory changes surrounding the head of the pancreas. He does not have a gallstones. Etiology is uncertain. His triglycerides were not impressive. His lipase was normal this morning. Does not have any significant tenderness Etiology of his pancreatitis is uncertain currently. There was mention of sludge in the past. I would not proceed with cholecystectomy at this time in view of the uncertainty of his etiology. He can have clear liquids and his diet may be advanced. His abdominal exam is otherwise very benign and he looks well clinically. Procedures Date of Service Date of Service: 10/13/24
[2024-10-11 11:12] LABS: Glucose, Whole Blood 223 mg/dL (60-115)
--- NOTE | 2024-10-11 13:57 | HO.PM.IMPN ---
Subjective Subjective Date of Service: 10/11/24 Interval History: acute pancreatitis Review of Systems abd pain improving Review of Systems: Yes all other systems are reviewed and are negative Physical Exam Vital Signs: Vital Signs: Last Vital Signs Temp 98.4 F 10/11/24 07:40 Pulse 60 10/11/24 07:40 Resp 14 10/11/24 07:40 BP 114/59 L 10/11/24 07:40 Pulse Ox 97 10/11/24 07:40 O2 Del Method Room Air 10/11/24 07:40 BMI result Body Mass Index 27.4 Objective Data Active Medications Acetaminophen (Acetaminophen 325 Mg Tablet) 650 mg PO Q6H PRN PRN Reason: Pain, Mild 1-3,fever,headache Last Admin: 10/11/24 11:17 Dose: 650 mg Documented By: GOLDEN Artificial Tears (Artificial Tears 15 Ml Drops) 1 drop EYE-BOTH QID [facility] Last Admin: 10/11/24 12:21 Dose: 1 drop Documented By: GOLDEN Aspirin (Aspirin Enteric Coated 81 Mg Tablet.) 81 mg PO DAILY [facility] Last Admin: 10/11/24 07:23 Dose: 81 mg Documented By: GOLDEN Atorvastatin Calcium (Atorvastatin Calcium 10 Mg Tablet) 10 mg PO DAILY [facility] Last Admin: 10/11/24 07:23 Dose: 10 mg Documented By: GOLDEN Calcium Carbonate (Calcium Carbonate 750 Mg Tab.Chew) 750 mg PO Q4H PRN PRN Reason: Heartburn Dextrose (Dextrose 50 % 25 Gm/50 Ml Syringe) 25 gm IVPUSH Q15M PRN; Protocol PRN Reason: per Hypoglycemia Standing Ord. Enoxaparin Sodium (Enoxaparin Sodium 40 Mg/0.4 Ml Syringe) 40 mg SUBCUT Q24H [facility] Last Admin: 10/11/24 07:23 Dose: 40 mg Documented By: GOLDEN Fenofibrate (Fenofibrate 54 Mg Tablet) 54 mg PO DAILY [facility] Last Admin: 10/11/24 07:23 Dose: 54 mg Documented By: GOLDEN Glucose (Glucose Gel 15 Gm Gel..Gram.) 15 gm PO Q15M PRN; Protocol PRN Reason: per Hypoglycemia Standing Ord. Insulin Human Lispro (Insulin Lispro 100 Unit/Ml 3 Ml Vial) 0 unit SUBCUT QIDACHS [facility]; Protocol Last Admin: 10/11/24 11:16 Dose: 4 unit Documented By: GOLDEN Magnesium Hydroxide (Milk Of Magnesia 30 Ml Oral.Susp) 30 ml PO DAILY PRN PRN Reason: Constipation Melatonin (Melatonin 3 Mg Tablet) 6 mg PO BEDTIME PRN PRN Reason: Insomnia Morphine Sulfate (Morphine Sulfate 4 Mg/Ml Cartridge) 4 mg IVPUSH Q4H PRN; Protocol PRN Reason: Pain, Severe (Pain Scale 7-10) Last Admin: 10/11/24 00:02 Dose: 4 mg Documented By: TAMEKA Ondansetron HCl (Ondansetron Hcl 4 Mg/2 Ml Vial) 4 mg IVPUSH Q8H PRN PRN Reason: Nausea and Vomiting Pantoprazole Sodium (Pantoprazole Sodium 40 Mg/10 Ml Vial) 40 mg IVPUSH BID@0630,1630 [facility] Last Admin: 10/11/24 05:54 Dose: 40 mg Documented By: TAMEKA Sodium Chloride (0.9 % Sodium Chloride Flush 3 Ml Syringe) 3 ml IVFLUSH QSHIFT [facility] Last Admin: 10/11/24 07:23 Dose: 3 ml Documented By: GOLDEN Tamsulosin HCl (Tamsulosin Hcl 0.4 Mg Capsule) 0.4 mg PO DAILY [facility] Last Admin: 10/11/24 07:23 Dose: 0.4 mg Documented By: GOLDEN Vitamin D (Cholecalciferol (Vitamin D3) 25 Mcg Tablet) 25 mcg PO DAILY [facility] Last Admin: 10/11/24 07:23 Dose: 25 mcg Documented By: GOLDEN Labs 10/11/24 06:00 10/11/24 06:00 Labs: Laboratory Results - last 24 hr 10/10/24 10/11/24 10/11/24 17:19 00:11 06:00 MCV 75.7 L MCH 25.9 L MCHC 34.1 RDW 16.6 H Plt Count 236 MPV 9.5 Absolute Nucleated RBC 0.000 Nucleated RBC % (auto) 0.0 Anion Gap 13 Estim Creat Clear Calc 61.8 Estimated GFR > 60 POC Glucose 154 H 192 H Random Glucose 171 H Calcium 9.2 Lipase 45 Carcinoembryonic Ag 1.80 10/11/24 10/11/24 06:16 11:05 MCV MCH MCHC RDW Plt Count MPV Absolute Nucleated RBC Nucleated RBC % (auto) Anion Gap Estim Creat Clear Calc Estimated GFR POC Glucose 167 H 223 H Random Glucose Calcium Lipase Carcinoembryonic Ag Assessment and Plan (1) Pancreatitis: Status: Acute Quality Stroke Does the patient have a stroke diagnosis?: No VTE Prior VTE?: No VTE Risk Level:: Medical - moderate - high VTE Device Contraindication: Treatment Not Indicated VTE Drug Contraindication: N/A - Med Ordered
--- NOTE | 2024-10-11 15:24 | P.DS_ITS ---
DS: Providers Provider Date of Service: 10/11/24 Date of admission: 10/10/24 02:35 Date of discharge: 10/11/24 Primary care physician: Yecenia Castellanos MD Consults: 10/10/24 08:56 Consult to Gastroenterology Routine Consulting Provider: Cordelia Cedillo Reason for consultation: Recurrent pancreaitits Has provider been notified: No 10/11/24 08:38 Consult to General Surgery Routine Consulting Provider: [facility] [place] [facility] Reason for consultation: recuurent pancreatitis Has provider been notified: No Attending physician on discharge: Vera Koch Discharging clinician: Vera Koch DS: Diagnosis Discharge Diagnosis (1) Pancreatitis: Status: Acute DS: Summary Hospital Course Hospital Course: HPI: 69-year-old male with pertinent history of pancreatitis, tubular adenoma of colon, mood disorder, hypertension, mixed hyperlipidemia, BPH, [id number] type 2 diabetes mellitus who presents to the emergency department for evaluation of abdominal pain. Hospital course: Patient came to the hospital because of abdominal pain: Found to have elevated lipase, CT abdomen shows findings with consistent with the acute pancreatitis: Patient was started on bowel rest, IV fluid, IV pain medications , in addition patient was seen by GI-recommended to add CEA and ca19.9 : Patient seems to be improved with supportive care. CEA is normal 1.8 range, ca19.9 pending. Patient improved symptomatically, tolerating diet. Already seen by GI and surgery and CAT scan reviewed: Currently recommended outpatient management: Losartan might have contributed to acute pancreatitis episode, losartan stopped. Discussed with GI and surgery currently etiology unclear for pancreatitis: Patient improved, further workup and management outpatient with GI and surgery. Plan: stop losartan , blood pressure is stable without losartan, monitor outpatient and further management outpatient with PCP. Patient is to follow-upa19.9 pending. Further workup/management out patiently with GI and surgery outpatient. Above management discussed with the patient detail length with the help of translator interpreter, time spent 40 minute, all question answered, staff was present during conversation. Time Attestation Total time managing care of this patient today: 40 mintues. Discharge Coordination Time (in mins): 40 min Quality: Safe Use of Opioids Does Pt have an Active Cancer Diagnosis on the Problem List?: No Quality: Stroke Does the patient have a stroke diagnosis?: No Physical Exam Vital Signs: Vital Signs: Last Vital Signs Temp 98.4 F 10/11/24 07:40 Pulse 60 10/11/24 07:40 Resp 14 10/11/24 07:40 BP 114/59 L 10/11/24 07:40 Pulse Ox 97 10/11/24 07:40 O2 Del Method Room Air 10/11/24 07:40 BMI result Body Mass Index 27.4 Appearance: Alert.? Oriented X3. cvs: rrr, [id number] . res: clear to auscultation ,no rhonchii or wheezing abd: no rebound or guarding ,nt, bs present. ext pulses present , no cyanosis . neuro: axo3 , nonfocal. DS: Data Data Completed and Pending Labs on day of discharge: Laboratory Results - last 24 hr 10/10/24 10/11/24 10/11/24 17:19 00:11 06:00 WBC 8.9 RBC 4.37 L Hgb 11.3 L Hct 33.1 L MCV 75.7 L MCH 25.9 L MCHC 34.1 RDW 16.6 H Plt Count 236 MPV 9.5 Absolute Nucleated RBC 0.000 Nucleated RBC % (auto) 0.0 Sodium 138 Potassium 3.7 Chloride 106 Carbon Dioxide 23 Anion Gap 13 BUN 9 Creatinine 1.05 Estim Creat Clear Calc 61.8 Estimated GFR > 60 POC Glucose 154 H 192 H Random Glucose 171 H Calcium 9.2 Lipase 45 Carcinoembryonic Ag 1.80 10/11/24 10/11/24 06:16 11:05 WBC RBC Hgb Hct MCV MCH MCHC RDW Plt Count MPV Absolute Nucleated RBC Nucleated RBC % (auto) Sodium Potassium Chloride Carbon Dioxide Anion Gap BUN Creatinine Estim Creat Clear Calc Estimated GFR POC Glucose 167 H 223 H Random Glucose Calcium Lipase Carcinoembryonic Ag Imaging CT scan - abdomen: My impression: ct abd;Findings consistent with acute pancreatitis. Mild fullness of the distal pancreatic tail is less pronounced than on prior studies and could be due to normal variation or sequela of prior pancreatitis. Consider follow-up to exclude underlying neoplasm.Nonemergent/incidental findings above. Discharge Plan Discharge Anticipated Discharge Date/Time: 10/11/24 15:09 Patient Disposition: Home, Self-Care Discharge Diagnosis: acute pancreatitis -unclear etiology Referrals: Ben Leonardo MD [Physician, Gastroenterology] - 1 Week Gee Hermosillo MD [Physician, General Surgery] - 1 Week Yecenia Hutchins MD [Primary Care Provider, Internal Medicine] - 1 Week Discharge Medications: Continued (DME) blood-glucose [place]Touch [place] [facility] [place] .[place] Qty: 1 0RF Rx Instructions: As directed (DME) OneTouch Verio test strips Strip See Rx Instructions .Route Qty: 100 2RF Rx Instructions: Use 1 test strip once a day (DME) lancets [place]Touch UltraSoft Lancets[place] [facility] [place] .Route Qty: 100 3RF Rx Instructions: Use 1 lancet once a day simvastatin 20 mg tablet 20 mg PO BEDTIME 90 Days Qty: 90 3RF tamsulosin 0.4 mg capsule 0.4 mg PO DAILY 90 Days Qty: 90 3RF polyvinyl alcohol 1.4 % drops 1 drp ophthalmic (eye) QID fenofibrate 54 mg tablet 54 mg PO DAILY Tradjenta 5 mg tablet 5 mg PO DAILY metformin 1,000 mg tablet 1,000 mg PO BID 90 Days Qty: 180 3RF cholecalciferol (vitamin D3) 25 mcg (1,000 unit) capsule 25 mcg PO DAILY 90 Days Qty: 90 3RF aspirin [Adult Low Dose Aspirin] 81 mg tablet,delayed release (DR/EC) 81 mg PO DAILY 90 Days Qty: 90 3RF tramadol 50 mg tablet 50 mg PO Q8H PRN (Reason: pain) Qty: 10 0RF Discontinued losartan 100 mg tablet 100 mg PO DAILY 90 Days Qty: 90 1RF Discharge Orders: Discharge Order (Routine); Ordered 10/11/24 Ordered By: Vera Koch Diet: Advance to usual diet Activity on Discharge: As tolerated Stand Alone Forms: Patient Portal Discharge page Print Language: Turkmen Care Plan Goals: As below. Health Concerns: As below. Plan of Treatment: Hold losartan, follow-up with GI and surgery outpatient-they will arrange their own appointment. If any new symptoms please come to the nearest emergency room. Assessment: As above.
[2024-10-11 16:20] VITALS: BP 135/66; PULSE 61; RESP 16; TEMP 36.6; O2SAT 96
== END 2024-10-11 16:32 | disposition home or self-care (01) | DRG 440 ==
LOC: HO.ED 10-10 02:27 → HO.EDOVER 10-10 03:14 → HO.S3 10-10 09:35
PROVIDERS: Physician Assistant Medical; Admitting Provider Student in an Organized Health Care Education/Training Program; Emergency Provider Emergency Medicine Emergency Medical Services; PCP Internal Medicine; Visit Provider Internal Medicine
DX: K85.80 Other acute pancreatitis without necrosis or infection (principal); F39 Unspecified mood [affective] disorder; N40.0 Benign prostatic hyperplasia without lower urinary tract symptoms; E11.65 Type 2 diabetes mellitus with hyperglycemia; E78.2 Mixed hyperlipidemia; I10 Essential (primary) hypertension; K76.0 Fatty (change of) liver, not elsewhere classified; Z79.82 Long term (current) use of aspirin; Z79.84 Long term (current) use of oral hypoglycemic drugs; Z79.899 Other long term (current) drug therapy
CPT/HCPCS: 36415; 74176; 80048; 80076; 81001; 82378; 82947; 83690; 83735; 84478; 84484; 85025; 85027; 86301; 93005; 99285; J1650; J2060; J2270; J2405; J2470; J7120

== ENCOUNTER → 2024-10-09 14:24 | Outpatient (BNV) | payer OTHER, SELFPAY | PROVIDERS: Admitting Provider Student in an Organized Health Care Education/Training Program; Emergency Provider Emergency Medicine Emergency Medical Services; PCP Internal Medicine; Visit Provider Internal Medicine Cardiovascular Disease | DX: R00.1 Bradycardia, unspecified (principal); I49.9 Cardiac arrhythmia, unspecified | CPT/HCPCS: 93010 ==

== ENCOUNTER → 2024-10-09 18:35 | Outpatient (BNV) | payer OTHER, SELFPAY | PROVIDERS: Emergency Provider Emergency Medicine Emergency Medical Services; PCP Internal Medicine; Visit Provider Radiology Diagnostic Radiology | DX: K85.90 Acute pancreatitis without necrosis or infection, unspecified (principal) | CPT/HCPCS: 74176 ==

== ENCOUNTER → 2024-10-09 20:35 | Outpatient (BNV) | payer OTHER, SELFPAY | PROVIDERS: Emergency Provider Emergency Medicine Emergency Medical Services; PCP Internal Medicine; Visit Provider Student in an Organized Health Care Education/Training Program | DX: K85.90 Acute pancreatitis without necrosis or infection, unspecified (principal) | CPT/HCPCS: 99239 ==

== ENCOUNTER → 2024-10-10 02:35 | Outpatient (BNV) | payer OTHER, SELFPAY | PROVIDERS: Admitting Provider Student in an Organized Health Care Education/Training Program; Emergency Provider Emergency Medicine Emergency Medical Services; PCP Internal Medicine; Visit Provider Surgery | DX: K85.90 Acute pancreatitis without necrosis or infection, unspecified (principal) | CPT/HCPCS: 99222 ==

== ENCOUNTER → 2024-10-10 02:35 | Outpatient (BNV) | payer OTHER, SELFPAY | PROVIDERS: Admitting Provider Student in an Organized Health Care Education/Training Program; Emergency Provider Emergency Medicine Emergency Medical Services; PCP Internal Medicine; Visit Provider Internal Medicine Gastroenterology | DX: K85.90 Acute pancreatitis without necrosis or infection, unspecified (principal) | CPT/HCPCS: 99222 ==

== ENCOUNTER 2024-10-14 11:54 | Outpatient (REF) | payer OTHER, SELFPAY ==
[2024-10-14 13:59] LABS: Alanine Aminotransferase 21 U/L (0-40); Albumin Level 4.4 g/dL (3.5-5.0); Alkaline Phosphatase 78 U/L (39-117); Anion Gap 14 (12-20); Aspartate Amino Transferase 32 U/L (5-37); Blood Urea Nitrogen 20 mg/dL (9-16); Calcium 9.9 mg/dL (8.4-10.2); Carbon Dioxide 24 mmol/L (22-29); Chloride 105 mmol/L (96-108); Cholesterol 118 mg/dL (<200); Estimated Glomerular Filt Rate 44; HDL Cholesterol 27 mg/dL (>40); Potassium 4.3 mmol/L (3.3-5.1); Sodium 139 mmol/L (135-145); Total Protein 8.0 g/dL (6.5-8.0); Triglycerides 149 mg/dL (<150)
[2024-10-14 14:00] LABS: Blood Urea Nitrogen 18 mg/dL (9-16); Estimated Glomerular Filt Rate 45
[2024-10-14 14:26] LABS: Folate 13.3 ng/mL (> or = 4.0); Vitamin B12 396 pg/mL (200-900)
[2024-10-14 15:00] LABS: Microalbum/Creatinine Ratio Ur 41.0 ug/mg cr (<30)
== END 2024-10-14 11:55 | disposition home or self-care (01) ==
LOC: HO.LAB 11:54
PROVIDERS: PCP Internal Medicine; Visit Provider Nurse Practitioner Family
DX: E11.65 Type 2 diabetes mellitus with hyperglycemia (principal); D49.0 Neoplasm of unspecified behavior of digestive system; R80.9 Proteinuria, unspecified; E53.8 Deficiency of other specified B group vitamins; E55.9 Vitamin D deficiency, unspecified; E78.5 Hyperlipidemia, unspecified; K86.89 Other specified diseases of pancreas; Z87.19 Personal history of other diseases of the digestive system
CPT/HCPCS: 36415; 80053; 80061; 82043; 82306; 82565; 82570; 82607; 82746; 84520; 86301; 99212

== ENCOUNTER 2024-10-14 11:54 | Outpatient (AMB) | payer OTHER, SELFPAY ==
--- NOTE | 2024-10-14 11:58 | MHC.OFFVIS ---
Vital Signs 10/14/24 12:04 Height 5 ft 5 in Weight 160 lb BMI 26.6 BP 107/58 L Blood Pressure Location Lt brachial Position Sitting Pulse 80 Intake Visit Reasons: acute pancreatitis. Intake Note: Patient ED follow up for Acute Pancreatitis. Patient denies any GI issues. Retail Marketing Manager Required: Yes Retail Marketing Manager Name: [facility] Interpeter Accompanied by: Self / Same As Patient Allergies No Known Allergies Allergy (Verified 10/14/24 11:57) HPI HPI acute pancreatitis.: Details: LAST VISIT: History of pancreatitis Screen for colon cancer Constipation Plan Will check lipase, liver panel, check for pancreatic insufficiency. Low-fat diet recommended. Patient will continue taking Dulcolax daily. Message sent to surgical schedulers to schedule procedure. Follow-up after. What to expect before during and after procedure discussed with patient. The importance of good bowel prep and clear liquid diet day before procedure discussed with patient. Patient is agreeable to current plan of care and verbalizes understanding of instructions. He was given the opportunity to ask questions and all questions answered. ? Thank you for allowing me to participate in his care Orders Lipase Today R10.9 Liver Panel Today R74.01 Pancreatic Elastase-1 Today R10.9 New bisacodyl (Dulcolax (bisacodyl)) 10 mg (2 x 5 mg) PO BEDTIME 180 tabs 4RF polyethylene glycol 3350 (Miralax) As directed by gastroenterology department at [facility] 238 grams PO ONCE 238 grams 0RF Z12.11 COLONOSCOPY: Findings: Terminal Ileum-normal Cecum:normal Ascending Colon: 11 mm semi pedunculated polyp lifted with eleview injection and removed with cold snare. 10 mm sessile polyp removed with cold snare. 4-6 mm sessile polyp removed with cold forceps Transverse Colon -normal Descending Colon:normal Sigmoid Colon: 10 mm sessile polyp removed with cold snare, mild diverticulosis Rectum: Retroflexion with small internal hemorrhoids seen, grade I Anorectum - normal Intervention: cold snare, cold forceps, cold snare and eleview injection for EMR Colon preparation: [place] Bowel Preparation Scale Right colon; 2 Transverse colon: 2 Left colon; 1-2 (0 = Unprepared colon segment with mucosa not seen due to solid stool that cannot be cleared. 1 = Portion of mucosa of the colon segment seen, but other areas of the colon segment not well seen due to staining, residual stool and/or opaque liquid. 2 = Minor amount of residual staining, small fragments of stool and/or opaque liquid, but mucosa of colon segment seen well. 3 = Entire mucosa of colon segment seen well with no residual staining, small fragments of stool or opaque liquid) Impression and Post Procedure Diagnosis: diverticulosis colon polyps internal hemorrhoids Plan: High fiber diet leaflet Avoid straining at stool, epsom salts and sitz bath, anusol supps or cream Repeat Colonoscopy in 1 year due to fair prep on left or earlier if clinically indicated PHATOLOGY RESULTS: Diagnosis A. Colon, ascending, polypectomies: Fragments of tubular adenomata; negative for high-grade dysplasia or carcinoma. B. Colon, sigmoid, polypectomy: Tubular adenoma; negative for high-grade dysplasia or carcinoma RECENT HOSPITALIZATION GI CONSULT WITH DR. LO 10/10/2024 HPI Reason for consult: Recurrent pancreatitis 69 year old [place]anian-speaking male with history of pancreatitis, tubular adenoma of colon, mood disorder, hypertension, mixed hyperlipidemia, BPH, xtk-[id number]-[id number] type 2 diabetes mellitus seen at [facility] ED on 10/09/24 for evaluation of abdominal pain. History obtained with the help of gear cutting machine operator, Masood. Patient reports his symptoms started on 10/06/24 with 10/10 epigastric pain radiating to the back with nausea and vomiting. Pain started without clear precipitating factors (Pt reports drinking [place] Flower Tea which is not associated with pancreatitis) Pt describes the pain as constant without any relieving factors and is associated with nausea and non-bloody emesis. No change in bowel habits - no BM for the past 2 days since he has not been eating. Patient denies any significant alcohol use - states he only drinks about 2-3 beers a week. He had an episode of pancreatitis about a year ago when he was admitted at [facility]. No fever, chills, chest pain, palpitations, shortness of breath, changes in urinary habits. In the emergency department, imaging concerning for acute pancreatitis and lipase found to be elevated. FAMILY HISTORY: Patient denies known family history of pancreatic disease, colon polyps or GI malignancy RECOMMENDATIONS: 1. Agree with IV ppi, antiemetics and pain medications. 2. Check CEA and CA 19-9 with am labs. 3. Hold Losartan and switch to alternate medication for high blood pressure. 4. Consult with general surgery to evaluate for prophylactic Lap Altagracia to prevent future episodes of pancreatitis (since pt had GB sludge on past MRI scan) 5. EUS as an outpatient to rule out malignancy since this is pt's 2nd episode of pancreatitis. GENERAL SURGERY CONSULTATION 10/11/2024 DR. VIDALES 69-year-old male admitted for abdominal pain. His CAT scan was suggestive of acute pancreatitis with some inflammatory changes surrounding the head of the pancreas. He does not have a gallstones. Etiology is uncertain. His triglycerides were not impressive. His lipase was normal this morning. Does not have any significant tenderness Etiology of his pancreatitis is uncertain currently. There was mention of sludge in the past. I would not proceed with cholecystectomy at this time in view of the uncertainty of his etiology. He can have clear liquids and his diet may be advanced. His abdominal exam is otherwise very benign and he looks well clinically. TODAY'S VISIT Patient is here today for follow-up after admission for pancreatitis. As mentioned above in the notes from Dr. Lo and Dr. Vidales unknown cause for patient's pancreatitis. Patient denies drinking alcohol heavily. Denies eating fatty or greasy food. Reports his symptoms came sudden. Elevated CA 19-9 that could give a suspicion for pancreatic CA although in the setting of acute pancreatitis this could be a false positive. Patient denies any abdominal pain or discomfort. Denies any nausea or vomiting. Reports to be feeling well. Able to tolerate food without any issues. Alcohol intake 2 to 3 times a week usually beer. Have not drank since discharge. Patient was admitted last year with the same symptoms [facility] Medical History History of pancreatitis Diabetes Tubular adenoma of colon Headache Primary insomnia Anemia Mixed hyperlipidemia Essential hypertension Insomnia Surgical History Hx of hand surgery Hx of colonoscopy History of cataract surgery Family History Father No problems noted. Mother Diabetes Hypertension Daughter No problems noted. Son No problems noted. Sister No problems noted. Brother No problems noted. Social History Household Members: None Housing: Apartment Are you a primary health care attorney to a significant other at home: No Do you presently have visiting nurse or other home services: Yes (3 times a week) Unable to assess alcohol history related to: Unknown Alcohol intake: current Alcohol intake frequency: a few times a month Alcohol type: beer Comment: bed alarm use after PRN morphine if given Patient Tobacco Use Status: Current everyday Tobacco user e-Cigarette/Vaping Use: Never Used Second Hand Smoke Exposure: No service: No Current occupational status: employed Current occupational exposures/hazards: No Cognitive needs: No Hearing needs: No Vision needs: No Review of Systems Const Denies weight gain and Denies weight loss ENT Reports no additional complaints, Denies dysphagia and Denies odynophagia Card Reports no additional complaints Resp Reports no additional complaints GI Denies abdominal pain, Denies belching, Denies melena, Denies bloating, Denies change in bowel habits, Denies dysphagia, Denies excessive flatus, Denies dyspepsia, Denies heartburn, Denies diarrhea, Denies loose stools, Denies nausea, Denies odynophagia and Denies vomiting Reports no additional complaints Musc Reports no additional complaints Neuro Reports no additional complaints Psych Reports no additional complaints Endo Reports no additional complaints Physical Exam Vital Signs: Last Vital Signs Pulse 80 10/14/24 12:04 BP 107/58 L 10/14/24 12:04 BMI result Body Mass Index 26.6 Const General: healthy appearing and no acute distress Nutritional Appearance: obese Orientation/consciousness: patient oriented x3 Resp Effort & Inspection: normal respiratory effort, able to speak in complete sentences, no tracheal deviation and symmetric chest movement Auscultation: clear to auscultation bilaterally Cardio Rate: regular rate GI Other: Diastasis rectus Inspection: Yes normal to inspection, No distended and Yes obesity Palpation (GI): Soft to palpation, not firm, nontender and No hepatosplenomegaly present Auscultation: normal bowel sounds General: Yes no CVA tenderness Back/Spine/Pelvis Back: no CVA tenderness Skin General skin exam: elasticity normal, turgor normal and dry skin Neuro General: patient oriented x3 Psych Appearance: grossly normal Mental Status: mental status grossly normal Results Reviewed Results Reviewed: CT SCAN OF ABDOMEN AND PELVIS 10/09/2024 FINDINGS: Mild cardiomegaly. Small hiatal hernia. Diffusely hypodense liver consistent with hepatic steatosis. Normal spleen. Normal kidneys. Normal adrenal glands. Fat stranding adjacent to the head and neck of the pancreas, which appears edematous. No pancreatic ductal dilatation. No pseudocyst or abscess. Mild fullness of the distal pancreatic tail (series 3, image 32), less pronounced than on prior studies. No visible cholelithiasis. No biliary dilation. Mild colonic diverticulosis without evidence of acute diverticulitis. No mucosal thickening. No evidence of obstruction. Normal appendix. Unremarkable bladder. No ascites. No pneumoperitoneum. No lymphadenopathy. No acute fracture. Degenerative changes in the spine. No abdominal aortic aneurysm. Penile implant in place. IMPRESSION: Findings consistent with acute pancreatitis. Mild fullness of the distal pancreatic tail is less pronounced than on prior studies and could be due to normal variation or sequela of prior pancreatitis. Consider follow-up to exclude underlying neoplasm. Nonemergent/incidental findings above. Assessment & Plan Assessment & Plan (1) History of pancreatitis: Code(s): Z87.19 - Personal history of other diseases of the digestive system Category: Medical (2) Acute pancreatitis: Code(s): K85.90 - Acute pancreatitis without necrosis or infection, unspecified Category: Medical Qualifiers: Pancreatitis type: unspecified pancreatitis type Acute pancreatitis complication: no infection or necrosis Qualified Code(s): K85.90 - Acute pancreatitis without necrosis or infection, unspecified Plan Will repeat lab work again. Patient will be sent for EUS to [facility]. Will call to try to arrange this. Will repeat carbohydrate antigen as previous drawn could of been falsely positive in the setting of acute pancreatitis. Will repeat MRI to check his pancreas. Ideally MRCP would be probably best. Will start patient on Creon. Patient has an appointment with me in December he can not keep that appointment. He was encouraged to call our office if you have any GI concerning symptoms. Patient is agreeable to this plan and verbalizes understanding of instructions. He was given the opportunity to ask questions and all questions answered. Thank you for allowing me to participate in his care Orders: Orders Carbohydrate Antigen 19-9 Today D49.0 - Neoplasm of unspecified behavior of digestive system MR abdomen wo/w con Today K85.90 - Acute pancreatitis without necrosis or infection, unspecified, Z87.19 - Personal history of other diseases of the digestive system Creatinine Today R10.11 - Right upper quadrant pain Blood Urea Nitrogen Today R10.11 - Right upper quadrant pain Referrals Gastroenterology Referral K85.90 - Acute pancreatitis without necrosis or infection, unspecified Medications: New Creon 36,000-114,000- 180,000 unit ([id number]) administer with meals and/or snacks 1 cap PO QID 120 caps 3RF NS K86.89 - Other specified diseases of pancreas Coding Level of Care Code Est Pt Level 5 (98162) Diagnoses History of pancreatitis Z87.19 Acute pancreatitis without infection or necrosis, unspecified pancreatitis type K85.90 Pancreatitis type: unspecified pancreatitis type Acute pancreatitis complication: no infection or necrosis Time Spent (min) 50 Comment 30 min spent with pt & additional 20 min spent reviewing his records and coordinating care
[2024-10-14 12:04] VITALS: BP 107/58; PULSE 80; BMI 26.6
--- OUTSIDE RECORDS SUMMARY | 2024-10-14 13:12 | XMS_ITS | Encounter Summary ---
Author Organization [employer] [facility] Address [address] [place] [address] Care Team Providers Care Bullard Machine Operator Name Role Phone Unavailable Primary Care Provider Unavailabl e Encounter Details Date Type Department Care Team (Latest Contact Info) Description 11/27/2018 Abstract [facility] CONVERSIONS Dental, Provider, DDS Social History Tobacco [...] Care Team (Late st Contact Info) Description 04/21/2025 3:00 PM EST Office Visit [facility] [address] [place] [address] [address] [place] [address] documented as of this encounter Visit Diagnoses Not on filedocumented in this encounter
--- OUTSIDE RECORDS SUMMARY | 2024-10-14 13:13 | XMS_ITS | Clinical Summary ---
Author Organization [facility] Address [address] [place] [address] Phone Care Team Providers Care Poultry Farm Supervisor Name Role Phone Yecenia Hutchins MD Primary Care Provider [phone] Allergies Active Allergy Reactions Criticality Noted Date [...] age to complete this topic Insurance Medicaid [place] [facility] Medicaid [place] Care Teams Poultry Farm Supervisor Relationship Specialty Start Date End Date Yecenia Hutchins MD [address] [place] [address] PCP - General 04/12/20
== END 2024-10-14 16:36 | disposition home or self-care (01) ==
LOC: HO.HGI 11:54
PROVIDERS: PCP Internal Medicine; Visit Provider Nurse Practitioner Family
DX: K85.90 Acute pancreatitis without necrosis or infection, unspecified (principal); Z87.19 Personal history of other diseases of the digestive system
CPT/HCPCS: 99215

== ENCOUNTER 2024-10-27 09:52 | Outpatient (REF) | payer OTHER, SELFPAY ==
[2024-10-27 12:03] LABS: Appearance Urine Clear; Glucose Urine UA >=1000 mg/dL (Negative); PH 6.0 (5.0-9.0); Specific Gravity - Urine 1.020 (1.005-1.025); UMIC TRIGGER UACC YES
[2024-10-27 12:34] LABS: Anion Gap 14 (12-20); Blood Urea Nitrogen 19 mg/dL (9-16); Calcium 9.4 mg/dL (8.4-10.2); Carbon Dioxide 21 mmol/L (22-29); Chloride 113 mmol/L (96-108); Estimated Glomerular Filt Rate 51; Potassium 4.1 mmol/L (3.3-5.1); Sodium 144 mmol/L (135-145)
== END 2024-10-27 09:53 | disposition home or self-care (01) ==
LOC: HO.LAB 09:52
PROVIDERS: PCP Internal Medicine
DX: K85.90 Acute pancreatitis without necrosis or infection, unspecified (principal); R79.89 Other specified abnormal findings of blood chemistry; E11.9 Type 2 diabetes mellitus without complications; Z79.4 Long term (current) use of insulin; I10 Essential (primary) hypertension; R10.9 Unspecified abdominal pain
CPT/HCPCS: 36415; 80048; 81001; 81003; 83036; 99212

== ENCOUNTER 2024-10-27 09:52 | Outpatient (AMB) | payer OTHER, SELFPAY ==
--- NOTE | 2024-10-27 09:36 | MHC.PC.OV ---
Vital Signs 10/27/24 10:00 10/27/24 10:15 Height 5 ft 5 in Weight 160 lb 8 oz BMI 26.7 BP 120/70 120/68 Blood Pressure Location Lt brachial Lt brachial Position Sitting Sitting Pulse 91 Pulse Source Pulse Oximeter Temp 97.3 F Temp Source Temporal Artery Scan Pulse Oximetry (%) 95 Oxygen Delivery Method Room Air Intake Visit Reasons: TCM ABD Pain 10/13 Intake Note: Patient is here for hospital discharge and TCM follow up. Patient was discharged from [facility] on 10/11/24. Weaver Dobby Loom Required: Yes Weaver Dobby Loom Language: Senior Application Security Consultant Name: Erika ([id number]) Information Interpreted: non-clinical & clinical Decorative Engraver Apprentice: Not Required per policy Accompanied by: Self / Same As Patient Allergies No Known Allergies Allergy (Verified 10/27/24 10:09) Medication List - Last Reconciled 10/27/24 by JAMIL Soto aspirin (Adult Low Dose Aspirin) 81 mg PO DAILY 90 days blood sugar diagnostic (CoachMePlusuch Verio test strips) Use 1 test strip once a day blood-glucose meter (CoachMePlusuch Verio Meter) As directed cholecalciferol (vitamin D3) 25 mcg PO DAILY 90 days Creon 36,000-114,000- 180,000 unit (ifcmlz-equarfmw-xxzloxr) 1 cap PO QID NS fenofibrate 54 mg PO DAILY lancets (ViaBillTouch UltraSoft Lancets) Use 1 lancet once a day linagliptin (Tradjenta) 5 mg PO DAILY metformin 1,000 mg PO BID 90 days polyvinyl alcohol 1.4% 1 drp ophthalmic (eye) QID simvastatin 20 mg PO BEDTIME 90 days tamsulosin 0.4 mg PO DAILY 90 days tramadol 50 mg PO Q8H PRN Tobacco use date assessed: 10/27/24 Fall risk assessment: No Falls in past year Last assessed Fall Risk: 10/27/24 Dental Screening Dental Screen Date: 07/15/24 HPI TCM ABD Pain 10/13 HPI Details 69-year-old male with pertinent history of pancreatitis, tubular adenoma of colon, mood disorder, hypertension, mixed hyperlipidemia, BPH, qyj-leedoph-tuqividmu type [address] of [address] Ricketts, last seen in the office on 07/15/2024 The patient is presenting for post hospital admission. The patient went to the hospital with c/o abdominal pain and found to an acute pancreatitis. He was placed on bowel rest, IV fluids, IV pain medications. GI recommended to add CEA normal and CA 19.9 level is pending. The patient improved and was able to tolerate diet. There was also concern of the patient losartan contributing to his acute pancreatitis. Losartan was placed on hold and the patient to follow up with GI outpatient. TCM TCM Information Date of Discharge 10/11/24 Discharged From [facility] Interactive Contact Date (Reference documentation from this date) 10/13/24 [facility] Medical History History of pancreatitis Diabetes Tubular adenoma of colon Headache Primary insomnia Anemia Mixed hyperlipidemia Essential hypertension Insomnia Surgical History Hx of hand surgery Hx of colonoscopy History of cataract surgery Family History Father No problems noted. Mother Diabetes Hypertension Daughter No problems noted. Son No problems noted. Sister No problems noted. Brother No problems noted. Social History Household Members: None Housing: Apartment Are you a primary youth care specialist to a significant other at home: No Do you presently have visiting nurse or other home services: Yes (3 times a week) Unable to assess alcohol history related to: Unknown Alcohol intake: current Alcohol intake frequency: a few times a month Alcohol type: beer Comment: bed alarm use after PRN morphine if given Patient Tobacco Use Status: Never used Tobacco e-Cigarette/Vaping Use: Never Used Second Hand Smoke Exposure: No service: No Current occupational status: employed Current occupational exposures/hazards: No Cognitive needs: No Hearing needs: No Vision needs: No Questionnaire Thrive Questionnaire Date Thrive assessed: 07/15/24 JOVANNY-7 AMB Questionnaire JOVANNY-7 Date JOVANNY - 7 assessed: 07/15/24 Source: Developed by Drs. Nirav Jenkins, Regina Rebollar, Abe Trejo and colleagues, with an educational dmitri from [employer]. Review of Systems Const Denies body aches, Denies chills, Denies fever(s), Denies headache(s) and Denies poor appetite Eyes Reports no additional complaints ENT Denies dysphagia, Denies dizziness, Denies headache(s) and Denies odynophagia Card Denies chest pain, Denies syncope, Denies edema, Denies irregular heart rhythm, Denies lightheadedness and Denies dyspnea Resp Denies cough and Denies dyspnea GI Denies abdominal pain, Denies constipation, Denies dysphagia, Denies diarrhea, Denies nausea, Denies odynophagia and Denies vomiting Reports other (Complain of bilateral flank pain) Musc Reports no additional complaints and Denies abnormal gait Skin/Breast Reports system reviewed and no additional complaints, except as documented Neuro Denies abnormal gait, Denies dizziness, Denies syncope and Denies headache(s) Psych Reports no additional complaints Physical exam (Primary Care) Tobacco/Smoking Status: Tobacco use Status Tobacco use date assessed 07/15/24 10/27/24 09:36 Patient Tobacco Use Status Current everyday Tobacco 10/27/24 09:36 e-Cigarette/Vaping Use Never Used 10/27/24 09:36 Thrive Assessment: Date of Thrive Assessment Date Thrive assessed 07/15/24 10/27/24 09:36 Const General: cooperative, healthy appearing, comfortable and no acute distress Orientation/consciousness: patient oriented x3 HENMT Head: Yes normocephalic Ears: hearing grossly normal bilaterally General nose exam: Normal external nose present Eyes General: appearance normal, both eyes and all related structures Conjunctivae: conjunctivae normal Neck Neck: Yes full ROM and Yes no lymphadenopathy Resp Effort & Inspection: normal respiratory effort Auscultation: clear to auscultation bilaterally, no crackles, no rales, no rhonchi and no wheezes Cardio Rate: regular rate Rhythm: regular rhythm Heart sounds: S1 normal heart sound present GI Inspection: Yes obesity Palpation (GI): Soft to palpation, nontender and No hepatosplenomegaly present General: Yes CVA tenderness bilateral Back/Spine/Pelvis Back: CVA tenderness Skin General skin exam: no rashes or lesions noted Neuro General: patient oriented x3 Gait exam (Neuro): Normal gait present Extrem General: Yes normal to inspection, Yes full ROM and No edema Psych Affect: normal affect Attitude: cooperative Insight: Good insight present (Psych) Judgement: Good judgement present (Psych) Results AMB Hemoglobin A1c AMB Hemoglobin A1c 8.3 % Last Edit by ALCON Braun on 10/27/24 10:12 Results Reviewed Results Reviewed: Laboratory Tests 10/14/24 10/27/24 12:41 09:58 Sodium 139 Potassium 4.3 Chloride 105 Carbon Dioxide 24 Anion Gap 14 BUN 18 H Creatinine 1.54 H Estimated GFR 45 Hgb A1c (Clinic) 8.3 H Calcium 9.9 D Total Bilirubin 0.3 AST 32 Coding Level of Care Code Est Pt Level 4 (27815) Diagnoses Acute pancreatitis without infection or necrosis, unspecified pancreatitis type K85.90 Pancreatitis type: unspecified pancreatitis type Acute pancreatitis complication: no infection or necrosis Elevated serum creatinine R79.89 Type 2 diabetes mellitus without complication, with long-term current use of insulin E11.9; Z79.4 Diabetes mellitus detention insulin use: with detention use Diabetes mellitus complication status: without complication Essential hypertension I10 Flank pain R10.9 Time Spent (min) 37 Assessment & Plan Assessment & Plan (1) Acute pancreatitis: Code(s): K85.90 - Acute pancreatitis without necrosis or infection, unspecified Category: Medical Qualifiers: Pancreatitis type: unspecified pancreatitis type Acute pancreatitis complication: no infection or necrosis Qualified Code(s): K85.90 - Acute pancreatitis without necrosis or infection, unspecified Plan: Patient went into the hospital with abdominal pain and was found to be in acute pancreatitis. He was placed on bowel rest, IV fluids, IV pain medications. GI recommended to add CEA normal and CA 19.9 level is pending. They also suspect that his is losartan to might be contributor to his pancreatitis. This was placed on hold was placed on hold. The patient is feeling a today he denies abdominal pain, reports that he is having normal bowel movements and his eating normal. (2) Elevated serum creatinine: Code(s): R79.89 - Other specified abnormal findings of blood chemistry Category: Medical Plan: The patient creatinine was elevated in the hospital at 1.54. We will recheck a BNP today to further evaluate. (3) DMII (diabetes mellitus, type 2): Code(s): E11.9 - Type 2 diabetes mellitus without complications Category: Medical Qualifiers: Diabetes mellitus laborer marine terminal insulin use: with detention use Diabetes mellitus complication status: without complication Qualified Code(s): E11.9 - Type 2 diabetes mellitus without complications; Z79.4 - laborer marine terminal (current) use of insulin Plan: Patient A1c was 8.3% in office improved from 10.5 % 3 months ago. Goal is less than 7%. No changes was made today Continue Tradjenta 5 mg daily, metformin a 1000 mg b.i.d. We will continue to monitor fasting glucose and A1c (4) Essential hypertension: Code(s): I10 - Essential (primary) hypertension Category: Medical Plan: The patient is requesting for his losartan to be restarted. Claiming that they made a mistake because this medication has been good for him. His blood pressure today is within normal limits. Urged the patient to wait until he is evaluated by GI since his blood pressure is within normal limits, there is no need to jovel to restart this medication. Reinforced low-salt diet and encouraged the patient to start monitoring blood pressure at home more frequently to determine if his blood pressure starting to elevate and contact office. (5) Flank pain: Code(s): R10.9 - Unspecified abdominal pain Category: Medical Plan: The patient complain of bilateral flank pain. Denies any other urinary symptoms. Reports that this happens on and off. We will send the patient for urinalysis to further evaluate this. Orders: Orders AMB Hemoglobin A1c Today E11.9 - Type 2 diabetes mellitus without complications, Z79.4 - laborer marine terminal (current) use of insulin UA CC w/rflx Micro + Cult Today R10.9 - Unspecified abdominal pain Basic Metabolic Panel Today R79.89 - Other specified abnormal findings of blood chemistry
[2024-10-27 10:00] VITALS: BP 120/70; PULSE 91; TEMP 36.3; O2SAT 95; BMI 26.7
[2024-10-27 10:15] VITALS: BP 120/68
--- OUTSIDE RECORDS SUMMARY | 2024-10-27 10:52 | XMS_ITS | Encounter Summary ---
Author Organization [employer] [facility] Address [address] [place] [address] Care Team Providers Care Home Attendant Name Role Phone Unavailable Primary Care Provider Unavailabl e Encounter Details Date Type Department Care Team (Latest Contact Info) Description 11/27/2018 Abstract [facility] CONVERSIONS Dental, Provider, DDS Social History Tobacco [...] Description 04/21/2025 3:00 PM EST Office Visit [facility] [address] [place] [address] [address] [place] [address] documented as of this encounter Visit Diagnoses Not on filedocumented in this encounter
--- OUTSIDE RECORDS SUMMARY | 2024-10-27 10:52 | XMS_ITS | Clinical Summary ---
Author Organization [facility] Address [address] [place] [address] Phone Care Team Providers Care Pain Management Nurse Name Role Phone Yecenia Hutchins MD Primary Care Provider [phone] Allergies Active Allergy Reactions Criticality Noted Date [...] age to complete this topic Insurance Medicaid [place] [facility] Medicaid [place] Care Teams Pain Management Nurse Relationship Specialty Start Date End Date Yecenia Hutchins MD [address] [place] [address] PCP - General 04/12/20
== END 2024-10-27 11:16 | disposition home or self-care (01) ==
LOC: HO.HMCH 09:53
PROVIDERS: PCP Internal Medicine
DX: K85.90 Acute pancreatitis without necrosis or infection, unspecified (principal); R79.89 Other specified abnormal findings of blood chemistry; E11.9 Type 2 diabetes mellitus without complications; Z79.4 Long term (current) use of insulin; I10 Essential (primary) hypertension; R10.9 Unspecified abdominal pain

== ENCOUNTER 2024-11-01 13:08 | Outpatient (REF) | payer OTHER, SELFPAY ==
--- NOTE | ~2024-11-01 | MR_ITS ---
CLINICAL HISTORY: K85.90 - Acute pancreatitis without necrosis or infection, unspecified MRI of the abdomen with and without IV contrast. COMPARISON: CT abdomen dated 10/09/24 at 22:00 EDT MR abdomen dated 10/03/23 at 11:01 EDT FINDINGS: Visualized lung bases are clear. No focal hepatic lesion. Uniform splenic signal. Normal adrenal glands. Symmetric renal size. No hydronephrosis. Visualized portions of the bowel in the upper abdomen are unremarkable. No mesenteric or retroperitoneal lymphadenopathy. Normal vertebral body alignment. No bone lesion identified. Normal gallbladder. No pericholecystic inflammatory changes. No cholelithiasis. No intrahepatic biliary ductal dilatation. Common bile duct is normal in size in the pancreatic head measuring up to 3 mm. No choledocholithiasis. No peripancreatic edema. Pancreatic duct is not dilated. Pancreatic duct measures 2 mm in the pancreatic head. Similar fullness to the pancreatic tail. This region enhances similar to the remaining portions of the pancreas without evidence of lesion. No abnormal enhancement. IMPRESSION: 1. No evidence of pancreatitis. No choledocholithiasis, pancreatic duct dilatation or organizing fluid collection. 2. No evidence of cholecystitis. 3. Similar fullness of the pancreatic tail without abnormal enhancement. This document has been electronically signed by: Jan Chowdhury MD on 11/01/2024 17:32:15
--- OUTSIDE RECORDS SUMMARY | 2024-11-01 13:14 | XMS_ITS | Encounter Summary ---
Author Organization [employer] [facility] Address [address] [place] [address] Care Team Providers Care Revenue Field Agent Name Role Phone Unavailable Primary Care Provider Unavailabl e Encounter Details Date Type Department Care Team (Latest Contact Info) Description 11/27/2018 Abstract [facility] CONVERSIONS Dental, Provider, DDS Social History [...] Description 04/21/2025 3:00 PM EST Office Visit [facility] ADULT [facility] [address] [place] [address] [address] [place] [address] documented as of this encounter Visit Diagnoses Not on filedocumented in this encounter
--- OUTSIDE RECORDS SUMMARY | 2024-11-01 13:14 | XMS_ITS | Clinical Summary ---
Author Organization [facility] Address [address] [place] [address] Phone Care Team Providers Care Psychology Teacher Name Role Phone Yecenia Hutchins MD Primary Care Provider [phone] Allergies Active Allergy Reactions Criticality Noted Date [...] Weight 88.8 kg (195 lb 12.8 oz) 022 5:00 PM EDT Height 165.1 cm (5' [...] age to complete this topic Insurance Medicaid [place] [facility] Medicaid [place] Care Teams Psychology Teacher Relationship Specialty Start Date End Date Yecenia Hutchins MD [address] [place] [address] PCP - General 04/12/20
== END 2024-11-01 13:09 | disposition home or self-care (01) ==
LOC: HO.MRI 13:08
PROVIDERS: PCP Internal Medicine; Visit Provider Nurse Practitioner Family
DX: K85.90 Acute pancreatitis without necrosis or infection, unspecified (principal); Z87.19 Personal history of other diseases of the digestive system
CPT/HCPCS: 74183; A9585

== ENCOUNTER → 2024-11-01 13:20 | Outpatient (BNV) | payer OTHER, SELFPAY | PROVIDERS: PCP Internal Medicine; Visit Provider Radiology Diagnostic Radiology | DX: K86.89 Other specified diseases of pancreas (principal) | CPT/HCPCS: 74183 ==

== ENCOUNTER 2024-11-27 13:09 | Outpatient (AMB) | payer OTHER, SELFPAY ==
[2024-11-27 13:13] VITALS: BP 140/78; PULSE 68; RESP 18; TEMP 36.2; O2SAT 96; BMI 26.6
--- NOTE | 2024-11-27 13:13 | A.OFFPC_ITS ---
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 Required: No Accompanied by: Self / Same As Patient Allergies No Known Allergies Allergy (Verified 11/27/24 13:45) Medication List - Last Reconciled 11/27/24 by Yecenia Castellanos MD aspirin (Adult Low Dose Aspirin) 81 mg PO DAILY 90 days blood sugar diagnostic (Insurance NoodleTouch Verio test strips) Use 1 test strip once a day blood-glucose meter (Insurance NoodleTouch Verio Meter) As directed cholecalciferol (vitamin D3) 25 mcg PO DAILY 90 days Creon 36,000-114,000- 180,000 unit (sfyggj-aobyjhup-ysaskla) 1 cap PO QID NS fenofibrate 54 mg PO DAILY lancets (Insurance NoodleTouch UltraSoft Lancets) Use 1 lancet once a day linagliptin (Tradjenta) 5 mg PO DAILY metformin 1,000 mg PO BID 90 days polyvinyl alcohol 1.4% 1 drp ophthalmic (eye) QID simvastatin 20 mg PO BEDTIME 90 days tamsulosin 0.4 mg PO DAILY 90 days tramadol 50 mg PO Q8H PRN Tobacco use date assessed: 11/27/24 Fall risk assessment: No Falls in past year Last assessed Fall Risk: 11/27/24 Dental Screening Dental Screen Date: 11/27/24 Did you have a dental visit in the last 12 months?: Yes Did you have a dental problem in the last 6 months where you did not have access to dental care?: No Was dental information given to patient?: Patient has dentist HPI HPI Comments History of Present Illness Details The patient is a 69-year-old male presenting with a follow-up for diabetes and hypertension management. The patient has a history of diabetes mellitus, with the most recent hemoglobin A1c recorded at 8.3% in September, indicating suboptimal control. He is currently on metformin 1000 mg twice daily and linagliptin, but due to inadequate glycemic control, a switch to sitagliptin was discussed. The patient also has a history of hypertension, previously managed with losartan, which was discontinued due to dizziness. He reports that his blood pressure remains elevated, necessitating further evaluation and management. Hyperlipidemia is part of the patient's medical history, with LDL cholesterol at 62 mg/dL, indicating good control. Fenofibrate was discontinued as triglyceride levels were stable at 149 mg/dL. The patient has been noted to have anemia, with low hemoglobin levels, prompting a repeat test before his travel to [place]. He denies smoking and alcohol use, which are relevant to his overall health management. [facility] Medical History History of pancreatitis Diabetes Tubular adenoma of colon Headache Primary insomnia Anemia Mixed hyperlipidemia Essential hypertension Insomnia Surgical History Hx of hand surgery Hx of colonoscopy History of cataract surgery Family History Father No problems noted. Mother Diabetes Hypertension Daughter No problems noted. Son No problems noted. Sister No problems noted. Brother No problems noted. Social History Household Members: None Housing: Apartment Are you a primary animal daycare provider to a significant other at home: No Do you presently have visiting nurse or other home services: Yes (3 times a week) Unable to assess alcohol history related to: Unknown Alcohol intake: current Alcohol intake frequency: a few times a month Alcohol type: beer Comment: bed alarm use after PRN morphine if given Patient Tobacco Use Status: Never used Tobacco Tobacco use type: Cigarette e-Cigarette/Vaping Use: Never Used Second Hand Smoke Exposure: No service: No Current occupational status: unemployed Current occupational exposures/hazards: No Cognitive needs: No Hearing needs: No Vision needs: No Questionnaire PHQ-9 Over the last 2 weeks, how often have you been bothered by any of the following problems? 1. Little interest or pleasure in doing things: not at all 2. Feeling down, depressed, or hopeless: not at all 3. Trouble falling or staying asleep, or sleeping too much: not at all 4. Feeling tired or having little energy: not at all 5. Poor appetite or overeating: not at all 6. Feeling bad about yourself - or that you are a failure or have let yourself or your family down: not at all 7. Trouble concentrating on things, such as reading the newspaper or watching television: not at all 8. Moving or speaking so slowly that other people could have noticed. Or the opposite - being so fidgety or restless that you have been moving around a lot more than usual: not at all 9. Thoughts that you would be better off or of hurting yourself in some way: not at all Total score: 0 Depression Screening Interpretation: Negative Depression Screening Done: Yes 33188 - PHQ-9 Billing: Yes Source: Developed by Drs. Nirav Jenkins, Regina Rebollar, Abe Trejo and colleagues, with an educational dmitri from [employer]. Thrive Questionnaire Date Thrive assessed: 11/27/24 I am a: Patient What is your living situation today?: I have a steady place to live Within the past 12 months, did the food you bought not last and you didn't have the money to get more?: Never true Within the past 12 months, did you worry whether your food would run out before you got money to buy more?: Never true Do you have trouble paying for medicines?: No Do you have trouble getting transportation to medical appointments?: No Do you have trouble paying your heating and electricity bill?: No Do you have trouble taking care of your child, family member or friend?: No Do you have trouble with day-to-day activities such as bathing, preparing meals, shopping, managing finances, etc.?: No Are you currently unemployed and looking for a job?: No Are you interested in more education?: No Please select the resources that you would like help with: None Currently or been in a relationship where the following occur: No concerns reported THRIVE Score: 0 AUDIT C Alcohol Use Questionnaire (AUDIT-C) 1. How often do you have a drink containing alcohol?: Never 3. How often do you have six or more drinks on one occasion?: Never Total Score: 0 Score Reviewed/Action Taken: No JOVANNY-7 AMB Questionnaire JOVANNY-7 Date JOVANNY - 7 assessed: 11/27/24 Feeling nervous, anxious, or on edge: 0 = Not at all Not being able to stop or control worryin = Not at all Worrying too much about different things: 0 = Not at all Trouble relaxin = Not at all Being so restless that it is hard to sit still: 0 = Not at all Becoming easily annoyed or irritable: 0 = Not at all Feeling afraid as if something awful might happen: 0 = Not at all Total JOVANNY-7 score (0-4 normal; 5-9 mild; 10-14 moderate; 15-21 severe): 0 Source: Developed by Drs. Nirav Jenkins, Regina Rebollar, Abe Trejo and colleagues, with an educational dmitri from [employer]. JOVANNY-7 Assessment Billing JOVANNY-7 Assessment Tool: JOVANNY-7 Assessment 08589 Review of Systems Const All systems reviewed & are unremarkable except as noted in HPI and below Card Denies chest pain at rest, Denies chest pain with activity, Denies edema, Denies irregular heart rhythm, Denies claudication, Denies dyspnea, Denies dyspnea on exertion, Denies orthopnea, Denies paroxysmal nocturnal dyspnea and Denies slow heart rate Resp Denies cough, Denies dyspnea and Denies dyspnea on exertion Physical exam (Primary Care) Vital Signs: Last Vital Signs Temp 97.1 F 11/27/24 13:13 Pulse 68 11/27/24 13:13 Resp 18 11/27/24 13:13 BP 140/78 H 11/27/24 13:13 Pulse Ox 96 11/27/24 13:13 Oxygen Delivery Method Room Air 11/27/24 13:13 BMI result Body Mass Index 26.6 Tobacco/Smoking Status: Tobacco use Status Tobacco use date assessed 11/27/24 11/27/24 13:24 Patient Tobacco Use Status Never used Tobacco 11/27/24 13:16 Tobacco use type Cigarette 11/27/24 13:16 e-Cigarette/Vaping Use Never Used 11/27/24 13:16 PHQ-9: PHQ-9 Score PHQ-9: Total score 0 11/27/24 13:24 Depression Screening Interpretation: Negative Thrive Assessment: Date of Thrive Assessment Date Thrive assessed 11/27/24 11/27/24 13:24 Currently or been in a relationship where the following occur: No concerns reported Resp Effort & Inspection: normal respiratory effort Auscultation: clear to auscultation bilaterally Cardio Jugular venous distension: no JVD Rate: regular rate Rhythm: regular rhythm Heart sounds: S1 normal heart sound present and S2 normal heart sound present Extrem General: Yes full ROM Coding Level of Care Code Est Pt Level 4 (38430) Complex EM visit Add On G2211 Diagnoses Type 2 diabetes mellitus without complication, with long-term current use of insulin E11.9; Z79.4 Diabetes mellitus long-term insulin use: with long-term use Diabetes mellitus complication status: without complication Essential hypertension I10 Mixed hyperlipidemia E78.2 Hypovitaminosis D E55.9 Anemia, unspecified type D64.9 Anemia type: unspecified type Additional Codes JOVANNY-7 Assessment Billing - JOVANNY-7 Assessment Tool: JOVANNY-7 Assessment 79653 ([id number]) PHQ-9 - 61234 - PHQ-9 Billing: Yes ([id number]) Time Spent (min) 22 Assessment & Plan Assessment & Plan (1) DMII (diabetes mellitus, type 2): Code(s): E11.9 - Type 2 diabetes mellitus without complications Category: Medical Qualifiers: Diabetes mellitus keno terminal operator insulin use: with keno terminal operator use Diabetes mellitus complication status: without complication Qualified Code(s): E11.9 - Type 2 diabetes mellitus without complications; Z79.4 - intermediate frame tender (current) use of insulin (2) Essential hypertension: Code(s): I10 - Essential (primary) hypertension Category: Medical (3) Mixed hyperlipidemia: Code(s): E78.2 - Mixed hyperlipidemia Category: Medical (4) Hypovitaminosis D: Code(s): E55.9 - Vitamin D deficiency, unspecified Category: Medical (5) Anemia: Code(s): D64.9 - Anemia, unspecified Category: Medical Qualifiers: Anemia type: unspecified type Qualified Code(s): D64.9 - Anemia, unsp ecified Plan Plan Patient was informed and verbally consented to the use of an ambient scribe for clinic note documentation during this visit. 1. Type 2 diabetes mellitus without complications E11.9 HCC 19 The patient's diabetes management includes metformin and a switch from linagliptin to sitagliptin due to inadequate glycemic control. A follow-up hemoglobin A1c test is planned to assess the effectiveness of the new regimen. 2. Essential (primary) hypertension I10 The patient's hypertension management requires further evaluation due to elevated blood pressure readings. Losartan was previously discontinued due to dizziness, and alternative management strategies are being considered. 3. Hyperlipidemia, unspecified E78.5 The patient's hyperlipidemia is well-controlled with LDL cholesterol at 62 mg/dL. Fenofibrate was discontinued as triglyceride levels are stable. 4. Anemia, unspecified D64.9 The patient has anemia with low hemoglobin levels, prompting a repeat test before travel. Orders: Orders Complete Blood Count Auto Diff 4 Months D64.9 - Anemia, unspecified IRON PROFILE 4 Months D64.9 - Anemia, unspecified Lipid Panel 4 Months E78.5 - Hyperlipidemia, unspecified Microalbumin, Random (w Creat) 4 Months R80.9 - Proteinuria, unspecified Comprehensive Kevil. Panel Fast 4 Months E11.9 - Type 2 diabetes mellitus without complications, Z79.4 - snf (current) use of insulin Vitamin D 25-OH Total 4 Months E55.9 - Vitamin D deficiency, unspecified Medications: New losartan 25 mg PO DAILY 90 tabs 1RF 90 days sitagliptin phosphate (Januvia) 25 mg PO DAILY 90 tabs 1RF 90 days Changed From blood-glucose meter (OneTouch Verio Meter) As directed 1 ea 0RF E11.9 - Type 2 diabetes mellitus without complications To blood-glucose meter As directed 1 ea 0RF E11.9 - Type 2 diabetes mellitus without complications
--- OUTSIDE RECORDS SUMMARY | 2024-11-27 13:45 | XMS_ITS | Encounter Summary ---
Author Organization [employer] [facility] Address [address] [place] [address] Care Team Providers Care Life Sciences Director Name Role Phone Unavailable Primary Care Provider Unavailabl e Encounter Details Date Type Department Care Team (Late st Contact Info) Description 08/04/2022 Abstract [facility] ADULT DENTAL [address] [place] [address] Caryn Wheeler DDS [address] [place] [address] Social History Tobacco Use Types Packs/Day Years [...] 04/21/2025 3:00 PM EST Office Visit [facility] ADULT DENTAL [address] [place] [address] Onesimo Lraris [address] [place] [address] documented as of this encounter Visit Diagnoses Not on filedocumented in this encounter
--- OUTSIDE RECORDS SUMMARY | 2024-11-27 13:45 | XMS_ITS | Encounter Summary ---
Author Organization [employer] [facility] Address [address] [facility] [address] [place] [address] Care Team Providers Care Automation Control Integrator Name Role Phone Unavailable Primary Care Provider Unavailabl e Encounter Details Date Type Department Care Team (Late st Contact Info) Description 07/21/2022 Abstract [facility] ADULT DENTAL [address] [place] [address] Caryn Wheeler DDS [address] [place] [address] Social History Tobacco Use Types Packs/Day Years [...] Description 04/21/2025 3:00 PM EST Office Visit [facility] ADULT DENTAL [address] [place] [address] Onesimo Lraris [address] [place] [address] documented as of this encounter Visit Diagnoses Not on filedocumented in this encounter
--- OUTSIDE RECORDS SUMMARY | 2024-11-27 13:45 | XMS_ITS | Encounter Summary ---
Author Organization [employer] [facility] Address [address] [facility] [address] [place] [address] Care Team Providers Care R D Intern Name Role Phone Unavailable Primary Care Provider Unavailabl e Encounter Details Date Type Department Care Team (Late st Contact Info) Description 07/10/2022 Abstract [facility] ADULT DENTAL [address] [place] [address] Caryn Wheeler DDS [address] [place] [address] Social History Tobacco Use Types Packs/Day Years [...] Description 04/21/2025 3:00 PM EST Office Visit [facility] ADULT DENTAL [address] [place] [address] Onesimo Lraris [address] [place] [address] documented as of this encounter Visit Diagnoses Not on filedocumented in this encounter
--- OUTSIDE RECORDS SUMMARY | 2024-11-27 13:45 | XMS_ITS | Encounter Summary ---
Author Organization [employer] [facility] Address [address] [facility] [address] [place] [address] Care Team Providers Care Barge Worker Name Role Phone Unavailable Primary Care Provider Unavailabl e Encounter Details Date Type Department Care Team (Late st Contact Info) Description 10/25/2022 Abstract [facility] ADULT DENTAL [address] [place] [address] Caryn Wheeler DDS [address] [place] [address] Social History Tobacco Use Types Packs/Day Years [...] Description 04/21/2025 3:00 PM EST Office Visit [facility] ADULT DENTAL [address] [place] [address] Onesimo Lraris [address] [place] [address] documented as of this encounter Visit Diagnoses Not on filedocumented in this encounter
--- OUTSIDE RECORDS SUMMARY | 2024-11-27 13:45 | XMS_ITS | Encounter Summary ---
Author Organization [employer] [facility] Address [address] [facility] [address] [place] [address] Care Team Providers Care Napper Tender Name Role Phone Unavailable Primary Care Provider Unavailabl e Encounter Details Date Type Department Care Team (Late st Contact Info) Description 07/20/2022 Abstract [facility] ADULT DENTAL [address] [place] [address] Caryn Wheeler DDS [address] [place] [address] Social History Tobacco Use Types Packs/Day Years [...] Description 04/21/2025 3:00 PM EST Office Visit [facility] ADULT DENTAL [address] [place] [address] Onesimo Lraris [address] [place] [address] documented as of this encounter Visit Diagnoses Not on filedocumented in this encounter
--- OUTSIDE RECORDS SUMMARY | 2024-11-27 13:45 | XMS_ITS | Encounter Summary ---
Author Organization [employer] [facility] Address [address] [facility] [address] [place] [address] Care Team Providers Care Retail Selling Floor Leader Name Role Phone Unavailable Primary Care Provider Unavailabl e Encounter Details Date Type Department Care Team (Late st Contact Info) Description 07/13/2022 Abstract [facility] ADULT DENTAL [address] [place] [address] Shaista Lr [address] [place] [address] Social History Tobacco Use Types Packs/Day Years [...] Description 04/21/2025 3:00 PM EST Office Visit [facility] ADULT DENTAL [address] [place] [address] Onesimo Lraris [address] [place] [address] documented as of this encounter Visit Diagnoses Not on filedocumented in this encounter
--- OUTSIDE RECORDS SUMMARY | 2024-11-27 13:45 | XMS_ITS | Encounter Summary ---
Author Organization [employer] [facility] Address [address] [facility] [address] [place] [address] Care Team Providers Care Office Auditor Name Role Phone Unavailable Primary Care Provider Unavailabl e Encounter Details Date Type Department Care Team (Latest Contact Info) Description 11/27/2018 Abstract [facility] CONVERSIONS Dental, Provider, DDS Social History [...] Description 04/21/2025 3:00 PM EST Office Visit [facility] ADULT DENTAL [address] [place] [address] Onesimo Lraris [address] [place] [address] documented as of this encounter Visit Diagnoses Not on filedocumented in this encounter
--- OUTSIDE RECORDS SUMMARY | 2024-11-27 13:46 | XMS_ITS | Clinical Summary ---
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 Hypertension 10/06/2020 Chronic kidney disease 09/30/2020 Hypertensive renal disease 09/30/2020 Proteinuria 09/30/2020 DM w/o complication type II 05/01/2013 Encounters Date Type Department Care Team Description 10/08/2024 2:00 PM EDT Office Visit [facility] ADULT DENTAL [address] [place] [address] Shaista Lr Advanced periodontitis (Primary Dx); Dental calculus; Teeth missing; Generalized gingival recession; Excessive attrition of teeth, limited to enamel from Last 3 Months Immunizations Immunization Administration Dates Next Due Influenza injectable quadriv [...] Packs/Day Years Used Date Smoking Tobacco: Never Passive Smoke Exposure: Never Smokeless Tobacco: Never Tobacco Cessation:Counseling Given: Not Answered Sex and Gender Information Value Date Recorded Sex Assigned at Male 01/30/2022 10:25 AM EDT Legal Sex Male 10:25 AM EDT Gender Identity Male 01/30/2022 10:25 AM EDT Sexual Orientation Straight 01/30/2022 10 :25 AM EDT Last Filed Vital Signs Vital Sign Reading Time Taken Comments Blood Pressure 128/70 10/08/2024 1:44 PM EDT Pulse 68 11/17/2022 2:12 PM EDT Temperature - - Respiratory Rate - - Oxygen Saturation - - Inhaled Oxygen Concentration - - Weight - - Height - - Body Mass Index - - Plan of Treatment Upcoming Encounters Date Type Department Care Team (Late st Contact Info) Description 04/21/2025 3:00 PM EST Office Visit [facility] ADULT DENTAL [address] [place] [address] Onesimo Lraris [address] [place] [address] Health Maintenance Due Date Last Done Comments [...] Vaccine ( season) 2023 03/14/2022, 02/11/2021, 07/12/2020 Influenza Vaccine (#1) 2024 , 03/07/2023, 02/16/2022, Additional history exists Dental Oral Exam 04/11/2025 10/08/2024, , 05/10/2022 Dental Prophylaxis 04/11/2025 10/08/2024, 1 , 12/24/2023, Additional history exists Tobacco Screening 10/08/2025 10/08/2024 Dental X-Ray: Bitewings 10/09/2025 10/09/19 25, 12/24/2023, 12/11/2023, Additional history exists DTaP/Tdap/Td Vaccines (2 - Td or Tdap) 02/13/2026 02/14/2016 Dental X-Ray: Full Mouth 12/24/2026 12/24/2023, 11/01 Pneumococcal Vaccine: 50+ Years Completed 06/27/2023, 03/03/2019 Zoster Vaccines Completed 06/27/2023, 04/10/2023 HIB Vaccines Aged Out No longer eligi [...] patient's age to complete this topic Meningococcal B Vaccine Aged Out No l onger eligible based on patient's age to complete [...] Procedure Name Priority Date/Time Associated Diagnosis Comments COMPREHENSIVE PERIODONTAL EVALUATION - NEW OR ESTABLISHED PATIENT Routine 10/08/2024 2:00 PM EDT PERIODIC ORAL EVALUATION - ESTABLISHED PATIENT Routine 10/08/2024 2:00 PM EDT TOPICAL APPLICATION OF FLUORIDE VARNISH Routine 10/08/2024 2:00 PM EDT Advanced periodontitis Dental calculus Teeth missing Generalized gingival recession Excessive attrition of teeth, limited to enamel CASE PRESENTATION, DETAILED AND EXTENSIVE TREATMENT PLANNING Routine 10/08/2024 2:00 PM EDT Advanced periodontitis Dental calculus Teeth missing Generalized gingival recession Excessive attrition of teeth, limited to enamel ORAL HYGIENE INSTRUCTIONS Routine 2024 2:00 PM EDT Advanced periodontitis Dental calculus Teeth missing Generalized gingival recession Excessive attrition of teeth, limited to enamel PROPHYLAXIS - ADULT Routine 10/08/2024 2 :00 PM EDT Advanced periodontitis Dental calculus BITEWINGS - 4 RADIOGRAPHIC IMAGES Routine 10/08/2024 2:00 PM EDT Advanced periodontitis Dental calculus Teeth missing Generalized gingival recession Excessive attrition of teeth, limited to enamel 24,25 INTRAORAL - PERIAPICAL EACH ADDITIONAL RADIOGRAPHIC IMAGE Routine 10/08/2024 2:00 PM EDT Advanced periodontitis Dental calculus Teeth missing Generalized gingival recession Excessive attrition of teeth, limited to enamel 8,9 INTRAORAL - PERIAPICAL FIRST RADIOGRAPHIC IMAGE Routine 10/08/2024 2:00 PM EDT Advanced periodontitis Dental calculus Teeth missing Generalized gingival recession Excessive attrition of teeth, limited to enamel INTRAORAL - COMPLETE SERIES OF RADIOGRAPHIC IMAGES Routine 12/24/2023 9:00 AM EDT Periodontal disease Teeth missing Excessive attrition of teeth, limited to enamel Dental calculus Generalized gingival recession from Last 3 Months or Most Recently Relevant to Health Maintenance Insurance [facility] C[facility] DENTAL - [facility]
--- OUTSIDE RECORDS SUMMARY | 2024-11-27 13:46 | XMS_ITS | Clinical Summary ---
Author Organization [facility] Address [address] [place] [address] Phone Care Team Providers Care Oil Well Shooter Name Role Phone Yecenia Hutchins MD Primary Care Provider [phone] Allergies Active Allergy Reactions Criticality Noted Date [...] to complete this topic Insurance Medicaid [place] [facility] Medicaid [place] Care Teams Oil Well Shooter Relationship Specialty Start Date End Date Yecenia Hutchins MD [address] [place] [address] PCP - General 04/12/20
== END 2024-11-27 13:54 | disposition home or self-care (01) ==
LOC: HO.HMCH 13:10
PROVIDERS: PCP Internal Medicine; Visit Provider Internal Medicine
DX: E11.9 Type 2 diabetes mellitus without complications (principal); Z79.4 Long term (current) use of insulin; I10 Essential (primary) hypertension; E78.2 Mixed hyperlipidemia; E55.9 Vitamin D deficiency, unspecified; D64.9 Anemia, unspecified

== ENCOUNTER → 2024-11-27 13:09 | Outpatient (BNVA) | payer OTHER, SELFPAY | PROVIDERS: PCP Internal Medicine; Visit Provider Internal Medicine | DX: E11.9 Type 2 diabetes mellitus without complications (principal); I10 Essential (primary) hypertension; E78.2 Mixed hyperlipidemia; E55.9 Vitamin D deficiency, unspecified; D64.9 Anemia, unspecified; E78.5 Hyperlipidemia, unspecified; R80.9 Proteinuria, unspecified; Z79.4 Long term (current) use of insulin | CPT/HCPCS: 96127; 99212 ==

== ENCOUNTER 2024-12-10 12:55 | Outpatient (AMB) | payer OTHER, SELFPAY ==
--- NOTE | 2024-12-10 12:58 | A.OFFVIS_ITS ---
Vital Signs 12/10/24 13:00 Height 5 ft 5 in Weight 160 lb BMI 26.6 BP 138/76 Blood Pressure Location Rt brachial Position Sitting Pulse 96 Pulse Source Pulse Oximeter Pulse Oximetry (%) 97 Oxygen Delivery Method Room Air Intake Visit Reasons: f/u pancreatitis Intake Note: Est pt for mgmt of chronic abd pain, constipation, hx of pancreatitis. CC: Pt denies any GI sx or concerns at this time and confirms that his Rx are working as intended. Pt does need refills at this time. Soldering Machine Setter Required: Yes Soldering Machine Setter Services: Soldering Machine Setter Present Soldering Machine Setter Name: Missael [id number] Information Interpreted: clinical only Accompanied by: Self / Same As Patient Allergies No Known Allergies Allergy (Verified 11/27/24 13:45) HPI HPI f/u pancreatitis: Details: LAST VISIT History of pancreatitis Acute pancreatitis Plan Will repeat lab work again. Patient will be sent for EUS to [facility]. Will call to try to arrange this. Will repeat carbohydrate antigen as previous drawn could of been falsely positive in the setting of acute pancreatitis. Will repeat MRI to check his pancreas. Ideally MRCP would be probably best. Will start patient on Creon. Patient has an appointment with me in December he can not keep that appointment. He was encouraged to call our office if you have any GI concerning symptoms. Patient is agreeable to this plan and verbalizes understanding of instructions. He was given the opportunity to ask questions and all questions answered. ? Thank you for allowing me to participate in his care Orders Carbohydrate Antigen 19-9 Today D49.0 MR abdomen wo/w con Today K85.90, Z87.19 Creatinine Today R10.11 Blood Urea Nitrogen Today R10.11 Referrals Gastroenterology Referral K85.90 New Creon 36,000-114,000- 180,000 unit (vhemlx-tkozbiya-eyosvgv) administer with meals and/or snacks 1 cap PO QID 120 caps 3RF NS K86.89 TODAY'S VISIT Patient is here today for follow-up. Patient reports that he has been feeling well. Denies any abdominal pain or discomfort. Denies dyspepsia, dysphagia or odynophagia. MRI was normal no pancreatitis found. Patient reports that he has good appetite. Denies any nausea or vomiting. Denies any abdominal pain or discomfort. He reports that he feels better when taking Creon. He reports he is taking it with meals 3 to 4 times a day [facility] Medical History History of pancreatitis Diabetes Tubular adenoma of colon Headache Primary insomnia Anemia Mixed hyperlipidemia Essential hypertension Insomnia Surgical History Hx of hand surgery Hx of colonoscopy History of cataract surgery Family History Father No problems noted. Mother Diabetes Hypertension Daughter No problems noted. Son No problems noted. Sister No problems noted. Brother No problems noted. Social History Household Members: None Housing: Apartment Are you a primary nonfarm animal caretaker to a significant other at home: No Do you presently have visiting nurse or other home services: Yes (3 times a week) Unable to assess alcohol history related to: Unknown Alcohol intake: current Alcohol intake frequency: a few times a month Alcohol type: beer Comment: bed alarm use after PRN morphine if given Patient Tobacco Use Status: Never used Tobacco Tobacco use type: Cigarette e-Cigarette/Vaping Use: Never Used Second Hand Smoke Exposure: No service: No Current occupational status: unemployed Current occupational exposures/hazards: No Cognitive needs: No Hearing needs: No Vision needs: No Review of Systems Const Denies weight gain and Denies weight loss ENT Reports no additional complaints, Denies dysphagia and Denies odynophagia Card Reports no additional complaints Resp Reports no additional complaints GI Denies abdominal pain, Denies belching, Denies melena, Denies bloating, Denies change in bowel habits, Denies dysphagia, Denies excessive flatus, Denies dyspepsia, Denies heartburn, Denies diarrhea, Denies loose stools, Denies nausea, Denies odynophagia and Denies vomiting Reports no additional complaints Musc Reports no additional complaints Neuro Reports no additional complaints Psych Reports no additional complaints Endo Reports no additional complaints Physical Exam Vital Signs: Last Vital Signs Pulse 96 12/10/24 13:00 BP 138/76 12/10/24 13:00 Pulse Ox 97 12/10/24 13:00 Oxygen Delivery Method Room Air 12/10/24 13:00 BMI result Body Mass Index 26.6 Const General: healthy appearing and no acute distress Nutritional Appearance: obese Orientation/consciousness: patient oriented x3 Resp Effort & Inspection: normal respiratory effort, able to speak in complete sentences, no tracheal deviation and symmetric chest movement Auscultation: clear to auscultation bilaterally Cardio Rate: regular rate GI Other: Diastasis rectus Inspection: Yes normal to inspection, No distended and Yes obesity Palpation (GI): Soft to palpation, not firm, nontender and No hepatosplenomegaly present Auscultation: normal bowel sounds General: Yes no CVA tenderness Back/Spine/Pelvis Back: no CVA tenderness Skin General skin exam: elasticity normal, turgor normal and dry skin Neuro General: patient oriented x3 Psych Appearance: grossly normal Mental Status: mental status grossly normal Results Reviewed Results Reviewed: MRI OF ABDOMEN 11/01/2024 IMPRESSION: 1. No evidence of pancreatitis. No choledocholithiasis, pancreatic duct dilatation or organizing fluid collection. 2. No evidence of cholecystitis. 3. Similar fullness of the pancreatic tail without abnormal enhancement. Assessment & Plan Assessment & Plan (1) History of pancreatitis: Code(s): Z87.19 - Personal history of other diseases of the digestive system Category: Medical (2) Postprandial epigastric pain: Code(s): R10.13 - Epigastric pain Plan Continue Creon. Continue avoiding greasy, fast food. Patient was encouraged to eat more vegetables. Avoid dietary triggers and late night snacking. Staying upright for minimum 3 hours after meals discussed with patient. Patient will follow-up in 3 months, sooner on as needed basis. Patient is agreeable to this plan and verbalizes understanding of instructions. He was given the opportunity to ask questions and all questions answered. Thank you for allowing me to participate in his care Orders: Orders Lipase 12/10/24 R10.9 - Unspecified abdominal pain Carbohydrate Antigen 19-9 12/10/24 D49.0 - Neoplasm of unspecified behavior of digestive system Medications: New bismuth subsalicylate 2 tabs PO QID 112 tabs 0RF 14 days A04.8 - Other specified bacterial intestinal infections metronidazole 1,000 mg (2 x 500 mg) PO BID 56 tabs 0RF A04.8 - Other specified bacterial intestinal infections omeprazole 20 mg PO BID 28 caps 0RF 14 days K21.9 - Gastro-esophageal reflux disease without esophagitis, A04.8 - Other specified bacterial intestinal infections doxycycline hyclate 100 mg PO BID 28 caps 0RF 14 days Coding Level of Care Code Est Pt Level 3 (46533) Diagnoses History of pancreatitis Z87.19 Postprandial epigastric pain R10.13 Time Spent (min) 25 Comment 15 minutes spent with patient and additional 10 minutes spent reviewing his records
[2024-12-10 13:00] VITALS: BP 138/76; PULSE 96; O2SAT 97; BMI 26.6
--- OUTSIDE RECORDS SUMMARY | 2024-12-10 15:56 | XMS_ITS | Encounter Summary ---
Author Organization [employer] [facility] Address [address] [place] [address] Care Team Providers Care Chemical Processing Technician Name Role Phone Unavailable Primary Care Provider Unavailabl e Encounter Details Date Type Department Care Team (Late st Contact Info) Description 07/10/2022 Abstract [facility] ADULT DENTAL [address] [place] [address] Caryn Wheeler DDS [address] [place] [address] Social History Tobacco Use Types Packs/Day Years [...] [facility] [address] [place] [address] Onesimo Lraris [address] [place] [address] documented as of this encounter Visit Diagnoses Not on filedocumented in this encounter
--- OUTSIDE RECORDS SUMMARY | 2024-12-10 15:56 | XMS_ITS | Encounter Summary ---
Author Organization [employer] [facility] Address [address] [place] [address] Care Team Providers Care Knitting Machine Operator Automatic Name Role Phone Unavailable Primary Care Provider Unavailabl e Encounter Details Date Type Department Care Team (Latest Contact Info) Description 11/27/2018 Abstract [facility] Dental, Provider, DDS Social History [...] Description 04/21/2025 3:00 PM EST Office Visit [facility] ADULT DENTAL [address] [place] [address] [address] [place] [address] documented as of this encounter Visit Diagnoses Not on filedocumented in this encounter
--- OUTSIDE RECORDS SUMMARY | 2024-12-10 15:56 | XMS_ITS | Clinical Summary ---
Author Organization [facility] Address [address] [place] [address] Phone Care Team Providers Care Floor Covering Layer Name Role Phone Yecenia Hutchins MD Primary Care Provider [phone] Allergies Active Allergy Reactions Criticality Noted Date [...] age to complete this topic [place] [facility] Medicaid [place] Care Teams Floor Covering Layer Relationship Specialty Start Date End Date Yecenia Hutchins MD [address] [place] [address] PCP - General 04/12/20
--- OUTSIDE RECORDS SUMMARY | 2024-12-10 15:56 | XMS_ITS | Encounter Summary ---
Author Organization [facility] Address [address] [place] [address] Care Team Providers Care Computer Aided Design Operator Name Role Phone Unavailable Primary Care Provider Unavailabl e Encounter Details Date Type Department Care Team (Late st Contact Info) Description 07/13/2022 Abstract [facility] ADULT DENTAL [address] [place] [address] [address] [place] [address] Social History Tobacco Use Types Packs/Day Years [...] Description 04/21/2025 3:00 PM EST Office Visit [facility] ADULT DENTAL [address] [place] [address] Onesimo Lraris [address] [place] [address] documented as of this encounter Visit Diagnoses Not on filedocumented in this encounter
--- OUTSIDE RECORDS SUMMARY | 2024-12-10 15:56 | XMS_ITS | Encounter Summary ---
Author Organization [facility] Address [address] [place] [address] Care Team Providers Care General Medical Practitioner Name Role Phone Unavailable Primary Care Provider Unavailabl e Encounter Details Date Type Department Care Team (Late st Contact Info) Description 10/25/2022 Abstract [facility] ADULT DENTAL [address] [place] [address] Caryn Wheeler DDS [address] [place] [address] Social History Tobacco Use Types Packs/Day Years [...] Description 04/21/2025 3:00 PM EST Office Visit [facility]ULT DENT[facility] [address] [place] [address] Onesimo Lraris [address] [place] [address] documented as of this encounter Visit Diagnoses Not on filedocumented in this encounter
--- OUTSIDE RECORDS SUMMARY | 2024-12-10 15:56 | XMS_ITS | Encounter Summary ---
Author Organization [facility] [facility] Address [address] [place] [address] Care Team Providers Care Herb Doctor Name Role Phone Unavailable Primary Care Provider Unavailabl e Encounter Details Date Type Department Care Team (Late st Contact Info) Description 07/20/2022 Abstract [facility] ADULT DENTAL [address] [place] [address] Caryn Wheeler DDS [address] [place] [address] Social History Tobacco Use Types Packs/Day Years [...] 3:00 PM EST Office Visit [facility] ADULT DENTAL [address] [place] [address] Onesimo Lraris [address] [place] [address] documented as of this encounter Visit Diagnoses Not on filedocumented in this encounter
--- OUTSIDE RECORDS SUMMARY | 2024-12-10 15:56 | XMS_ITS | Clinical Summary ---
Author Organization [employer] Address [address] [place] [address] Care Team Providers Care Controlled Atmospheric Furnace Brazer Name Role Phone Unavailable Primary Care Provider [...] Description 10/08/2024 2:00 PM EDT Office Visit [facility] ADULT D[facility] [address] [place] [address] [address]r Advanced periodontitis (Primary Dx); Dental [...] [facility] [address] [place] [address] Onesimo Lraris [address] [place] [address] Health Maintenance Due Date Last Done Comments [...] years 1-dose series) 2014 COVID-19 Vaccine ( - season) 2024 03/14/2022, 02/11/2021, 07/12/2020 Influenza Vaccine (#1) 2024 [...] Most Recently Relevant to Health Maintenance Insurance [facility] C[facility] DENTAL - [facility]
--- OUTSIDE RECORDS SUMMARY | 2024-12-10 15:56 | XMS_ITS | Encounter Summary ---
Author Organization [employer] [facility] Address [address] [place] [address] Care Team Providers Care Hybrid Powertrain Development Engineer Name Role Phone Unavailable Primary Care Provider Unavailabl e Encounter Details Date Type Department Care Team (Late st Contact Info) Description 08/04/2022 Abstract [facility] ADULT DENTAL [address] [place] [address] Caryn Wheeler DDS [address] [place] [address] Social History Tobacco Use Types Packs/Day Years [...] Description 04/21/2025 3:00 PM EST Office Visit [facility] ADULT DENTAL [address] [place] [address] Onesimo Lraris [address] [place] [address] documented as of this encounter Visit Diagnoses Not on filedocumented in this encounter
--- OUTSIDE RECORDS SUMMARY | 2024-12-10 15:56 | XMS_ITS | Encounter Summary ---
Author Organization [employer] [facility] Address [address] [place] [address] Care Team Providers Care Hydraulic And Plumbing Installer Name Role Phone Unavailable Primary Care Provider Unavailabl e Encounter Details Date Type Department Care Team (Late st Contact Info) Description 07/21/2022 Abstract [facility] ADULT DENTAL [address] [place] [address] Caryn Wheeler DDS [address] [place] [address] Social History Tobacco Use Types Packs/Day Years [...] Description 04/21/2025 3:00 PM EST Office Visit [facility] ADULT DENTAL [address] [place] [address] Onesimo Lraris [address] [place] [address] documented as of this encounter Visit Diagnoses Not on filedocumented in this encounter
== END 2024-12-10 13:39 | disposition home or self-care (01) ==
LOC: HO.HGI 12:56
PROVIDERS: PCP Internal Medicine; Visit Provider Nurse Practitioner Family
DX: Z87.19 Personal history of other diseases of the digestive system (principal); R10.13 Epigastric pain
CPT/HCPCS: 99213

== ENCOUNTER → 2024-12-10 12:55 | Outpatient (BNVA) | payer OTHER, SELFPAY | PROVIDERS: PCP Internal Medicine; Visit Provider Nurse Practitioner Family | DX: K21.9 Gastro-esophageal reflux disease without esophagitis (principal); A04.8 Other specified bacterial intestinal infections; D49.0 Neoplasm of unspecified behavior of digestive system | CPT/HCPCS: 99212 ==

== ENCOUNTER 2025-03-06 12:54 | Outpatient (AMB) | payer OTHER, SELFPAY ==
--- NOTE | 2025-03-06 12:56 | MHC.OFFVIS ---
Vital Signs 03/06/25 13:07 Height 5 ft 5 in Weight 163 lb 2.273 oz BMI 27.1 BP 130/72 Blood Pressure Location Rt brachial Position Sitting Pulse 76 Pulse Source Pulse Oximeter Pulse Oximetry (%) 96 Oxygen Delivery Method Room Air Intake Visit Reasons: 3 mos FUV. Review labs. IBS mgmt. Intake Note: Est pt for mgmt of chronic abd pain, constipation, hx of pancreatitis + HP CC: Pt denies any new GI concerns or sx at this time. Confirmed that he finished his abx and he has been doing well since then. Planning And Analysis Manager Required: Yes Planning And Analysis Manager Services: Planning And Analysis Manager Present Planning And Analysis Manager Name: Danyel [id number] + [facility] Information Interpreted: clinical only Accompanied by: Self / Same As Patient Allergies No Known Allergies Allergy (Verified 11/27/24 13:45) Medication List - Last Reconciled 03/06/25 by ANGEL Martell-BC aspirin (Adult Low Dose Aspirin) 81 mg PO DAILY 90 days blood sugar diagnostic (FreeStyle Lite Strips) As directed once daily blood-glucose meter As directed cholecalciferol (vitamin D3) 25 mcg PO DAILY 90 days Creon 36,000-114,000- 180,000 unit (ndljzg-tibtugev-jngrgzk (pork)) 1 cap PO QID NS lancets (OneTouch UltraSoft Lancets) Use 1 lancet once a day lancets (FreeStyle Lancets) As directed once daily losartan 25 mg PO DAILY 90 days metformin 1,000 mg PO BID 90 days polyvinyl alcohol 1.4% 1 drp ophthalmic (eye) QID simvastatin 20 mg PO BEDTIME 90 days sitagliptin phosphate (Januvia) 25 mg PO DAILY 90 days tamsulosin 0.4 mg PO DAILY 90 days tramadol 50 mg PO Q8H PRN HPI HPI 3 mos FUV. Review labs. IBS mgmt.: Details: LAST VISIT: History of pancreatitis Postprandial epigastric pain Plan Continue Creon. Continue avoiding greasy, fast food. Patient was encouraged to eat more vegetables. Avoid dietary triggers and late night snacking. Staying upright for minimum 3 hours after meals discussed with patient. Patient will follow-up in 3 months, sooner on as needed basis. Patient is agreeable to this plan and verbalizes understanding of instructions. He was given the opportunity to ask questions and all questions answered. ? Thank you for allowing me to participate in his care Orders Lipase 12/10/24 R10.9 Carbohydrate Antigen 19-9 12/10/24 D49.0 New bismuth subsalicylate 2 tabs PO QID 112 tabs 0RF 14 days A04.8 metronidazole 1,000 mg (2 x 500 mg) PO BID 56 tabs 0RF A04.8 omeprazole 20 mg PO BID 28 caps 0RF 14 days K21.9, A04.8 doxycycline hyclate 100 mg PO BID 28 caps 0RF 14 days TODAY'S VISIT Patient is here today for follow-up. Patient reports that he has been doing well since he finished antibiotics. Patient denies dyspepsia, dysphagia or odynophagia. Reports that he currently is not taking any PPI. His symptoms of acid reflux have been suppressed. Patient reports that he ran out of the script over a month ago. Patient reports that he was taking Dulcolax in the past and needs in script. Patient reports that it is helping him. Patient denies any melena, hematochezia, unintentional weight loss or ribbon like stools. Patient denies any GI concerning symptoms. Patient reports to be feeling well. Patient reports that he is taking Creon with meals and tolerating it well [facility] Medical History (Updated 03/06/25 @ 19:10 by Tara Hopper, [facility]) GERD (gastroesophageal reflux disease) History of pancreatitis Diabetes Tubular adenoma of colon Headache Primary insomnia Anemia Mixed hyperlipidemia Essential hypertension Insomnia Surgical History (Reviewed 12/10/24 @ 13:09 by Chaparro Ingram [facility]) Hx of hand surgery Hx of colonoscopy History of cataract surgery Family History Father No problems noted. Mother Diabetes Hypertension Daughter No problems noted. Son No problems noted. Sister No problems noted. Brother No problems noted. Social History Household Members: None Housing: Apartment Are you a primary health care / medical job titles to a significant other at home: No Do you presently have visiting nurse or other home services: Yes (3 times a week) Alcohol intake: current Alcohol intake frequency: a few times a month Alcohol type: beer Comment: bed alarm use after PRN morphine if given Patient Tobacco Use Status: Never used Tobacco Tobacco use type: Cigarette e-Cigarette/Vaping Use: Never Used Second Hand Smoke Exposure: No service: No Current occupational status: unemployed Current occupational exposures/hazards: No Cognitive needs: No Hearing needs: No Vision needs: No Review of Systems Const Denies weight gain and Denies weight loss ENT Reports no additional complaints, Denies dysphagia and Denies odynophagia Card Reports no additional complaints Resp Reports no additional complaints GI Denies abdominal pain, Denies belching, Denies melena, Denies bloating, Denies change in bowel habits, Denies dysphagia, Denies excessive flatus, Denies dyspepsia, Denies heartburn, Denies diarrhea, Denies loose stools, Denies nausea, Denies odynophagia and Denies vomiting Reports no additional complaints Musc Reports no additional complaints Neuro Reports no additional complaints Psych Reports no additional complaints Endo Reports no additional complaints Physical Exam Vital Signs: Last Vital Signs Pulse 76 03/06/25 13:07 BP 130/72 03/06/25 13:07 Pulse Ox 96 03/06/25 13:07 Oxygen Delivery Method Room Air 03/06/25 13:07 BMI result Body Mass Index 27.1 Const General: healthy appearing and no acute distress Nutritional Appearance: obese Orientation/consciousness: patient oriented x3 Resp Effort & Inspection: normal respiratory effort, able to speak in complete sentences, no tracheal deviation and symmetric chest movement Auscultation: clear to auscultation bilaterally Cardio Rate: regular rate GI Other: Diastasis rectus Inspection: Yes normal to inspection, No distended and Yes obesity Palpation (GI): Soft to palpation, not firm, nontender and No hepatosplenomegaly present Auscultation: normal bowel sounds General: Yes no CVA tenderness Back/Spine/Pelvis Back: no CVA tenderness Skin General skin exam: elasticity normal, turgor normal and dry skin Neuro General: patient oriented x3 Psych Appearance: grossly normal Mental Status: mental status grossly normal Assessment & Plan Assessment & Plan (1) History of pancreatitis: Code(s): Z87.19 - Personal history of other diseases of the digestive system Category: Medical (2) Pancreatitis: Code(s): K85.90 - Acute pancreatitis without necrosis or infection, unspecified Category: Medical Qualifiers: Chronicity: chronic Pancreatitis type: unspecified pancreatitis type Qualified Code(s): K86.1 - Other chronic pancreatitis (3) Acute pancreatitis: Code(s): K85.90 - Acute pancreatitis without necrosis or infection, unspecified Category: Medical Qualifiers: Pancreatitis type: unspecified pancreatitis type Acute pancreatitis complication: no infection or necrosis Qualified Code(s): K85.90 - Acute pancreatitis without necrosis or infection, unspecified (4) GERD (gastroesophageal reflux disease): Code(s): K21.9 - Gastro-esophageal reflux disease without esophagitis Category: Medical Qualifiers: Esophagitis presence: esophagitis presence not specified Qualified Code(s): K21.9 - Gastro-esophageal reflux disease without esophagitis (5) Constipation: Code(s): K59.00 - Constipation, unspecified Qualifiers: Constipation type: slow transit constipation Qualified Code(s): K59.01 - Slow transit constipation Plan Will recheck H pylori. Patient will start taking omeprazole daily. Avoid dietary triggers only 10 snacking. Staying upright for minimum 3 hours after meals discussed patient. Patient reports improved bloating. Continue Creon. Patient will continue taking Dulcolax daily. Increase fluid intake and activity to promote bowel motility. Patient will follow-up in our office in 3 months. He was encouraged to call us if he will have any GI concerning symptoms. He is agreeable to this plan and verbalizes understanding of instructions. He was given the opportunity to ask questions and all questions answered. Thank you for allowing me to participate in his care Orders: Orders H Pylori Breath Test Today K21.9 - Gastro-esophageal reflux disease without esophagitis Medications: New bisacodyl (Dulcolax (bisacodyl)) 10 mg (2 x 5 mg) PO BEDTIME 180 tabs 4RF omeprazole 20 mg PO DAILY 90 caps 2RF K21.9 - Gastro-esophageal reflux disease without esophagitis Coding Level of Care Code Est Pt Level 4 (13326) Complex visit Add On G2211 Diagnoses History of pancreatitis Z87.19 Chronic pancreatitis, unspecified pancreatitis type K86.1 Chronicity: chronic Pancreatitis type: unspecified pancreatitis type Acute pancreatitis without infection or necrosis, unspecified pancreatitis type K85.90 Pancreatitis type: unspecified pancreatitis type Acute pancreatitis complication: no infection or necrosis Gastroesophageal reflux disease, unspecified whether esophagitis present K21.9 Esophagitis presence: esophagitis presence not specified Slow transit constipation K59.01 Constipation type: slow transit constipation Time Spent (min) 35 Comment 25 minutes spent with patient and additional 10 minutes spent reviewing his records
[2025-03-06 13:07] VITALS: BP 130/72; PULSE 76; O2SAT 96; BMI 27.1
--- OUTSIDE RECORDS SUMMARY | 2025-03-06 16:47 | XMS_ITS | Encounter Summary ---
Author Organization [employer] [facility] Address [address] [facility] 7t [place] [address] Care Team Providers Care Bisque Tile Burner Name Role Phone Unavailable Primary Care Provider Unavailabl e Encounter Details Date Type Department Care Team (Late st Contact Info) Description 07/10/2022 Abstract [facility] ADULT DENTAL [address] [place] [address] Caryn Wheeler DDS [address] [place] [address] Social History Tobacco Use Types Packs/Day Years [...] Description 04/21/2025 3:00 PM EST Office Visit [facility] ADULT DENTAL [address] [place] [address] Onesimo Lraris [address] [place] [address] documented as of this encounter Visit Diagnoses Not on filedocumented in this encounter
--- OUTSIDE RECORDS SUMMARY | 2025-03-06 16:47 | XMS_ITS | Encounter Summary ---
Author Organization [facility] [facility] Address [address] [facility] 7t [place] [address] Care Team Providers Care Circle Beveler Name Role Phone Unavailable Primary Care Provider Unavailabl e Encounter Details Date Type Department Care Team (Late st Contact Info) Description 10/25/2022 Abstract [facility] ADULT DENTAL [address] [place] [address] Caryn Wheeler DDS [address] [place] [address] Social History Tobacco Use Types Packs/Day Years [...] Description 04/21/2025 3:00 PM EST Office Visit [facility] ADULT DENTAL [address] [place] [address] Onesimo Lraris [address] [place] [address] documented as of this encounter Visit Diagnoses Not on filedocumented in this encounter
--- OUTSIDE RECORDS SUMMARY | 2025-03-06 16:47 | XMS_ITS | Clinical Summary ---
Author Organization [employer] Address [address] [facility] 7t [place] [address] Care Team Providers Care Hepatologist Name Role Phone Unavailable Primary Care Provider [...] DM w/o complication type II 05/01/2013 Immunizations Immunization Administration Dates Next Due Influenza [...] Description 04/21/2025 3:00 PM EST Office Visit [facility]ULT [facility] [address] [place] [address] Adeline, Shaista [address] [place] [address] Health Maintenance Due Date Last Done Comments [...] 60 years or older (1 - Risk 50-74 years 1-dose series) 02/28/2004 COVID-19 Vaccine ( season) 2024 03/14/2022, 02/11/2021, 07/12/2020 Influenza Vaccine [...] Associated Diagnosis Comments PROPHYLAXIS - ADULT Routine 10/08/2024 2 :00 PM EDT Advanced periodontitis Dental calculus BITEWINGS - 4 RADIOGRAPHIC IMAGES Routine 10/08/2024 2:00 PM EDT Advanced periodontitis Dental calculus Teeth missing Generalized gingival recession Excessive attrition of teeth, limited to enamel PERIODIC ORAL EVALUATION - ESTABLISHED PATIENT Routine 10/08/2024 2:00 PM EDT INTRAORAL - COMPLETE SERIES OF RADIOGRAPHIC IMAGES Routine 12/24/2023 9:00 AM EDT Periodontal disease Teeth missing Excessive attrition of teeth, limited to enamel Dental calculus Generalized gingival recession from Last 3 Months or Most Recently Relevant to Health Maintenance Insurance DENTAL [facility]
--- OUTSIDE RECORDS SUMMARY | 2025-03-06 16:47 | XMS_ITS | Clinical Summary ---
Author Organization [facility] Address [address] [place] [address] Phone Care Team Providers Care Promotions Specialist Name Role Phone Yecenia Hutchins MD Primary Care Provider [phone] Allergies Active Allergy Reactions Criticality Noted Date [...] age to complete this topic Insurance [place] [facility] Medicaid [place] Care Teams Promotions Specialist Relationship Specialty Start Date End Date Yecenia Hutchins MD [address] [place] [address] PCP - General 04/12/20
--- OUTSIDE RECORDS SUMMARY | 2025-03-06 16:47 | XMS_ITS | Encounter Summary ---
Author Organization [facility] Address [address] [facility] 7t [place] [address] Care Team Providers Care Clinical Admissions Manager Name Role Phone Unavailable Primary Care Provider Unavailabl e Encounter Details Date Type Department Care Team (Late st Contact Info) Description 07/21/2022 Abstract [facility] ADULT DENTAL [address] [place] [address] Caryn Wheeler DDS [address] [place] [address] Social History Tobacco Use Types Packs/Day Years [...] Description 04/21/2025 3:00 PM EST Office Visit [facility] ADULT DENTAL [address] [place] [address] Onesimo Lraris [address] [place] [address] documented as of this encounter Visit Diagnoses Not on filedocumented in this encounter
--- OUTSIDE RECORDS SUMMARY | 2025-03-06 16:47 | XMS_ITS | Encounter Summary ---
Author Organization [employer] [facility] Address [address] [facility] 7t [place] [address] Care Team Providers Care Railroad Car Painter Name Role Phone Unavailable Primary Care Provider Unavailabl e Encounter Details Date Type Department Care Team (Latest Contact Info) Description 11/27/2018 Abstract [facility] CONVERSIONS Dental, Provider, DDS Social [...] Visit [facility] ADULT DENTAL [address] [place] [address] [address] L[address] [place] [address] documented as of this encounter Visit Diagnoses Not on filedocumented in this encounter
--- OUTSIDE RECORDS SUMMARY | 2025-03-06 16:47 | XMS_ITS | Encounter Summary ---
Author Organization [employer] [facility] Address [address] [facility] 7t [place] [address] Care Team Providers Care Back Padder Name Role Phone Unavailable Primary Care Provider Unavailabl e Encounter Details Date Type Department Care Team (Late st Contact Info) Description 07/13/2022 Abstract [facility] ADULT DENTAL [address] [place] [address] Shaista Lr [address] [place] [address] Social History Tobacco Use Types Packs/Day Years [...] Description 04/21/2025 3:00 PM EST Office Visit [facility] ADULT [facility] [address] [place] [address] Onesimo Lraris [address] [place] [address] documented as of this encounter Visit Diagnoses Not on filedocumented in this encounter
--- OUTSIDE RECORDS SUMMARY | 2025-03-06 16:47 | XMS_ITS | Encounter Summary ---
Author Organization [employer] [facility] Address [address] [facility] 7t [place] [address] Care Team Providers Care Hairspring Vibrator Name Role Phone Unavailable Primary Care Provider Unavailabl e Encounter Details Date Type Department Care Team (Late st Contact Info) Description 07/20/2022 Abstract [facility] ADULT DENT[facility] [address] [place] [address] Caryn Wheeler DDS [address] [place] [address] Social History Tobacco Use Types Packs/Day Years [...] Description 04/21/2025 3:00 PM EST Office Visit [facility] [address] [place] [address] Onesimo Lraris [address] [place] [address] documented as of this encounter Visit Diagnoses Not on filedocumented in this encounter
--- OUTSIDE RECORDS SUMMARY | 2025-03-06 16:47 | XMS_ITS | Encounter Summary ---
Author Organization [employer] [facility] Address [address] [facility] [address] [place] [address] Care Team Providers Care Communications Systems Engineer Name Role Phone Unavailable Primary Care Provider Unavailabl e Encounter Details Date Type Department Care Team (Late st Contact Info) Description 08/04/2022 Abstract [facility] ADULT DENTAL [address] [place] [address] Caryn Wheeler DDS [address] [place] [address] Social History Tobacco Use Types Packs/Day Years [...] Description 04/21/2025 3:00 PM EST Office Visit [facility] ADULT D[facility] [address] [place] [address] Onesimo Lraris [address] [place] [address] documented as of this encounter Visit Diagnoses Not on filedocumented in this encounter
== END 2025-03-06 14:01 | disposition home or self-care (01) ==
LOC: HO.HGI 12:55
PROVIDERS: PCP Internal Medicine; Visit Provider Nurse Practitioner Family
DX: Z87.19 Personal history of other diseases of the digestive system (principal); K86.1 Other chronic pancreatitis; K85.90 Acute pancreatitis without necrosis or infection, unspecified; K21.9 Gastro-esophageal reflux disease without esophagitis; K59.01 Slow transit constipation
CPT/HCPCS: 99214; G2211

== ENCOUNTER 2025-03-06 12:54 | Outpatient (REF) | payer OTHER, SELFPAY | END 2025-03-06 12:55 | disposition home or self-care (01) | LOC: HO.LNP 12:54 | PROVIDERS: PCP Internal Medicine; Visit Provider Nurse Practitioner Family | DX: K21.9 Gastro-esophageal reflux disease without esophagitis (principal); K85.90 Acute pancreatitis without necrosis or infection, unspecified; K59.01 Slow transit constipation; Z87.19 Personal history of other diseases of the digestive system; Z79.899 Other long term (current) drug therapy | CPT/HCPCS: 83013; 99212 ==

== ENCOUNTER 2025-03-10 06:10 | Outpatient (REF) | payer OTHER, SELFPAY ==
[2025-03-10 06:33] LABS: MANUAL DIFF FLAG NO
[2025-03-10 07:29] LABS: Hematocrit 39.6 % (42.0-52.0); Hemoglobin 12.8 g/dl (14.0-18.0); Imm Gran Abs Auto 0.01 X10*3/uL (0.00-0.03); Imm Gran Pct Auto 0.3 % (0.0-0.4); Lymphocytes Absolute Auto 2.0 X10*3/uL (1.2-4.9); Mean Corpuscular HGB Conc 32.3 g/dl (31.0-36.0); Mean Corpuscular Hemoglobin 25.4 pg (27.0-33.0); Mean Corpuscular Volume 78.7 fL (80.0-98.0); NRBC Abs Auto 0.000 X10*3/uL (0.0-0.012); NRBC Pct Auto 0.0 /100WBC (0.0-0.2); Platelet Count 240 X10*3/uL (160-400); Red Blood Count 5.03 X10*6/uL (4.60-5.80); White Blood Count 3.8 X10*3/uL (4.8-10.8)
[2025-03-10 08:13] LABS: Alanine Aminotransferase 22 U/L (0-40); Albumin Level 4.4 g/dL (3.5-5.0); Alkaline Phosphatase 61 U/L (39-117); Anion Gap 10 (12-20); Aspartate Amino Transferase 22 U/L (5-37); Blood Urea Nitrogen 17 mg/dL (9-16); Calcium 9.4 mg/dL (8.4-10.2); Carbon Dioxide 25 mmol/L (22-29); Chloride 111 mmol/L (96-108); Cholesterol 170 mg/dL (<200); Estimated Glomerular Filt Rate 60; HDL Cholesterol 43 mg/dL (>40); Iron 62 mcg/dL (45-160); Percent Iron Saturation 20 % (15-50); Potassium 4.2 mmol/L (3.3-5.1); Sodium 142 mmol/L (135-145); Total Iron Binding Capacity 314 mcg/dL (228-428); Total Protein 7.3 g/dL (6.5-8.0); Triglycerides 165 mg/dL (<150); Unsaturated Iron Binding 252 ug/dL
[2025-03-10 08:20] LABS: Microalbum/Creatinine Ratio Ur 73.1 ug/mg cr (<30)
== END 2025-03-10 06:11 | disposition home or self-care (01) ==
LOC: HO.LAB 06:10
PROVIDERS: PCP Internal Medicine; Visit Provider Internal Medicine
DX: E11.9 Type 2 diabetes mellitus without complications (principal); E78.5 Hyperlipidemia, unspecified; E55.9 Vitamin D deficiency, unspecified; D64.9 Anemia, unspecified; R80.9 Proteinuria, unspecified; Z79.4 Long term (current) use of insulin
CPT/HCPCS: 36415; 80053; 80061; 82043; 82306; 82570; 83540; 85025

== ENCOUNTER 2025-03-11 15:59 | Outpatient (AMB) | payer OTHER, SELFPAY ==
--- NOTE | 2025-03-11 16:12 | MHC.PC.OV ---
Vital Signs 03/11/25 16:13 Height 5 ft 5 in Weight 163 lb BMI 27.1 BP 160/78 H Blood Pressure Location Lt brachial Position Sitting Pulse 78 Pulse Source Pulse Oximeter Pulse Oximetry (%) 98 Oxygen Delivery Method Room Air Intake Visit Reasons: annual exam Accounting Machine Servicer Required: No Accompanied by: Self / Same As Patient Allergies No Known Allergies Allergy (Verified 03/11/25 16:42) Medication List - Last Reconciled 03/11/25 by Yecenia Castellanos MD aspirin (Adult Low Dose Aspirin) 81 mg PO DAILY 90 days bisacodyl (Dulcolax (bisacodyl)) 10 mg (2 x 5 mg) PO BEDTIME blood sugar diagnostic (FreeStyle Lite Strips) As directed once daily blood-glucose meter As directed cholecalciferol (vitamin D3) 25 mcg PO DAILY 90 days Creon 36,000-114,000- 180,000 unit (kddkby-zwxrxlmd-mmlyynh (pork)) 1 cap PO QID NS lancets (OneTouch UltraSoft Lancets) Use 1 lancet once a day lancets (FreeStyle Lancets) As directed once daily losartan 25 mg PO DAILY 90 days metformin 1,000 mg PO BID 90 days omeprazole 20 mg PO DAILY polyvinyl alcohol 1.4% 1 drp ophthalmic (eye) QID simvastatin 20 mg PO BEDTIME 90 days sitagliptin phosphate (Januvia) 25 mg PO DAILY 90 days tamsulosin 0.4 mg PO DAILY 90 days tramadol 50 mg PO Q8H PRN Tobacco use date assessed: 11/27/24 Fall risk assessment: No Falls in past year Last assessed Fall Risk: 03/11/25 Dental Screening Dental Screen Date: 11/27/24 HPI HPI Comments History of Present Illness Details The patient is a 70-year-old male presenting for his physical exam. He has diabetes mellitus type 2 and he is A1c 7.7% today and dietary changes were advised. A1c improved from last time which was 8.3% and the goal is 7%. His LDL cholesterol is noted at 94 mg/dL. The patient reports no new surgeries. The patient underwent a colonoscopy this year which had an abnormal result, and he reports he needs to have it repeated. The date of his last eye exam was requested. [facility] Medical History GERD (gastroesophageal reflux disease) History of pancreatitis Diabetes Tubular adenoma of colon Headache Primary insomnia Anemia Mixed hyperlipidemia Essential hypertension Insomnia Surgical History Hx of hand surgery Hx of colonoscopy History of cataract surgery Family History Father No problems noted. Mother Diabetes Hypertension Daughter No problems noted. Son No problems noted. Sister No problems noted. Brother No problems noted. Social History Household Members: None Housing: Apartment Are you a primary child adolescent care to a significant other at home: No Do you presently have visiting nurse or other home services: Yes (3 times a week) Alcohol intake: current Alcohol intake frequency: a few times a month Alcohol type: beer Comment: bed alarm use after PRN morphine if given Patient Tobacco Use Status: Never used Tobacco Tobacco use type: Cigarette e-Cigarette/Vaping Use: Never Used Second Hand Smoke Exposure: No service: No Current occupational status: unemployed Current occupational exposures/hazards: No Cognitive needs: No Hearing needs: No Vision needs: No Questionnaire PHQ-9 Over the last 2 weeks, how often have you been bothered by any of the following problems? 1. Little interest or pleasure in doing things: not at all 2. Feeling down, depressed, or hopeless: not at all 3. Trouble falling or staying asleep, or sleeping too much: not at all 4. Feeling tired or having little energy: not at all 5. Poor appetite or overeating: not at all 6. Feeling bad about yourself - or that you are a failure or have let yourself or your family down: not at all 7. Trouble concentrating on things, such as reading the newspaper or watching television: not at all 8. Moving or speaking so slowly that other people could have noticed. Or the opposite - being so fidgety or restless that you have been moving around a lot more than usual: not at all 9. Thoughts that you would be better off or of hurting yourself in some way: not at all Total score: 0 Source: Developed by Drs. Nirav Jenkins, Abe Kwong and colleagues, with an educational dmitri from [employer] Thrive Questionnaire Date Thrive assessed: 03/11/25 I am a: Patient What is your living situation today?: I have a steady place to live Within the past 12 months, did the food you bought not last and you didn't have the money to get more?: Never true Within the past 12 months, did you worry whether your food would run out before you got money to buy more?: Never true Do you have trouble paying for medicines?: No Do you have trouble getting transportation to medical appointments?: No Do you have trouble paying your heating and electricity bill?: No Do you have trouble taking care of your child, family member or friend?: No Do you have trouble with day-to-day activities such as bathing, preparing meals, shopping, managing finances, etc.?: No Are you currently unemployed and looking for a job?: No Are you interested in more education?: No Currently or been in a relationship where the following occur: No concerns reported THRIVE Score: 0 AUDIT C Alcohol Use Questionnaire (AUDIT-C) 1. How often do you have a drink containing alcohol?: Never 3. How often do you have six or more drinks on one occasion?: Never Total Score: 0 Score Reviewed/Action Taken: No JOVANNY-7 AMB Questionnaire JOVANNY-7 Date JOVANNY - 7 assessed: 11/27/24 Source: Developed by Drs. Nirav Jenkins, Abe Kwong and colleagues, with an educational dmitri from [employer] Review of Systems Const All systems reviewed & are unremarkable except as noted in HPI and below Card Denies chest pain at rest, Denies chest pain with activity, Denies edema, Denies irregular heart rhythm, Denies claudication, Denies dyspnea, Denies dyspnea on exertion, Denies orthopnea, Denies paroxysmal nocturnal dyspnea and Denies slow heart rate Resp Denies cough, Denies dyspnea and Denies dyspnea on exertion GI Denies abdominal pain, Denies change in bowel habits, Denies excessive flatus, Denies nausea and Denies vomiting Denies urinary hesitancy, Denies urinary incontinence and Denies urinary urgency Musc Denies abnormal gait, Denies atrophy, Denies deformity and Denies limited range of motion Skin/Breast Denies bleeding lesions, Denies changing lesions and Denies rash Neuro Denies abnormal gait, Denies behavioral changes and Denies lack of coordination Psych Denies behavioral changes Physical exam (Primary Care) Vital Signs: Last Vital Signs Pulse 78 03/11/25 16:13 BP 160/78 H 03/11/25 16:13 Pulse Ox 98 03/11/25 16:13 Oxygen Delivery Method Room Air 03/11/25 16:13 BMI result Body Mass Index 27.1 Tobacco/Smoking Status: Tobacco use Status Tobacco use date assessed 11/27/24 03/11/25 16:15 Patient Tobacco Use Status Never used Tobacco 03/11/25 16:15 Tobacco use type Cigarette 03/11/25 16:15 e-Cigarette/Vaping Use Never Used 03/11/25 16:15 PHQ-9: PHQ-9 Score PHQ-9: Total score 0 03/11/25 16:45 Thrive Assessment: Date of Thrive Assessment Date Thrive assessed 03/11/25 03/11/25 16:15 Currently or been in a relationship where the following occur: No concerns reported [facility] Head: Yes normal to inspection, Yes normocephalic and Yes atraumatic Ears: external ears normal Eyes General: appearance normal, both eyes and all related structures Eyelids: Yes eyelids normal Conjunctivae: conjunctivae normal Neck Neck: Yes normal visual inspection and Yes supple Resp Effort & Inspection: normal respiratory effort Auscultation: clear to auscultation bilaterally Cardio Jugular venous distension: no JVD Rate: regular rate Rhythm: regular rhythm Heart sounds: S1 normal heart sound present and S2 normal heart sound present GI Inspection: Yes normal to inspection Palpation (GI): Soft to palpation and nontender Auscultation: normal bowel sounds Skin General skin exam: no rashes or lesions noted Neuro General: no focal motor deficits Extrem General: Yes full ROM Psych Appearance: grossly normal Office Procedures Flu Questionnaire Does the patient have a severe egg allergy?: No Does the patient have severe life threatening allergies?: No Does the patient have a fever or illness today?: No Has the patient ever had Guillain-[place] Syndrome?: No Has the patient ever had any past reaction to a flu shot?: No Results AMB Hemoglobin A1c AMB Hemoglobin A1c 7.7 % Last Edit by Deborah Hamilton CMA on 03/11/25 16:43 Immunizations Fluarix [id number] (PF) 45 mcg (15 mcg x 3)/0.5 mL IM syringe Performing Provider: Yecenia Castellanos MD [facility] Administered by: Deborah Hamilton CMA on 03/11/25 16:40 Dose Route Admin Location Dispensed Lot Number Expiration Date NDC Yarn Weigher 0.5 mL IM Left Deltoid 0.5 mL [id number] 09/29/25 [id number] [employer] VIS Given Date VIS Provided VIS Publication Date 03/11/25 Single Vaccine 24 Eligibility Eligibility Date Funding Source Not 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 Diabetes mellitus complication status: without complication Time Spent (min) 30 Assessment & Plan Assessment & Plan (1) Physical exam: Code(s): Z00.00 - Encounter for general adult medical examination without abnormal findings Category: Medical (2) DMII (diabetes mellitus, type 2): Code(s): E11.9 - Type 2 diabetes mellitus without complications Category: Medical Qualifiers: Diabetes mellitus retirement insulin use: with retirement use Diabetes mellitus complication status: without complication Qualified Code(s): E11.9 - Type 2 diabetes mellitus without complications; Z79.4 - oil heaterman (current) use of insulin Plan Plan 1. Physical exam Repeat in a year. Repeat colonoscopy. 1. Hypertension The patient's blood pressure is high, which may be related to his medication dosage. A prescription for losartan 100 mg has been sent. Blood pressure goal is equal or less than 130/80. 2. Hypercholesterolemia The patient's LDL cholesterol is 94 mg/dL. Laboratory tests will be ordered to recheck in 4 months. LDL goal is less than 70. 3. Anemia The patient's hemoglobin is slightly low. Follow-up laboratory tests in 4 months will include a check of his hemoglobin. 4. Diabetes mellitus type 2 A1c goal is equal or less than 7 %. Orders: Orders AMB Hemoglobin A1c 03/11/25 Z13.9 - Encounter for screening, unspecified Complete Blood Count Auto Diff 4 Months D64.9 - Anemia, unspecified IRON PROFILE 4 Months D64.9 - Anemia, unspecified Influenza [id number] Immunization 03/11/25 Z23 - Encounter for immunization Lipid Panel 4 Months E78.5 - Hyperlipidemia, unspecified Microalbumin, Random (w Creat) 03/11/25 R80.9 - Proteinuria, unspecified Comprehensive [place]. Panel Fast 4 Months E11.9 - Type 2 diabetes mellitus without complications, Z79.4 - oil heaterman (current) use of insulin Medications: New losartan 100 mg PO DAILY 90 tabs 1RF 90 days Refilled tramadol 50 mg PO Q8H PRN 10 tabs 0RF pain Discontinued losartan Discontinued Reason: Patient Completed Course 25 mg PO DAILY 90 days 90 tabs 1RF
[2025-03-11 16:13] VITALS: BP 160/78; PULSE 78; O2SAT 98; BMI 27.1
--- OUTSIDE RECORDS SUMMARY | 2025-03-12 00:42 | XMS_ITS | Clinical Summary ---
Author Organization [employer] Address [address] [facility] 7t [place] [address] Care Team Providers Care Machine Clipper Name Role Phone Unavailable Primary Care Provider [...] Description 04/21/2025 3:00 PM EST Office Visit [facility] ADULT DENTAL [address] [place] [address] Adeline, Shaista [address] [place] [address] Health Maintenance Due Date Last Done Comments [...] Recently Relevant to Health Maintenance Insurance [facility]AL [facility]
--- OUTSIDE RECORDS SUMMARY | 2025-03-12 00:42 | XMS_ITS | Encounter Summary ---
Author Organization [email or web address] [facility] Address [address] [facility] 7t [place] [address] Care Team Providers Care Equal Opportunity Specialist Name Role Phone Unavailable Primary Care Provider Unavailabl e Encounter Details Date Type Department Care Team (Late st Contact Info) Description 08/04/2022 Abstract [facility] ADULT DENTAL [address] [place] [address] Caryn Wheeler DDS [address] [place] [address] Social History Tobacco Use Types Packs/Day Years [...] Office Visit [facility] ADULT DENTAL [address] [place] [address] Onesimo Lraris [address] [place] [address] documented as of this encounter Visit Diagnoses Not on filedocumented in this encounter
--- OUTSIDE RECORDS SUMMARY | 2025-03-12 00:42 | XMS_ITS | Encounter Summary ---
Author Organization [facility] Address [address] [facility] 7t [place] [address] Care Team Providers Care Real Estate Associate Name Role Phone Unavailable Primary Care Provider Unavailabl e Encounter Details Date Type Department Care Team (Late st Contact Info) Description 07/10/2022 Abstract [facility] ADULT DENTAL [address] [place] [address] Caryn Wheeler DDS [address] [place] [address] Social History Tobacco Use Types Packs/Day Years [...] [facility] [address] [place] [address] Onesimo Lraris [address] [place] [address] documented as of this encounter Visit Diagnoses Not on filedocumented in this encounter
--- OUTSIDE RECORDS SUMMARY | 2025-03-12 00:42 | XMS_ITS | Encounter Summary ---
Author Organization [employer] [facility] Address [address] [facility] [address]t [place] [address] Care Team Providers Care Concrete Fence Builder Name Role Phone Unavailable Primary Care Provider Unavailabl e Encounter Details Date Type Department Care Team (Late st Contact Info) Description 07/20/2022 Abstract [facility] ADULT DENTAL [address] [place] [address] Caryn Wheeler DDS [address] [place] [address] Social History Tobacco Use Types Packs/Day Years [...] Description 04/21/2025 3:00 PM EST Office Visit [facility] ADULT DENTAL [address] [place] [address] Onesimo Lraris [address] [place] [address] documented as of this encounter Visit Diagnoses Not on filedocumented in this encounter
--- OUTSIDE RECORDS SUMMARY | 2025-03-12 00:42 | XMS_ITS | Encounter Summary ---
Author Organization [facility] Address [address] [facility] [address] [place] [address] Care Team Providers Care Electric Blanket Packer Name Role Phone Unavailable Primary Care Provider Unavailabl e Encounter Details Date Type Department Care Team (Late st Contact Info) Description 10/25/2022 Abstract [facility] ADULT DENTAL [address] [place] [address] Caryn Wheeler DDS [address] [place] [address] Social History Tobacco Use Types Packs/Day Years [...] Description 04/21/2025 3:00 PM EST Office Visit [facility] ADULT DENTAL [address] [place] [address] Onesimo Lraris [address] [place] [address] documented as of this encounter Visit Diagnoses Not on filedocumented in this encounter
--- OUTSIDE RECORDS SUMMARY | 2025-03-12 00:42 | XMS_ITS | Encounter Summary ---
Author Organization [employer] [facility] Address [address] [facility] 7t [place] [address] Care Team Providers Care Toy Consultant Name Role Phone Unavailable Primary Care Provider Unavailabl e Encounter Details Date Type Department Care Team (Latest Contact Info) Description 11/27/2018 Abstract [facility] CONVERSIONS Dental, Provider, DDS Social History [...] 3:00 PM EST Office Visit [facility] ADULT DENTAL [address] [place] [address] [address] [place] [address] documented as of this encounter Visit Diagnoses Not on filedocumented in this encounter
--- OUTSIDE RECORDS SUMMARY | 2025-03-12 00:42 | XMS_ITS | Encounter Summary ---
Author Organization [facility] Address [address] [place] [address] Care Team Providers Care [employer] Music Director Name Role Phone Unavailable Primary Care Provider Unavailabl e Encounter Details Date Type Department Care Team (Late st Contact Info) Description 07/21/2022 Abstract [facility] [address] [place] [address] Caryn Wheeler DDS [address] [place] [address] Social History Tobacco Use Types Packs/Day Years [...] Description 04/21/2025 3:00 PM EST Office Visit [facility] [address] [place] [address] Onesimo Lraris [address] [place] [address] documented as of this encounter Visit Diagnoses Not on filedocumented in this encounter
--- OUTSIDE RECORDS SUMMARY | 2025-03-12 00:42 | XMS_ITS | Clinical Summary ---
Author Organization [facility] Address [address] [place] [address] Phone Care Team Providers Care Automatic I Threading Machine Feeder Name Role Phone Yecenia Hutchins MD Primary Care Provider [phone] Allergies Active Allergy Reactions Criticality Noted Date [...] Rate - - Oxygen Saturation 95% 10/06/2020 3: 41 PM EDT Inhaled Oxygen Concentration - - [...] to complete this topic Insurance Medicaid [place] [facility] Medicaid [place] Care Teams Automatic I Threading Machine Feeder Relationship Specialty Start Date End Date Yecenia Hutchins MD [address] [place] [address] PCP - General 04/12/20
--- OUTSIDE RECORDS SUMMARY | 2025-03-12 00:42 | XMS_ITS | Encounter Summary ---
Author Organization [facility] Address [address] [place] [address] Care Team Providers Care Copy Chief Name Role Phone Unavailable Primary Care Provider Unavailabl e Encounter Details Date Type Department Care Team (Late st Contact Info) Description 07/13/2022 Abstract [facility] [address] [place] [address] Shaista Lr [address] [place] [address] Social History Tobacco Use Types Packs/Day Years [...] EST Office Visit [facility] [address] [place] [address] Onesimo Lraris [address] [place] [address] documented as of this encounter Visit Diagnoses Not on filedocumented in this encounter
== END 2025-03-11 16:55 | disposition home or self-care (01) ==
LOC: HO.HMCH 16:00
PROVIDERS: PCP Internal Medicine; Visit Provider Internal Medicine
DX: Z00.00 Encounter for general adult medical examination without abnormal findings (principal); E11.9 Type 2 diabetes mellitus without complications; Z79.4 Long term (current) use of insulin

== ENCOUNTER → 2025-03-11 15:59 | Outpatient (BNVA) | payer OTHER, SELFPAY | PROVIDERS: PCP Internal Medicine; Visit Provider Internal Medicine | DX: Z00.00 Encounter for general adult medical examination without abnormal findings (principal); E11.9 Type 2 diabetes mellitus without complications; Z23 Encounter for immunization; Z13.31 Encounter for screening for depression; Z79.4 Long term (current) use of insulin | CPT/HCPCS: 83036; 90471; 90656; 96127; 99397 ==